=== PATIENT | male | born 1935 | race Caucasian/White ===

== ENCOUNTER 2022-08-29 13:36 | Outpatient (CLI) | payer MEDICARE, SELFPAY | END 2022-08-29 13:37 | disposition home or self-care (01) | LOC: AMB 08-30 01:43 | PROVIDERS: PCP Family Medicine; Visit Provider Family Medicine | DX: R07.89 Other chest pain (principal) | CPT/HCPCS: A0998 ==

== ENCOUNTER 2022-08-29 14:17 | Outpatient (CLI) | payer MEDICARE, SELFPAY | END 2022-08-29 14:18 | disposition home or self-care (01) | LOC: AMB 08-30 01:54 | PROVIDERS: PCP Family Medicine; Visit Provider Family Medicine | DX: R07.89 Other chest pain (principal) | CPT/HCPCS: A0425; A0427 ==

== ENCOUNTER 2022-08-29 14:37 | Emergency (ER) | payer MEDICARE, SELFPAY ==
[2022-08-29] VITALS (31 sets, daily range): BP systolic 136–192; BP diastolic 75–169; PULSE 66–96; RESP 18; TEMP 37.3; O2SAT 97–100; BMI 28.9
--- NOTE | 2022-08-29 14:52 | ED_ITS ---
HPI - Chest Pain General Time Seen by Provider: 14:52 Date Seen: 08/29/22 Chief Complaint: Chest Pain Stated Complaint: Chest Pain Time Seen by Provider: 08/29/22 14:52 Source: patient Mode of arrival: EMS Limitations: no limitations History of Present Illness HPI narrative: Patient is a very pleasant 87-year-old male with history of 2 ?many heart attacks? many years ago, who comes to the emergency room via EMS for chest pain. Patient notes that he was sitting today not particularly active when he started experiencing substernal chest pain that radiated into his shoulders and into his jaw bilaterally. He notes that this was not ?laser focus pain but rather diffuse. He states that this lasted a half an hour and he did call EMS. He declined EMS transport and they did depart. He notes that he got up to answer the door and talk to a neighbor and after this activity the chest pain return. He did call EMS once again and they brought him here to the emergency room. He is still experiencing chest discomfort that he describes as mild but it is no longer radiating into his shoulders or into his jaw. He denies shortness of breath nausea or lightheadedness. He does note that his left leg seems to be more swollen than normal. Patient recently discontinued aspirin because he is going to have a prostate biopsy in 1 week. Patient has not had a history of DVT. No recent cough cold or congestion. He denies any respiratory symptoms at this time. Denies any recent falls or trauma. Patient is retired. He lives in the [place] area. 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 Related Data Home Medications Medication Instructions Recorded Confirmed amlodipine 5 mg tablet 5 mg PO QPM 08/29/22 08/29/22 atorvastatin 80 mg tablet 80 mg PO QPM 08/29/22 08/29/22 blood sugar diagnostic (OneTouch 08/29/22 08/29/22 Verio test strips) fluocinonide 0.05 % topical 1 applic topical PRN 08/29/22 08/29/22 ointment glimepiride 2 mg tablet 2 mg PO QAM 08/29/22 08/29/22 linagliptin 5 mg tablet (Tradjenta) 5 mg PO QAM 08/29/22 08/29/22 losartan 100 mg tablet 100 mg PO DAILY 08/29/22 08/29/22 metformin 500 mg tablet,extended 500 mg PO 3XD 08/29/22 08/29/22 release 24 hr metoprolol succinate 100 mg 100 mg PO DAILY 08/29/22 08/29/22 tablet,extended release 24 hr mirabegron 25 mg tablet,extended 25 mg PO DAILY 08/29/22 08/29/22 release 24 hr (Myrbetriq) Allergies Allergy/AdvReac Type Severity Reaction Status Date / Time No Known Drug Allergies Allergy Verified 08/29/22 14:41 Review of Systems Status of ROS Reports: 10 or more systems reviewed and unremarkable except as noted in History and below Const Denies: fever, chills or fatigue Eyes Denies: change in vision or blurry vision ENMT Reports: neck pain (Resolved at this time); Denies: throat pain, throat swelling, difficulty swallowing or hoarseness Cardio Reports: chest pain and edema (Left leg); Denies: palpitations, lightheadedness or shortness of breath with exertion Resp Denies: shortness of breath GI Denies: abdominal pain, nausea, vomiting, diarrhea or difficulty swallowing Musculo Reports: neck pain (Resolved at this time) Neuro Reports: 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 EOM is full. Head is atraumatic normocephalic. Mentating and speaking normally Neck is supple with no lymphadenopathy Heart with regular rate and rhythm. 3/6 systolic murmur is noted. Lungs are clear bilaterally. Abdomen soft nontender. Lower extremity show scant peripheral edema right lower extremity which is normal for him. Left lower extremity shows 2+ edema. No calf tenderness with palpation. Moving all extremities. Const Vital Signs, click to edit/add: Vital Signs - 24 hr 08/29/22 14:41 08/29/22 14:42 08/29/22 14:43 Temperature 99.1 F Pulse Rate 95 91 Pulse Rate [Pulse Oximeter] 96 Respiratory Rate 18 Blood Pressure 181/94 H Blood Pressure [Right Upper Arm] 181/94 H Pulse Oximetry 100 100 100 Oxygen Delivery Method Room Air 08/29/22 14:44 08/29/22 15:00 08/29/22 15:02 Temperature Pulse Rate 95 90 92 Pulse Rate [Pulse Oximeter] Respiratory Rate Blood Pressure 158/96 H Blood Pressure [Right Upper Arm] Pulse Oximetry 100 100 100 Oxygen Delivery Method 08/29/22 15:30 08/29/22 16:00 08/29/22 16:03 Temperature Pulse Rate 89 86 79 Pulse Rate [Pulse Oximeter] Respiratory Rate Blood Pressure 136/91 H Blood Pressure [Right Upper Arm] Pulse Oximetry 99 99 98 Oxygen Delivery Method 08/29/22 16:30 08/29/22 16:32 08/29/22 17:00 Temperature Pulse Rate 81 77 77 Pulse Rate [Pulse Oximeter] Respiratory Rate Blood Pressure 137/104 H Blood Pressure [Right Upper Arm] Pulse Oximetry 100 100 99 Oxygen Delivery Method 08/29/22 17:02 08/29/22 17:30 08/29/22 17:31 Temperature Pulse Rate 71 72 Pulse Rate [Pulse Oximeter] Respiratory Rate Blood Pressure 139/75 155/83 H Blood Pressure [Right Upper Arm] Pulse Oximetry 97 99 Oxygen Delivery Method 08/29/22 18:03 08/29/22 18:04 08/29/22 18:30 Temperature Pulse Rate 69 69 66 Pulse Rate [Pulse Oximeter] Respiratory Rate Blood Pressure 192/90 H Blood Pressure [Right Upper Arm] Pulse Oximetry 100 99 100 Oxygen Delivery Method 08/29/22 18:32 08/29/22 18:33 Temperature Pulse Rate 70 72 Pulse Rate [Pulse Oximeter] Respiratory Rate Blood Pressure 169/90 H Blood Pressure [Right Upper Arm] Pulse Oximetry 99 98 Oxygen Delivery Method Documenting provider has reviewed patient's vital signs: yes Course Course Hospital Course: At this time in spite of reassuring EKG, patient has story that suggest angina. Initial chest pain came on at rest but returned with activity. It is now dissipating once again but still present in some substernal discomfort. Patient has no corresponding symptoms and denies shortness of breath. Will have patient on a director of cardiac rehabilitation, IV will be placed, suggest chest x-ray, CBC, comprehensive, troponin, CRP at this time. No medications at this time given dissipating symptoms. Would like to avoid aspirin if possible as I do not want to delay patient's biopsy next week. I did state that I may need to change my mind and give him aspirin and nitro if symptoms returned. Reevaluation(s) Reevaluation #1: Patient is now pain-free and has continued to be through most of the afternoon and evening. Currently awaiting ultrasound of the left lower extremity as well as repeat EKG and troponin. Given patient's symptoms I did not feel that a 90 minute rule out would be adequate. Thus we did a 4 hour rule out. Patient has had interaction with [facility] in the past. Reevaluation #2: Patient noted to have positive DVT extending above the knee. Currently waiting on radiological report. Patient noted to have a 2nd troponin which is positive 0.26. This was a point of care troponin and therefore will have a lab redraw for a troponin I. Patient denies chest pain at this time. Vital Signs Vital signs: Initial Vital Signs Respiratory Effort Normal 08/29/22 14:39 Respiratory Depth Normal 08/29/22 14:39 Respiratory Pattern Normal 08/29/22 14:39 Vital Signs Temperature 99.1 F 08/29/22 14:41 Pulse Rate 96 08/29/22 14:41 Respiratory Rate 18 08/29/22 14:41 Blood Pressure 181/94 H 08/29/22 14:41 Pulse Oximetry 100 08/29/22 14:41 Oxygen Delivery Method Room Air 08/29/22 14:41 Temperature 99.1 F 08/29/22 14:41 Pulse Rate 72 08/29/22 18:33 Respiratory Rate 18 08/29/22 14:41 Blood Pressure 169/90 H 08/29/22 18:32 Pulse Oximetry 98 08/29/22 18:33 Oxygen Delivery Method Room Air 08/29/22 14:41 MDM - Chest Pain MDM Narrative Medical decision making narrative: 1. Chest pain-still asymptomatic since approximately 1500 hours. Here in the emergency room patient noted to have an initial negative troponin but 2nd troponin 4 hours later 0.26. Certainly pain did sound anginal in nature. Patient will receive aspirin at this time. EKGs have been entirely normal and reassuring. No evidence of arrhythmia on heart monitor. Lopressor 2.5 mg IV x1. 2. DVT with PE-left lower extremity DVT noted with small PE in the right upper and lower lobes. No evidence of heart strain. I do not think PE is causing the elevation of troponin. This seems to be again more anginal rather than pleuritic in nature. Heparin 80 units per kg started followed by heparin drip. 3. Disposition-I have spoken with Dr. Cabrera, mobility manager at [facility] and they do have tele bed available. Patient will be transferred via ground ALS ambulance to [facility]. He has remained stable during this time. Medical Records Data Attestation: I reviewed the patient's medical records. Lab Data Attestation: I reviewed the patient's lab results. Labs: Lab Results 08/29/22 08/29/22 08/29/22 Range/Units 15:33 19:19 19:37 WBC 7.74 (4.50-11.00) K/uL RBC 4.79 (4.30-5.90) m/uL Hgb 14.6 (13.5-17.5) gm/dL Hct 43.7 (37.0-53.0) % MCV 91 (80-100) fL MCH 31 (26-34) pg MCHC 33 (32-36) gm/dL RDW Coeff of Susi 12.2 (11.5-15.5) % Plt Count 189 (140-440) K/uL Neut % (Auto) 74.9 H (42.0-72.0) % Lymph % (Auto) 14.2 L (20-44) % [place] % (Auto) 7.6 (0.0-11.0) % Eos % (Auto) 2.3 (0.0-7.0) % Baso % (Auto) 0.5 (0.0-3.0) % Neut # (Auto) 5.80 (1.7-7.0) K/uL Lymph # (Auto) 1.10 (0.90-2.90) K/uL [place] # (Auto) 0.60 (0.00-0.90) K/UL Eos # (Auto) 0.18 (0.00-0.50) K/uL Baso # (Auto) 0.04 (0.00-0.30) K/uL Sodium 132 L (135-149) mmol/L Potassium 3.9 (3.6-5.1) mmol/L Chloride 98 (96-114) mmol/L Carbon Dioxide 27 (20-32) mmol/L BUN 14 (7-30) mg/dL Creatinine 0.9 (0.5-1.5) mg/dL Estimated Creat Clear 61.65 Estimated GFR 83 ml/min Glucose 235 H (60-115) mg/dL Calcium 9.7 (8.4-10.6) mg/dL Total Bilirubin 0.8 (0.1-1.5) mg/dL AST 23 (12-35) U/L ALT 17 (4-50) U/L Alkaline Phosphatase 65 (40-150) U/L C-Reactive Protein < 0.5 L (0.5-1.0) mg/dL NT-Pro-B Natriuret Pep 207 pg/mL Total Protein 7.2 (6.0-8.3) g/dL Albumin 4.2 (3.3-5.0) g/dL SARS-CoV-2 (PCR) Negative SARS-CoV-2 (Negative) Influenza Type A (PCR) Negative PCR FLU A (Negative) Influenza Type B (PCR) Negative PCR FLU B (Negative) POC Troponin I 0.00 L 0.26 H (0.01-0.04) ng/ml Imaging Data Chest x-ray: Attestation: I have reviewed the pertinent imaging results. My impression: No widened mediastinum or infiltrate. Radiologist's impression: Cardiovascular and mediastinum:? Atherosclerotic drastic aorta. Normal heart size. Lungs and pleural spaces:? The lungs are clear. No pleural effusion or pneumothorax. Bones and soft tissues:? Cylindrical metallic object projecting over the left chest wall. Otherwise, unremarkable for age. IMPRESSION: No evidence of an acute pulmonary process. Cylindrical metallic object projecting over the left chest wall. Recommend clinical correlation. Venous US: Attestation: I have reviewed the pertinent imaging results. Radiologist's impression: Deep veins: Sonographic imaging demonstrates the left common femoral, and deep femoral veins to be patent. However the distal femoral, popliteal, posterior tibial and peroneal veins demonstrate filling defects compatible with thrombus. Superficial veins: Greater saphenous vein is fully compressible. No popliteal cyst. IMPRESSION: Filling defect from the left distal femoral vein extending into the popliteal vein and veins of the lower leg compatible with deep venous thrombosis. CT scan - chest: Attestation: I have reviewed the pertinent imaging results. My impression: No large PE. Radiologist's impression: Cardiovascular structures: There is a filling defect in a subsegmental pulmonary artery in the right upper lobe. Additional possible filling defect in a subsegmental pulmonary artery in the posterior medial right lower lobe. Heart size is normal. No evidence of heart strain. No sign of aneurysm or dissection in the thoracic aorta. Atherosclerotic calcifications of the aorta and coronary arteries. Mediastinum and edilson: No mass or adenopathy. Lungs: Clear. Calcified nodule in the left lower lobe. No pleural effusions. Chest wall and axilla: No mass or adenopathy. Bones: No significant findings. Upper abdomen: Unremarkable. IMPRESSION: 1. Subsegmental filling defect in the right upper lobe and possible additional subsegmental filling defect in the posterior medial right lower lobe are consistent with pulmonary emboli. No evidence of heart strain. ECG Data Attestation: I personally reviewed and interpreted this ECG as follows: Interpretation: EKG 1. By my read shows sinus rhythm with no acute ST or T-wave changes. Normal QT and AR intervals. EKG 2. By my read shows sinus rhythm with no acute ST or T-wave changes. No evidence of heart strain. Critical Care Time Critical Care Time Critical Care Time: Yes Attestation: The patient required my highest level preparedness to intervene emergently and I personally spent this critical care time directly and personally managing the patient. This critical care time included: Obtaining a history; Examining the patient; Pulse oximetry; Ordering and reviewing of studies; Arranging urgent treatment with development of a management plan; Evaluation of patients response to treatment; Frequent reassessment discussions with other providers. This critical care time was performed to assess and manage the high probability of imminent life-threatening deterioration that could result in multiorgan failure. It was exclusive of separate billable procedures and treating other patients and teaching time. Total Critical Care Time in Minutes: 45 Discharge Plan Discharge Clinical Impression: DVT (deep venous thrombosis), Elevated troponin Patient Disposition: Xfer [facility] Discharge Location: [facility] Condition: Improved Prescriptions: No Action atorvastatin 80 mg tablet 80 mg PO QPM metoprolol succinate 100 mg tablet extended release 24 hr 100 mg PO DAILY fluocinonide 0.05 % ointment 1 applic topical PRN (DME) OneTouch Verio test strips Strip MISCELLANEOUS BID amlodipine 5 mg tablet 5 mg PO QPM glimepiride 2 mg tablet 2 mg PO QAM losartan 100 mg tablet 100 mg PO DAILY metformin 500 mg tablet extended release 24 hr 500 mg PO 3XD Tradjenta 5 mg tablet 5 mg PO QAM Myrbetriq 25 mg tablet extended release 24 hr 25 mg PO DAILY Stand Alone Forms: [facility] Info Instructions
--- NOTE | 2022-08-29 15:10 | CRLHL7_ITS ---
For Patients: As a result of the Century Cures Act, medical imaging exams and procedure reports are released immediately into your electronic medical record. You may view this report before your referring provider. If you have questions, please contact your health care provider. INDICATION: Chest pain. TECHNIQUE: Chest 1 views. COMPARISON: 09/24/2015. FINDINGS: Cardiovascular and mediastinum: Atherosclerotic drastic aorta. Normal heart size. Lungs and pleural spaces: The lungs are clear. No pleural effusion or pneumothorax. Bones and soft tissues: Cylindrical metallic object projecting over the left chest wall. Otherwise, unremarkable for age. IMPRESSION: No evidence of an acute pulmonary process. Cylindrical metallic object projecting over the left chest wall. Recommend clinical correlation. Dictated by Jackson Gamble MD @ 08/29/2022 4:16:31 PM (Electronically Signed)
[2022-08-29 15:44] LABS: Basophils Absolute Auto 0.04 K/uL (0.00-0.30); Basophils Percent Auto 0.5 % (0.0-3.0); Eosinophils Absolute Auto 0.18 K/uL (0.00-0.50); Eosinophils Percent Auto 2.3 % (0.0-7.0); Hematocrit 43.7 % (37.0-53.0); Hemoglobin* 14.6 gm/dL (13.5-17.5); Immature Granulocytes Abs Auto 0.04 K/uL (0.00-0.30); Immature Granulocytes Pct Auto 0.5 %; Lymphocytes Percent Auto 14.2 % (20-44); Mean Corpuscular HGB Conc 33 gm/dL (32-36); Mean Corpuscular Hemoglobin 31 pg (26-34); Mean Corpuscular Volume 91 fL (80-100); Monocytes Percent Auto 7.6 % (0.0-11.0); Neutrophils Percent Auto 74.9 % (42.0-72.0); Platelet Count* 189 K/uL (140-440); RDW Coefficient of Variation % 12.2 % (11.5-15.5); Red Blood Count 4.79 m/uL (4.30-5.90); White Blood Count* 7.74 K/uL (4.50-11.00)
[2022-08-29 15:49] LABS: Slide Review Reflex No
[2022-08-29 15:58] LABS: Albumin* 4.2 g/dL (3.3-5.0); Chloride* 98 mmol/L (96-114); Sodium* 132 mmol/L (135-149)
[2022-08-29 15:59] LABS: Potassium* 3.9 mmol/L (3.6-5.1)
[2022-08-29 16:01] LABS: Creatinine* 0.9 mg/dL (0.5-1.5); Est. Creatinine Clearance* 61.65; Estimated Glomerular Filt Rate 83 ml/min
[2022-08-29 16:02] LABS: Alanine Aminotransferase* 17 U/L (4-50); Alkaline Phosphatase* 65 U/L (40-150); Aspartate Amino Transferase* 23 U/L (12-35); Bilirubin Total* 0.8 mg/dL (0.1-1.5); Blood Urea Nitrogen* 14 mg/dL (7-30); Calcium* 9.7 mg/dL (8.4-10.6); Carbon Dioxide* 27 mmol/L (20-32); Glucose* 235 mg/dL (60-115); Total Protein* 7.2 g/dL (6.0-8.3)
[2022-08-29 16:05] LABS: C Reactive Protein* < 0.5 mg/dL (0.5-1.0)
[2022-08-29 16:16] LABS: NT Pro B Type NatriureticPept* 207 pg/mL
--- NOTE | 2022-08-29 18:51 | CRLHL7_ITS ---
For Patients: As a result of the Century Cures Act, medical imaging exams and procedure reports are released immediately into your electronic medical record. You may view this report before your referring provider. If you have questions, please contact your health care provider. INDICATION: Leg pain and swelling. TECHNIQUE: Ultrasound venous duplex lower left extremity. Compression venous exam was performed using garner-scale, color Doppler, and spectral Doppler analysis. COMPARISON: None. FINDINGS: Deep veins: Sonographic imaging demonstrates the left common femoral, and deep femoral veins to be patent. However the distal femoral, popliteal, posterior tibial and peroneal veins demonstrate filling defects compatible with thrombus. Superficial veins: Greater saphenous vein is fully compressible. No popliteal cyst. IMPRESSION: Filling defect from the left distal femoral vein extending into the popliteal vein and veins of the lower leg compatible with deep venous thrombosis. Findings discussed with Dr. Hayde Corado at 8:50 p.m. on 08/29/2022. Dictated by Don Landaverde MD @ 08/29/2022 8:53:40 PM (Electronically Signed)
[2022-08-29 19:33] LABS: Troponin, Point-of-Care* 0.26 ng/ml (0.01-0.04)
--- NOTE | 2022-08-29 19:42 | CRLHL7_ITS ---
For Patients: As a result of the Century Cures Act, medical imaging exams and procedure reports are released immediately into your electronic medical record. You may view this report before your referring provider. If you have questions, please contact your health care provider. INDICATION: Chest pain. Positive DVT TECHNIQUE: CT chest pulmonary angiogram acquired with IV contrast. COMPARISON: None FINDINGS: Cardiovascular structures: There is a filling defect in a subsegmental pulmonary artery in the right upper lobe. Additional possible filling defect in a subsegmental pulmonary artery in the posterior medial right lower lobe. Heart size is normal. No evidence of heart strain. No sign of aneurysm or dissection in the thoracic aorta. Atherosclerotic calcifications of the aorta and coronary arteries. Mediastinum and edilson: No mass or adenopathy. Lungs: Clear. Calcified nodule in the left lower lobe. No pleural effusions. Chest wall and axilla: No mass or adenopathy. Bones: No significant findings. Upper abdomen: Unremarkable. IMPRESSION: 1. Subsegmental filling defect in the right upper lobe and possible additional subsegmental filling defect in the posterior medial right lower lobe are consistent with pulmonary emboli. No evidence of heart strain. Findings were discussed with Hayde garcia at 8:50 p.m. on 08/29/2022. Please note that all CT scans at this facility use dose modulation, iterative reconstruction, and/or weight-based dosing when appropriate to reduce radiation dose to as low as reasonably achievable. Dictated by Don Landaverde MD @ 08/29/2022 9:00:32 PM (Electronically Signed)
[2022-08-29] MEDS: HEPARIN 5,000 UNIT/0.5 ML INJ 8200 UNIT IVP (20:13)
[2022-08-29] MEDS: HEPARIN 25,000 UNIT/500 ML BAG 30 UNIT IV (20:13)
[2022-08-29 20:16] LABS: PCR FLU A Negative PCR FLU A (Negative); PCR FLU B Negative PCR FLU B (Negative)
[2022-08-29 20:18] LABS: SARS PCR* Negative SARS-CoV-2 (Negative)
[2022-08-29] MEDS: METOPROLOL TARTRATE 1 MG/ML inj 2.5 MG IVP (21:05)
[2022-08-29] MEDS: ASPIRIN 81 MG TAB.CHEW 324 MG PO (21:05)
--- NOTE | 2022-08-29 21:29 | ED.NURSE ---
Pt accepted by Dr. Cabrera at [facility] (Room H4092). Report given to HAMIDA Ayon ([phone]). Dispatch called and EMS transporting pt. [place] updated of pt's ETA.
== END 2022-08-29 21:29 | disposition short-term general hospital (02) ==
PROVIDERS: Emergency Provider Family Medicine; PCP Family Medicine
DX: I82.402 Acute embolism and thrombosis of unspecified deep veins of left lower extremity (principal)
CPT/HCPCS: 36415; 71045; 71260; 80053; 83880; 84484; 85025; 86140; 87631; 93005; 93971; 96374; 99285; 99291; A9270; J1644; Q9967

== ENCOUNTER 2022-08-29 21:05 | Outpatient (CLI) | payer MEDICARE, SELFPAY | END 2022-08-29 21:06 | disposition home or self-care (01) | PROVIDERS: PCP Family Medicine; Visit Provider Internal Medicine | DX: I26.99 Other pulmonary embolism without acute cor pulmonale (principal); I82.4Y2 Acute embolism and thrombosis of unspecified deep veins of left proximal lower extremity; R77.8 Other specified abnormalities of plasma proteins | CPT/HCPCS: A0425; A0434 ==

== ENCOUNTER 2022-11-02 05:55 | Outpatient (CLI) | payer MEDICARE, SELFPAY | END 2022-11-02 05:56 | disposition home or self-care (01) | LOC: AMB 11-07 14:54 | PROVIDERS: PCP Student in an Organized Health Care Education/Training Program; Visit Provider Family Medicine | DX: R11.0 Nausea (principal); S01.01XA Laceration without foreign body of scalp, initial encounter; W18.30XA Fall on same level, unspecified, initial encounter; Y92.002 Bathroom of unspecified non-institutional (private) residence as the place of occurrence of the external cause | CPT/HCPCS: A0425; A0427 ==

== ENCOUNTER 2023-06-19 17:28 | Outpatient (CLI) | payer MEDICARE, SELFPAY ==
--- OUTSIDE RECORDS SUMMARY | 2023-06-22 04:49 | XMS_ITS | Encounter Summary ---
Author Name Unknown Organization [facility] Address [address] [place] [address] Care Team Providers Care Personal Lines Agent Name Role Phone Red Gamboa M.D. [facility] Reason for Visit * Reason Comments Med Refill Encounter Details Date Type Department Care Team (Late st Contact Info) Description 09/10/2022 Refill Department of Family Medicine, [facility], in [place], [place] [address] [place] [address] Red Gamboa M.B.B.S., Kathy [address] [place] [address] Med Refill Social History Tobacco [...] Total Score: 0 06/24/19 19 10:47 AM COLLARETTE SEPARATOR documented as of this encounter Care Teams Personal Lines Agent Relationship Specialty Start Date End Date Red Gamboa M.B.B.S., [place]. [address] [place] [address] [place] [phone] PCP - General Family Medicine 01/13/20 documented as of this encounter
--- OUTSIDE RECORDS SUMMARY | 2023-06-22 04:49 | XMS_ITS | Encounter Summary ---
Author Name Unknown Organization [facility] Address [address] [place] [address] Care Team Providers Care Crochet Beader Name Role Phone Red Gamboa M.D. Primary Care P crystal Reason for Visit * Reason Onset Date Comments Follow-up 08/25/2022 Encounter Details Date Type Department Care Team (Late st Contact Info) Description 08/25/2022 Clinical Communication Department of Family Medicine, [facility], in [place] [address] [place] [phone] Shanique Quinteros, RJocelynN. Follow-up Social History Tobacco [...] / REASON FOR CALL Follow-up Information Discussed Demand Generation Manager called the patient to notify him that [...] Total Score: 0 06/24/19 19 10:47 AM LIGHTER CAPTAIN documented as of this encounter Care Teams Crochet Beader Relationship Specialty Start Date End Date Red Gamboa M.B.B.S., M.D. [address] [place] [phone] PCP - General Family Medicine 01/13/20 documented as of this encounter
--- OUTSIDE RECORDS SUMMARY | 2023-06-22 04:49 | XMS_ITS | Encounter Summary ---
Author Name Unknown Organization [facility] Address [address] [place] [address] Care Team Providers Care Trial Judge Name Role Phone Red Gamboa M.D. [facility] Reason for Visit * Reason Comments Med Refill Encounter Details Date Type Department Care Team (Late st Contact Info) Description 08/26/2022 Refill Department of Family Medicine, [facility], in [place], [place] [address] [place] [address] Red Gamboa M.B.B.S., Kathy [address] [place] [address] Med Refill Social History Tobacco [...] Total Score: 0 06/24/19 19 10:47 AM VICE PRESIDENT [employer]CIAL [employer] documented as of this encounter Care Teams Trial Judge Relationship Specialty Start Date End Date Red Gamboa M.B.B.S., [place]. [address] [place] [address] [place] [phone] PCP - General Family Medicine 01/13/20 documented as of this encounter
--- OUTSIDE RECORDS SUMMARY | 2023-06-22 04:49 | XMS_ITS | Encounter Summary ---
Author Name Unknown Organization [facility] Address [address] [place] [address] Care Team Providers Care Airfreight Loading Supervisor Name Role Phone Red Gamboa M.D. Primary Care P crystal Reason for Visit * Reason Comments Follow-up Review labs * Appointment Request (Routine) - Closed Specialty Diagnoses / Procedures Referred By Alva lin Referred To Contact Family Medicine Referral ID Status Reason Start Date Expiration Date Visits Re quested Visits Authorized [id number] Closed 08/14/2022 08/14/2023 1 1 Encounter Details Date Type Department Care Team (Late st Contact Info) Description 08/25/2022 3:45 PM CDT Office Visit Department of Family Medicine, [facility], in [place], [place] [address] [place] [address] Red Gamboa M.B.B.S., MLexa [address] [place] [address] Diabetes Mellitus Type 2 With [...] Red Schwartz M.D. 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 [address] [place] [phone] PCP - General Family Medicine 01/13/20 documented as of this encounter
--- OUTSIDE RECORDS SUMMARY | 2023-06-22 04:49 | XMS_ITS ---
Author Name Unknown Organization [facility] Address [address] [place] [address] Care Team Providers Care Custom Home Installer Name Role Phone Unavailable Unavailable Unavailable Surgery Details Not on file Complications Check Surgery Details section. Procedure Estimated Blood Loss Check Surgery Details section. Procedure Findings Check Surgery Details section. Procedure Specimens Taken Check Surgery Details section.
--- OUTSIDE RECORDS SUMMARY | 2023-06-22 04:49 | XMS_ITS | Encounter Summary ---
Author Name Unknown Organization [facility] Address [address] [place] [address] Care Team Providers Care Branch Service Specialist Name Role Phone Red Gamboa M.D. [facility] Reason for Visit * Reason Comments Med Refill Encounter Details Date Type Department Care Team (Late st Contact Info) Description 10/06/2022 Refill Department of Family Medicine, [facility], in [place], [place] [address] [place] [address] Red Gamboa M.B.B.S., Kathy [address] [place] [address] Med Refill Social History Tobacco [...] Total Score: 0 06/24/19 19 10:47 AM JORDAN WORKER documented as of this encounter Care Teams Branch Service Specialist Relationship Specialty Start Date End Date Red Gamboa M.B.B.S., [place]. [address] [place] [address] [place] [phone] PCP - General Family Medicine 01/13/20 documented as of this encounter
--- OUTSIDE RECORDS SUMMARY | 2023-06-22 04:49 | XMS_ITS | Encounter Summary ---
Author Name Unknown Organization [facility] Address [address] [place] [address] Care Team Providers Care Clinical Research Management Associate Name Role Phone Red Gamboa M.D. Primary Care [facility] Encounter Details Date Type Department Care Team (Latest Contact Info) Description 08/26/2022 1:13 PM CDT Hospital Encounter Department of Laboratory Medicine in [address] [phone] Red Gamboa M.B.B.S., MLexa [address] [place] [phone] Diabetes Mellitus Type 2 With Diabetic [...] EVERY MORNING. 90 tablet 3 12/02/2021 vitamins A,C,A-corb-ojsugf (for_PRESERVISION AREDS) 7,160 Units-113 mg-100 Units per [...] 4:53 PM CDT OWAT Comment:If clinically indica ahrman, contact the lab for additional testing. Creatinine [...] Red Schwartz M.D. LAB URI NE ORDERABLES [facility] [address] [place] [address], [facility] OWAT [facility] in [place] [address] [place] [address] documented in this encounter Visit Diagnoses Diagnosis Diabetes Mellitus Type 2 With Diabetic Nephropathy (HCC) documented in this encounter Additional Health Concerns Assessment Noted Time PHQ-9 Depression Total Score: 0 06/24/19 19 10:47 AM DRYWALL FOREMAN documented as of this encounter Care Teams Clinical Research Management Associate Relationship Specialty Start Date End Date Red Gamboa M.B.B.S., M.D. [address] [place] [phone] PCP - General Family Medicine 01/13/20 documented as of this encounter
--- OUTSIDE RECORDS SUMMARY | 2023-06-22 04:49 | XMS_ITS | Clinical Summary ---
Author Name Unknown Organization [facility] Address [address] [place] [address] Care Team Providers Care Security Sergeant Name Role Phone Red Gamboa M.D. Primary Care Kiran rojas Source Comments Patient records contain information from all sites at [facility]. For routine questions regarding patient records, call [phone] during business hours, M-F 8:00 AM - 5:00 PM Central Time. Record requests for emergency care only can be directed to [phone] at any time.[facility] Allergies No known active allergies Medications Medication Sig Dispensed Refills Start Date End Date Status calcium carbonate (TUMS ULTRA) 1000 mg (400 mg calcium) chewable tablet Chew 2 tablets at bedtime. 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 See document viewer. Care Teams Security Sergeant Relationship Specialty Start Date End Date Red Gamboa M.B.B.S., M.Dejuan. [address] [place] [address] [place] [phone] PCP - General Family Medicine 01/13/20
--- OUTSIDE RECORDS SUMMARY | 2023-06-22 04:49 | XMS_ITS | Encounter Summary ---
Author Name Unknown Organization [facility] Address [address] [place] [address] Care Team Providers Care Spray Gun Repairer Name Role Phone Red Gamboa M.D. [facility] Encounter Details Date Type Department Care Team (Late st Contact Info) Description 01/07/2023 Orders Only [facility] PCP [facility] Red Gamboa M.B.B.S., MLexa [address] [place] [phone] Diabetes Mellitus Type 2 With Diabetic Neuropathy [...] Total Score: 0 06/24/19 19 10:47 AM GRINDER OPERATOR EXTERNAL TOOL documented as of this encounter Care Teams Spray Gun Repairer Relationship Specialty Start Date End Date Red Gamboa M.B.B.S., M.D. [address] [place] [phone] PCP - General Family Medicine 01/13/20 documented as of this encounter
--- OUTSIDE RECORDS SUMMARY | 2023-06-22 04:49 | XMS_ITS | Encounter Summary ---
Author Name Unknown Organization [facility] Address [address] [place] [address] Care Team Providers Care Straw Hat Plunger Operator Name Role Phone Red Gamboa M.D. [facility] Encounter Details Date Type Department Care Team (Late st Contact Info) Description 08/14/2022 Clinical Communication Department of Family Medicine, [facility], in [place], [place] [address] [place] [address] Red Gamboa M.B.B.S., MLexa [address] [place] [address] Social History Tobacco Use Types [...] Said he hasn't been seen in awhile. SPORTATION ENGINEER documented in this encounter Plan of Treatment Not on file documented as of this encounter Visit Diagnoses Not on filedocumented in this encounter Additional Health Concerns Assessment Noted Time PHQ-9 Depression Total Score: 0 06/24/19 19 10:47 AM TRANSPORTATION ENGINEER documented as of this encounter Care Teams Straw Hat Plunger Operator Relationship Specialty Start Date End Date Red Gamboa M.B.B.S., M.D. [address] [place] [phone] PCP - General Family Medicine 01/13/20 documented as of this encounter
--- OUTSIDE RECORDS SUMMARY | 2023-06-22 04:49 | XMS_ITS | Encounter Summary ---
Author Name Unknown Organization [facility] Address [address] [place] [address] Care Team Providers Care Child And Family Counselor Name Role Phone Red Gamboa M.D. [facility] Reason for Referral * Outpatient (Routine) - Authorized Specialty Diagnoses / Procedures Referred By Contopal lin Referred To Contact Diagnoses Cerumen Impacted Bilateral Red Gamboa M.B.B.S., M.D. [address] [place] [phone] [facility] Referral ID Status Reason Start Date Expiration Date V isits Requested Visits Authorized [id number] Authorized 08/20/2022 08/19/2025 1 1 Reason for Visit * Reason Comments Nurse Visit Ear flush bilateral * Appointment Request (Routine) - Authorized Specialty Diagnoses / Procedures Referred By Contac t Referred To Contact Nursing Services Referral ID Status Reason Start Date Expiration Date V isits Requested Visits Authorized [id number] Authorized 08/19/2022 08/19/2023 1 Encounter Details Date Type Department Care Team (Late st Contact Info) Description 08/20/2022 3:30 PM CDT Nurse Only Department of Family Medicine, [facility], in [place], [place] [address] [place] [address] Mayra Lechuga L.P.N. [address] [place] [phone] Nurse Visit (Ear flush bilateral/) Social History [...] as of this encounter Procedure Notes * aMyra Lechuga L.P.N. - 08/20/2022 3:30 PM CDT [...] Schedule Primary Care nurse visit (clinic) - [facility] Region; Ear wash; Bilateral Outpatient Referral Routine Cerumen Impacted Bilateral Ordered: 08/20/2022 documented as of this encounter Visit Diagnoses Diagnosis Cerumen Impacted Bilateral- Primary documented in this encounter Additional Health Concerns Assessment Noted Time PHQ-9 Depression Total Score: 0 06/24/19 10:47 AM HOSPICE PATIENT CARE SECRETARY documented as of this encounter Care Teams Child And Family Counselor Relationship Specialty Start Date End Date Red Gamboa M.B.B.S., M.D. [address] [place] [address] [place] [phone] PCP - General Family Medicine 01/13/20 documented as of this encounter
--- OUTSIDE RECORDS SUMMARY | 2023-06-22 04:49 | XMS_ITS | Encounter Summary ---
Author Name Unknown Organization [facility] Address [address] [place] [address] Care Team Providers Care Teacher [employer] Name Role Phone Red Gamboa M.D. Primary Care P crystal Reason for Visit * Reason Comments Med Refill Encounter Details Date Type Department Care Team (Late st Contact Info) Description 10/27/2022 Refill Department of Family Medicine, [facility], in [place], [place] [address] [place] [address] Red Gamboa M.B.B.S., Kathy [address] [place] [address] Med Refill Social History Tobacco [...] Total Score: 0 06/24/19 19 10:47 AM FIRE MANAGEMENT OFFICER documented as of this encounter Care Teams Teacher [employer] Relationship Specialty Start Date End Date Red Gamboa M.B.B.S., M.D. [address] [place] [phone] PCP - General Family Medicine 01/13/20 documented as of this encounter
--- OUTSIDE RECORDS SUMMARY | 2023-06-22 04:49 | XMS_ITS | Clinical Summary ---
Author Name Unknown Organization [facility] Address [place], [place] [address] Care Team Providers Care Concrete Finishing Machine Operator Name Role Phone Alexandra Castelan DO Primary Care Provider [phone] Allergies No known active allergies Medications Medication [...] be used to read blood sugars per blade groover's directions. 1 Each 0 3 Active FreeStyle [...] Without CHF Atherosclerotic heart diseas e of [place] coronary artery without angina pectoris 02/07/2016 08/29/2022 [...] Encounters Date Type Department Care Team Description 06/20/2023 Nurse Triage [address] [address] Alexandra Castelan, Confusion 06/15/2023 Refill [facility] [address] [place] [address] Alexandra Castelan, DO Refill Request (Myrbetriq) 06/03/2023 Telephone [facility] [address] [place] [address] Alexandra Castelan, DO Medication Management 06/03/2023 Refill [facility] [address] [place] [address] Alexandra Castelan, DO Refill Request (Myrbetriq) 06/03/[address] [phone] Kendell Moss MD Refill Request (Eliquis) 05/05/2023 Refill [facility] [address] [place] [address] Alexandra Castelan, DO Refill Request (Metformin, Jardiance) 05/04/[address] [address] Alexandra Castelan DO Refill Request (Ketoconazole 2% Shampoo) 04/29/2023 Orders Only [facility] Scanner 1 scan: (1-Ord) INCOMING RECORDS-DIABETIC EYE, [facility], 04/29/2023 04/21/2023 Telephone [facility] [address] [place] [address] Jeannine Avilse MD Lab; Appointment 04/02/2023 3:20 PM CDT Office Visit [facility] [address] [place] [address] Alexandra Castelan DO Follow Up 04/02/2023 Travel 03/26/2023 Telephone [facility] [address] [place] [address] Jeannine Aviles MD Questions (About body scans ) 03/23/2023 11:37 AM CDT - 03/23/2023 11:59 PM CDT Hospital Encounter [facility] [address] [place] [address] Jeannine Aviles MD Elevated PSA 03/23/2023 Travel from Last 3 Months Immunizations Name Administration Dates Next Due COVID-19 Vaccine Spikevax (M oderna 50mcg/0.5mL) 12YO+ [id number] Formula PF 04/02/2023 COVID-19 vaccine (Pfizer-Bio NTech [...] Description 11/12/2023 4:20 PM CDT Orders Only [address] [phone] Lab, [facility] 11/19/2023 1:45 PM CDT Office Visit [facility] [address] [place] [address] Jeannine Aviles MD [address] [place] [address] Health Maintenance Due Date Last Done Comments [...] Additional history exists COVID-19 vaccine series Completed 10, 04/07/2022, 10/22/2021, Additional history exists Procedures Procedure Name Priority Date/Time Associated Diagnosis Comments SCAN-EYE EXAM 04/29/2023 12:00 AM CLINICAL DOCUMENTATION SPECIALIST NM BONE SCAN WHOLE BODY Routine 03/23/2023 3:50 PM CDT Elevated PSA from Last 3 Months Results * SCAN-EYE EXAM (04/29/2023 12:00 AM CLINICAL DOCUMENTATION SPECIALIST) Scanner OTHER * NM BONE SCAN WHOLE BODY (03/23/2023 3:50 PM CDT) Anatomical Region Laterality Modality SKELETON Other Impressions 03/26/2023 10:33 AM CDT No convincing scintigraphic evidence for skeletal metastatic disease. Dictated by Gonsalo Morse MD @ 03/25/2023 4:00:35 PM Signed by: Gonsalo Morse MD @03/25/2023 4:00:35 PM Narrative 03/26/2023 10:33 AM CDT For Patients: As a result of the Century Cures Act, medical imaging exams and procedure [...] The kidneys are present without obstruction. Jeannine Aviles MD [place] from Last 3 Months Advance Directives Latest [...] 11:28 PM 05/08/2015 2:10 PM Care Teams Concrete Finishing Machine Operator Relationship Specialty Start Date End Date Alexandra Castelan DO [address] [place] [address] PCP - General Family Practice 10/29/22
--- OUTSIDE RECORDS SUMMARY | 2023-06-22 04:49 | XMS_ITS | Encounter Summary ---
Author Name Unknown Organization [facility] Address [address] [place] [address] Care Team Providers Care Repertoire Manager Name Role Phone Red Gamboa M.D. Primary Care P [facility] Encounter Details Date Type Department Care Team (Late st Contact Info) Description 10/22/2022 Orders Only [facility] MNT Red Gamboa M.B.B.S., MLex[place] [address] [place] [phone] Social History Tobacco Use Types Packs/Day Years [...] Total Score: 0 06/24/19 19 10:47 AM TECHNICAL TRAINING COORDINATOR documented as of this encounter Care Teams Repertoire Manager Relationship Specialty Start Date End Date Red Gamboa M.B.B.S., M.D. [address] [place] [address] [place] [phone] PCP - General Family Medicine 01/13/20 documented as of this encounter
--- OUTSIDE RECORDS SUMMARY | 2023-06-22 04:49 | XMS_ITS | Encounter Summary ---
Author Name Unknown Organization [facility] Address [address] [place] [address] Care Team Providers Care Mold Making Plastics Sheets Supervisor Name Role Phone Red Gamboa M.D. Primary Care [facility] Encounter Details Date Type Department Care Team (Latest Contact Info) Description 08/26/2022 1:14 PM CDT - 08/26/2022 11:59 PM CDT Hospital Encounter Department of Laboratory Medicine in [place], [place] [address] [place] [address] Red Gamboa M.B.B.S., Kathy [address] [place] [address] Diabetes Mellitus Type 2 With [...] chest pain persist. 25 tablet 11 10/19/2020 [employer] Verio test strips stripsIndications:Diab etes Mellitus Type 2 With Diabetic Nephropathy (HCC) TEST TWICE DAILY 200 strip 3 02/14/2022 Tradjenta 5 mg tablet TAKE 1 TABLET (5 MG TOTAL) BY MOUTH EVERY MORNING. 90 tablet 3 12/02/2021 vitamins A,C,Y-nqai-uklwmy (for_PRESERVISION AREDS) 7,160 Units-113 mg-100 Units per [...] LAB BLO OD ADD-ON Performing Organization Address [facility] Co de Phone Number [facility] [address] [place] [address], [place] [facility] [facility] [place] [address], [place] [address] * (ABNORMAL) Hemoglobin A1c (08/26/2022 1:36 PM [...] LAB BLO OD ADD-ON Performing Organization Address [facility] Co de Phone Number [facility] [address] [place] [address], [place] [facility] [place] [address], [place] [address] documented in this encounter Visit Diagnoses Diagnosis 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 [place]. [address] [place] [phone] PCP - General Family Medicine 01/13/20 documented as of this encounter
--- OUTSIDE RECORDS SUMMARY | 2023-06-22 04:49 | XMS_ITS | Referral Summary ---
Author Name Unknown Organization [facility] Address [address] [place] [address] Care Team Providers Care Closed Circuit Screen Watcher Name Role Phone Red Gamboa M.D. Primary Care P crystal Source Comments Patient records contain information from all sites at [facility]. For routine questions regarding patient records, call [phone] during business hours, M-F 8:00 AM - 5:00 PM Central Time. Record requests for emergency care only can be directed to [phone] at any time.[facility] Encounters Date Type Department Care Team Description 04/14/2023 Orders Only [facility] PCP [facility] MNT Red Gamboa M.B.B.S., Kathy from Last 3 Months Allergies No known active allergies Medications Medication Sig Dispensed Refills Start Date End Date Status calcium carbonate (TUMS ULTRA) 1000 mg (400 mg calcium) chewable tablet Chew 2 tablets at bedtime. 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 See document viewer. Care Teams Closed Circuit Screen Watcher Relationship Specialty Start Date End Date Red Gamboa M.B.B.S., M.D. [address] [place] [phone] PCP - General Family Medicine 01/13/20
--- OUTSIDE RECORDS SUMMARY | 2023-06-22 04:49 | XMS_ITS | Encounter Summary ---
Author Name Unknown Organization [facility] Address [address] [place] [address] Care Team Providers Care Electric Installer Name Role Phone Red Gamboa M.D. Primary Care P crystal Reason for Referral * Outpatient (Routine) - Authorized Specialty Diagnoses / Procedures Referred By Alva t Referred To Contact Family Medicine Red Gamboa M.B.B.S., M.D. [address] [place] [address] [facility] Region Referral ID Status Reason Start Date Expiration Date V isits Requested Visits Authorized [id number] Authorized 04/14/2023 04/13/2026 1 1 Scheduling Instructions Medicare annual provider visit/HCC gaps Do not schedule prior to due date to ensure insurance coverage Visit: Medicare Annual Wellness Never done. EOGRAPHY DIRECTOR Encounter Details Date Type Department Care Team (Late st Contact Info) Description 04/14/2023 Orders Only [facility] PCP [facility] MNT Red Gamboa M.B.B.S., M.D. [address] [place] [address] Social History Tobacco Use Types [...] Total Score: 0 06/24/19 19 10:47 AM CHOREOGRAPHY DIRECTOR documented as of this encounter Care Teams Electric Installer Relationship Specialty Start Date End Date Red Gamboa M.B.BJocelynSJocelyn, [place]ando. [address] [place] [phone] PCP - General Family Medicine 01/13/20 documented as of this encounter
--- OUTSIDE RECORDS SUMMARY | 2023-06-22 04:50 | XMS_ITS | Encounter Summary ---
Author Name Unknown Organization [facility] Address [address] [place] [address] Care Team Providers Care Box Lining Machine Feeder Name Role Phone Red Gamboa M.D. Primary Care P [facility] Reason for Visit * Reason Comments Med Refill Encounter Details Date Type Department Care Team (Late st Contact Info) Description 08/05/2022 Refill [facility] in [place], [place] [address] [place] [address] Red Gamboa M.B.B.S., Kathy [address] [place] [address] Med Refill Social History Tobacco [...] Total Score: 0 06/24/19 19 10:47 AM MILLINERY DEPARTMENT MANAGER documented as of this encounter Care Teams Box Lining Machine Feeder Relationship Specialty Start Date End Date Red Gamboa M.B.B.S., [place]. [address] [place] [address] [place] [address] PCP - General Family Medicine 01/13/20 documented as of this encounter
--- OUTSIDE RECORDS SUMMARY | 2023-06-22 04:50 | XMS_ITS | Clinical Summary ---
Author Name Unknown Organization [facility] Address [address] [address] Phone Care Team Providers Care Knocker Out Name Role Phone Unavailable Primary Care Provider [...]
== END 2023-06-19 17:29 | disposition home or self-care (01) ==
LOC: AMB 06-22 04:46
PROVIDERS: PCP Student in an Organized Health Care Education/Training Program; Visit Provider Family Medicine
DX: R41.82 Altered mental status, unspecified (principal)
CPT/HCPCS: A0425; A0427

== ENCOUNTER 2023-06-19 18:04 | Emergency (ER) | payer MEDICARE, SELFPAY ==
--- NOTE | 2023-06-19 18:09 | ED_ITS ---
HPI - General Adult General Time Seen by Provider: 18:09 Date Seen: 06/19/23 Chief complaint: Unspecified Complaint, Adult Stated complaint: Confusion Time Seen by Provider: 06/19/23 18:08 Source: patient, EMS, RN notes reviewed and old records reviewed Mode of arrival: EMS Limitations: no limitations History of Present Illness HPI narrative: 87-year-old male with history of hypertension, diabetes who presents today with confusion. Apparently he accidentally called a neighbor tonight and per their report sound little confused. EMS was called. Patient has no complaints at this time. Patient reports he has felt off all day, generally weak. He denies headache, chest pain, breathing difficulty, nausea, vomiting, diarrhea, dysuria, fever, chills. Denies falls or head injury. Related Data Home Medications Medication Instructions Recorded Confirmed amlodipine 5 mg tablet 5 mg PO QPM 08/29/22 08/29/22 atorvastatin 80 mg tablet 80 mg PO QPM 08/29/22 08/29/22 blood sugar diagnostic (OneTouch 08/29/22 08/29/22 Verio test strips) fluocinonide 0.05 % topical 1 applic topical PRN 08/29/22 08/29/22 ointment glimepiride 2 mg tablet 2 mg PO QAM 08/29/22 08/29/22 linagliptin 5 mg tablet (Tradjenta) 5 mg PO QAM 08/29/22 08/29/22 losartan 100 mg tablet 100 mg PO DAILY 08/29/22 08/29/22 metformin 500 mg tablet,extended 500 mg PO 3XD 08/29/22 08/29/22 release 24 hr metoprolol succinate 100 mg 100 mg PO DAILY 08/29/22 08/29/22 tablet,extended release 24 hr mirabegron 25 mg tablet,extended 25 mg PO DAILY 08/29/22 08/29/22 release 24 hr (Myrbetriq) Previous Rx's Medication Instructions Recorded meclizine 25 mg tablet 25 mg PO TID #15 tabs 11/02/22 ondansetron HCl 4 mg tablet 4 mg PO Q4H PRN nausea and 11/02/22 vomiting #12 tabs Allergies Allergy/AdvReac Type Severity Reaction Status Date / Time No Known Drug Allergies Allergy Verified 08/29/22 14:41 PFSH PFSH Social History Smoking Status: Never smoker Do you use any of these nicotine containing products: None Second hand tobacco smoke exposure: No How often do you have a drink containing alcohol: never How often do you have six or more drinks on one occasion: Never AUDIT-C Alcohol total score: 0 Non-prescribed substance use: denies use service: No Exam Narrative: Exam Narrative: General: Well-developed and well-nourished, no acute distress Head: Atraumatic and normocephalic Eyes: Pupils are equal reactive, extraocular motions intact, conjunctiva clear ENT: External nose and ears are normal, posterior pharynx without erythema or exudate Neck: No midline cervical tenderness, full spontaneous range of motion the neck, trachea midline, no adenopathy Heart: Regular rate and rhythm , 3 of 6 systolic murmur Lungs: Clear to auscultation bilaterally without wheezes or crackles Abdomen: Soft, nontender, nondistended with active bowel sounds Musculoskeletal: No tenderness, deformity, or edema Neurologic: Awake, alert, and oriented x3, no gross focal neurologic deficits, cranial nerves intact as tested Psych: Mood and affect are appropriate Skin: No rashes Const: Vital Signs, click to edit/add: Vital Signs - 24 hr 06/19/23 18:11 Temperature 97.8 F Pulse Rate [Pulse Oximeter] 62 Respiratory Rate 18 Blood Pressure [Le ft Upper Arm] 154/87 H Pulse Oximetry 100 Oxygen Delivery Me thod Room Air Course Course ED Course: Patient seen examined, prior records are reviewed. Patient presents today with generalized weakness all day today although says he is feeling better night. Also says he has ?confused? which he describes as occasional word-finding problems although he has this intermittently. On exam here, speech is fluent, n o focal neurologic deficits. Heart regular with a slight murmur which patient says is chronic, lungs are clear, abdomen nontender. No focal neurologic deficits in patient ambulated to the bathroom with his walker without difficulty. Labs and urinalysis are ordered, anticipate discharge. Reevaluation(s) Time of Reevaluation #1: 19:44 Reevaluation #1: Labs ordered and independently interpreted by me with reassuring CBC, urinalysis with 2+ glucose but no evidence for infection, troponin negative, EKG reassuring. Basic panel reassuring. Patient able to ambulate the department thought difficulty, seems to be back to his baseline mentation and stable for discharge. Vital Signs Vital signs: Initial Vital Signs Temperature 97.8 F 06/19/23 18:11 Temperature Source Temporal Artery Scan 06/19/23 18:11 Pulse Rate 62 06/19/23 18:11 Respiratory Rate 18 06/19/23 18:11 Blood Pressure 154/87 H 06/19/23 18:11 Blood Pressure Mean 109 H 06/19/23 18:11 Pulse Oximetry 100 06/19/23 18:11 Oxygen Delivery Method Room Air 06/19/23 18:11 Vital Signs Temperature 97.8 F 06/19/23 18:11 Pulse Rate 62 06/19/23 18:11 Respiratory Rate 18 06/19/23 18:11 Blood Pressure 154/87 H 06/19/23 18:11 Pulse Oximetry 100 06/19/23 18:11 Oxygen Delivery Method Room Air 06/19/23 18:11 Temperature 97.8 F 06/19/23 18:11 Pulse Rate 62 06/19/23 18:11 Respiratory Rate 18 06/19/23 18:11 Blood Pressure 154/87 H 06/19/23 18:11 Pulse Oximetry 100 06/19/23 18:11 Oxygen Delivery Method Room Air 06/19/23 18:11 Medications Administered Medications: Discontinued Medications Generic Name Dose Route Start Last Admin Trade Name Freq PRN Reason Stop Dose Admin Sodium Chloride 500 mls @ 500 mls/hr 06/19/23 18:31 06/19/23 20:02 0.9 % Sodium Chloride 500 Ml IV 06/19/23 19:30 Infused .Q1H ONE Infusion Medical Decision Making Lab Data Labs: Lab Results 06/19/23 06/19/23 Range/Units 18:15 18:45 WBC 7.11 (4.50-11.00) K/uL RBC 4.70 (4.30-5.90) m/uL Hgb 14.5 (13.5-17.5) gm/dL Hct 43.4 (37.0-53.0) % MCV 92 (80-100) fL MCH 31 (26-34) pg MCHC 33 (32-36) gm/dL RDW Coeff of Susi 12.4 (11.5-15.5) % Plt Count 174 (140-440) K/uL Neut % (Auto) 72.8 H (42.0-72.0) % Lymph % (Auto) 16.0 L (20-44) % [place] % (Auto) 8.3 (0.0-11.0) % Eos % (Auto) 2.0 (0.0-7.0) % Baso % (Auto) 0.6 (0.0-3.0) % Neut # (Auto) 5.20 (1.7-7.0) K/uL Lymph # (Auto) 1.10 (0.90-2.90) K/uL [place] # (Auto) 0.60 (0.00-0.90) K/UL Eos # (Auto) 0.14 (0.00-0.50) K/uL Baso # (Auto) 0.04 (0.00-0.30) K/uL Abs Immat Gran (auto) 0.02 (0.00-0.30) K/uL Imm/Tot Granulo (auto) 0.3 % Sodium 137 (135-149) mmol/L Potassium 4.4 (3.6-5.1) mmol/L Chloride 104 (96-114) mmol/L Carbon Dioxide 24 (20-32) mmol/L Anion Gap 9 (7-15) mEq/L BUN 19 (7-30) mg/dL Creatinine 0.9 (0.5-1.5) mg/dL Estimated Creat Clear 61.65 Estimated GFR 83 ml/min Glucose 247 H (60-115) mg/dL Calcium 10.0 (8.4-10.6) mg/dL Magnesium 2.0 (1.5-2.6) mg/dL Urine Color Yellow (Yellow) Urine Appearance Cloudy A (Clear) Urine pH 5.0 (5.0-8.5) Ur Specific [place] 1.020 (1.000-1.030) Urine Protein Negative (Negative) Urine Glucose (UA) 2+ A (Negative) Urine Ketones Trace A (Negative) Urine Blood Negative (Negative) Urine Nitrite Negative (Negative) Urine Bilirubin Negative (Negative) Urine Urobilinogen 0.2 (0.2-1.0) Ur Leukocyte Esterase Negative (Negative) Urine RBC 0-2 (0-2) Urine WBC 0-2 (0-5) Ur Squamous Epith Cells None (None-Few) Urine Bacteria None (None) POC Troponin I 0.02 (0.01-0.04) ng/ml ECG Data Attestation: I personally reviewed and interpreted this ECG as follows: Prior ECG tracings: not available for review Interpretation: Ordered and independently interpreted by me performed at 7:00 p.m. demonstrates sinus rhythm rate 73, no acute ST elevations or depressions, AR 180, QTC 449, no acute ischemic changes. No prior for comparison. Discharge Plan Discharge Clinical Impression: Weakness Patient Disposition: Home, Self-Care Condition: Stable Instructions: Weakness (ED) Additional Instructions: Follow-up with your primary care doctor this week Activity Level: No Restrictions Discharge Diet: Regular Prescriptions: No Action atorvastatin 80 mg tablet 80 mg PO QPM metoprolol succinate 100 mg tablet extended release 24 hr 100 mg PO DAILY fluocinonide 0.05 % ointment 1 applic topical PRN (DME) OneTouch Verio test strips Strip MISCELLANEOUS BID amlodipine 5 mg tablet 5 mg PO QPM glimepiride 2 mg tablet 2 mg PO QAM losartan 100 mg tablet 100 mg PO DAILY metformin 500 mg tablet extended release 24 hr 500 mg PO 3XD Tradjenta 5 mg tablet 5 mg PO QAM Myrbetriq 25 mg tablet extended release 24 hr 25 mg PO DAILY ondansetron HCl 4 mg tablet 4 mg PO Q4H PRN (Reason: nausea and vomiting) Qty: 12 0RF Rx Instructions: give 1st dose 30min before emetogenic chemo meclizine 25 mg tablet 25 mg PO TID Qty: 15 0RF Follow Up/Referrals: LAURITA JEAN DO [Primary Care Provider] - Stand Alone Forms: MyHealth Info Instructions
[2023-06-19 18:11] VITALS: BP 154/87; PULSE 62; RESP 18; TEMP 36.6; O2SAT 100; BMI 25.7
--- NOTE | 2023-06-19 18:20 | ED.NURSE ---
Patient ambulatory upon arrival to ER, no neurological deficits noted. Ambulated to the bathroom and left urine sample after directions given. Using his cell phone without difficulty.
[2023-06-19 18:22] LABS: Appearance Urine Cloudy (Clear); Bilirubin Urine Negative (Negative); Blood Urine Negative (Negative); Color Urine Yellow (Yellow); Glucose Urine 2+ (Negative); Ketones Urine Trace (Negative); Leukocyte Esterase Urine Negative (Negative); Nitrite Urine Negative (Negative); Protein Urine Negative (Negative); Urobilinogen Urine 0.2 (0.2-1.0)
[2023-06-19 18:29] LABS: RBC Urine 0-2 (0-2); WBC Urine 0-2 (0-5)
[2023-06-19 18:58] LABS: Basophils Absolute Auto 0.04 K/uL (0.00-0.30); Basophils Percent Auto 0.6 % (0.0-3.0); Eosinophils Absolute Auto 0.14 K/uL (0.00-0.50); Hematocrit 43.4 % (37.0-53.0); Hemoglobin* 14.5 gm/dL (13.5-17.5); Immature Granulocytes Abs Auto 0.02 K/uL (0.00-0.30); Immature Granulocytes Pct Auto 0.3 %; Mean Corpuscular HGB Conc 33 gm/dL (32-36); Mean Corpuscular Hemoglobin 31 pg (26-34); Mean Corpuscular Volume 92 fL (80-100); Monocytes Percent Auto 8.3 % (0.0-11.0); Neutrophils Percent Auto 72.8 % (42.0-72.0); Platelet Count* 174 K/uL (140-440); RDW Coefficient of Variation % 12.4 % (11.5-15.5); White Blood Count* 7.11 K/uL (4.50-11.00)
[2023-06-19 19:04] LABS: Troponin, Point-of-Care* 0.02 ng/ml (0.01-0.04)
[2023-06-19] MEDS: 0.9 % SODIUM CHLORIDE 500 ML 500 ML IV (19:13)
[2023-06-19 19:17] LABS: Slide Review Reflex No
--- OUTSIDE RECORDS SUMMARY | 2023-06-19 19:18 | XMS_ITS | Clinical Summary ---
Author Name Unknown Organization [facility] Address [address] [place] [address] Care Team Providers Care Croze Machine Operator Name Role Phone Red Gamboa M.D. Primary Care Kiran rojas Source Comments Patient records contain information from all sites at [facility]. For routine questions regarding patient records, call [phone] during business hours, M-F 8:00 AM - 5:00 PM Central Time. Record requests for emergency care only can be directed to [phone] at any time.[facility] Allergies No known active allergies Medications Medication Sig Dispensed Refills Start Date End Date Status calcium carbonate (TUMS ULTRA) 1000 mg (400 mg calcium) chewable tablet Chew 2 tablets at bedtime. 0 04/08/2016 Active vitamins A,C,F-rsbq-emerwm (for_PRESERVISION AREDS) 7,160 Units-113 mg-100 Units per tablet Take 1 tablet by mouth 2 (two) times a day. 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 1 each 0 09/28/2018 Active blood glucose ctl high,nml,low solutionIndications :Diabetes Mellitus Type 2 With Diabetic Nephropathy (HCC) Glucose control solution provides an easy way to ensure accurate blood glucose testing. 1 each 0 09/28/2018 Active lancetsIndications: Diabetes Mellitus Type 2 With Diabetic Nephropathy (HCC) Test sugar 2 times a day. 200 each 3 09/28/2018 Active finasteride (PROSCAR) 5 mg tablet Take 1 tablet (5 mg total) by mouth every evening. 90 tablet 3 11/23/2019 Active nitroglycerin (NITROSTAT) 0.4 mg SL tablet 1 tablet under tongue every 5 minute up to 3 doses PRN for chest pain. Call 911 if chest pain persist. 25 tablet 11 10/19/2020 Active fluocinonide (LIDEX) 0.05 % ointment APPLY 1 APPLICATION TOPICALLY NEEDED FOR IRRITATION. 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 On hold 0 Active metFORMIN XR (GLUCOPHAGE-XR) 500 mg 24 hr tabletIndications:D iabetes Mellitus Type 2 With Diabetic Neuropathy (HCC) Take 1 tablet (500 mg total) by mouth 3 (three) times a day with meals. 270 tablet 3 11/27/2021 Active Tradjenta 5 mg tablet TAKE 1 TABLET (5 MG TOTAL) BY MOUTH EVERY MORNING. 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 90 tablet 3 04/04/2022 Active aluminum-magnesium hydroxide 200-200 mg/5 mL suspension Take 30 mL by mouth 3 (three) times a day with meals. Shake Well. 300 mL 0 05/07/2022 Active Additional Information Patient not taking.Reported on 08/25/2022 fluocinonide (LIDEX) 0.05 % external solution APPLY TOPICALLY 2 TIMES PER WEEK FOR SCALP (APPLY A THIN FILM) 180 mL 3 08/06/2022 Active levoFLOXacin (LEVAQUIN) 500 mg tablet TAKE ONE TABLET BY MOUTH THE DAY BEFORE, 1 TABLET THE DAY OF AND 1 TABLET THE DAY AFTER BIOPSY 0 08/18/2022 Active metoprolol succinate (TOPROL-XL) 100 mg 24 hr tablet TAKE ONE TABLET BY MOUTH ONCE DAILY 90 tablet 3 08/27/2022 Active atorvastatin (LIPITOR) 80 mg tablet TAKE 1 TABLET (80 MG TOTAL) BY MOUTH AT BEDTIME. 90 tablet 0 09/10/2022 Active amLODIPine (NORVASC) 5 mg tablet TAKE 1 TABLET (5 MG TOTAL) BY MOUTH EVERY EVENING. 90 tablet 3 10/07/2022 Active glimepiride (AMARYL) 2 mg tabletIndications:D iabetes Mellitus Type 2 With Diabetic Neuropathy (HCC) TAKE ONE TABLET (2MG) BY MOUTH DAILY WITH BREAKFAST 90 tablet 3 10/29/2022 Active Active Problems Patient Care Coordination No te Formatting of this note migh t be different from the original. 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 Ring, Neurology in 2006 and Neurontin 1,200 mg at bedtime was prescribed. Later switched to Nortriptyline Rx. 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 Smoking Tobacco Use Personal History 11/10/2014 Cervical Disc Disorder 02/23/2014 High Risk Medication 10/27/2013 Fatigue 10/19/2013 Stenosis Spinal 10/19/2013 Loss Hearing Sensorineural Bilateral 04/07/2013 Loss Hearing 01/05/2013 Pain Knee 01/09/2011 Obesity NOS 02/02/2010 Pain Back 10/15/2009 Benign Prostatic Hyperplasia Hypertrophy With Ob struction 10/15/2009 Elevated Prostate-Specific Antigen 10/15/2009 Dysfunction Erectile 10/15/2009 Reflux Esophageal 10/15/2009 Hyperlipidemia 10/15/2009 Hypogonadism Male 10/15/2009 Polyp Colon 10/15/2009 Overview: Tubular adenoma with moderate dysplasia. Rosacea 11/02/2007 Resolved Problems Problem Noted Date Diagnosed Date Resolved Date Anemia 01/03/2016 05/25/2017 Non-ST Elevation Myocardial Infarction 05/06/2015 05/24/2017 Cataract 02/02/2010 05/24/2017 Chronic Kidney Disease Stage 3 Glomerular Filtration Rate 30 To 59 10/15/2009 10/19/2020 Overview: Chronic kidney disease, stage III Encounters Date Type Department Care Team Description 04/14/2023 Orders Only [facility] MNT Red Gamboa M.BJocelynB.SJocelyn, M.Dejuan. from Last 3 Months Immunizations Name Administration Dates Next Due DT, Pediatric 11/19/2001 H1N1 All Forms 07/12/2009 H1N1 Inj 07/12/2009 HZV (ZOSTAVAX) 07/07/2014 HepB Adult (HEPLISAV-B) 10/22/2021 Influenza high dose QV(65 ye ars or older) (PF) 03/11/2021,03/01/2020 Influenza, Seasonal, Injectable 03/11/20 12,07/09/2009,06/28/2008,2006,06/17/2006 Influenza, Unspecified 04/08/2016,2014,07/07/2014,2013,03/11/2012,05/23/2011,04/24/2010,0 07/12/2009 PCV13 03/06/2015 PPSV23 03/17/2006 RZV (SHINGRIX) 05/10/2020,02/01/2020 SARS-COV-2 (COVID-19) - PFIZ ER (12 years or older) 04/23/2021,07/19/2020 SARS-COV-2 (COVID-19) - PFIZ ER BIVALENT TS(12 YEARS OR OLDER) 04/07/2022 SARS-COV-2 (COVID-19) - PFIZ ER TS(12 years or older) 10/22/2021 Tdap 03/11/2012 influenza high dose (65 year s or older) (PF) 04/07/2019,03/23/2018,05/25/2017,2015,03/06/2015 Family History Medical History Relation Name Comments Bleeding Disorder Father Hearing loss Father Coronary artery disease Maternal Grandfather Heart attack Maternal Grandfather Colon cancer Mother Hypertension Mother Heart attack Uncle Maternal uncle from a heart attack./Paternal uncle from a heart attack and was a smoker. Relation Name Status Comments Father Maternal Grandfather Mother Uncle Social History Tobacco Use Types Packs/Day Years Used Date Smoking Tobacco: Former Smokeless Tobacco: Never Tobacco Cessation:Counseling Given: Not Answered Alcohol Use Standard Drinks/Week Comments No 0 (1 standard drink = 0.6 oz pur e alcohol) Occasional PHQ-2 Answer Date Recorded PHQ-2 Score 0 08/02/2021 Nutrition Answer Date Recorded Nutrition: EVOO Fat Source Unknown 07/27 Nutrition: Servings of Fruits/Vegetables per Day Not on file 07/27/2020 Dental Answer Date Recorded Dental: Regular Dentist Unknown 07/27/19 21 Sex and Gender Information Value Date Recorded Sex Assigned at Not on file Gender Identity Not on file Sexual Orientation Not on file Last Filed Vital Signs Vital Sign Reading Time Taken Comments Blood Pressure 150/77 08/25/2022 3:45 PM CDT Pulse 80 08/25/2022 3:45 PM CDT Temperature 36.4 ??C (97.5 ??F) 08/25/2022 3:42 PM CD T Respiratory Rate 12 08/25/2022 3:42 PM CDT Oxygen Saturation 100% 11/18/2021 10: 21 AM CDT Inhaled Oxygen Concentration - - Weight 98.8 kg (217 lb 11.3 oz) 08/25/2022 3:42 PM CDT Height 188 cm (6' 2.02) 08/25/2022 3:42 PM CDT Body Mass Index 27.94 08/25/2022 3:42 PM CDT Plan of Treatment Health Maintenance Due Date Last Done Comments Visit: Medicare Annual Wellness 1935 Hepatitis B Vaccines (2 of 2 - CpG (Heplisav) risk 2-dose series) 11/19/2021 10/22/2021 DTaP,Tdap,and Td Vaccines (3 - Td or Tdap) 03/11/2022 03/11/2012, 11/19/2001 Diabetic Office Visit with F oot Exam 04/23/2022 04/23/2021, 04/18/2020, 12/31/2018, Additional history exists Dilated Eye Exam 05/08/2022 05/08/2021 (Per formed elsewhere), 10/25/2020 (Performed elsewhere), 11/07/2019 (Performed elsewhere), Additional history exists Hemoglobin A1C 11/26/2022 08/26/2022, 04/08, 01/22/2022, Additional history exists Depression Screening (Annual PHQ-2) 06/08/2023 Fall Risk Screen (Annual) 06/08/2023 Visit: Chronic Disease, age 18+ 08/26/2023 , 08/25/2022 Urine Albumin 08/27/2023 08/26/2022, 04/08, 07/17/2020, Additional history exists Creatinine Level (Kidney Fun ction Test) 12/20/2023 12/19/2022, 08/30/2022, 08/29/2022, Additional history exists Potassium Level 12/20/2023 12/19/2022, 08/07, 08/26/2022, Additional history exists Sodium Level 12/20/2023 12/19/2022, 08/07, 08/26/2022, Additional history exists Pneumococcal vaccine (65+ years) Completed 03/06/20 15, 03/17/2006 Colonoscopy Discontinued 09/05/2016 Colorectal Cancer Surveillance Discontinued Zoster Vaccines Completed 05/10/2020, 01/07, 07/07/2014 Influenza Vaccine Completed 02/27/2023, , 03/11/2021, Additional history exists COVID-19 Vaccine Completed 04/02/2023, , 10/22/2021, Additional history exists CT Colonography Discontinued Cologuard Discontinued Medical Devices Implanted Type Area Civil Defense Director Device Identifier Shelf Expiration Date Model / Serial / Lot Cardiac Stent Cardiac Stent Heart Description:X 6 Ocular Lens Ocular Lens Bilateral : Eye Advance Directives For more information, please contact: [phone] Documents on File Type Date Recorded Patient Skin Care Therapist Expl anation Advance Directives 01/14/2013 12:00 AM [employer] document. See document viewer. Care Teams Croze Machine Operator Relationship Specialty Start Date End Date Red Gamboa M.B.B.S., M.Dejuan. [address] [place] [address] CAIN Briceno [phone] PCP - General Family Medicine 01/13/20
--- OUTSIDE RECORDS SUMMARY | 2023-06-19 19:19 | XMS_ITS | Encounter Summary ---
Author Name Unknown Organization [facility] Address [address] [place] [address] Care Team Providers Care Ediscovery Project Manager Name Role Phone Red Gamboa M.D. Primary Care P crystal Reason for Visit * Reason Comments Med Refill Encounter Details Date Type Department Care Team (Late st Contact Info) Description 10/27/2022 Refill Department of Family Medicine, [facility], in [place], [place] [address] [place] [address] Red Gamboa M.B.B.S., Kathy [address] [place] [address] Med Refill Social History Tobacco Use Types Packs/Day Years Used Date Smoking Tobacco: Former Smokeless Tobacco: Never Alcohol Use Standard Drinks/Week Comments No 0 [...] on file Sexual Orientation Not on file documented as of this encounter Plan of Treatment Not on file documented as of this encounter Visit Diagnoses Diagnosis Diabetes Mellitus Type 2 With Diabetic Neuropathy (HCC) documented in this encounter Additional Health Concerns Assessment Noted Time PHQ-9 Depression Total Score: 0 06/24/19 19 10:47 AM SPECIAL SYSTEMS TECHNICIAN documented as of this encounter Care Teams Ediscovery Project Manager Relationship Specialty Start Date End Date Red Gamboa M.B.B.S., M.D. [address] [place] [phone] PCP - General Family Medicine 01/13/20 documented as of this encounter
--- OUTSIDE RECORDS SUMMARY | 2023-06-19 19:19 | XMS_ITS | Encounter Summary ---
Author Name Unknown Organization [facility] Address [address] [place] [address] Care Team Providers Care Chief Inspector Name Role Phone Red Gamboa M.D. Primary Care P [facility] Reason for Visit * Reason Comments Med Refill Encounter Details Date Type Department Care Team (Late st Contact Info) Description 08/05/2022 Refill Department of Family Medicine, [facility], in [place], [place] [address] [place] [address] Red Gamboa M.B.B.S., Kathy [address] [place] [address] Med Refill Social History Tobacco [...] documented as of this encounter Visit Diagnoses Not on filedocumented in this encounter Additional Health Concerns Assessment Noted Time PHQ-9 Depression Total Score: 0 06/24/19 19 10:47 AM FISHER documented as of this encounter Care Teams Chief Inspector Relationship Specialty Start Date End Date Red Gamboa M.B.B.S., [employer]. [address] [place] [address] [place] [phone] PCP - General Family Medicine 01/13/20 documented as of this encounter
--- OUTSIDE RECORDS SUMMARY | 2023-06-19 19:19 | XMS_ITS | Encounter Summary ---
Author Name Unknown Organization [facility] Address [address] [place] [address] Care Team Providers Care Operating Engineer Apprentice Name Role Phone Red Gamboa M.D. Primary Care P crystal Reason for Referral * Outpatient (Routine) - Authorized Specialty Diagnoses / Procedures Referred By Alva t Referred To Contact Family Medicine Red Gamboa M.B.B.S., M.D. [address] [place] [address] [facility] Referral ID Status Reason Start Date Expiration Date V isits Requested Visits Authorized [id number] Authorized 04/14/2023 04/13/2026 1 1 Scheduling Instructions Medicare annual provider visit/HCC gaps Do not schedule prior to due date to ensure insurance coverage Visit: Medicare Annual Wellness Never done. IFF'S SERGEANT Encounter Details Date Type Department Care Team (Late st Contact Info) Description 04/14/2023 Orders Only [facility] PCP [facility] MNT Red Gamboa M.B.B.S., M.D. 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 [address] [place] [phone] PCP - General Family Medicine 01/13/20 documented as of this encounter
--- OUTSIDE RECORDS SUMMARY | 2023-06-19 19:19 | XMS_ITS ---
Author Name Unknown Organization [facility] Address [address] [place] [address] Care Team Providers Care Privacy Attorney Name Role Phone Unavailable Unavailable Unavailable Surgery Details Not on file Complications Check Surgery Details section. Procedure Estimated Blood Loss Check Surgery Details section. Procedure Findings Check Surgery Details section. Procedure Specimens Taken Check Surgery Details section.
--- OUTSIDE RECORDS SUMMARY | 2023-06-19 19:19 | XMS_ITS | Encounter Summary ---
Author Name Unknown Organization [facility] Address [address] [place] [address] Care Team Providers Care Tin Assorter Name Role Phone Red Gamboa M.D. 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 Shake Well. 300 mL 0 05/07/2022 aspirin 81 mg chewable tablet Chew 81 mg daily. On hold 0 blood glucose ctl high,nml,low solutionIndications:Di abetes Mellitus Type 2 With Diabetic Nephropathy (HCC) Glucose control solution provides an easy way to ensure accurate blood glucose testing. 1 each 0 09/28/2018 blood-glucose meter miscIndications:Diabet es Mellitus Type 2 With Diabetic Nephropathy (HCC) Test as directed for diabetes control. 1 each 0 09/28/2018 blood-glucose meter,continuous miscIndications:Diabet es Mellitus Type 2 With Diabetic Nephropathy (HCC) Use to monitor blood glucose 1 each 0 10/22/2021 blood-glucose sensor deviceIndications:Diab etes Mellitus Type 2 With Diabetic Nephropathy (HCC) Change sensor every 10 days 9 each 3 10/22/2021 blood-glucose transmitter deviceIndications:Diab etes Mellitus Type 2 With Diabetic Nephropathy (HCC) Change transmitter every 3 months. 1 each 4 10/22/2021 calcium carbonate (TUMS ULTRA) 1000 mg (400 mg calcium) chewable tablet Chew 2 tablets at bedtime. 0 04/08/2016 finasteride (PROSCAR) 5 mg tablet Take 1 tablet (5 mg total) by mouth every evening. 90 tablet 3 11/23/2019 fluocinonide (LIDEX) 0.05 % external solution APPLY TOPICALLY 2 TIMES PER WEEK FOR SCALP (APPLY A THIN FILM) 180 mL 3 08/06/2022 fluocinonide (LIDEX) 0.05 % ointment APPLY 1 APPLICATION TOPICALLY NEEDED FOR IRRITATION. 30 g 3 06/06/2021 lancetsIndications:Luanne betes Mellitus Type 2 With Diabetic Nephropathy (HCC) Test sugar 2 times a day. 200 each 3 09/28/2018 levoFLOXacin (LEVAQUIN) 500 mg tablet TAKE ONE TABLET BY MOUTH THE DAY BEFORE, 1 TABLET THE DAY OF AND 1 TABLET THE DAY AFTER BIOPSY 0 08/18/2022 losartan (COZAAR) 100 mg tabletIndications:Hype rtensive Heart And Chronic Kidney Disease Without Heart Failure And With Stage 2 (Mild) Chronic Kidney Disease TAKE 1 TABLET (100MG TOTAL) BY MOUTH DAILY 90 tablet 3 09/13/2021 metFORMIN XR (GLUCOPHAGE-XR) 500 mg 24 hr tabletIndications:Diab etes Mellitus Type 2 With Diabetic Neuropathy (HCC) Take 1 tablet (500 mg total) by mouth 3 (three) times a day with meals. 270 tablet 3 11/27/2021 metoprolol succinate (TOPROL-XL) 100 mg 24 hr tablet TAKE ONE TABLET BY MOUTH ONCE DAILY 90 tablet 3 08/27/2022 Myrbetriq 25 mg 24 hr tabletIndications:Urin kandy Urge Incontinence TAKE 1 TABLET (25 MG) BY MOUTH DAILY. 90 tablet 3 04/04/2022 nitroglycerin (NITROSTAT) 0.4 mg SL tablet 1 tablet under tongue every 5 minute up to 3 doses PRN for chest pain. Call 911 if chest pain persist. 25 tablet 11 10/19/2020 [employer] Verio test strips stripsIndications:Diab etes Mellitus Type 2 With Diabetic Nephropathy (HCC) TEST TWICE DAILY 200 strip 3 02/14/2022 Tradjenta 5 mg tablet TAKE 1 TABLET (5 MG TOTAL) BY MOUTH EVERY MORNING. 90 tablet 3 12/02/2021 vitamins A,C,L-abxd-hoxjhl (for_PRESERVISION AREDS) 7,160 Units-113 mg-100 Units per tablet Take 1 tablet by mouth 2 (two) times a day. 0 amLODIPine (NORVASC) 5 mg tablet TAKE 1 TABLET (5 MG TOTAL) BY MOUTH EVERY EVENING. 90 tablet 3 09/13/2021 10/07/2022 atorvastatin (LIPITOR) 80 mg tablet Take 1 tablet (80 mg total) by mouth at bedtime. 90 tablet 3 03/26/2021 09/10/2022 glimepiride (AMARYL) 2 mg tabletIndications:Diab etes Mellitus Type 2 With Diabetic Neuropathy (HCC) Take 1 tablet (2 mg total) by mouth daily with breakfast. 90 tablet 3 08/02/2021 10/28/2022 metoprolol succinate (TOPROL-XL) 100 mg 24 hr tablet TAKE ONE TABLET BY MOUTH ONCE DAILY 90 tablet 3 04/10/2021 08/27/2022 documented as of this encounter Miscellaneous Notes * Result Encounter Note - Red Gamboa M.B.B.S., M.D. - 08/27/2022 12:30 PM CDT Patient's A1c is trending up. He should follow-up in October for repeat A1c. In the meantime, he shouldkeep to a diabetic diet and take his medications consistently. Kidney function remains excellent with no evidence of injury. 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 documented in this encounter Results * (ABNORMAL) Basic Metabolic Panel (08/26/2022 1:36 PM CDT) Potassium, P 4.7 3.6 - 5.2 mmol/L 08/26/2022 4:01 PM CDT OWAT Sodium, P 137 135 - 145 mmol/L 08/26/2022 4:01 PM CDT OWAT Chloride, P 98 98 - 107 mmol/L 08/26/2022 4:01 PM CDT OWAT Bicarbonate, P 29 22 - 29 mmol/L 08/26/2022 4:01 PM CDT OWAT Anion Gap, P 10 7 - 15 08/26/2022 4:01 PM CDT OWAT BUN (Blood Urea Nitrogen), P 10 8 - 24 mg/dL 08/26/2022 4:01 PM CDT OWAT Creatinine 0.91 0.74 - 1.35 mg/dL 08/26/2022 4:01 PM CDT OWAT Estimated GFR (eGFR) 82 >=60 mL/min/BSA 08/26/2022 4:01 PM CDT OWAT Comment: Estimated GFR calculated using the 2020 CKD_EPI creatinine equation. Calcium, Total, P 9.5 8.8 - 10.2 mg/dL 08/26/2022 4:01 PM CDT OWAT Glucose, P 217(H) 70 - 140 mg/dL 08/26/2022 4:01 PM CDT OWAT Blood (Blood, Venous) 08/26/2022 1:36 PM CDT 08/26/2022 3:32 PM CDT Red Schwartz M.D. LAB BLO OD ADD-ON Performing Organization Address [facility] Co de Phone Number [facility] [address] [place] [address], [place] OWAT [employer] [facility] [place] [address], [place] [address] * (ABNORMAL) Hemoglobin A1c (08/26/2022 1:36 PM CDT) Hemoglobin A1c, B 8.6(H) 4.2 - 5.6 % 08/26/2022 3:56 PM CDT OWAT Comment: Hemoglobin A1c values greater than or equal to 6.5 percent are diagnostic for diabetes mellitus. ??Diagnosis should be confirmed by repeat testing. ??In diabetic patients, HbA1c goals should be discussed with healthcare provider. Blood (Blood, Venous) 08/26/2022 1:36 PM CDT 08/26/2022 3:31 PM CDT Red Schwartz M.D. 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 [place]. [address] [place] [phone] PCP - General Family Medicine 01/13/20 documented as of this encounter
--- OUTSIDE RECORDS SUMMARY | 2023-06-19 19:19 | XMS_ITS | Clinical Summary ---
Author Name Unknown Organization [facility] Address [place], [place] [address] Care Team Providers Care Sheather Name Role Phone Alexandra Castelan DO Primary Care Provider [phone] Allergies No known active allergies Medications Medication Sig Dispensed Refills Start Date End Date Status fluocinonide 0.05% topical (LIDEX) 0.05 % cream Apply topically to affected area(s) 2 times daily. 0 Active metoprolol succinate (TOPROL XL) 100 mg Sustained-Release tablet Take 100 mg by mouth once daily. 0 Active calcium carbonate (TUMS) 200 mg calcium (500 mg) chewable tablet Take 500-1,000 mg by mouth every 3 hours if needed for Heartburn or GI Upset. 0 Active nitroglycerin (NITROSTAT) 0.4 mg sublingual tabletIndications :NSTEMI (non-ST elevated myocardial infarction) (HC) Place 1 tablet under the tongue every 5 minutes if needed for Chest Pain (first choice for chest pain). 1 Bottle 0 5 Active blood sugar diagnostic (OneTouch Verio test strips) strip 2 times daily. 0 1 Active polyethylene glycol (MIRALAX; GLYCOLAX) 17 g powder for solution Mix 17 g in liquid then take by mouth once daily if needed. 0 Active FreeStyle Emma 14 Day ReaderIndications :Diabetic nephropathy associated with type 2 diabetes mellitus (HC) To be used to read blood sugars per websphere process server developer's directions. 1 Each 0 3 Active FreeStyle Emma 14 Day SensorIndications :Diabetic nephropathy associated with type 2 diabetes mellitus (HC) Change sensor every 14 days 6 Each 3 3 Active tamsulosin (FLOMAX) 0.4 mg capsuleIndication s:Benign prostatic hyperplasia with weak urinary stream Take 1 Capsule (0.4 mg) by mouth once daily after a meal. 90 Capsule 3 3 Active psyllium powdIndications:C hronic constipation Mix 1 tsp in liquid then take by mouth once daily if needed for Constipation. 283 g 11 3 Active linaGLIPtin (Tradjenta) 5 mg tabIndications:Ty pe 2 diabetes mellitus with other specified complication, without long-term current use of insulin (HC) TAKE 1 TABLET (5 MG) BY MOUTH EVERY MORNING. 360 Tablet 0 3 12/24/19 24 Active atorvastatin (LIPITOR) 80 mg tabletIndications :Diabetic nephropathy associated with type 2 diabetes mellitus (HC) Take 0.5 Tablets (40 mg) by mouth at bedtime. 90 Tablet 0 3 Active losartan (COZAAR) 100 mg tabletIndications :HTN (hypertension) TAKE 1 TABLET (100MG TOTAL) BY MOUTH DAILY 90 Tablet 2 3 Active metFORMIN (GLUCOPHAGE XR) 500 mg Extended-Release tabletIndications :Type 2 diabetes mellitus with diabetic polyneuropathy, without long-term current use of insulin (HC) TAKE ONE TABLET BY MOUTH THREE TIMES DAILY WITH MEALS 270 Tablet 0 3 Active empagliflozin (Jardiance) 10 mg tabletIndications :Type 2 diabetes mellitus with diabetic polyneuropathy, without long-term current use of insulin (HC),Diabetic nephropathy associated with type 2 diabetes mellitus (HC) TAKE ONE TABLET (10MG) BY MOUTH ONCE DAILY 90 Tablet 0 3 Active Eliquis 5 mg tabletIndications :History of pulmonary embolus (PE) TAKE 1 TABLET (5 MG) BY MOUTH TWO TIMES DAILY. 60 Tablet 2 3 Active Myrbetriq 25 mg tabletIndications :Mixed stress and urge urinary incontinence TAKE 2 TABLETS (50 MG) BY MOUTH ONCE DAILY. 60 Tablet 2 3 Active ketoconazole 2% shampoo (NIZORAL) 2 % shampooIndication s:Seborrheic dermatitis Shampoo the hair thoroughly each day for 3 days. 120 mL 3 3 Active apixaban (ELIQUIS) 5 mg tabletIndications :History of pulmonary embolus (PE) Take 1 Tablet (5 mg) by mouth two times daily. 60 Tablet 6 3 06/04/20 23 Discontinued mirabegron EXTENDED-release (Myrbetriq) 25 mg tabletIndications :Mixed stress and urge urinary incontinence Take 2 Tablets (50 mg) by mouth once daily. 60 Tablet 0 3 06/05/20 23 Discontinued ketoconazole 2% shampoo (NIZORAL) 2 % shampooIndication s:Seborrheic dermatitis SHAMPOO THE HAIR THOROUGHLY EACH DAY FOR 3 DAYS. 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 05/25/2017 09/18/2022 Presence of coronary angioplasty implant and gra ft 05/25/2017 09/18/2022 Retinal disorder 05/25/2017 09/18/2022 Overview: Left eye Hypertensive heart and chronic kidney disease st age 3 10/16/2016 08/29/2022 Overview: Hypertension (HTN) And CKD Stage 1-4 & Heart Dis Without CHF 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 02/07/2016 08/29/2022 Overview: CAD Post Myocardial Infarction Diabetic nephropathy associa harman with type 2 diabetes mellitus 08/30/2015 09/18/2022 Overview: DM2 Nephropathy Vocal cord bowing 08/30/2015 09/18/2022 GERD (gastroesophageal reflux disease) 6 HTN (hypertension) 05/06/2015 Hyperlipidemia 05/06/2015 NSTEMI (non-ST elevated myocardial infarction) 1 07/06/2014 BPH (benign prostatic hyperplasia) 05/06/2015 Peripheral neuropathy 05/06/2015 Rosacea 05/06/2015 Personal history of tobacco use, presenting hazards to health 11/10/2014 09/18/2022 Cervical disc disorder 02/23/2014 3 Spinal stenosis 10/19/2013 09/18/2022 Sensorineural hearing loss, bilateral 08/04/2013 Polyp of colon 10/15/2009 09/18/2022 Overview: Tubular adenoma with moderate dysplasia. 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) Encounters Date Type Department Care Team Description 06/15/2023 Refill [facility] [address] [place] [address] Alexandra Castelan, DO Refill Request (Myrbetriq) 06/03/2023 Telephone [facility] [address] [place] [address] Alexandra Castelan, Medication Management 06/03/2023 Refill [facility] [address] [place] [address] Alexandra Castelan, DO Refill Request (Myrbetriq) 06/03/[address] [phone] Kendell Moss MD Refill Request (Eliquis) 05/05/2023 Refill [facility] [address] [place] [address] Alexandra Castelan, Refill Request (Metformin, Jardiance) 05/04/2023 Refill [facility] [address] [place] [address] Alexandra Castelan, Refill Request (Ketoconazole 2% Shampoo) 04/29/2023 Orders Only [facility] Scanner 1 scan: (1-Ord) INCOMING RECORDS-DIABETIC EYE, [facility], 04/29/2023 04/21/[address] [facility] [address] [place] [address] Jeannine Aviles MD Lab; Appointment 04/02/2023 3:20 PM CDT Office Visit [facility] [address] [place] [address] Alexandra Castelan, Follow Up 04/02/2023 Travel 03/26/[address] [facility] [address] [place] [address] Jeannine Aviles MD Questions (About body scans ) 03/23/2023 11:37 AM CDT - 03/23/2023 11:59 PM CDT Hospital Encounter [facility] [address] [place] [address] Jeannine Aviles MD Elevated PSA 03/23/2023 Travel from Last 3 Months Immunizations Name Administration Dates Next Due COVID-19 Vaccine Spikevax (M oderna 50mcg/0.5mL) 12YO+ [id number] Formula PF 04/02/2023 COVID-19 vaccine (Pfizer-Bio NTech 30mcg/0.3mL) 12YO+ RYAN-SUCROSE PF, MDV 10/22/2021 COVID-19 vaccine (Pfizer-Bio NTech 30mcg/0.3mL) PF, MDV 04/23/2021,08/09/2020,07/19/2020 DT (Age < 7 years) 11/19/2001 Hep B (Hepatitis B (Adult) Recombinant Adjuvanted) 10/22/2021 Influenza A (H1N1), Inactiva harman (Age >=3 Years) 07/12/2009 Influenza Virus, Unspecified 04/08/2016, 03/06/2015,07/07/2014,2013,03/11/2012,05/23/2011,04/24/2010,0 07/12/2009 Influenza, High-dose Inactivated 019,03/23/2018,05/25/2017,2015,03/06/2015 Influenza, High-dose Quadriv alent Inactivated 04/03/2022,03/11/2021,03/01/2020 Influenza, IIV3 (Age >=3 years) 03/11/20 12,07/09/2009,06/28/2008,2006,06/17/2006 Influenza, Inactivated AIIV4 (Age 65+ Years) Preserv Free 02/27/2023 Pneumococcal Poly,23-Valent (Pneumovax) 03/17/2006 Pneumococcal conj 13-Valent (Prevnar 13) 03/06/2015 Tdap 03/11/2012 Zoster (Shingrix-RZV, recombinant) 05/10/2020, Zoster (Zostavax-ZVL, live) 07/07/2014 Family History Medical History Relation Name Comments Other Father age 94 Cancer-colon Mother Relation Name Status Comments Father Mother Social History Tobacco Use Types Packs/Day Years Used Date Smoking Tobacco: Former Cigarettes 56 1 969 - 1960 Smokeless Tobacco: Never Tobacco Cessation:Counseling Given: Yes Comments:Quit in 1968 Alcohol Use Standard Drinks/Week Comments Yes 0 (1 standard drink = 0.6 oz pure alcohol) small glass of scotch three times a week PHQ-2 Answer Date Recorded PHQ-2 TOTAL SCORE 2 09/18/2022 Social Connections Answer Date Recorded Frequency of Communication with Friends and Fami ly 0 09/04/2022 Financial Resource Strain Answer Date R ecorded Difficulty of Paying Living Expenses 3 09/04/2022 Difficulty of Paying Living Expenses Not on file 09/04/2022 Food Insecurity Answer Date Recorded Worried About Running Out of Food in the Last Ye ar 1 09/04/2022 Transportation Needs Answer Date Record ed Lack of Transportation (Medical) 1 09/04/2022 Housing Stability Answer Date Recorded Unable to Pay for Housing in the Last Year 1 09/04/2022 Sex and Gender Information Value Date Recorded Sex Assigned at Not on file Gender Identity Not on file Sexual Orientation Not on file Obstetrics History Last Filed Vital Signs Vital Sign Reading Time Taken Comments Blood Pressure 133/77 04/02/2023 3:05 PM CDT Pulse 64 04/02/2023 3:05 PM CDT Temperature 36.3 ??C (97.3 ??F) 09/01/2022 8:00 AM CD T Respiratory Rate 16 10/30/2022 10:06 AM CDT Oxygen Saturation 100% 04/02/2023 3:05 PM CDT Inhaled Oxygen Concentration - - Weight 99.8 kg (220 lb) 04/02/2023 3:05 PM CDT Height 188 cm (6' 2) 12/26/2022 1:53 PM CDT Body Mass Index 28.25 12/26/2022 1:53 PM CDT Plan of Treatment Upcoming Encounters Date Type Department Care Team (Late st Contact Info) Description 11/12/2023 4:20 PM CDT Orders Only [address] [phone] Lab, [facility] 11/19/2023 1:45 PM CDT Office Visit [facility] [address] [place] [address] Jeannine Aviles MD [address] [place], [place] [id number] Health Maintenance Due Date Last Done Comments Tetanus booster 03/11/2022 03/11/2012 Medicare Wellness for age 65+ 09/18/2023 09/18/2022 Depression screening for age 12+ 09/19/2023 09/19/19, 08/21/2015 BMI (ht and wt on same day) for age 18+ 12/27/2023 12/26/2022, 09/18/2022, 09/04/2022, Additional history exists Tdap Completed 03/11/2012 Pneumococcal series for age 65+ Completed 5, 03/17/2006 Zoster (shingles) series for age 50+ Completed 05/10/2020, 02/02/2020, 07/07/2014 Influenza for age 65+ Completed 02/27/2023 , 04/03/2022, 03/11/2021, Additional history exists COVID-19 vaccine series Completed 04/02/20 23, 04/07/2022, 10/22/2021, Additional history exists Procedures Procedure Name Priority Date/Time Associated Diagnosis Comments SCAN-EYE EXAM 04/29/2023 12:00 AM UNDERWRITER NM BONE SCAN WHOLE BODY Routine 03/23/2023 3:50 PM CDT Elevated PSA from Last 3 Months Results * SCAN-EYE EXAM (04/29/2023 12:00 AM UNDERWRITER) Scanner OTHER * NM BONE SCAN WHOLE BODY (03/23/2023 3:50 PM CDT) Anatomical Region Laterality Modality SKELETON Other Impressions 03/26/2023 10:33 AM CDT No convincing scintigraphic evidence for skeletal metastatic disease. Dictated by Gonsalo Morse MD @ 03/25/2023 4:00:35 PM Signed by: Gonsalo Morse MD @03/25/2023 4:00:35 PM Narrative 03/26/2023 10:33 AM CDT For Patients: As a result of the Cures Act, medical imaging exams and procedure reports are released immediately into your electronic medical record. ??You may view this report before your referring provider. ?? If you have questions, please contact your health care provider. INDICATION: Possible prostate cancer. Elevated PSA. TECHNIQUE: 26.5 mCi Tc-99m labeled MDP administered. Delayed whole body images obtained with the patient at rest. FINDINGS: There is good uptake of activity by the skeleton. There is no convincing scintigraphic evidence for skeletal metastatic disease. There is degenerative-type activity within the sternoclavicular joints, lumbar spine, hips, small joints of the hands, with minor degenerative-type uptake in the knees. Focal uptake within two contiguous anterior lateral left-sided lower ribs likely the 8th or 9th ribs is very likely posttraumatic in nature. (Please see abdominal pelvic CT February 24, 2023 which demonstrates fracture deformities of 2 lower left lateral ribs). Uptake in the right maxilla may be related to dental work or dental disease. The kidneys are present without obstruction. Jeannine BOYER from Last 3 Months Advance Directives Latest Code Status on File Code Status Date Activated Date Inactivated Comments Full Code 08/29/2022 11:09 PM 09/01/2022 3:44 PM Disc ussed with patient 08/29/2022 Question Answer Comments Code Status Discussion: Reviewed Preferences Code Status History Code Status Date Activated Date Inactivated Comments Full Code 09/05/2016 7:23 AM 09/05/2016 1:23 PM Full Code 07/30/2015 9:21 AM 07/31/2015 2:35 PM Full Code 07/30/2015 1:34 AM 07/30/2015 9:21 AM Question Answer Comments Code Status Discussion: Discussed Full Code 05/06/2015 11:28 PM 05/08/2015 2:10 PM Care Teams Sheather Relationship Specialty Start Date End Date [place] [address] PCP - General Family Practice 10/29/22
--- OUTSIDE RECORDS SUMMARY | 2023-06-19 19:19 | XMS_ITS | Encounter Summary ---
Author Name Unknown Organization [facility] Address [address] [place] [address] Care Team Providers Care Customer Support Engineer Name Role Phone Red Gamboa M.D. Primary Care P crystal Reason for Visit * Reason Onset Date Comments Follow-up 08/25/2022 Encounter Details Date Type Department Care Team (Late st Contact Info) Description 08/25/2022 Clinical Communication Department of Family Medicine, [facility], in [place] [address] [place] [phone] Shanique Quinteros, RJocelynN. Follow-up Social History Tobacco Use Types Packs/Day Years [...] on file documented as of this encounter Miscellaneous Notes * Telephone Encounter - Shanique Quinteros RDiana. - 08/25/2022 4:43 PM CDT SUBJECTIVE CHIEF COMPLAINT / REASON FOR CALL Follow-up Information Discussed Hotel Housekeeper called the patient to notify him that Dr. Gamboa placed orders for labs to be completed atthe patients earliest convenience. Patient was upset that these labs were not ordered while in his appointment, but is willing to schedule the labs now. Patient was transferred to scheduling. PLAN Disposition/Recommendation: patient transferred to the appointment desk Information/Education: patient/caller able to teach back Caller agreeable to plan of care: yes The following references were used: nursing clinical judgement and provider Dr. Gamboa documented in this encounter Plan of Treatment Not on file documented as of this encounter Visit Diagnoses Not on filedocumented in this encounter Additional Health Concerns Assessment Noted Time PHQ-9 Depression Total Score: 0 06/24/19 19 10:47 AM ENGINEERING DIRECTOR documented as of this encounter Care Teams Customer Support Engineer Relationship Specialty Start Date End Date Red Gamboa M.B.B.S., M.D. [address] [place] [phone] PCP - General Family Medicine 01/13/20 documented as of this encounter
--- OUTSIDE RECORDS SUMMARY | 2023-06-19 19:19 | XMS_ITS | Encounter Summary ---
Author Name Unknown Organization [facility] Address [address] [place] [address] Care Team Providers Care Patient Access Associate Name Role Phone Red Gamboa M.D. Primary Care [facility] Encounter Details Date Type Department Care Team (Late st Contact Info) Description 01/07/2023 Orders Only [facility] MNT Red Gamboa M.B.B.S., MLexa [address] [place] [phone] Diabetes Mellitus Type 2 With Diabetic Neuropathy (HCC) Social History Tobacco Use Types Packs/Day Years [...] of this encounter Plan of Treatment Scheduled Orders Name Type Priority Associated Diagnoses Orde r Schedule Hemoglobin A1c Lab Routine Diabetes Mellitus Type 2 With Diabetic Neuropathy (HCC) Expected: 01/21/2023, Expires: 07/06/2023 documented as of this encounter Visit Diagnoses Diagnosis Diabetes Mellitus Type 2 With Diabetic Neuropathy (HCC) documented in this encounter Additional Health Concerns Assessment Noted Time PHQ-9 Depression Total Score: 0 06/24/19 19 10:47 AM ROTARY SHEAR CUTTER documented as of this encounter Care Teams Patient Access Associate Relationship Specialty Start Date End Date Red Gamboa M.B.B.S., M.D. [address] [place] [phone] PCP - General Family Medicine 01/13/20 documented as of this encounter
--- OUTSIDE RECORDS SUMMARY | 2023-06-19 19:19 | XMS_ITS | Referral Summary ---
Author Name Unknown Organization [facility] Address [address] [place] [address] Care Team Providers Care Cream Buyer Name Role Phone Red Gamboa M.D. Primary Care P crystal Source Comments Patient records contain information from all sites at [facility]. For routine questions regarding patient records, call [phone] during business hours, M-F 8:00 AM - 5:00 PM Central Time. Record requests for emergency care only can be directed to [phone] at any time.[facility] Encounters Date Type Department Care Team Description 04/14/2023 Orders Only [facility] MNT Red Gamboa M.B.B.S., Kathy from Last 3 Months Allergies No known active allergies Medications Medication Sig Dispensed Refills Start Date End Date Status calcium carbonate (TUMS ULTRA) 1000 mg (400 mg calcium) chewable tablet Chew 2 tablets at bedtime. 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) [...] Hiatal 04/08/2016 Atherosclerotic Heart Diseas e Of [place] Coronary Artery Without Angina Pectoris 02/07/2016 Overview: [...] 10/19/2020 Overview: Chronic kidney disease, stage III Immunizations Name Administration Dates Next Due DT, [...] (65 year s or older) (PF) 04/07/2019,03/23/2018,05/25/2017,2015,03/06/2015 Social History Tobacco Use Types Packs/Day Years [...] 08/25/2022 3:42 PM CDT Plan of Treatment Not on file Medical Devices Implanted Type Area Angle Shear Set Up Operator Device Identifier Shelf Expiration Date Model / Serial / Lot Cardiac Stent Cardiac Stent Heart Description:X 6 Ocular Lens Ocular Lens Bilateral : Eye Advance Directives For more information, please contact: [phone] Documents on File Type Date Recorded Patient Public Address System Operator Expl anation Advance Directives 01/14/2013 12:00 AM [employer] document. See document viewer. Care Teams Cream Buyer Relationship Specialty Start Date End Date Red Gamboa M.B.B.S., M.D. [address] [place] [phone] PCP - General Family Medicine 01/13/20
--- OUTSIDE RECORDS SUMMARY | 2023-06-19 19:19 | XMS_ITS | Encounter Summary ---
Author Name Unknown Organization [facility] Address [address] [place] [address] Care Team Providers Care Charter Bus Driver Name Role Phone Red Gamboa M.D. Primary Care P [facility] Encounter Details Date Type Department Care Team (Late st Contact Info) Description 10/22/2022 Orders Only [facility] MNT Red Gamboa M.B.B.S., MLexa [address] [place] [phone] Social History Tobacco Use Types Packs/Day Years [...] Total Score: 0 06/24/19 19 10:47 AM HUMAN RESOURCES FILE CLERK documented as of this encounter Care Teams Charter Bus Driver Relationship Specialty Start Date End Date Red Gamboa M.B.B.S., M.D. [address] [place] [address] [place] [phone] PCP - General Family Medicine 01/13/20 documented as of this encounter
--- OUTSIDE RECORDS SUMMARY | 2023-06-19 19:19 | XMS_ITS | Encounter Summary ---
Author Name Unknown Organization [facility] Address [address] [place] [address] Care Team Providers Care Switch Crew Supervisor Name Role Phone Red Gamboa M.D. Primary Care [facility] Encounter Details Date Type Department Care Team (Latest Contact Info) Description 08/26/2022 1:13 PM CDT Hospital Encounter Department of Laboratory Medicine in [address] [phone] Red Gamboa M.B.B.S., MLexa [address] [place] [phone] Diabetes Mellitus Type 2 With Diabetic Nephropathy (HCC) Discharge Disposition: Home or Self Care Social [...] 3 08/27/2022 Myrbetriq 25 mg 24 hr tabletIndications:Tacho carrasquilloy Urge Incontinence TAKE 1 TABLET (25 MG) BY MOUTH DAILY. 90 tablet 3 04/04/2022 nitroglycerin (NITROSTAT) 0.4 mg SL tablet 1 tablet under tongue every 5 minute up to 3 doses PRN for chest pain. Call 911 if chest pain persist. 25 tablet 11 10/19/2020 OneTouch Verio test strips stripsIndications:Diab etes Mellitus Type 2 With Diabetic Nephropathy (HCC) TEST TWICE DAILY 200 strip 3 02/14/2022 Tradjenta 5 mg tablet TAKE 1 TABLET (5 MG TOTAL) BY MOUTH EVERY MORNING. 90 tablet 3 12/02/2021 vitamins A,C,L-frpq-sqrjdq (for_PRESERVISION AREDS) 7,160 Units-113 mg-100 Units per [...] 04/10/2021 08/27/2022 documented as of this encounter Plan of Treatment Not on file documented as of this encounter Procedures Procedure Name Priority Date/Time Associated Diagnosis Comments ALBUMIN, RANDOM, U Routine 08/26/2022 1: 33 PM CDT Diabetes Mellitus Type 2 With Diabetic Nephropathy (HCC) documented in this encounter Results * Albumin, Random, Urine (08/26/2022 1:33 PM CDT) Microalbumin <12.0 mg/L 08/26/2022 4:53 PM CDT OWAT Comment:If clinically indica harman, contact the lab for additional testing. Creatinine 157 mg/dL 08/26/2022 4:53 PM CDT OWAT Albumin/Creatinine Ratio <8 <17 mg/g 08/26/2022 4:53 PM CDT OWAT Comment: This ratio may not correspond with the reference range because one or both of the values used to calculate the ratio was above or below the quantification limits. Urine (Urine, Midstream) 08/26/2022 1:33 PM CDT 08/26/2022 3:31 PM CDT Red Schwartz M.D. LAB URI NE ORDERABLES [facility] [address] [place] [address], [facility] OWAT [facility] in [place] [address] [place] [address] documented in this encounter Visit Diagnoses Diagnosis Diabetes Mellitus Type 2 With Diabetic Nephropathy (HCC) documented in this encounter Additional Health Concerns Assessment Noted Time PHQ-9 Depression Total Score: 0 06/24/19 19 10:47 AM OWNER ORAL SURGEON documented as of this encounter Care Teams Switch Crew Supervisor Relationship Specialty Start Date End Date Red Gamboa M.B.B.S., M.D. [address] [place] [phone] PCP - General Family Medicine 01/13/20 documented as of this encounter
--- OUTSIDE RECORDS SUMMARY | 2023-06-19 19:19 | XMS_ITS | Encounter Summary ---
Author Name Unknown Organization [facility] Address [address] [place] [address] Care Team Providers Care Medication Administration Professional Name Role Phone Red Gamboa M.D. [facility] Reason for Referral * Outpatient (Routine) - Authorized Specialty Diagnoses / Procedures Referred By Contopal lin Referred To Contact Diagnoses Cerumen Impacted Bilateral Red Gamboa M.B.B.S., M.D. [address] [place] [phone] [facility] Referral ID Status Reason Start Date Expiration Date V isits Requested Visits Authorized [id number] Authorized 08/20/2022 08/19/2025 1 1 Reason for Visit * Reason Comments Nurse Visit Ear flush bilateral * Appointment Request (Routine) - Authorized Specialty Diagnoses / Procedures Referred By Contac t Referred To Contact Nursing Services Referral ID Status Reason Start Date Expiration Date V isits Requested Visits Authorized [id number] Authorized 08/19/2022 08/19/2023 1 Encounter Details Date Type Department Care Team (Late st Contact Info) Description 08/20/2022 3:30 PM CDT Nurse Only Department of Family Medicine, [facility], in [place], [place] [address] [place] [phone] Mayra Lechuga L.P.N. [address] [place] [phone] Nurse Visit (Ear flush bilateral/) Social History Tobacco Use Types Packs/Day Years [...] on file documented as of this encounter Procedure Notes * Mayra Lechuga L.P.N. - 08/20/2022 3:30 PM CDT Martin is seen by Madeline who ordered lavage of both ears due to impacted cerumen bilateral. Verified there are no PE (pressure equalization) tubes in place. The procedure was explained to the patientand verbal consent obtained. Irrigation was performed using Rhino Ear Wash System and 500 cc warm tap water. Irrigant returned yellow with moderate amount of soft cerumen. The procedure was toleratedwell, without complication. Instructed not to place cotton tip swabs or other foreign objects in ears and to call the office if there is pressure, discomfort, irritability, and/or decreased hearing. Understanding verbalized. Provider notified of completion. documented in this encounter Plan of Treatment Scheduled Referrals Name Type Priority Associated Diagnoses Orde r Schedule Primary Care nurse visit (clinic) - [facility] Region; Ear wash; Bilateral Outpatient Referral Routine Cerumen Impacted Bilateral Ordered: 08/20/2022 documented as of this encounter Visit Diagnoses Diagnosis Cerumen Impacted Bilateral- Primary documented in this encounter Additional Health Concerns Assessment Noted Time PHQ-9 Depression Total Score: 0 06/24/19 10:47 AM CHIP MACHINE OPERATOR documented as of this encounter Care Teams Medication Administration Professional Relationship Specialty Start Date End Date Red Gamboa M.B.B.S., M.D. [address] [place] [address] RuskCAIN navarro [phone] PCP - General Family Medicine 01/13/20 documented as of this encounter
--- OUTSIDE RECORDS SUMMARY | 2023-06-19 19:19 | XMS_ITS | Encounter Summary ---
Author Name Unknown Organization [facility] Address [address] [place] [address] Care Team Providers Care Academic Affairs Manager Name Role Phone Red Gamboa M.D. [facility] Reason for Visit * Reason Comments Med Refill Encounter Details Date Type Department Care Team (Late st Contact Info) Description 08/26/2022 Refill Department of Family Medicine, [facility], in [place], [place] [address] [place] [phone] Red Gamboa M.B.B.S., Kathy [address] [place] [phone] Med Refill Social History Tobacco [...] Total Score: 0 06/24/19 19 10:47 AM PROFESSOR OF THEATER documented as of this encounter Care Teams Academic Affairs Manager Relationship Specialty Start Date End Date Red Gamboa M.B.B.S., [facility]. [address] [place] [address] [place] [phone] PCP - General Family Medicine 01/13/20 documented as of this encounter
--- OUTSIDE RECORDS SUMMARY | 2023-06-19 19:19 | XMS_ITS | Encounter Summary ---
Author Name Unknown Organization [facility] Address [address] [place] [address] Care Team Providers Care Laborer Name Role Phone Red Gamboa M.D. [facility] Reason for Visit * Reason Comments Med Refill Encounter Details Date Type Department Care Team (Late st Contact Info) Description 09/10/2022 Refill Department of Family Medicine, [facility], in [place], [place] [address] [place] [phone] Red Gamboa M.B.B.S., Kathy [address] [place] [phone] Med Refill Social History Tobacco [...] Total Score: 0 06/24/19 19 10:47 AM USER EXPERIENCE DESIGNER documented as of this encounter Care Teams Laborer Relationship Specialty Start Date End Date Red Gamboa M.B.B.S., [facility]. [address] [place] [address] [place] [phone] PCP - General Family Medicine 01/13/20 documented as of this encounter
--- OUTSIDE RECORDS SUMMARY | 2023-06-19 19:19 | XMS_ITS | Encounter Summary ---
Author Name Unknown Organization [facility] Address [address] [place] [address] Care Team Providers Care Handle Machine Operator Name Role Phone Red Gamboa M.D. [facility] Reason for Visit * Reason Comments Med Refill Encounter Details Date Type Department Care Team (Late st Contact Info) Description 10/06/2022 Refill Department of Family Medicine, [facility], in [place], [place] [address] [place] [phone] Red Gamboa M.B.B.S., Kathy [address] [place] [phone] Med Refill Social History Tobacco [...] Total Score: 0 06/24/19 19 10:47 AM FINANCIAL CONTROLLER documented as of this encounter Care Teams Handle Machine Operator Relationship Specialty Start Date End Date Red Gamboa M.B.B.S., [facility]. [address] [place] [address] [place] [phone] PCP - General Family Medicine 01/13/20 documented as of this encounter
--- OUTSIDE RECORDS SUMMARY | 2023-06-19 19:19 | XMS_ITS | Encounter Summary ---
Author Name Unknown Organization [facility] Address [address] [place] [address] Care Team Providers Care Prestressed Concrete Laborer Name Role Phone Red Gamboa M.D. [facility] Encounter Details Date Type Department Care Team (Late st Contact Info) Description 08/14/2022 Clinical Communication Department of Family Medicine, [facility] [place] [facility], in [place], [place] [address] [place] [phone] Red Gamboa M.B.B.S., MLeax [address] [place] [phone] Social History Tobacco Use Types [...] encounter Miscellaneous Notes * Telephone Encounter - Charleen Dawkins - 08/19/2022 3:37 PM CDT SUBJECTIVE CHIEF COMPLAINT / REASON FOR CALL No chief complaint on file. Information Discussed Called and informed patient of recommendations per Dr. Cooper M.D. Patient is really wanting labs done prior to his visit but does understand that he will need to wait until after his visit with the provider. PLAN Disposition/Recommendation: self-care . appropriate at this time, patient encouraged to call back with questions Information/Education: patient/caller able to teach back Caller agreeable to plan of care: yes The following references were used: provider Dr. Cooper M.D. * Telephone Encounter - Red Gamboa M.B.B.S., M.D. - 08/19/2022 12:16 PM CDT I will not be ordering labs. If he feels uncomfortable, he should go to the ER. There are standardsfor ordering labs and he needs to respect that. We have talked about this several times. * Telephone Encounter - Champ Palma V., C.M.AJocelyn - 08/19/2022 12:01 PM CDT SUBJECTIVE CHIEF COMPLAINT / REASON FOR CALL No chief complaint on file. Information Discussed Patient notified but really wants to have the labs done prior due to history of high psa and generally not feeling well at this time. Stating that he occasionally worries he may not make it through the night. Insists on having labs done prior to appointment to avoid any possible loss of time. PLAN Disposition/Recommendation: notified provider and awaiting recommendations Information/Education: patient/caller able to teach back Caller agreeable to plan of care: yes The following references were used: none * Telephone Encounter - Red Gamboa M.B.B.S., M.D. - 08/19/2022 11:46 AM CDT We will order labs as needed after his visit. * Telephone Encounter - Cortney Gaines - 08/14/2022 10:09 AM CST Patient made an appointment to see Dr. Gamboa on 08/25/2022. He's wondering if he can get labs ordered prior to appointment. Said he hasn't been seen in awhile. WRITER REPAIRER documented in this encounter Plan of Treatment Not on file documented as of this encounter Visit Diagnoses Not on filedocumented in this encounter Additional Health Concerns Assessment Noted Time PHQ-9 Depression Total Score: 0 06/24/19 19 10:47 AM TYPEWRITER REPAIRER documented as of this encounter Care Teams Prestressed Concrete Laborer Relationship Specialty Start Date End Date Red Gamboa M.B.B.S., M.D. [address] [place] [phone] PCP - General Family Medicine 01/13/20 documented as of this encounter
--- OUTSIDE RECORDS SUMMARY | 2023-06-19 19:19 | XMS_ITS | Encounter Summary ---
Author Name Unknown Organization [facility] Address [address] [place] [address] Care Team Providers Care Conditioning Coach Name Role Phone Red Gamboa M.D. Primary Care P crystal Reason for Visit * Reason Comments Follow-up Review labs * Appointment Request (Routine) - Closed Specialty Diagnoses / Procedures Referred By Alva lin Referred To Contact Family Medicine Referral ID Status Reason Start Date Expiration Date Visits Re quested Visits Authorized [id number] Closed 08/14/2022 08/14/2023 1 1 Encounter Details Date Type Department Care Team (Late st Contact Info) Description 08/25/2022 3:45 PM CDT Office Visit Department of Family Medicine, [facility], in [place], [place] [address] [place] [address] Red Gamboa M.B.B.S., MLexa [address] [place] [address] Diabetes Mellitus Type 2 With Diabetic Neuropathy (HCC) (Primary Dx); 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; Elevated Prostate-Specific Antigen; History Of Falling Social History Tobacco Use Types Packs/Day Years [...] on file documented as of this encounter Last Filed Vital Signs Vital Sign Reading Time Taken Comments Blood Pressure 150/77 08/25/2022 3:45 PM CDT Pulse 80 08/25/2022 3:45 PM CDT Temperature 36.4 ??C (97.5 ??F) 08/25/2022 3:42 PM CD T Respiratory Rate 12 08/25/2022 3:42 PM CDT Oxygen Saturation - - Inhaled Oxygen Concentration - - Weight 98.8 kg (217 lb 11.3 oz) 08/25/2022 3:42 PM CDT Height 188 cm (6' 2.02) 08/25/2022 3:42 PM CDT Body Mass Index 27.94 08/25/2022 3:42 PM CDT documented in this encounter Progress Notes * Red Gamboa M.B.B.S., M.D. - 08/25/2022 3:45 PM CDT SUBJECTIVE CHIEF COMPLAINT / REASON FOR VISIT Martin Angelo is a 87 y.o. male who presents for evaluation of Follow-up (Review labs/). HISTORY OF PRESENT ILLNESS Martin Angelo is an 87-year-old male with a history of type 2 diabetes on metformin and glimepiride. Patient also has a history of hypertension and is on losartan, amlodipine and metoprolol. Patient is also on finasteride for BPH with elevated PSA. He is scheduled for a prostate biopsy at the end of this month. Was started on Myrbetriq for urinary incontinence. He reports nocturia of 2-3 times a night which interferes with sleep. Patient is frustrated today because labs have not been ordered for him. His A1c in April was 7.2and an A1c has been scheduled in July which he is yet to do. He also had kidney function checked in April and it was within normal limits. He insists he can not trust me to tell him his kidneys are fine unless he gets labs done today. Please note that patient reports losing his and daughter to separate accidents last year. He has been unable to get his prostate biopsy scheduled due to these life changing events. The following portions of the patient's history were reviewed and updated as appropriate: allergies, current medications, family history, medical history, social history, surgical history, and problem list. REVIEW OF SYSTEMS Pertinent items are noted in HPI. OBJECTIVE BP 150/77 (BP Location: Left arm, Patient Position: Sitting, Cuff Size: Regular) Pulse 80 Temp 36.4 ??C (Temporal) Resp 12 Ht 188 cm Wt 98.8 kg BMI 27.94 kg/m?? PHYSICAL EXAM General Appearance: alert, no distress, cooperative. Skin: skin color, texture, turgor normal, no suspicious rashes or lesions. Head: normocephalic, no masses, lesions, tenderness or abnormalities. Eyes: Anicteric sclera. Pupils are equally round and reactive to light. Extraocular movements are intact. Musculoskeletal: Range of motion normal in hips, knees, shoulders, and spine. 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 The conversation today was difficult as patient was significantly frustrated and visibly shaking with anger. He demanded I order labs for him immediately. We have talked several times about recommendations for labs. He is yet to do A1c which is necessaryto monitor his diabetic management. I have tried to satisfy his desire to check his kidney function regularly. Patient does not seem to be interested in a conversation with me. I am concerned about worsening depression due to the significant and tragic issues he has experienced recently. As I tried to explain my assessment of his kidney function and my thoughts on an appropriate management plan, patient elected to end the visit early. I will go ahead and order a BNP to build some trust with this patient. I will also call and ask himto get an A1c done. I was able to recommend seeing his urologist before he left the exam room. documented in this encounter Plan of Treatment Not on file documented as of this encounter Results * (ABNORMAL) Basic Metabolic [...] Red Schwartz M.D. 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 [address] [place] [phone] PCP - General Family Medicine 01/13/20 documented as of this encounter
--- OUTSIDE RECORDS SUMMARY | 2023-06-19 19:20 | XMS_ITS | Clinical Summary ---
Author Name Unknown Organization [facility] Address [address] [address] Phone Care Team Providers Care Dry End Tester Name Role Phone Unavailable Primary Care Provider Unavailabl e Allergies No known active allergies Medications Medication Sig Dispensed Refills Start Date End Date Status clopidogrel (PLAVIX) 75 MG tablet Take 75 mg by mouth one time a day. 0 Active amLODIPine (NORVASC) 5 MG tablet Take 5 mg by mouth one time a day. 0 Active aspirin 81 MG tablet Take 81 mg by mouth one time a day. 0 Active atorvaSTATin (LIPITOR) 80 MG tablet Take 80 mg by mouth one time a day. 0 Active calcium carbonate (TUMS) 500 MG chewable tablet Chew and swallow 1,000 mg one time a day. Chew thoroughly. 0 Active finasteride (PROSCAR) 5 MG tablet Take 5 mg by mouth one time a day. Do not crush. 0 Active glimepiride (AMARYL) 4 MG tablet Take 4 mg by mouth every morning with breakfast. 0 Active linagliptin (TRADJENTA) 5 MG Tablet tablet Take 5 mg by mouth one time a day. 0 Active losartan (COZAAR) 100 MG tablet Take 100 mg by mouth one time a day. 0 Active metFORMIN (GLUCOPHAGE) 500 MG tablet Take 1,500 mg by mouth two times a day with meals. Take with food. 0 Active metoprolol succinate (TOPROL XL) 100 MG 24 hour extended-release tablet Take 100 mg by mouth one time a day. Do not crush or chew. 0 Active Calcium Polycarbophil (FIBER-CAPS OR) Take by mouth. 0 Activ e FIBER COMPLETE Tablet Take 2 Tabs by mouth one time a day. 0 Active nitroglycerin (NITROSTAT) 0.[address] 0.4 mg under the tongue every five minutes as needed for Chest pain. Do not crush; maximum of 3 doses in 15 minutes. 0 Active nortriptyline (PAMELOR) 10 MG capsule Take 10 mg by mouth every evening. 0 Active Social History Tobacco Use Types Packs/Day Years Used Date Smoking Tobacco: Never Assessed Sex and Gender Information Value Date Recorded Sex Assigned at Not on file Gender Identity Not on file Sexual Orientation Not on file Last Filed Vital Signs Vital Sign Reading Time Taken Comments Blood Pressure 118/76 01/16/2017 10:09 PM CDT Pulse 84 01/16/2017 10:09 PM CDT Temperature 36.4 ??C (97.5 ??F) 01/16/2017 10:09 PM C DT Respiratory Rate 18 01/16/2017 10:09 PM CDT Oxygen Saturation 100% 01/16/2017 10:09 PM CDT Inhaled Oxygen Concentration - - Weight 108.9 kg (240 lb) 01/16/2017 10:09 PM CDT Height 190.5 cm (6' 3) 01/16/2017 10:09 PM CDT Body Mass Index 30 01/16/2017 10:09 PM CDT Plan of Treatment Not on file
[2023-06-19 19:45] LABS: Chloride* 104 mmol/L (96-114); Potassium* 4.4 mmol/L (3.6-5.1); Sodium* 137 mmol/L (135-149)
[2023-06-19 19:48] LABS: Anion Gap 9 mEq/L (7-15); Blood Urea Nitrogen* 19 mg/dL (7-30); Carbon Dioxide* 24 mmol/L (20-32); Creatinine* 0.9 mg/dL (0.5-1.5); Est. Creatinine Clearance* 61.65; Estimated Glomerular Filt Rate 83 ml/min
[2023-06-19 19:49] LABS: Glucose* 247 mg/dL (60-115)
== END 2023-06-19 20:19 | disposition home or self-care (01) ==
PROVIDERS: Emergency Provider Family Medicine; PCP Student in an Organized Health Care Education/Training Program
DX: R53.1 Weakness (principal)
CPT/HCPCS: 36415; 80048; 81001; 83735; 84484; 85025; 93005; 96360; 99284; J7030

== ENCOUNTER 2023-06-20 16:02 | Outpatient (CLI) | payer MEDICARE, SELFPAY ==
--- OUTSIDE RECORDS SUMMARY | 2023-06-24 09:43 | XMS_ITS | Encounter Summary ---
Author Name Unknown Organization [facility] Address [address] [place] [address] Care Team Providers Care Cloth Washer Operator Name Role Phone Red Gamboa M.D. Primary Care P crystal Reason for Referral * Outpatient (Routine) - Authorized Specialty Diagnoses / Procedures Referred By Alva t Referred To Contact Family Medicine Red Gamboa M.B.B.S., M.D. [address] [place] [address] [facility] Region Referral ID Status Reason Start Date Expiration Date V isits Requested Visits Authorized [id number] Authorized 04/14/2023 04/13/2026 1 1 Scheduling Instructions Medicare annual provider visit/HCC gaps Do not schedule prior to due date to ensure insurance coverage Visit: Medicare Annual Wellness Never done. O FINISH PHOTOGRAPHER Encounter Details Date Type Department Care Team (Late st Contact Info) Description 04/14/2023 Orders Only [facility] PCP [facility] MNT Red Gamboa M.B.B.S., M.D. [address] [place] [address] Social History Tobacco Use Types [...] Total Score: 0 06/24/19 19 10:47 AM PHOTO FINISH PHOTOGRAPHER documented as of this encounter Care Teams Cloth Washer Operator Relationship Specialty Start Date End Date Red Gamboa M.B.BJocelynSJocelyn, [place]ando. [address] [place] [phone] PCP - General Family Medicine 01/13/20 documented as of this encounter
--- OUTSIDE RECORDS SUMMARY | 2023-06-24 09:43 | XMS_ITS | Encounter Summary ---
Author Name Unknown Organization [facility] Address [address] [place] [address] Care Team Providers Care Food Service Associate Name Role Phone Red Gamboa M.D. Primary Care [facility] Reason for Visit * Reason Comments Med Refill Encounter Details Date Type Department Care Team (Late st Contact Info) Description 09/10/2022 Refill Department of Family Medicine, [facility], in [place], [place] [address] [place] [address] Red Gamboa M.B.B.S., Kathy [address] [place] [address] Med Refill Social History Tobacco [...] Total Score: 0 06/24/19 19 10:47 AM ECOSYSTEM ECOLOGY PROFESSOR documented as of this encounter Care Teams Food Service Associate Relationship Specialty Start Date End Date Red Gamboa M.B.B.S., [place]. [address] [place] [address] [place] [address] PCP - General Family Medicine 01/13/20 documented as of this encounter
--- OUTSIDE RECORDS SUMMARY | 2023-06-24 09:43 | XMS_ITS | Clinical Summary ---
Author Name Unknown Organization [facility] Address [address] [place] [address] Care Team Providers Care Dump Grader Name Role Phone Red Gamboa M.D. Primary Care Kiran rojas Source Comments Patient records contain information from all sites at [facility]. For routine questions regarding patient records, call [phone] during business hours, M-F 8:00 AM - 5:00 PM Central Time. Record requests for emergency care only can be directed to [phone] at any time.[facility] Allergies No known active allergies Medications Medication Sig Dispensed Refills Start Date End Date Status calcium carbonate (TUMS ULTRA) 1000 mg (400 mg calcium) chewable tablet Chew 2 tablets at bedtime. 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 See document viewer. Care Teams Dump Grader Relationship Specialty Start Date End Date Red Gamboa M.B.B.S., M.Dejuan. [address] [place] [address] [place] [phone] PCP - General Family Medicine 01/13/20
--- OUTSIDE RECORDS SUMMARY | 2023-06-24 09:43 | XMS_ITS | Referral Summary ---
Author Name Unknown Organization [facility] Address [address] [place] [address] Care Team Providers Care Excellence Coach Name Role Phone Red Gamboa M.D. Primary Care P crystal Source Comments Patient records contain information from all sites at [facility]. For routine questions regarding patient records, call [phone] during business hours, M-F 8:00 AM - 5:00 PM Central Time. Record requests for emergency care only can be directed to [phone] at any time.[facility] Encounters Date Type Department Care Team Description 04/14/2023 Orders Only [facility] PCP [facility] MNT Red Gamboa M.B.B.S., Kathy from Last 3 Months Allergies No known active allergies Medications Medication Sig Dispensed Refills Start Date End Date Status calcium carbonate (TUMS ULTRA) 1000 mg (400 mg calcium) chewable tablet Chew 2 tablets at bedtime. 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 See document viewer. Care Teams Excellence Coach Relationship Specialty Start Date End Date Red Gamboa M.B.B.S., M.D. [address] [place] [phone] PCP - General Family Medicine 01/13/20
--- OUTSIDE RECORDS SUMMARY | 2023-06-24 09:43 | XMS_ITS | Encounter Summary ---
Author Name Unknown Organization [facility] Address [address] [place] [address] Care Team Providers Care Office Systems Technology Instructor Name Role Phone Red Gamboa M.D. Primary Care P crystal Reason for Visit * Reason Comments Med Refill Encounter Details Date Type Department Care Team (Late st Contact Info) Description 10/27/2022 Refill Department of Family Medicine, [facility], in [place], [place] [address] [place] [address] Red Gamboa M.B.B.S., Kathy [address] [place] [address] Med Refill Social History Tobacco [...] Total Score: 0 06/24/19 19 10:47 AM APPLICATION SOFTWARE DEVELOPER documented as of this encounter Care Teams Office Systems Technology Instructor Relationship Specialty Start Date End Date Red Gamboa M.B.B.S., M.D. [address] [place] [phone] PCP - General Family Medicine 01/13/20 documented as of this encounter
--- OUTSIDE RECORDS SUMMARY | 2023-06-24 09:43 | XMS_ITS | Encounter Summary ---
Author Name Unknown Organization [facility] Address [address] [place] [address] Care Team Providers Care Manager Cardiac Cath Name Role Phone Red Gamboa M.D. [facility] Care [facility] Encounter Details Date Type Department Care Team (Late st Contact Info) Description 01/07/2023 Orders Only [facility] PCP [facility] MNT Red Gamboa M.B.B.S., MLexa [address] [place] [phone] Diabetes Mellitus Type 2 With Diabetic Neuropathy [...] Total Score: 0 06/24/19 19 10:47 AM AUTO INSPECTOR documented as of this encounter Care Teams Manager Cardiac Cath Relationship Specialty Start Date End Date Red Gamboa M.B.B.S., M.D. [address] [place] [phone] PCP - General Family Medicine 01/13/20 documented as of this encounter
--- OUTSIDE RECORDS SUMMARY | 2023-06-24 09:43 | XMS_ITS | Encounter Summary ---
Author Name Unknown Organization [facility] Address [address] [place] [address] Care Team Providers Care Pop Singer Name Role Phone Red Gamboa M.D. Primary Care P [facility] Encounter Details Date Type Department Care Team (Late st Contact Info) Description 10/22/2022 Orders Only [facility] PCP [facility] MNT Red Gamboa M.B.B.S., MLexa [address] [place] [phone] Social History Tobacco Use Types Packs/Day Years [...] Total Score: 0 06/24/19 19 10:47 AM AIRCRAFT MAINTENANCE DIRECTOR documented as of this encounter Care Teams Pop Singer Relationship Specialty Start Date End Date Red Gamboa M.B.B.S., M.D. [address] [place] [address] [place] [phone] PCP - General Family Medicine 01/13/20 documented as of this encounter
--- OUTSIDE RECORDS SUMMARY | 2023-06-24 09:43 | XMS_ITS ---
Author Name Unknown Organization [facility] Address [address] [place] [address] Care Team Providers Care Flower Cheniller Name Role Phone Unavailable Unavailable Unavailable Surgery Details Not on file Complications Check Surgery Details section. Procedure Estimated Blood Loss Check Surgery Details section. Procedure Findings Check Surgery Details section. Procedure Specimens Taken Check Surgery Details section.
--- OUTSIDE RECORDS SUMMARY | 2023-06-24 09:43 | XMS_ITS | Encounter Summary ---
Author Name Unknown Organization [facility] Address [address] [place] [address] Care Team Providers Care Auto Refinisher Name Role Phone Red Gamboa M.D. [facility] Reason for Visit * Reason Comments Med Refill Encounter Details Date Type Department Care Team (Late st Contact Info) Description 08/26/2022 Refill Department of Family Medicine, [facility], in [place], [place] [address] [place] [address] Red Gamboa M.B.B.S., Kathy [address] [place] [phone] Med Refill Social History Tobacco [...] Total Score: 0 06/24/19 19 10:47 AM MANAGER MAC documented as of this encounter Care Teams Auto Refinisher Relationship Specialty Start Date End Date Red Gamboa M.B.B.S., [place]. [address] [place] [address] [place] [phone] PCP - General Family Medicine 01/13/20 documented as of this encounter
--- OUTSIDE RECORDS SUMMARY | 2023-06-24 09:43 | XMS_ITS | Encounter Summary ---
Author Name Unknown Organization [facility] Address [address] [place] [address] Care Team Providers Care Green Marketing Analyst Name Role Phone Red Gamboa M.D. Primary Care [facility] Encounter Details Date Type Department Care Team (Latest Contact Info) Description 08/26/2022 1:14 PM CDT - 08/26/2022 11:59 PM CDT Hospital Encounter Department of Laboratory Medicine in [place], [place] [address] [place] [address] Red Gamboa M.B.B.S., Kathy [address] [place] [address] Diabetes Mellitus Type 2 With [...] chest pain persist. 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 90 tablet 3 12/02/2021 vitamins A,C,U-epfj-myfbga (for_PRESERVISION AREDS) 7,160 Units-113 mg-100 Units per [...] LAB BLO OD ADD-ON Performing Organization Address [facility] Co de Phone Number [facility] [address] [place] [address], [place] [facility] [place] [address], [place] [address] * (ABNORMAL) Hemoglobin A1c (08/26/2022 1:36 PM [...] LAB BLO OD ADD-ON Performing Organization Address [facility] Co de Phone Number [facility] [address] [place] [address], [place] [facility] [facility] [place] [address], [place] [address] documented in this encounter Visit Diagnoses Diagnosis 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 [place]. [address] [place] [phone] PCP - General Family Medicine 01/13/20 documented as of this encounter
--- OUTSIDE RECORDS SUMMARY | 2023-06-24 09:43 | XMS_ITS | Encounter Summary ---
Author Name Unknown Organization [facility] Address [address] [place] [address] Care Team Providers Care Retail Equipment Associate Name Role Phone Red Gamboa M.D. [facility] Reason for Visit * Reason Comments Med Refill Encounter Details Date Type Department Care Team (Late st Contact Info) Description 10/06/2022 Refill Department of Family Medicine, [facility], in [place], [place] [address] [place] [address] Red Gamboa M.B.B.S., Kathy [address] [place] [address] Med Refill Social History Tobacco [...] Total Score: 0 06/24/19 19 10:47 AM JEWELRY COATER documented as of this encounter Care Teams Retail Equipment Associate Relationship Specialty Start Date End Date Red Gamboa M.B.B.S., [place]. [address] [place] [address] [place] [phone] PCP - General Family Medicine 01/13/20 documented as of this encounter
--- OUTSIDE RECORDS SUMMARY | 2023-06-24 09:44 | XMS_ITS | Encounter Summary ---
Author Name Unknown Organization [facility] Address [address] [place] [address] Care Team Providers Care Web Analytics Developer Name Role Phone Red Gamboa M.D. Primary Care P crystal Reason for Visit * Reason Onset Date Comments Follow-up 08/25/2022 Encounter Details Date Type Department Care Team (Late st Contact Info) Description 08/25/2022 Clinical Communication Department of Family Medicine, [facility], in [place] [address] [place] [phone] Shanique Quinteros, RJocelynN. Follow-up Social History Tobacco [...] / REASON FOR CALL Follow-up Information Discussed Formulation Chemist called the patient to notify him that [...] Total Score: 0 06/24/19 19 10:47 AM PLODDING MACHINE OPERATOR documented as of this encounter Care Teams Web Analytics Developer Relationship Specialty Start Date End Date Red Gamboa M.B.B.S., M.D. [address] [place] [phone] PCP - General Family Medicine 01/13/20 documented as of this encounter
--- OUTSIDE RECORDS SUMMARY | 2023-06-24 09:44 | XMS_ITS | Encounter Summary ---
Author Name Unknown Organization [facility] Address [address] [place] [address] Care Team Providers Care Flea Market Seller Name Role Phone Red Gamboa M.D. Primary Care [facility] Encounter Details Date Type Department Care Team (Late st Contact Info) Description 08/14/2022 Clinical Communication Department of Family Medicine, [facility], in [place], [place] [address] [place] [address] Red Gamboa M.B.B.S., MLexa [address] [place] [address] Social History Tobacco Use Types [...] Said he hasn't been seen in awhile. A INSTRUCTOR documented in this encounter Plan of Treatment Not on file documented as of this encounter Visit Diagnoses Not on filedocumented in this encounter Additional Health Concerns Assessment Noted Time PHQ-9 Depression Total Score: 0 06/24/19 19 10:47 AM SCUBA INSTRUCTOR documented as of this encounter Care Teams Flea Market Seller Relationship Specialty Start Date End Date Red Gamboa M.B.B.S., M.D. [address] [place] [phone] PCP - General Family Medicine 01/13/20 documented as of this encounter
--- OUTSIDE RECORDS SUMMARY | 2023-06-24 09:44 | XMS_ITS | Clinical Summary ---
Author Name Unknown Organization [facility] Address [place], [place] [address] Care Team Providers Care Candy Bar Attendant Name Role Phone Alexandra Castelan DO Primary Care Provider [phone] Allergies No known active allergies Medications Medication [...] be used to read blood sugars per survey questionnaire designer's directions. 1 Each 0 3 Active FreeStyle [...] Without CHF Atherosclerotic heart diseas e of [place] coronary artery without angina pectoris 02/07/2016 08/29/2022 [...] Department Care Team Description 06/20/2023 Nurse Triage [address] [address] Alexandra Castelan, Confusion 06/15/2023 Refill [facility] [address] [place] [address] Alexandra Castelan, DO Refill Request (Myrbetriq) 06/03/2023 Telephone [facility] [address] [place] [address] Alexandra Castelan, DO Medication Management 06/03/2023 Refill [facility] [address] [place] [address] Alexandra Castelan, DO Refill Request (Myrbetriq) 06/03/[address] [phone] Kendell Moss MD Refill Request (Eliquis) 05/05/2023 Refill [facility] [address] [place] [address] Alexandra Castelan, DO Refill Request (Metformin, Jardiance) 05/04/[address] [address] Alexandra Castelan DO Refill Request (Ketoconazole 2% Shampoo) 04/29/2023 Orders Only [facility] Scanner 1 scan: (1-Ord) INCOMING RECORDS-DIABETIC EYE, [facility], 04/29/2023 04/21/2023 Telephone [facility] [address] [place] [phone] Jeannine Aviles MD Lab; Appointment 04/02/2023 3:20 PM CDT Office Visit [facility] [address] [place] [address] Alexandra Castelan DO Follow Up 04/02/2023 Travel 03/26/2023 Telephone [facility] [address] [place] [address] Jeannine Aviles MD Questions (About body scans ) from Last 3 Months Immunizations Name Administration Dates Next Due COVID-19 Vaccine Spikevax (M oderna 50mcg/0.5mL) 12YO+ [id number] Formula PF 04/02/2023 COVID-19 vaccine (Pfizer-Bio NTech [...] Care Team (Late st Contact Info) Description 06/25/2023 11:25 AM MULTIPLE DRUM SANDER Office Visit [facility] [address] [place] [address] Alexandra Castelan DO [address] [place] [address] 11/12/2023 4:20 PM CDT Orders Only [facility] [address] [place] [address] [facility] 11/19/2023 1:45 PM CDT Office Visit [facility] [address] [place] [address] Jeannine Aviles MD [address] [place] [address] Health Maintenance Due Date Last Done Comments Tetanus booster 03/11/2022 03/11/2012 Medicare Wellness for age 65+ 09/18/2023 09/18/2022 Depression screening for age 12+ 09/19/2023 09/19/19 23, 08/21/2015 BMI (ht and wt on same day) for age 18+ 12/27/2023 12/26/2022, 09/18/2022, 09/04/2022, Additional history exists Tdap Completed 03/11/2012 Pneumococcal series for age 65+ Completed 5, 03/17/2006 Zoster (shingles) series for age 50+ Completed 05/10/2020, 02/02/2020, 07/07/2014 Influenza for age 65+ Completed 02/27/2023 , 04/03/2022, 03/11/2021, Additional history exists COVID-19 vaccine series Completed 04/02/20, 04/07/2022, 10/22/2021, Additional history exists Procedures Procedure Name Priority Date/Time Associated Diagnosis Comments SCAN-EYE EXAM 04/29/2023 12:00 AM MULTIPLE DRUM SANDER from Last 3 Months Results * SCAN-EYE EXAM (04/29/2023 12:00 AM MULTIPLE DRUM SANDER) Scanner OTHER from Last 3 Months Advance Directives Latest [...] 11:28 PM 05/08/2015 2:10 PM Care Teams Candy Bar Attendant Relationship Specialty Start Date End Date [place] [address] [address] PCP - General Family Practice 10/29/22
--- OUTSIDE RECORDS SUMMARY | 2023-06-24 09:44 | XMS_ITS | Encounter Summary ---
Author Name Unknown Organization [facility] Address [address] [place] [address] Care Team Providers Care Quarter Backer Name Role Phone Red Gamboa M.D. [facility] Reason for Visit * Reason Comments Med Refill Encounter Details Date Type Department Care Team (Late st Contact Info) Description 08/05/2022 Refill Department of Family Medicine, [facility], in [place], [place] [address] [place] [address] Red Gamboa M.B.B.S., Kathy [address] [place] [address] Med Refill Social History Tobacco [...] Total Score: 0 06/24/19 19 10:47 AM EQUITY STRUCTURER documented as of this encounter Care Teams Quarter Backer Relationship Specialty Start Date End Date Red Gamboa M.B.B.S., [place]. [address] [place] [address] [place] [address] PCP - General Family Medicine 01/13/20 documented as of this encounter
--- OUTSIDE RECORDS SUMMARY | 2023-06-24 09:44 | XMS_ITS | Clinical Summary ---
Author Name Unknown Organization [facility] Address [address] [address] Phone Care Team Providers Care Finance Teacher Name Role Phone Unavailable Primary Care Provider [...]
--- OUTSIDE RECORDS SUMMARY | 2023-06-24 09:44 | XMS_ITS | Encounter Summary ---
Author Name Unknown Organization [facility] Address [address] [place] [address] Care Team Providers Care Digital Marketing Project Manager Name Role Phone Red Gamboa M.D. [facility] Reason for Referral * Outpatient (Routine) - Authorized Specialty Diagnoses / Procedures Referred By Contopal lin Referred To Contact Diagnoses Cerumen Impacted Bilateral Red Gamboa M.B.B.S., M.D. [address] [place] [address] [facility] Referral ID Status Reason Start Date Expiration Date V isits Requested Visits Authorized [id number] Authorized 08/20/2022 08/19/2025 1 1 Reason for Visit * Reason Comments Nurse Visit Ear flush bilateral * Appointment Request (Routine) - Authorized Specialty Diagnoses / Procedures Referred By Contac t Referred To Contact Nursing Services Referral ID Status Reason Start Date Expiration Date V isits Requested Visits Authorized [id number] Authorized 08/19/2022 08/19/2023 1 Encounter Details Date Type Department Care Team (Late st Contact Info) Description 08/20/2022 3:30 PM CDT Nurse Only Department of Family Medicine, [facility], in [place], [place] [address] [place] [address] Mayra Lechuga L.P.N. [address] [place] [phone] Nurse Visit (Ear flush bilateral/) Social History [...] Schedule Primary Care nurse visit (clinic) - [facility] Region; Ear wash; Bilateral Outpatient Referral Routine Cerumen Impacted Bilateral Ordered: 08/20/2022 documented as of this encounter Visit Diagnoses Diagnosis Cerumen Impacted Bilateral- Primary documented in this encounter Additional Health Concerns Assessment Noted Time PHQ-9 Depression Total Score: 0 06/24/19 10:47 AM ROOF SLATER documented as of this encounter Care Teams Digital Marketing Project Manager Relationship Specialty Start Date End Date Red Gamboa M.B.B.S., M.D. [address] [place] [address] [place] [phone] PCP - General Family Medicine 01/13/20 documented as of this encounter
--- OUTSIDE RECORDS SUMMARY | 2023-06-24 09:44 | XMS_ITS | Encounter Summary ---
Author Name Unknown Organization [facility] Address [address] [place] [address] Care Team Providers Care Interior Decorator Paperhanging Name Role Phone Red Gamboa M.D. Primary Care [facility] Encounter Details Date Type Department Care Team (Latest Contact Info) Description 08/26/2022 1:13 PM CDT Hospital Encounter Department of Laboratory Medicine in [address] [phone] Red Gamboa M.B.B.S., MLexa [address] [place] [phone] Diabetes Mellitus Type 2 With Diabetic [...] EVERY MORNING. 90 tablet 3 12/02/2021 vitamins A,C,Q-gyam-muambw (for_PRESERVISION AREDS) 7,160 Units-113 mg-100 Units per [...] Red Schwartz M.D. LAB URI NE ORDERABLES [facility] [address] [place] [address], [facility] in [place] [address] [place] [address] documented in this encounter Visit Diagnoses Diagnosis Diabetes Mellitus Type 2 With Diabetic Nephropathy (HCC) documented in this encounter Additional Health Concerns Assessment Noted Time PHQ-9 Depression Total Score: 0 06/24/19 19 10:47 AM WET ROASTER documented as of this encounter Care Teams Interior Decorator Paperhanging Relationship Specialty Start Date End Date Red Gamboa M.B.B.S., M.D. [address] [place] [phone] PCP - General Family Medicine 01/13/20 documented as of this encounter
--- OUTSIDE RECORDS SUMMARY | 2023-06-24 09:44 | XMS_ITS | Encounter Summary ---
Author Name Unknown Organization [facility] Address [address] [place] [address] Care Team Providers Care Gas Appliance Installer Name Role Phone Red Gamboa M.D. Primary Care P crystal Reason for Visit * Reason Comments Follow-up Review labs * Appointment Request (Routine) - Closed Specialty Diagnoses / Procedures Referred By Alva lin Referred To Contact Family Medicine Referral ID Status Reason Start Date Expiration Date Visits Re quested Visits Authorized [id number] Closed 08/14/2022 08/14/2023 1 1 Encounter Details Date Type Department Care Team (Late st Contact Info) Description 08/25/2022 3:45 PM CDT Office Visit Department of Family Medicine, [facility], in [place], [place] [address] [place] [address] Red Gamboa M.B.B.S., MLexa [address] [place] [address] Diabetes Mellitus Type 2 With [...] Red Schwartz M.D. LAB BLO OD ADD-ON 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 [address] [place] [phone] PCP - General Family Medicine 01/13/20 documented as of this encounter
== END 2023-06-20 16:03 | disposition home or self-care (01) ==
LOC: AMB 06-24 09:36
PROVIDERS: PCP Student in an Organized Health Care Education/Training Program; Visit Provider Family Medicine
DX: R41.0 Disorientation, unspecified (principal)
CPT/HCPCS: A0998

== ENCOUNTER 2023-09-15 23:36 | Outpatient (CLI) | payer MEDICARE, SELFPAY ==
--- OUTSIDE RECORDS SUMMARY | 2023-09-25 02:13 | XMS_ITS | Clinical Summary ---
Author Name Unknown Organization [facility] Address [address] [place] [address] Care Team Providers Care Leaf Stripper Name Role Phone Red Gamboa M.D. Primary Care Kiran rojas Source Comments Patient records contain information from all sites at [facility]. For routine questions regarding patient records, call [phone] during business hours, M-F 8:00 AM - 5:00 PM Central Time. Record requests for emergency care only can be directed to [phone] at any time.[facility] Allergies No known active allergies Medications Medication Sig Dispensed Refills Start Date End Date Status calcium carbonate (TUMS ULTRA) 1000 mg (400 mg calcium) chewable tablet Chew 2 tablets at bedtime. 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 Diabetes Mellitus Type 2 With Diabetic [...] Cologuard Discontinued Medical Devices Implanted Type Area Glaze Carrier Device Identifier Shelf Expiration Date Model / Serial / Lot Cardiac Stent Cardiac Stent Heart Description:X 6 Ocular Lens Ocular Lens Bilateral : Eye Procedures Procedure Name Priority Date/Time Associated Diagnosis Comments EXTI COMPREHENSIVE METABOLIC PANEL, S/P Routine 07/13/2023 2:35 PM QUICKBOOKS BOOKKEEPER HEMOGLOBIN A1C, B Routine 08/26/2022 1:3 6 [...] Red Schwartz M.D. LAB BLO OD ADD-ON [facility] [address] [place] [address], [place] OW[place] [facility] [place] [address] [place] [address] * Albumin, Random, Urine (08/26/2022 1:33 PM [...] LAB URI NE ORDERABLES Performing Organization Address [facility] Co de Phone Number [facility] [address] [place] [address], [place] OW[place] [facility] [place] [address] [place] [address] from Last 3 Months or Most Recently Relevant to Health Maintenance Advance Directives For more information, please contact: [phone] Documents on File Type Date Recorded Patient Slip Tender Expl anation Advance Directives 01/14/2013 12:00 AM Lega cy document. See document viewer. Care Teams Leaf Stripper Relationship Specialty Start Date End Date Red Gamboa M.B.B.S., M.Dejuan. [address] [place] [address] CA[place] Briceno [phone] PCP - General Family Medicine 01/13/20
--- OUTSIDE RECORDS SUMMARY | 2023-09-25 02:13 | XMS_ITS | Clinical Summary ---
Author Name Unknown Organization [email or web address] Address [place], [place] [address] Care Team Providers Care Business Objects Consultant Name Role Phone Alexandra Castelan DO Primary Care Provider Allergies No known active allergies Medications Medication [...] Upset. Active nitroglycerin (NITROSTAT) 0.4 mg sublingual tabletIndications:N STEMI (non-ST elevated myocardial infarction) (HC) Place 1 tablet under the tongue every 5 minutes if needed for Chest Pain (first choice for chest pain). 1 Bottle 0 05/08/2015 Active polyethylene glycol (MIRALAX; GLYCOLAX) 17 g powder for solution Mix 17 g in liquid then take by mouth once daily if needed. 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 90 Capsule 3 09/18/2022 Active psyllium powdIndications:Chr onic constipation Mix 1 tsp in liquid then take by mouth once daily if needed for Constipation. 283 g 11 12/04/2022 Active linaGLIPtin (Tradjenta) 5 mg tabIndications:Type 2 diabetes mellitus with other specified complication, without long-term current use of insulin (HC) TAKE 1 TABLET (5 MG) BY MOUTH EVERY MORNING. 360 Tablet 12/29/2022 4 Active Eliquis 5 mg tabletIndications:H istory of pulmonary embolus (PE) TAKE 1 TABLET (5 MG) BY MOUTH TWO TIMES DAILY. 60 Tablet 2 06/04/2023 Active selenium sulfide 2.25 %Indications:Atopic dermatitis of scalp Apply topically to affected area(s) once daily if needed for Dry Scalp. 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 1 Each 07/13/2023 Active sertraline (ZOLOFT) 25 mg tabletIndications:D epression, recurrent (HC) Take 2 Tablets (50 mg) by mouth every morning. 90 Tablet 3 07/13/2023 Active cholecalciferol (Vitamin D-3) 2,000 unit capsuleIndications: Vitamin D deficiency Take 1 Capsule (2,000 units) by mouth once daily. 90 Capsule 3 07/14/2023 Active cyanocobalamin (Vitamin B-12) 1,000 mcg tabletIndications:B 12 deficiency Take 1 Tablet (1,000 mcg) by mouth once daily. 90 Tablet 3 07/14/2023 Active losartan (COZAAR) 50 mg tabletIndications:H TN (hypertension) Take 1 Tablet (50 mg) by mouth once daily. 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 1 Each 07/22/2023 Active blood sugar diagnostic (ReevooTouch Verio test strips) stripIndications:Ty pe 2 diabetes mellitus with other circulatory complications (HC) As directed once daily. 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 08/29/2022 [...] Encounters Date Type Department Care Team Description 09/24/2023 10:10 AM CDT Office Visit [facility] [address] [place] [address] Alexandra Castelan DO Edema (Bilateral lower leg edema / ankles RIGHT is worse - previous hx of a blood clot); Home Care (Does not want to move to an assisted living but would be interested in home health ) 09/24/2023 Travel 09/18/2023 Nurse Triage [facility] [address] [place] [address] Alexandra Castelan DO Edema (Both ankles/feet) 09/18/2023 Telephone [facility] [address] [place] [address] Alexandra Castelan DO Error-please disregard 08/24/2023 2:45 PM CDT Home Care Visit [facility] [address] [place] [phone] Itz Vizcarra, PT PT - OASIS DISCHARGE 08/24/2023 10:30 AM CDT Home Care Visit [facility] [address] [place] [address], [place] [address] Sacha Matos, RN SN - DISCIPLINE DISCHARGE 08/17/2023 2:30 PM CDT Home Care Visit [facility] [address] [place] [address], [place] [address] Itz Vizcarra, PT PT - HOME VISIT 08/17/2023 10:30 AM CDT Home Care Visit [facility] [address] [place] [phone] Sacha Matos, RN SN - HOME VISIT 08/17/[address] [address] Alexandra Castelan, Refill Request (Atorvastatin) 08/11/2023 12:00 PM AUTOMOBILE DESIGNER Home Care Visit [facility] [address] [place] [address], [place] [address] Sacha Matos, RN SN - LONG VISIT (>90 MINUTES) 08/10/2023 1:30 PM AUTOMOBILE DESIGNER Home Care Visit [facility] [address] [place] [address], [place] [address] Jessi Michael, PT PT - HOME VISIT 08/04/2023 11:30 AM AUTOMOBILE DESIGNER Home Care Visit [facility] [address] [place] [address], [place] [address] Sacha Matos, RN SN - HOME VISIT 08/03/2023 1:30 PM AUTOMOBILE DESIGNER Home Care Visit [facility] [address] [place] [address], [place] [address] Jessi Michael, PT PT - REASSESSMENT 07/29/2023 1:30 PM AUTOMOBILE DESIGNER Home Care Visit [place] [id number] [place] [address], [place] [address] Jessi Michael, PT PT - HOME VISIT 07/28/2023 11:00 AM AUTOMOBILE DESIGNER Home Care Visit [facility] [address] [facility] [place] [address] Sacha Matos, RN SN - HOME VISIT 07/27/2023 1:30 PM AUTOMOBILE DESIGNER Home Care Visit [facility] [address] [facility] [place] [address] Jessi Michael, PT PT - HOME VISIT 07/27/2023 Orders Only [facility] [address] [place] [address] Alexandra Castelan, DO <No scans attached> 07/24/2023 11:00 AM AUTOMOBILE DESIGNER Home Care Visit [facility] [address] [facility] [place] [address] Sacha Matos, RN SN - PRN HOME VISIT 07/22/2023 3:30 PM AUTOMOBILE DESIGNER Home Care Visit [facility] [address] [facility] [place] [address] Jessi Michael, PT PT - HOME VISIT 07/22/2023 10:00 AM AUTOMOBILE DESIGNER Home Care Visit [facility] [address] [place] [address] Sacha Matos, RN SN - HOME VISIT 07/22/2023 Telephone [facility] [address] [place] [address] Alexandra Castelan, Refill Request (Test Strips) 07/20/2023 3:30 PM AUTOMOBILE DESIGNER Home Care Visit [facility] [address] [place] [address] Jessi Michael, PT PT - HOME VISIT 07/20/2023 Telephone [facility] [address] [place] [address] Alexandra Castelan, DO Medication Management 07/20/2023 Telephone [facility] [address] [facility] [place] [address] Tasha Stevens, rotary saw operator (Need ongoing orders for SN ) 07/20/2023 Orders Only [facility] [address] [place] [address] Alexandra Castelan DO <No scans attached> 07/17/2023 3:30 PM AUTOMOBILE DESIGNER Home Care Visit [facility] [address] [place] [address] Kristin Manriquez LISW [employer] FIRE PREVENTION SPECIALIST - INITIAL ASSESSMENT 07/17/2023 12:00 PM AUTOMOBILE DESIGNER Home Care Visit [facility] [address] [place] [address] Tasha Stevens, RN SN - INITIAL ASSESSMENT 07/16/2023 Home Care Visit [facility] [address] [place] [address] Kellie Jung, PT CARE COORDINATION 07/16/2023 Telephone [facility] [address] [place] [address] Alexandra Castelan, Medication Management (Losartan ) 07/16/2023 Orders Only [facility] [address] [place] [address] Alexandra Castelan, <No scans attached> 07/15/2023 12:30 PM AUTOMOBILE DESIGNER Home Care Visit [facility] [address] [place] [phone] Kellie Jung, PT PT - OASIS START OF CARE 07/15/2023 Telephone [facility] [address] [place] [address] Kellie Jung, PT Home Care (Home Care Orders) 07/15/2023 Plan of Care Documentation [facility] [address] [place] [phone] 07/15/2023 Patient Outreach [facility] [address] [place] [address] Abiola Reid RN Primary RN Care Management 07/13/2023 3:00 PM AUTOMOBILE DESIGNER Office Visit [facility] [address] [place] [address] Aleida Pruett MD Consult (Left inguinal hernia) 07/13/2023 2:05 PM AUTOMOBILE DESIGNER Office Visit [facility] [address] [place] [address] Alexandra Castelan DO Follow Up (Not feeling like myself - feels weak and fatigued - very sleepy / sleeping a lot ) 07/13/2023 Travel 07/02/2023 Home Care Visit [facility] [address] [place] [phone] Tasha Stevens RN NOT TAKEN UNDER HOME CARE 06/26/2023 Nurse Triage [facility] [address] [place] [address] Alexandra Castelan DO Weak 06/26/2023 Telephone [facility] [address] [place] [address] Alexandra Castelan, Results from Last 3 Months Immunizations Name Administration Dates Next Due COVID-19 Vaccine Spikevax (M oderna 50mcg/0.5mL) 12YO+ [id number] Formula PF 04/02/2023 COVID-19 vaccine (UBEnX.com-Bio NTech 30mcg/0.3mL) 12YO+ RYAN-SUCROSE PF, MDV 10/22/2021 COVID-19 vaccine (UB[employer]com-Bio NTech 30mcg/0.3mL) PF, MDV 04/23/2021,08/09/2020,07/19/2020 DT (Age < 7 years) 11/19/2001 Hep B (Hepatitis B (Adult) Recombinant Adjuvanted) 10/22/2021 Influenza A (H1N1), Inactiva harman (Age >=3 Years) 07/12/2009 Influenza Virus, Unspecified 04/08/2016, 03/06/2015,07/07/2014,2013,03/11/2012,05/23/2011,04/24/2010,0 07/12/2009 Influenza, High-dose Inactivated 10/31/2 019,03/23/2018,05/25/2017,2015,03/06/2015 Influenza, High-dose Quadriv alent Inactivated 04/03/2022,03/11/2021,03/01/2020 [...] Communication with Friends and Fami ly 0 09/24/2023 Financial Resource Strain Answer Date R ecorded Difficulty of Paying Living Expenses 3 09/24/2023 Difficulty of Paying Living Expenses Not on file 09/24/2023 Food Insecurity Answer Date Recorded Worried About Running Out of Food in the Last Ye ar 1 09/24/2023 Transportation Needs Answer Date Record ed Lack of Transportation (Medical) 1 09/24/2023 Housing Stability Answer Date Recorded Unable to Pay for Housing in the Last Year 1 09/24/2023 Sex and Gender Information Value Date Recorded Sex Assigned at Not on file Gender Identity Not on file Sexual Orientation Not on file Obstetrics History Last Filed Vital Signs Vital Sign Reading Time Taken Comments Blood Pressure 114/71 09/24/2023 10:04 AM CDT Pulse 70 09/24/2023 10:04 AM CDT Temperature 36.4 ??C (97.6 ??F) 08/24/2023 2:59 PM CD T Respiratory Rate 16 08/24/2023 2:59 PM CDT Oxygen Saturation 96% 09/24/2023 10:04 AM CDT Inhaled Oxygen Concentration - - Weight 88.9 kg (196 lb) 09/24/2023 10:04 AM CDT Height 188 cm (6' 2) 07/17/2023 1:14 PM AUTOMOBILE DESIGNER Body Mass Index 25.16 07/17/2023 1:14 PM AUTOMOBILE DESIGNER Plan of Treatment Upcoming Encounters Date Type Department Care Team (Late st Contact Info) Description 11/12/2023 3:45 PM CDT Orders Only [facility] [address] [place] [address] Lab, [place] 11/19/2023 1:45 PM CDT Office Visit [facility] [address] [place] [address] Jeannine Aviles MD [address] [place] [address] Health Maintenance Due Date Last Done Comments Tetanus booster 03/11/2022 03/11/2012 Depression screening for age 12+ 09/19/2023 09/19/19, 08/21/2015 Medicare Wellness for age 65+ 09/19/2023 [...] Procedure Name Priority Date/Time Associated Diagnosis Comments BASIC METABOLIC PANEL Routine 09/24/2023 11:15 AM CDT Type 2 diabetes mellitus with other circulatory complications (HC) HEMOGLOBIN A1C Routine 09/24/2023 11:15 AM CDT Type 2 diabetes mellitus with other circulatory complications (HC) URINALYSIS MICROSCOPIC Routine 07/13/2023 2:39 PM AUTOMOBILE DESIGNER Confusion UA W/ SEDIMENT EXAM REFLEXED PER CRITERIA Routine 07/13/2023 2:39 PM AUTOMOBILE DESIGNER Confusion CBC WITH AUTO DIFFERENTIAL Routine 07/13/2023 2:35 PM AUTOMOBILE DESIGNER Fatigue, unspecified type VITAMIN D 25 (DEFICIENCY) Routine 07/13/2023 2:35 PM AUTOMOBILE DESIGNER Fatigue, unspecified type Unspecified severe protein-calorie malnutrition (HC) TSH WITH REFLEX Routine 07/13/2023 2:35 PM AUTOMOBILE DESIGNER Fatigue, unspecified type COMP METABOLIC PANEL Routine 07/13/2023 2:35 PM AUTOMOBILE DESIGNER Fatigue, unspecified type VITAMIN B12 Routine 07/13/2023 2:35 PM AUTOMOBILE DESIGNER Fatigue, unspecified type CBC WITH AUTO DIFFERENTIAL Routine 07/13/2023 2:35 PM AUTOMOBILE DESIGNER Fatigue, unspecified type from Last 3 Months Results * (ABNORMAL) HEMOGLOBIN A1C MONITORING (POCT) (09/24/2023 11:15 AM CDT) [facility] HEMOGLOBIN A1C MONITORING (POCT) 8.5(H) <=6.4 % 09/24/2023 11:26 AM CDT [facility] Blood BLOOD SPECIMEN / Unknown Venipuncture / Unknown 09/24/2023 11:15 AM CDT 09/24/2023 11:16 AM CDT Narrative [facility] - 09/24/2023 11:26 AM CDT ? (<=6.9%) ? Indicates good control ? [...] [facility] [address] [place] [address], * (ABNORMAL) BASIC METABOLIC PANEL (09/24/2023 11:15 AM CDT) SODIUM 139 136 - 145 mmol/L 09/24/2023 9:27 PM CDT [facility] POTASSIUM 4.6 3.5 - 5.1 mmol/L 09/24/2023 9:27 PM CDT [facility] CHLORIDE 100 98 - 107 mmol/L 09/24/2023 9:27 PM T [facility] CO2,TOTAL 30(H) 22 - 29 mmol/L 09/24/2023 9:27 PM T [facility] ANION GAP 9 5 - 18 09/24/2023 9:27 PM T [facility] GLUCOSE 222(H) 70 - 99 mg/dL 09/24/2023 9:27 PM T [facility] CALCIUM 9.9 8.8 - 10.2 mg/dL 09/24/2023 9:27 PM T [facility] BUN 16 8 - 23 mg/dL 09/24/2023 9:27 PM CDT [facility] CREATININE 1.09 0.70 - 1.20 mg/dL 09/24/2023 9:27 PM T [facility] BUN/CREAT RATIO 15 10 - 20 9:27 PM CDT [facility] eGFR 66(L) >90 mL/min/1.7 3m2 09/24/2023 9:27 PM CDT [facility] Comment:As of 2021, eG FR is calculated by the CKD-EPI creatinine equation without race adjustment. ??eGFR can be influenced by muscle mass, exercise, and diet. ??The reported eGFR is an estimation only and is only applicable if the renal function is stable. Blood BLOOD SPECIMEN / Unknown Venipuncture / Unknown 09/24/2023 11:15 AM CDT 09/24/2023 11:16 AM CDT Alexandra Castelan DO [facility] [address] [place] [address], [place] * URINALYSIS MICROSCOPIC (07/13/2023 2:39 PM AUTOMOBILE DESIGNER) RBC 0-2 0-2, None Seen /HPF 07/13/2023 3:03 PM AUTOMOBILE DESIGNER [facility] WBC 0-2 0-2, 3-5, None Seen /HPF 07/13/2023 3:03 PM AUTOMOBILE DESIGNER [facility] BACTERIA Rare None Seen, Rare, Few Bacteria/H PF 07/13/2023 3:03 PM AUTOMOBILE DESIGNER [facility] EPITHELIAL CELLS Few None Seen, Few Epi/HPF 07/13/2023 3:03 PM AUTOMOBILE DESIGNER [facility] Urine URINE SPECIMEN / Unknown Non-Blood / Unknown 07/13/2023 2:39 PM AUTOMOBILE DESIGNER 07/13/2023 2:39 PM AUTOMOBILE DESIGNER Alexandra Castelan DO URINE [facility] [address] [place] [address], [place] [phone] * (ABNORMAL) UA W/ SEDIMENT EXAM REFLEXED PER CRITERIA (07/13/2023 2:39 PM AUTOMOBILE DESIGNER) COLOR Yellow Yellow Color 07/13/2023 3:00 PM AUTOMOBILE DESIGNER [facility] CLARITY Clear Clear Clarity 07/13/2023 3:00 PM [facility] SPECIFIC GRAVITY,URINE 1.020 1.010, 1.015, 1.020, 1.025 07/13/2023 3:00 PM [facility] PH,URINE 5.0(A) 6.0, 7.0, 8.0, 5.5, 6.5, 7.5, 8.5 07/13/2023 3:00 PM AUTOMOBILE DESIGNER [facility] UROBILINOGEN, QUALITATIVE Normal Normal EU/dl 07/13/2023 3:00 PM [facility] PROTEIN, URINE Negative Negative mg/dL 07/13/2023 3:00 PM [facility] GLUCOSE, URINE >=1000(A) Negative mg/dL 07/13/2023 3:00 PM [facility] KETONES,URINE Negative Negative mg/dL 07/13/2023 3:00 PM [facility] BILIRUBIN,URI NE Negative Negative 07/13/2023 3:00 PM [facility] OCCULT BLOOD,URINE Trace(A) Negative 07/13/2023 3:00 PM [facility] NITRITE Negative Negative 07/13/2023 3:00 PM [facility] LEUKOCYTE ESTERASE Negative Negative 07/13/2023 3:00 PM [facility] Urine URINE SPECIMEN / Unknown Non-Blood / Unknown 07/13/2023 2:39 PM AUTOMOBILE DESIGNER 07/13/2023 2:39 PM [facility] Alexandra Castelan DO URINE [facility] [address] [place] [address], * CBC WITH AUTO DIFFERENTIAL (07/13/2023 2:35 PM AUTOMOBILE DESIGNER) WHITE BLOOD COUNT 7.8 4.5 - 11.0 thou/cu mm 07/13/2023 2:46 PM [facility] RED BLOOD COUNT 4.48 4.30 - 5.90 mil/cu mm 07/13/2023 2:46 PM [facility] HEMOGLOBIN 14.0 13.5 - 17.5 g/dL 07/13/2023 2:46 PM [facility] HEMATOCRIT 42.0 37.0 - 53.0 % 07/13/2023 2:46 PM [facility] MCV 94 80 - 100 fL 07/13/2023 2:46 PM [facility] MCH 31.3 26.0 - 34.0 pg 07/13/2023 2:46 PM [facility] MCHC 33.3 32.0 - 36.0 g/dL 07/13/2023 2:46 PM [facility] RDW 13.3 11.5 - 15.5 % 07/13/2023 2:46 PM [facility] PLATELET COUNT 156 140 - 440 thou/cu mm 07/13/2023 2:46 PM [facility] MPV 9.6 6.5 - 11.0 fL 07/13/2023 2:46 PM [facility] % NEUT 66.3 % 07/13/2023 2:46 PM [facility] % LYMPH 21.3 % 07/13/2023 2:46 PM [facility] % MONO 7.1 % 07/13/2023 2:46 PM [facility] % EOS 4.8 % 07/13/2023 2:46 PM [facility] % BASO 0.5 % 07/13/2023 2:46 PM [facility] ABSOLUTE NEUTROPHILS 5.2 1.7 - 7.0 thou/cu mm 07/13/2023 2:46 PM [facility] ABSOLUTE LYMPHOCYTES 1.7 0.9 - 2.9 thou/cu mm 07/13/2023 2:46 PM [facility] ABSOLUTE MONOCYTES 0.6 <0.9 thou/cu mm 07/13/2023 2:46 PM [facility] ABSOLUTE EOSINOPHILS 0.4 <0.5 thou/cu mm 07/13/2023 2:46 PM AUTOMOBILE DESIGNER [facility] ABSOLUTE BASOPHILS 0.0 <0.3 thou/cu mm 07/13/2023 2:46 PM AUTOMOBILE DESIGNER [facility] Blood BLOOD SPECIMEN / Unknown Venipuncture / Unknown 07/13/2023 2:35 PM AUTOMOBILE DESIGNER 07/13/2023 2:35 PM AUTOMOBILE DESIGNER Alexandra Castelan DO HEMATOLOGY [facility] [address] [place] [address], * TSH WITH REFLEX (07/13/2023 2:35 PM AUTOMOBILE DESIGNER) TSH 1.69 0.27 - 4.20 uIU/mL 07/14/2023 12:32 AM AUTOMOBILE DESIGNER [facility] Blood BLOOD SPECIMEN / Unknown Venipuncture / Unknown 07/13/2023 2:35 PM AUTOMOBILE DESIGNER 07/13/2023 2:35 PM AUTOMOBILE DESIGNER Narrative [facility] - 07/14/2023 12:32 AM AUTOMOBILE DESIGNER In Adults, TSH values between 5.00 and 10.00 uIU/ml do not necessarily indicate the presence of Hypothyroidism. Correlation with clinical findings such as presence of goiter and/or Thyroperoxidase (TPO) Antibody may be helpful. For more information please refer to JUSTINA 2004; 291: 228-238. Alexandra Castelan DO CHEMISTRY Performing Organization Address City/[facility]/ZIP Co de Phone Number [facility] [address] [place] [id number], * (ABNORMAL) VITAMIN D 25 (DEFICIENCY) (07/13/2023 2:35 PM AUTOMOBILE DESIGNER) VITAMIN D TOTAL 17.0(L) 20.0 - 80.0 ng/mL 07/14/2023 1:04 AM AUTOMOBILE DESIGNER [facility] Blood BLOOD SPECIMEN / Unknown Venipuncture / Unknown 07/13/2023 2:35 PM AUTOMOBILE DESIGNER 07/13/2023 2:35 PM AUTOMOBILE DESIGNER Narrative [facility] - 07/14/2023 1:04 AM AUTOMOBILE DESIGNER ? Vitamin D Status Deficiency: ? <20 ng/mL Insufficiency: ?20-29 ng/mL Sufficiency: ?30-80 ng/mL Possible Toxicity: ??>80 ng/mL Based on [place] of [employer] recommendations Biotin supplements may cause clinically significant interference for this test assay. ??If interference is suspected, it is strongly recommended that biotin is discontinued for at least one week prior to retesting. Alexandra Castelan DO SEND OUTS Performing Organization Address [facility] Co de Phone Number [facility] [address] [place] [address], * VITAMIN B12 (07/13/2023 2:35 PM AUTOMOBILE DESIGNER) VITAMIN B12 261 232 - 1,245 pg/mL 07/14/2023 1:04 AM AUTOMOBILE DESIGNER [facility] Blood BLOOD SPECIMEN / Unknown Venipuncture / Unknown 07/13/2023 2:35 PM AUTOMOBILE DESIGNER 07/13/2023 2:35 PM AUTOMOBILE DESIGNER Narrative [facility] - 07/14/2023 1:04 AM AUTOMOBILE DESIGNER Biotin supplements may cause clinically significant interference for this test assay. ??If interference is suspected, it is strongly recommended that biotin is discontinued for at least one week prior to retesting. Alexandra Castelan DO CHEMISTRY Performing Organization Address [facility] de Phone Number [facility] [address] [place] [address], * (ABNORMAL) COMP METABOLIC PANEL (07/13/2023 2:35 PM AUTOMOBILE DESIGNER) SODIUM 139 136 - 145 mmol/L 07/13/2023 11:42 PM [facility] POTASSIUM 5.2(H) 3.5 - 5.1 mmol/L 07/13/2023 11:42 PM AUTOMOBILE DESIGNER [facility] CHLORIDE 104 98 - 107 mmol/L 07/13/2023 11:42 PM [facility] CO2,TOTAL 27 22 - 29 mmol/L 07/13/2023 11:42 PM [facility] ANION GAP 8 5 - 18 07/13/2023 11:42 PM [facility] GLUCOSE 177(H) 70 - 99 mg/dL 07/13/2023 11:42 PM [facility] CALCIUM 9.8 8.8 - 10.2 mg/dL 07/13/2023 11:42 PM [facility] BUN 15 8 - 23 mg/dL 07/13/2023 11:42 PM [facility] CREATININE 1.21(H) 0.70 - 1.20 mg/dL 07/13/2023 11:42 PM [facility] BUN/CREAT RATIO 12 10 - 20 11:42 PM [facility] eGFR 58(L) >90 mL/min/1.7 3m2 07/13/2023 11:42 PM [facility] Comment:As of 2021, eG FR is calculated by the CKD-EPI creatinine equation without race adjustment. ??eGFR can be influenced by muscle mass, exercise, and diet. ??The reported eGFR is an estimation only and is only applicable if the renal function is stable. ALBUMIN 4.1 4.0 - 4.9 g/dL 07/13/2023 11:42 PM [facility] PROTEIN,TOTAL 6.0 6.0 - 8.0 g/dL 07/13/2023 11:42 PM [facility] BILIRUBIN,TOTAL 0.5 0.0 - 1.2 mg/dL 07/13/2023 11:42 PM [facility] ALK PHOSPHATASE 54 40 - 129 IU/L 07/13/2023 11:42 PM [facility] ALT (SGPT) 12 10 - 50 IU/L 07/13/2023 11:42 PM [facility] AST (SGOT) 17 10 - 50 IU/L 07/13/2023 11:42 PM AUTOMOBILE DESIGNER [facility] Blood BLOOD SPECIMEN / Unknown Venipuncture / Unknown 07/13/2023 2:35 PM AUTOMOBILE DESIGNER 07/13/2023 2:35 PM AUTOMOBILE DESIGNER Alexandra Castelan DO CHEMISTRY [facility] [address] [place] [address], from Last 3 Months Advance Directives * [...] 11:28 PM 05/08/2015 2:10 PM Care Teams Business Objects Consultant Relationship Specialty Start Date End Date Alexandra Castelan DO [address] [place] [address] PCP - General Family Practice 10/29/22
--- OUTSIDE RECORDS SUMMARY | 2023-09-25 02:13 | XMS_ITS | Referral Summary ---
Author Name Unknown Organization [facility] Address [address] [place] [address] Care Team Providers Care Chemical Treatment Operator Name Role Phone Red Gamboa M.D. Primary Care P crystal Source Comments Patient records contain information from all sites at [facility]. For routine questions regarding patient records, call [phone] during business hours, M-F 8:00 AM - 5:00 PM Central Time. Record requests for emergency care only can be directed to [phone] at any time.[facility] Encounters Date Type Department Care Team Description 07/14/2023 Orders Only [facility] PCP [facility] MNT Red Gamboa M.B.B.S., M.D. Diabetes Mellitus Type 2 With Diabetic Neuropathy (HCC) from Last 3 Months Allergies No known active allergies Medications Medication Sig Dispensed Refills Start Date End Date Status calcium carbonate (TUMS ULTRA) 1000 mg (400 mg calcium) chewable tablet Chew 2 tablets at bedtime. 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 LAB BLO OD ADD-ON [facility] [address] [place] [address], [place] OWAT [facility] [address] [place] [address] * Albumin, Random, Urine (08/26/2022 1:33 PM [...] Red Schwartz M.D. LAB URI NE ORDERABLES [facility] [address] [place] [address], [place] OWAT [facility] [address] [place] [address] from Last 3 Months or Most Recently Relevant to Health Maintenance Advance Directives For more information, please contact: [phone] Documents on File Type Date Recorded Patient Photographic Platemaker Expl anation Advance Directives 01/14/2013 12:00 AM Jameela caitlin document. See document viewer. Care Teams Chemical Treatment Operator Relationship Specialty Start Date End Date Red Gamboa M.B.B.S., M.D. [address] [place] [phone] PCP - General Family Medicine 01/13/20
--- OUTSIDE RECORDS SUMMARY | 2023-09-25 02:14 | XMS_ITS | Encounter Summary ---
Author Name Unknown Organization [facility] Address [address] [place] [address] Care Team Providers Care Ocean Fishing Guide Name Role Phone Red Gamboa M.D. Primary Care P crystal Reason for Referral * Outpatient (Routine) - Authorized Specialty Diagnoses / Procedures Referred By Alva t Referred To Contact Red Gamboa M.B.B.S., M.D. [address] [place] [address] [facility] Region Referral ID Status Reason Start Date Expiration Date V isits Requested Visits Authorized [id number] Authorized 07/14/2023 01/12/2025 1 1 Scheduling Instructions Nurse AWV Do not schedule prior to due date to ensure insurance coverage Visit: Medicare Annual Wellness Never done. GER EMBALMER FUNERAL DIRECTOR Encounter Details Date Type Department Care Team (Late st Contact Info) Description 07/14/2023 Orders Only [facility] PCP [facility] MNT Red Gamboa M.B.B.S., M.D. [address] [place] [phone] Diabetes Mellitus Type 2 With [...] Schedule Primary Care nurse visit (clinic) - [facility]; Medicare Annual Wellness Outpatient Referral Routine Expected: 08/11/2023, Expires: 01/10/2024 documented as of this encounter Visit Diagnoses Diagnosis Diabetes Mellitus Type 2 With Diabetic Neuropathy (HCC) documented in this encounter Additional Health Concerns Assessment Noted Time PHQ-9 Depression Total Score: 0 06/24/19 19 10:47 AM MANAGER EMBALMER FUNERAL DIRECTOR documented as of this encounter Care Teams Ocean Fishing Guide Relationship Specialty Start Date End Date Red Gamboa M.B.B.S., MNando. [address] [place] [phone] PCP - General Family Medicine 01/13/20 documented as of this encounter
--- OUTSIDE RECORDS SUMMARY | 2023-09-25 02:14 | XMS_ITS | Clinical Summary ---
Author Name Unknown Organization [employer] [email or web address] [facility] Address [address] [address] Phone Care Team Providers Care Trip Rider Name Role Phone Unavailable Primary Care Provider [...]
--- OUTSIDE RECORDS SUMMARY | 2023-09-25 02:14 | XMS_ITS ---
Author Name Unknown Organization [facility] Address [address] [place] [address] Care Team Providers Care Field Associate Name Role Phone Unavailable Unavailable Unavailable Surgery Details Not on file Complications Check Surgery Details section. Procedure Estimated Blood Loss Check Surgery Details section. Procedure Findings Check Surgery Details section. Procedure Specimens Taken Check Surgery Details section.
== END 2023-09-15 23:37 | disposition home or self-care (01) ==
LOC: AMB 09-25 02:12
PROVIDERS: PCP Student in an Organized Health Care Education/Training Program; Visit Provider Family Medicine
DX: R41.82 Altered mental status, unspecified (principal)
CPT/HCPCS: A0998

== ENCOUNTER 2023-09-17 23:36 | Outpatient (CLI) | payer MEDICARE, SELFPAY ==
--- OUTSIDE RECORDS SUMMARY | 2023-09-21 15:23 | XMS_ITS | Referral Summary ---
Author Name Unknown Organization [facility] Address [address] [place] [address] Care Team Providers Care Room Service Food Server Name Role Phone Red Gamboa M.D. Primary Care P crystal Source Comments Patient records contain information from all sites at [facility]. For routine questions regarding patient records, call [phone] during business hours, M-F 8:00 AM - 5:00 PM Central Time. Record requests for emergency care only can be directed to [phone] at any time.[facility] Encounters Date Type Department Care Team Description 07/14/2023 Orders Only [facility] PCP [facility] Red Gamboa M.B.B.S., M.D. Diabetes Mellitus Type 2 With Diabetic Neuropathy (HCC) from Last 3 Months Allergies No known active allergies Medications Medication Sig Dispensed Refills Start Date End Date Status calcium carbonate (TUMS ULTRA) 1000 mg (400 mg calcium) chewable tablet Chew 2 tablets at bedtime. 04/08/2016 Active vitamins A,C,V-oysi-tdjaaf (for_PRESERVISION AREDS) 7,160 Units-113 mg-100 Units per tablet Take 1 tablet by mouth 2 (two) times a day. 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 1 each 09/28/2018 Active blood glucose ctl high,nml,low solutionIndications :Diabetes Mellitus Type 2 With Diabetic Nephropathy (HCC) Glucose control solution provides an easy way to ensure accurate blood glucose testing. 1 each 09/28/2018 Active lancetsIndications: Diabetes Mellitus Type 2 [...] Use to monitor blood glucose 1 each 10/22/2021 Active aspirin 81 mg chewable tablet Chew 81 mg daily. On hold Active metFORMIN XR (GLUCOPHAGE-XR) 500 mg 24 [...] day with meals. Shake Well. 300 mL 05/07/2022 Active Additional Information Patient not taking.Reported on 08/25/2022 fluocinonide (LIDEX) 0.05 % external solution APPLY TOPICALLY 2 TIMES PER WEEK FOR SCALP (APPLY A THIN FILM) 180 mL 3 08/06/2022 Active levoFLOXacin (LEVAQUIN) 500 mg tablet TAKE ONE TABLET BY MOUTH THE DAY BEFORE, 1 TABLET THE DAY OF AND 1 TABLET THE DAY AFTER BIOPSY 08/18/2022 Active metoprolol succinate (TOPROL-XL) 100 mg 24 hr tablet TAKE ONE TABLET BY MOUTH ONCE DAILY 90 tablet 3 08/27/2022 Active atorvastatin (LIPITOR) 80 mg tablet TAKE 1 TABLET (80 MG TOTAL) BY MOUTH AT BEDTIME. 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 Overview: [...] 12,07/09/2009,06/28/2008,2006,06/17/2006 Influenza, Unspecified 04/08/2016,2014,07/07/2014,2013,03/11/2012,05/23/2011,04/24/2010,0 07/12/2009 PCV13 03/06/2015 PPSV23(Discontinued) 03/17/2006 RZV (SHINGRIX) 05/10/2020,02/01/2020 SARS-COV-2 (COVID-19) - PFIZ ER (Discontinued)(12 years or older) 04/23/2021,07/19/2020 SARS-COV-2 (COVID-19) - PFIZ ER BIVALENT TS(Discontinued)(12 YEARS OR OLDER) 04/07/2022 SARS-COV-2 (COVID-19) - PFIZ ER TS(Discontinued)(12 years or older) 10/22/2021 Tdap 03/11/2012 influenza [...] on file Medical Devices Implanted Type Area Powertrain Engineer Device Identifier Shelf Expiration Date Model / Serial / Lot Cardiac Stent Cardiac Stent Heart Description:X 6 Ocular Lens Ocular Lens Bilateral : Eye Procedures Procedure Name Priority Date/Time Associated Diagnosis Comments EXTI COMPREHENSIVE METABOLIC PANEL, S/P Routine 07/13/2023 2:35 PM STAFF RESEARCH ASSOCIATE HEMOGLOBIN A1C, B Routine 08/26/2022 1:3 6 PM CDT Diabetes Mellitus Type 2 With Diabetic Nephropathy (HCC) ALBUMIN, RANDOM, U Routine 08/26/2022 1: 33 PM CDT Diabetes Mellitus Type 2 With Diabetic Nephropathy (HCC) from Last 3 Months or Most Recently Relevant to Health Maintenance Results * (ABNORMAL) Hemoglobin A1c (08/26/2022 1:36 PM [...] Red Schwartz M.D. LAB BLO OD ADD-ON [facility] [address] [place] [address], [place] [facility] [facility] in [place] [address] [place] [address] * Albumin, Random, Urine (08/26/2022 1:33 PM [...] Red Schwartz M.D. LAB URI NE ORDERABLES [facility] [address] [place] [address], [facility] in [place] [address] [place] [address] from Last 3 Months or Most Recently Relevant to Health Maintenance Advance Directives For more information, please contact: [phone] Documents on File Type Date Recorded Patient Supervisor Sewing Room Expl anation Advance Directives 01/14/2013 12:00 AM Jameela caitlin document. See document viewer. Care Teams Room Service Food Server Relationship Specialty Start Date End Date Red Gamboa M.B.B.S., M.D. [address] [place] [phone] PCP - General Family Medicine 01/13/20
--- OUTSIDE RECORDS SUMMARY | 2023-09-21 15:23 | XMS_ITS | Clinical Summary ---
Author Name Unknown Organization [facility] Address [place], [place] [address] Care Team Providers Care Drag Sawyer Name Role Phone Alexandra Castelan DO Primary Care Provider [phone] Allergies No known active allergies Medications Medication Sig Dispensed Refills Start Date End Date Status fluocinonide 0.05% topical (LIDEX) 0.05 % cream Apply topically to affected area(s) 2 times daily. Active metoprolol succinate (TOPROL XL) 100 mg Sustained-Release tablet Take 100 mg by mouth once daily. Active calcium carbonate (TUMS) 200 mg calcium (500 mg) chewable tablet Take 500-1,000 mg by mouth every 3 hours if needed for Heartburn or GI Upset. Active nitroglycerin (NITROSTAT) 0.4 mg sublingual tabletIndications:NS JANNY (non-ST elevated myocardial infarction) (HC) Place 1 tablet under the tongue every 5 minutes if needed for Chest Pain (first choice for chest pain). 1 Bottle 0 05/08/2015 Active polyethylene glycol (MIRALAX; GLYCOLAX) 17 g powder for solution Mix 17 g in liquid then take by mouth once daily if needed. 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 90 Capsule 3 09/18/2022 Active psyllium powdIndications:Drafter Geophysical mathew constipation Mix 1 tsp in liquid then take by mouth once daily if needed for Constipation. 283 g 11 12/04/2022 Active linaGLIPtin (Tradjenta) 5 mg tabIndications:Type 2 diabetes mellitus with other specified complication, without long-term current use of insulin (HC) TAKE 1 TABLET (5 MG) BY MOUTH EVERY MORNING. 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 60 Tablet 2 06/04/2023 Active selenium sulfide 2.25 %Indications:Atopic dermatitis of scalp Apply topically to affected area(s) once daily if needed for Dry Scalp. 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 1 Each 07/13/2023 Active sertraline (ZOLOFT) 25 mg tabletIndications:De pression, recurrent (HC) Take 2 Tablets (50 mg) by mouth every morning. 90 Tablet 3 07/13/2023 Active cholecalciferol (Vitamin D-3) 2,000 unit capsuleIndications:V itamin D deficiency Take 1 Capsule (2,000 units) by mouth once daily. 90 Capsule 3 07/14/2023 Active cyanocobalamin (Vitamin B-12) 1,000 mcg tabletIndications:B1 2 deficiency Take 1 Tablet (1,000 mcg) by mouth once daily. 90 Tablet 3 07/14/2023 Active losartan (COZAAR) 50 mg tabletIndications:HT N (hypertension) Take 1 Tablet (50 mg) by mouth once daily. 90 Tablet 3 07/21/2023 Active blood-glucose meterIndications:Typ e 2 diabetes mellitus with other circulatory complications (HC) Dispense meter covered by pts insurance. 1 Each 07/22/2023 Active blood sugar diagnostic (OneTouch Verio test strips) stripIndications:Typ e 2 diabetes mellitus with other circulatory complications (HC) As directed once daily. 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 90 Tablet 08/17/2023 Active Active Problems Problem Noted Date Diagnosed Date Depression, recurrent 12/04/2022 Elevated PSA 08/29/2022 Acute deep vein thrombosis (DVT) of femoral vein 08/29/2022 Throat clearing 04/07/2019 09/18/2022 History of [...] Without CHF Atherosclerotic heart diseas e of [place] coronary artery without angina pectoris 02/07/2016 08/29/2022 [...] health 11/10/2014 09/18/2022 Cervical disc disorder 02/23/2014 Spinal stenosis 10/19/2013 09/18/2022 Sensorineural hearing loss, bilateral 08/04/2013 Polyp of colon 10/15/2009 09/18/2022 Overview: Tubular adenoma with moderate dysplasia. 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) Resolved Problems Problem Noted Date Diagnosed Date Resolved Date Pulmonary emboli 08/29/2022 06/25/2023 Encounters Date Type Department Care Team Description 09/18/2023 Nurse Triage [facility] [address] [place] [address] Alexandra Castelan DO Edema (Both ankles/feet) 09/18/2023 Telephone [facility] [address] [place] [address] Alexandra Castelan DO Error-please disregard 08/24/2023 2:45 PM CDT Home Care Visit [address] [phone] Itz Vizcarra, PT PT - OASIS DISCHARGE 08/24/2023 10:30 AM CDT Home Care Visit [address] [phone] Sacha Matos, RN SN - DISCIPLINE DISCHARGE 08/17/2023 2:30 PM CDT Home Care Visit [address] [phone] Itz Vizcarra, PT PT - HOME VISIT 08/17/2023 10:30 AM CDT Home Care Visit [address] [phone] Sacha Matos, RN SN - HOME VISIT 08/17/2023 Refill [facility] [address] [facility] [place] [address] Alexandra Castelan DO Refill Request (Atorvastatin) 08/11/2023 12:00 PM COMMUNICATIONS SENIOR ASSOCIATE Home Care Visit [facility] [address] [place] [address], [place] [address] Sacha Matos, RN SN - LONG VISIT (>90 MINUTES) 08/10/2023 1:30 PM COMMUNICATIONS SENIOR ASSOCIATE Home Care Visit [place] [id number] [place] [address], [place] [address] Jessi Michael, PT PT - HOME VISIT 08/04/2023 11:30 AM COMMUNICATIONS SENIOR ASSOCIATE Home Care Visit [address] [place] [address] Sacha Matos, RN SN - HOME VISIT 08/03/2023 1:30 PM COMMUNICATIONS SENIOR ASSOCIATE Home Care Visit [place] [id number] [place] [address], [place] [address] Jessi Michael, PT PT - REASSESSMENT 07/29/2023 1:30 PM COMMUNICATIONS SENIOR ASSOCIATE Home Care Visit [place] [id number] [place] [address], [place] [address] Jessi Michael, PT PT - HOME VISIT 07/28/2023 11:00 AM COMMUNICATIONS SENIOR ASSOCIATE Home Care Visit [place] [id number] [place] [address], [place] [address] Sacha Matos, RN SN - HOME VISIT 07/27/2023 1:30 PM COMMUNICATIONS SENIOR ASSOCIATE Home Care Visit [place] [id number] [place] [address], [place] [address] Jessi Michael, PT PT - HOME VISIT 07/27/2023 Orders Only [facility] [address] [facility] [address] Alexandra Castelan, <No scans attached> 07/24/2023 11:00 AM COMMUNICATIONS SENIOR ASSOCIATE Home Care Visit [address] [place] [address] Sacha Matos, RN SN - PRN HOME VISIT 07/22/2023 3:30 PM COMMUNICATIONS SENIOR ASSOCIATE Home Care Visit [facility] [address] [place] [address] Jessi Michael, PT PT - HOME VISIT 07/22/2023 10:00 AM COMMUNICATIONS SENIOR ASSOCIATE Home Care Visit [facility] [address] [place] [address] Sacha Matos, RN SN - HOME VISIT 07/22/2023 Telephone [facility] [address] [place] [address] Alexandra Castelan, Refill Request (Test Strips) 07/20/2023 3:30 PM COMMUNICATIONS SENIOR ASSOCIATE Home Care Visit [facility] [address] [place] [address] Jessi Michael, PT PT - HOME VISIT 07/20/2023 Telephone [facility] [address] [place] [address] Alexandra Castelan DO Medication Management 07/20/2023 Telephone [facility] [address], [place] [address] Tasha Stevens, product safety coordinator (Need ongoing orders for SN ) 07/20/2023 Orders Only [facility] [address] [place] [address] Alexandra Castelan, DO <No scans attached> 07/17/2023 3:30 PM COMMUNICATIONS SENIOR ASSOCIATE Home Care Visit [facility] [address] [place] [address] Kristin Manriquez LISW IN HOUSE CRA - INITIAL ASSESSMENT 07/17/2023 12:00 PM COMMUNICATIONS SENIOR ASSOCIATE Home Care Visit [facility] [address] [place] [address] Tasha Stevens, RN SN - INITIAL ASSESSMENT 07/16/2023 Home Care Visit [facility] [address] [place] [address] Kellie Jung, PT CARE COORDINATION 07/16/2023 Telephone [facility] [address] [place] [address] Alexandra Castelan, Medication Management (Losartan ) 07/16/2023 Orders Only [facility] [address] [place] [address] Alexandra Castelan DO <No scans attached> 07/15/2023 12:30 PM COMMUNICATIONS SENIOR ASSOCIATE Home Care Visit [facility] [address] [place] [address] Kellie Jung, PT PT - OASIS START OF CARE 07/15/2023 Telephone [facility] [address] [place] [address] Kellie Jung, PT Home Care (Home Care Orders) 07/15/2023 Plan of Care Documentation [facility] [address] [place] [address] 07/15/2023 Patient Outreach [facility] [address] [place] [address] Abiola Reid RN Primary RN Care Management 07/13/2023 3:00 PM COMMUNICATIONS SENIOR ASSOCIATE Office Visit [facility] [address] [place] [address] Aleida Pruett MD Consult (Left inguinal hernia) 07/13/2023 2:05 PM COMMUNICATIONS SENIOR ASSOCIATE Office Visit [facility] [address] [place] [address] Alexandra Castelan DO Follow Up (Not feeling like myself - feels weak and fatigued - very sleepy / sleeping a lot ) 07/13/2023 Travel 07/02/2023 Home Care Visit [facility] [address] [place] [address] Tasha Stevens, RN NOT TAKEN UNDER HOME CARE 06/26/2023 Nurse Triage [facility] [address] [facility] [place] [address] Alexandra Castelan DO Weak 06/26/2023 Telephone [facility] [address] [facility] [place] [address] Alexandra Castelan DO Results 06/25/2023 12:45 PM COMMUNICATIONS SENIOR ASSOCIATE Ancillary Procedure [facility] [address] [place] [address] 06/25/2023 11:25 AM COMMUNICATIONS SENIOR ASSOCIATE Office Visit [facility] [address] [place] [address] Alexandra Castelan DO Prostate Problem; Fatigue; ER Follow up 06/25/2023 Telephone [facility] [facility] [place] [address] Alexandra Castelan DO Referral (HOME CARE - RECEIVED TODAY) 06/25/2023 Telephone [facility] [address] [facility] [place] [address] Alexandra Castelan DO Medication Management (selenium sulfide 2.25 %) 06/25/2023 Travel from Last 3 Months Immunizations Name Administration Dates Next Due COVID-19 Vaccine Spikevax (M oderna 50mcg/0.5mL) 12YO+ 8912-4177 Formula PF 04/02/2023 COVID-19 vaccine (Markafoni-Bio NTech 30mcg/0.3mL) 12YO+ RYAN-SUCROSE PF, MDV 10/22/2021 [...] Years Used Date Smoking Tobacco: Former Cigarettes 1 969 - 1960 Smokeless Tobacco: Never Tobacco Cessation:Counseling Given: Yes Comments:Quit in 1968 Alcohol Use Standard Drinks/Week Comments Yes 0 (1 standard drink = 0.6 oz pure alcohol) small glass of scotch three times a week PHQ-2 Answer Date Recorded PHQ-2 TOTAL SCORE 2 09/18/2022 Social Connections Answer Date Recorded Frequency of Communication with Friends and Fami ly Not on file 09/07/2023 Financial Resource Strain Answer Date R ecorded [...] Sign Reading Time Taken Comments Blood Pressure 122/64 08/24/2023 2:59 PM CDT Pulse 70 08/24/2023 2:59 PM CDT Temperature 36.4 ??C (97.6 ??F) 08/24/2023 2:59 PM CD T Respiratory Rate 16 08/24/2023 2:59 PM CDT Oxygen Saturation 97% 08/24/2023 2:59 PM CDT Inhaled Oxygen Concentration - - Weight 88.9 kg (196 lb) 07/13/2023 2:53 PM COMMUNICATIONS SENIOR ASSOCIATE Height 188 cm (6' 2) 07/17/2023 1:14 PM COMMUNICATIONS SENIOR ASSOCIATE Body Mass Index 25.16 12/26/2022 1:53 PM CDT Plan of Treatment Upcoming Encounters Date Type Department Care Team (Late st Contact Info) Description 09/24/2023 10:35 AM CDT Office Visit [facility] [address] [place] [address] Alexandra Castelan DO [address] [place] [address] 11/12/2023 3:45 PM CDT Orders Only [facility] [address] [place] [address] [place], [place] 11/19/2023 1:45 PM CDT Office Visit [address] [phone] Jeannine Aviles MD [address] [place] [address] Health Maintenance Due Date Last Done Comments Tetanus booster 03/11/2022 03/11/2012 Depression screening for age 12+ 09/19/2023 09/19/19 23, 08/21/2015 Medicare Wellness for age 65+ 09/19/2023 09/18/2022 BMI (ht and wt on same day) for age 18+ 12/27/2023 12/26/2022, 09/18/2022, 09/04/2022, Additional history exists Influenza for age 65+ 02/07/2024 02/27/2023 , 04/03/2022, 03/11/2021, Additional history exists Tdap Completed 03/11/2012 Pneumococcal series for age 65+ Completed 5, 03/17/2006 Zoster (shingles) series for age 50+ Completed 05/10/2020, 02/02/2020, 07/07/2014 COVID-19 vaccine series Completed 04/02/20 23, 04/07/2022, 10/22/2021, Additional history exists Procedures Procedure Name Priority Date/Time Associated Diagnosis Comments URINALYSIS MICROSCOPIC Routine 07/13/2023 2:39 PM COMMUNICATIONS SENIOR ASSOCIATE Confusion UA W/ SEDIMENT EXAM REFLEXED PER CRITERIA Routine 07/13/2023 2:39 PM COMMUNICATIONS SENIOR ASSOCIATE Confusion CBC WITH AUTO DIFFERENTIAL Routine 07/13/2023 2:35 PM COMMUNICATIONS SENIOR ASSOCIATE Fatigue, unspecified type VITAMIN D 25 (DEFICIENCY) Routine 07/13/2023 2:35 PM COMMUNICATIONS SENIOR ASSOCIATE Fatigue, unspecified type Unspecified severe protein-calorie malnutrition (HC) TSH WITH REFLEX Routine 07/13/2023 2:35 PM COMMUNICATIONS SENIOR ASSOCIATE Fatigue, unspecified type COMP METABOLIC PANEL Routine 07/13/2023 2:35 PM COMMUNICATIONS SENIOR ASSOCIATE Fatigue, unspecified type VITAMIN B12 Routine 07/13/2023 2:35 PM COMMUNICATIONS SENIOR ASSOCIATE Fatigue, unspecified type CBC WITH AUTO DIFFERENTIAL Routine 07/13/2023 2:35 PM COMMUNICATIONS SENIOR ASSOCIATE Fatigue, unspecified type XR HIP 1 VIEW W PELVIS LEFT Routine 06/25/2023 1:18 PM COMMUNICATIONS SENIOR ASSOCIATE Hip pain, left HEMOGLOBIN A1C Routine 06/25/2023 12:46 PM COMMUNICATIONS SENIOR ASSOCIATE Diabetic nephropathy associated with type 2 diabetes mellitus (HC) from Last 3 Months Results * URINALYSIS MICROSCOPIC (07/13/2023 2:39 PM COMMUNICATIONS SENIOR ASSOCIATE) RBC 0-2 0-2, None Seen /HPF 07/13/2023 3:03 PM COMMUNICATIONS SENIOR ASSOCIATE [facility] WBC 0-2 0-2, 3-5, None Seen /HPF 07/13/2023 3:03 PM COMMUNICATIONS SENIOR ASSOCIATE [facility] BACTERIA Rare None Seen, Rare, Few Bacteria/H PF 07/13/2023 3:03 PM COMMUNICATIONS SENIOR ASSOCIATE [facility] EPITHELIAL CELLS Few None Seen, Few Epi/HPF 07/13/2023 3:03 PM COMMUNICATIONS SENIOR ASSOCIATE [facility] Urine URINE SPECIMEN / Unknown Non-Blood / Unknown 07/13/2023 2:39 PM COMMUNICATIONS SENIOR ASSOCIATE 07/13/2023 2:39 PM COMMUNICATIONS SENIOR ASSOCIATE Alexandra Castelan DO URINE [facility] [address] [place] [address], * (ABNORMAL) UA W/ SEDIMENT EXAM REFLEXED PER CRITERIA (07/13/2023 2:39 PM COMMUNICATIONS SENIOR ASSOCIATE) COLOR Yellow Yellow Color 07/13/2023 3:[address] [facility] CLARITY Clear Clear Clarity 07/13/2023 3:[address] [facility] SPECIFIC GRAVITY,URINE 1.020 1.010, 1.015, 1.020, 1.025 07/13/2023 3:[address] [facility] PH,URINE 5.0(A) 6.0, 7.0, 8.0, 5.5, 6.5, 7.5, 8.5 07/13/2023 3:[address] [facility] UROBILINOGEN, QUALITATIVE Normal Normal EU/dl 07/13/2023 3:[address] [facility] PROTEIN, URINE Negative Negative mg/dL 07/13/2023 3:[address] [facility] GLUCOSE, URINE >=1000(A) Negative mg/dL 07/13/2023 3:[address] [facility] KETONES,URINE Negative Negative mg/dL 07/13/2023 3:[address] [facility] BILIRUBIN,URI NE Negative Negative 07/13/2023 3:[address] [facility] OCCULT BLOOD,URINE Trace(A) Negative 07/13/2023 3:00 PM COMMUNICATIONS SENIOR ASSOCIATE [facility] NITRITE Negative Negative 07/13/2023 3:00 PM COMMUNICATIONS SENIOR ASSOCIATE [facility] LEUKOCYTE ESTERASE Negative Negative 07/13/2023 3:00 PM COMMUNICATIONS SENIOR ASSOCIATE [facility] Urine URINE SPECIMEN / Unknown Non-Blood / Unknown 07/13/2023 2:39 PM COMMUNICATIONS SENIOR ASSOCIATE 07/13/2023 2:39 PM COMMUNICATIONS SENIOR ASSOCIATE Alexandra Castelan DO URINE [facility] [address] [place] [address], [place] [phone] * CBC WITH AUTO DIFFERENTIAL (07/13/2023 2:35 PM COMMUNICATIONS SENIOR ASSOCIATE) WHITE BLOOD COUNT 7.8 4.5 - 11.0 thou/cu mm 07/13/2023 2:46 PM COMMUNICATIONS SENIOR ASSOCIATE [facility] RED BLOOD COUNT 4.48 4.30 - 5.90 mil/cu mm 07/13/2023 2:46 PM COMMUNICATIONS SENIOR ASSOCIATE [facility] HEMOGLOBIN 14.0 13.5 - 17.5 g/dL 07/13/2023 2:46 PM COMMUNICATIONS SENIOR ASSOCIATE [facility] HEMATOCRIT 42.0 37.0 - 53.0 % 07/13/2023 2:[address] [facility] MCV 94 80 - 100 fL 07/13/2023 2:[address] [facility] MCH 31.3 26.0 - 34.0 pg 07/13/2023 2:46 PM COMMUNICATIONS SENIOR ASSOCIATE [facility] MCHC 33.3 32.0 - 36.0 g/dL 07/13/2023 2:46 PM COMMUNICATIONS SENIOR ASSOCIATE [facility] RDW 13.3 11.5 - 15.5 % 07/13/2023 2:[address] [facility] PLATELET COUNT 156 140 - 440 thou/cu mm 07/13/2023 2:46 PM COMMUNICATIONS SENIOR ASSOCIATE [facility] MPV 9.6 6.5 - 11.0 fL 07/13/2023 2:46 PM COMMUNICATIONS SENIOR ASSOCIATE [facility] % NEUT 66.3 % 07/13/2023 2:46 PM COMMUNICATIONS SENIOR ASSOCIATE [facility] % LYMPH 21.3 % 07/13/2023 2:46 PM COMMUNICATIONS SENIOR ASSOCIATE [facility] % MONO 7.1 % 07/13/2023 2:46 PM COMMUNICATIONS SENIOR ASSOCIATE [facility] % EOS 4.8 % 07/13/2023 2:46 PM COMMUNICATIONS SENIOR ASSOCIATE [facility] % BASO 0.5 % 07/13/2023 2:46 PM COMMUNICATIONS SENIOR ASSOCIATE [facility] ABSOLUTE NEUTROPHILS 5.2 1.7 - 7.0 thou/cu mm 07/13/2023 2:46 PM COMMUNICATIONS SENIOR ASSOCIATE [facility] ABSOLUTE LYMPHOCYTES 1.7 0.9 - 2.9 thou/cu mm 07/13/2023 2:46 PM COMMUNICATIONS SENIOR ASSOCIATE [facility] ABSOLUTE MONOCYTES 0.6 <0.9 thou/cu mm 07/13/2023 2:46 PM COMMUNICATIONS SENIOR ASSOCIATE [facility] ABSOLUTE EOSINOPHILS 0.4 <0.5 thou/cu mm 07/13/2023 2:46 PM COMMUNICATIONS SENIOR ASSOCIATE [facility] ABSOLUTE BASOPHILS 0.0 <0.3 thou/cu mm 07/13/2023 2:46 PM COMMUNICATIONS SENIOR ASSOCIATE [facility] Blood BLOOD SPECIMEN / Unknown Venipuncture / Unknown 07/13/2023 2:35 PM COMMUNICATIONS SENIOR ASSOCIATE 07/13/2023 2:35 PM COMMUNICATIONS SENIOR ASSOCIATE Alexandra Castelan DO HEMATOLOGY Performing Organization Address [facility]/State/ZIP Co de Phone Number [facility] [address] [place] [address], * TSH WITH REFLEX (07/13/2023 2:35 PM COMMUNICATIONS SENIOR ASSOCIATE) TSH 1.69 0.27 - 4.20 uIU/mL 07/14/2023 12:32 AM COMMUNICATIONS SENIOR ASSOCIATE [facility] Blood BLOOD SPECIMEN / Unknown Venipuncture / Unknown 07/13/2023 2:35 PM COMMUNICATIONS SENIOR ASSOCIATE 07/13/2023 2:35 PM COMMUNICATIONS SENIOR ASSOCIATE Narrative [facility] - 07/14/2023 12:32 AM COMMUNICATIONS SENIOR ASSOCIATE In Adults, TSH values between 5.00 and 10.00 uIU/ml do not necessarily indicate the presence of Hypothyroidism. Correlation with clinical findings such as presence of goiter and/or Thyroperoxidase (TPO) Antibody may be helpful. For more information please refer to JUSTINA 2004; 291: 228-238. Alexandra Castelan DO CHEMISTRY Performing Organization Address [facility] Co de Phone Number [facility] [address] [place] [id number], * (ABNORMAL) VITAMIN D 25 (DEFICIENCY) (07/13/2023 2:35 PM COMMUNICATIONS SENIOR ASSOCIATE) VITAMIN D TOTAL 17.0(L) 20.0 - 80.0 ng/mL 07/14/2023 1:04 AM COMMUNICATIONS SENIOR ASSOCIATE [facility] Blood BLOOD SPECIMEN / Unknown Venipuncture / Unknown 07/13/2023 2:35 PM COMMUNICATIONS SENIOR ASSOCIATE 07/13/2023 2:35 PM COMMUNICATIONS SENIOR ASSOCIATE Narrative [facility] - 07/14/2023 1:04 AM COMMUNICATIONS SENIOR ASSOCIATE ? Vitamin D Status Deficiency: ? <20 ng/mL Insufficiency: ?20-29 ng/mL Sufficiency: ?30-80 ng/mL Possible Toxicity: ??>80 ng/mL Based on [employer] Medicine recommendations Biotin supplements may cause clinically significant interference for this test assay. ??If interference is suspected, it is strongly recommended that biotin is discontinued for at least one week prior to retesting. Alexandra Castelan DO SEND OUTS Performing Organization Address [facility] Co de Phone Number [facility] [address] [place] [id number], [place] * VITAMIN B12 (07/13/2023 2:35 PM COMMUNICATIONS SENIOR ASSOCIATE) VITAMIN B12 261 232 - 1,245 pg/mL 07/14/2023 1:04 AM COMMUNICATIONS SENIOR ASSOCIATE [facility] Blood BLOOD SPECIMEN / Unknown Venipuncture / Unknown 07/13/2023 2:35 PM COMMUNICATIONS SENIOR ASSOCIATE 07/13/2023 2:35 PM COMMUNICATIONS SENIOR ASSOCIATE Narrative [facility] - 07/14/2023 1:04 AM COMMUNICATIONS SENIOR ASSOCIATE Biotin supplements may cause clinically significant interference for this test assay. ??If interference is suspected, it is strongly recommended that biotin is discontinued for at least one week prior to retesting. Barbcasandra Garyvinnie CHEMISTRY [facility] [address] [place] [address], [place] * (ABNORMAL) COMP METABOLIC PANEL (07/13/2023 2:35 PM COMMUNICATIONS SENIOR ASSOCIATE) SODIUM 139 136 - 145 mmol/L 07/13/2023 11:42 PM [facility] POTASSIUM 5.2(H) 3.5 - 5.1 mmol/L 07/13/2023 11:42 PM [facility] CHLORIDE 104 98 - 107 mmol/L 07/13/2023 11:42 PM [facility] CO2,TOTAL 27 22 - 29 mmol/L 07/13/2023 11:42 PM [facility] ANION GAP 8 5 - 18 07/13/2023 11:42 PM [facility] GLUCOSE 177(H) 70 - 99 mg/dL 07/13/2023 11:42 PM [facility] CALCIUM 9.8 8.8 - 10.2 mg/dL 07/13/2023 11:42 PM [facility] BUN 15 8 - 23 mg/dL 07/13/2023 11:42 PM [facility] CREATININE 1.21(H) 0.70 - 1.20 mg/dL 07/13/2023 11:42 PM [facility] BUN/CREAT RATIO 12 10 - 20 11:42 PM [facility] eGFR 58(L) >90 mL/min/1.7 3m2 07/13/2023 11:42 PM [facility] Comment:As of 2021, eG FR is calculated by the CKD-EPI creatinine equation without race adjustment. ??eGFR can be influenced by muscle mass, exercise, and diet. ??The reported eGFR is an estimation only and is only applicable if the renal function is stable. ALBUMIN 4.1 4.0 - 4.9 g/dL 07/13/2023 11:42 PM COMMUNICATIONS SENIOR ASSOCIATE [facility] PROTEIN,TOTAL 6.0 6.0 - 8.0 g/dL 07/13/2023 11:42 PM COMMUNICATIONS SENIOR ASSOCIATE [facility] BILIRUBIN,TOTAL 0.5 0.0 - 1.2 mg/dL 07/13/2023 11:42 PM COMMUNICATIONS SENIOR ASSOCIATE [facility] ALK PHOSPHATASE 54 40 - 129 IU/L 07/13/2023 11:42 PM COMMUNICATIONS SENIOR ASSOCIATE [facility] ALT (SGPT) 12 10 - 50 IU/L 07/13/2023 11:42 PM COMMUNICATIONS SENIOR ASSOCIATE [facility] AST (SGOT) 17 10 - 50 IU/L 07/13/2023 11:42 PM COMMUNICATIONS SENIOR ASSOCIATE [facility] Blood BLOOD SPECIMEN / Unknown Venipuncture / Unknown 07/13/2023 2:35 PM COMMUNICATIONS SENIOR ASSOCIATE 07/13/2023 2:35 PM COMMUNICATIONS SENIOR ASSOCIATE Alexandra Castelan DO [facility] [address] [place] [address], [place] * XR HIP 1 VIEW W PELVIS LEFT (06/25/2023 1:18 PM COMMUNICATIONS SENIOR ASSOCIATE) Anatomical Region Laterality Modality HIPS, HIPL, Pelvis Computed Radi ography 06/25/2023 1:28 PM COMMUNICATIONS SENIOR ASSOCIATE Narrative 06/25/2023 1:28 PM COMMUNICATIONS SENIOR ASSOCIATE For Patients: ??As a result of the 21st Century Cures Act, medical imaging exams and procedure reports are released immediately into your electronic medical record. ??You may view this report before your referring provider. ??If you have questions, please contact your health care provider. Indication: Hip pain, prostate cancer Technique: Pelvis and left hip 3 views Comparison: Bone scan 03/23/2023 Findings: Dense vascular calcifications. Multiple pelvic phleboliths. No fracture. Degenerative joint disease. No suspicious lesion. Impression: Degenerative changes. No fracture. No blastic lesion. Dictated by Itz Sánchez MD @ Jun 25 2023 ??1:28PM (Electronically Signed) ?? Procedure Note Itz Sánchez MD - 06/25/2023 For Patients: As a result of the Cures Act, medical imagingexams and procedure reports are released immediately into your electronicmedical record. You may view this report before your referring provider.If you have questions, please contact your health care provider. Indication: Hip pain, prostate cancer Technique: Pelvis and left hip 3 views Comparison: Bone scan 03/23/2023 Findings: Dense vascular calcifications. Multiple pelvic phleboliths. No fracture.Degenerative joint disease. No suspicious lesion. Impression: Degenerative changes. No fracture. No blastic lesion. Dictated by Itz Sánchez MD @ Jun 25 2023 1:28PM (Electronically Signed) Barbi Flip DO GENERAL IMAGING * (ABNORMAL) HEMOGLOBIN A1C MONITORING (POCT) (06/25/2023 12:46 PM COMMUNICATIONS SENIOR ASSOCIATE) HEMOGLOBIN A1C MONITORING (POCT) 7.8(H) <=6.4 % 06/25/2023 12:56 PM COMMUNICATIONS SENIOR ASSOCIATE [facility] Blood BLOOD SPECIMEN / Unknown Venipuncture / Unknown 06/25/2023 12:46 PM COMMUNICATIONS SENIOR ASSOCIATE 06/25/2023 12:46 PM COMMUNICATIONS SENIOR ASSOCIATE Narrative [facility] - 06/25/2023 12:56 PM COMMUNICATIONS SENIOR ASSOCIATE ? (<=6.9%) ? Indicates good control ? (7.0% to 7.9%) ? Indicates fair control ? (>=8.0%) ? Indicates poor control ?? NOTE: ??These thresholds are guidelines and ?individual targets may vary. Falsely low levels may be seen with: Recent Transfusion, Recent Significant Blood Loss, Hemolytic Diseases, or Falsely elevated levels may be seen with: Untreated Anemias, Splenectomy ? Alexandra Castelan DO CHEMISTRY [facility] [address] [place] [place] [address], [place] [phone] from Last 3 Months Advance Directives * Full Code (Latest Code Status on File) Date Activated Date Inactivated Comments 08/29/2022 11:09 PM 09/01/2022 3:44 PM Discussed w ith patient 08/29/2022 Question Answer Comments Code Status Discussion: Reviewed Preferences * Full Code Date Activated Date Inactivated Comments 09/05/2016 7:23 AM 09/05/2016 1:23 PM * Full Code Date Activated Date Inactivated Comments 07/30/2015 9:21 AM 07/31/2015 2:35 PM * Full Code Date Activated Date Inactivated Comments 07/30/2015 1:34 AM 07/30/2015 9:21 AM Question Answer Comments Code Status Discussion: Discussed * Full Code Date Activated Date Inactivated Comments 05/06/2015 11:28 PM 05/08/2015 2:10 PM Care Teams Drag Sawyer Relationship Specialty Start Date End Date Alexandra Castelan DO [address] [place] [address] PCP - General Family Practice 10/29/22
--- OUTSIDE RECORDS SUMMARY | 2023-09-21 15:23 | XMS_ITS | Encounter Summary ---
Author Name Unknown Organization [facility] Address [address] [place] [address] Care Team Providers Care Precinct Commanding Officer Name Role Phone Red Gamboa M.D. Primary Care P crystal Reason for Referral * Outpatient (Routine) - Authorized Specialty Diagnoses / Procedures Referred By Alva t Referred To Contact Red Gamboa M.B.B.S., M.D. [address] [place] [address] [facility] Referral ID Status Reason Start Date Expiration Date V isits Requested Visits Authorized [id number] Authorized 07/14/2023 01/12/2025 1 1 Scheduling Instructions Nurse AWV Do not schedule prior to due date to ensure insurance coverage Visit: Medicare Annual Wellness Never done. BLOWER Encounter Details Date Type Department Care Team (Late st Contact Info) Description 07/14/2023 Orders Only [facility] MNT Red Gamboa M.B.B.S., M.D. [address] [place] [address] Diabetes Mellitus Type 2 With [...] Type Priority Associated Diagnoses Orde r Schedule Albumin, Random, Urine Lab Routine Diabetes Mellitus Type 2 With Diabetic Neuropathy (HCC) Expected: 07/28/2023, Expires: 01/10/2024 Hemoglobin A1c Lab Routine Diabetes Mellitus Type 2 With Diabetic Neuropathy (HCC) Expected: 07/28/2023, Expires: 01/10/2024 Scheduled Referrals Name Type Priority Associated Diagnoses Orde r Schedule Primary Care nurse visit (clinic) - [facility]; Medicare Annual Wellness Outpatient Referral Routine Expected: 08/11/2023, Expires: 01/10/2024 documented as of this encounter Visit Diagnoses Diagnosis Diabetes Mellitus Type 2 With Diabetic Neuropathy (HCC) documented in this encounter Additional Health Concerns Assessment Noted Time PHQ-9 Depression Total Score: 0 06/24/19 19 10:47 AM ACID BLOWER documented as of this encounter Care Teams Precinct Commanding Officer Relationship Specialty Start Date End Date Red Gamboa M.B.B.S., MNando. [address] [place] [phone] PCP - General Family Medicine 01/13/20 documented as of this encounter
--- OUTSIDE RECORDS SUMMARY | 2023-09-21 15:23 | XMS_ITS | Clinical Summary ---
Author Name Unknown Organization [facility] Address [address] [place] [address] Care Team Providers Care Primary Care Provider Name Role Phone Red Gamboa M.D. Primary Care Kiran rojas Source Comments Patient records contain information from all sites at [facility]. For routine questions regarding patient records, call [phone] during business hours, M-F 8:00 AM - 5:00 PM Central Time. Record requests for emergency care only can be directed to [phone] at any time.[facility] Allergies No known active allergies Medications Medication Sig Dispensed Refills Start Date End Date Status calcium carbonate (TUMS ULTRA) 1000 mg (400 mg calcium) chewable tablet Chew 2 tablets at bedtime. 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 Diabetes Mellitus Type 2 With Diabetic Neuropathy (HCC) from Last 3 Months Immunizations Name Administration [...] (Performed elsewhere), Additional history exists Hemoglobin A1C 02/26/2023 08/26/2022, 04/08, 01/22/2022, Additional history exists Depression Screening (Annual PHQ-2) 06/08/2023 Fall Risk Screen (Annual) 06/08/2023 Visit: Chronic Disease, age 18+ 08/26/2023 , 08/25/2022 Urine Albumin 08/27/2023 08/26/2022, 04/08, 07/17/2020, Additional history exists Creatinine Level (Kidney Fun ction Test) 07/13/2024 07/13/2023, 02/24/2023, 12/19/2022, Additional history exists Potassium Level 07/13/2024 07/13/2023, 12/06, 08/30/2022, Additional history exists Sodium Level 07/13/2024 07/13/2023, 12/06, 08/30/2022, Additional history exists Pneumococcal vaccine (65+ years) Completed 03/06/20 15, 03/17/2006 Colonoscopy Discontinued 09/05/2016 Colorectal Cancer Surveillance Discontinued Zoster Vaccines Completed 05/10/2020, 01/07, 07/07/2014 Influenza Vaccine Completed 02/27/2023, , 03/11/2021, Additional history exists COVID-19 Vaccine Completed 04/02/2023, , 10/22/2021, Additional history exists CT Colonography Discontinued Cologuard Discontinued Medical Devices Implanted Type Area Policy Issue Clerk Device Identifier Shelf Expiration Date Model / Serial / Lot Cardiac Stent Cardiac Stent Heart Description:X 6 Ocular Lens Ocular Lens Bilateral : Eye Procedures Procedure Name Priority Date/Time Associated Diagnosis Comments EXTI COMPREHENSIVE METABOLIC PANEL, S/P Routine 07/13/2023 2:35 PM TERRITORY SUPERVISOR HEMOGLOBIN A1C, B Routine 08/26/2022 1:3 6 [...] Red Schwartz M.D. LAB BLO OD ADD-ON [facility] [address] [place] [address], [place] OW[facility] [address] [place] [address] * Albumin, Random, Urine (08/26/2022 1:33 PM [...] Red Schwartz M.D. LAB URI NE ORDERABLES Performing Organization Address [facility] Co de Phone Number [facility] [address] [place] [address], [place] [facility] [facility] [place] [address] [place] [address] from Last 3 Months or Most Recently Relevant to Health Maintenance Advance Directives For more information, please contact: [phone] Documents on File Type Date Recorded Patient Alarm Mechanism Adjuster Expl anation Advance Directives 01/14/2013 12:00 AM Lega cy document. See document viewer. Care Teams Primary Care Provider Relationship Specialty Start Date End Date Red Gamboa M.B.B.S., M.Dejuan. [address] [place] [address] CA[place] Briceno [phone] PCP - General Family Medicine 01/13/20
--- OUTSIDE RECORDS SUMMARY | 2023-09-21 15:23 | XMS_ITS | Clinical Summary ---
Author Name Unknown Organization [facility] [employer] [facility] Address [address] [address] Phone Care Team Providers Care Banking Analyst Name Role Phone Unavailable Primary Care Provider Unavailabl e Allergies No known active allergies Medications Medication Sig Dispensed Refills Start Date End Date Status clopidogrel (PLAVIX) 75 MG tablet Take 75 mg by mouth one time a day. Active amLODIPine (NORVASC) 5 MG tablet Take 5 mg by mouth one time a day. Active aspirin 81 MG tablet Take 81 mg by mouth one time a day. Active atorvaSTATin (LIPITOR) 80 MG tablet Take 80 mg by mouth one time a day. Active calcium carbonate (TUMS) 500 MG chewable tablet Chew and swallow 1,000 mg one time a day. Chew thoroughly. Active finasteride (PROSCAR) 5 MG tablet Take 5 mg by mouth one time a day. Do not crush. Active glimepiride (AMARYL) 4 MG tablet Take 4 mg by mouth every morning with breakfast. Active linagliptin (TRADJENTA) 5 MG Tablet tablet Take 5 mg by mouth one time a day. Active losartan (COZAAR) 100 MG tablet Take 100 mg by mouth one time a day. Active metFORMIN (GLUCOPHAGE) 500 MG tablet Take 1,500 mg by mouth two times a day with meals. Take with food. Active metoprolol succinate (TOPROL XL) 100 MG 24 hour extended-release tablet Take 100 mg by mouth one time a day. Do not crush or chew. Active Calcium Polycarbophil (FIBER-CAPS OR) Take by mouth. Activ e FIBER COMPLETE Tablet Take 2 Tabs by mouth one time a day. Active nitroglycerin (NITROSTAT) 0.[address] 0.4 mg under the tongue every five minutes as needed for Chest pain. Do not crush; maximum of 3 doses in 15 minutes. Active nortriptyline (PAMELOR) 10 MG capsule Take 10 mg by mouth every evening. Active Social History Tobacco Use Types Packs/Day [...]
--- OUTSIDE RECORDS SUMMARY | 2023-09-21 15:23 | XMS_ITS ---
Author Name Unknown Organization [facility] Address [address] [place] [address] Care Team Providers Care Body Shop Estimator Name Role Phone Unavailable Unavailable Unavailable Surgery Details Not on file Complications Check Surgery Details section. Procedure Estimated Blood Loss Check Surgery Details section. Procedure Findings Check Surgery Details section. Procedure Specimens Taken Check Surgery Details section.
== END 2023-09-17 23:37 | disposition home or self-care (01) ==
LOC: AMB 09-21 15:21
PROVIDERS: PCP Student in an Organized Health Care Education/Training Program; Visit Provider Family Medicine
DX: R60.9 Edema, unspecified (principal)
CPT/HCPCS: A0998

== ENCOUNTER 2023-12-21 00:39 | Outpatient (CLI) | payer MEDICARE, SELFPAY ==
--- OUTSIDE RECORDS SUMMARY | 2023-12-26 01:29 | XMS_ITS | Clinical Summary ---
Author Organization [employer] [facility] [employer] [facility] Address [place], [place] [address] Care Team Providers Care Acoustics Teacher Name Role Phone Alexandra Castelan DO Primary Care Provider Allergies Active Allergy Reactions Criticality Noted Date Comments Losartan GI Upset 11/20/2023 Medications Medication Sig Dispensed Refills Start Date End Date Status fluocinonide 0.05% topical (LIDEX) 0.05 % cream Apply topically to affected area(s) 2 times daily. Active calcium carbonate (TUMS) 200 mg calcium (500 mg) chewable tablet Take 500-1,000 mg by mouth every 3 hours if needed for Heartburn or GI Upset. Active polyethylene glycol (MIRALAX; GLYCOLAX) 17 g powder for solution Mix 17 g in liquid then take by mouth once daily if needed. 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 283 g 11 12/04/2022 Active selenium sulfide 2.25 %Indications:Atopic dermatitis of [...] be used to read blood sugars per cook room supervisor's directions. 1 Each 07/13/2023 Active blood-glucose meterIndications:Typ e 2 diabetes mellitus with other circulatory complications (HC) Dispense meter covered by pts insurance. 1 Each 07/22/2023 Active blood sugar diagnostic (OneTouch Verio test strips) stripIndications:Typ e 2 diabetes mellitus with other circulatory complications (HC) As directed once daily. 200 Each 3 07/22/2023 Active Eliquis 5 mg tabletIndications:Hi story of pulmonary embolus (PE) TAKE 1 TABLET (5 MG) BY MOUTH TWO TIMES DAILY. 60 Tablet 2 10/13/2023 Active nitroglycerin (NITROSTAT) 0.4 mg sublingual tabletIndications:NS JANNY (non-ST elevated myocardial infarction) (HC) DISSOLVE 1 TABLET UNDER TONGUE EVERY 5 MINUTES UP TO 3 DOSES NEEDED FOR CHEST PAIN. CALL 911 IF CHEST PAIN PERSISTS 25 Tablet 6 10/23/2023 Active mirtazapine (REMERON) 7.5 mg tabletIndications:In somnia, idiopathic,Depressio n, major, in remission (HC) Take 1 Tablet (7.5 mg) by mouth at bedtime. 30 Tablet 2 11/20/2023 02/18/2024 Active metFORMIN (GLUCOPHAGE XR) 500 mg Extended-Release tabletIndications:Ty pe 2 diabetes mellitus with diabetic polyneuropathy, without long-term current use of insulin (HC) Take 4 Tablets (2,000 mg) by mouth once daily with a meal. 11/20/2023 Active metoprolol succinate (Toprol XL) 100 mg Sustained-Release tabletIndications:NS JANNY (non-ST elevated myocardial infarction) (HC) Take 1 Tablet (100 mg) by mouth once daily. 90 Tablet 3 11/26/2023 Active furosemide (LASIX) 20 mg tabletIndications:Bi lateral lower extremity edema Take 1 Tablet (20 mg) by mouth once daily in the morning. 90 Tablet 3 11/26/2023 Active tamsulosin (FLOMAX) 0.4 mg capsuleIndications:B enign prostatic hyperplasia with weak urinary stream Take 1 Capsule (0.4 mg) by mouth once daily after a meal. 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 90 Tablet 3 12/25/2023 Active linaGLIPtin (Tradjenta) 5 mg tabIndications:Type 2 diabetes mellitus with other specified complication, without long-term current use of insulin (HC) TAKE 1 TABLET (5 MG) BY MOUTH EVERY MORNING. 360 Tablet 12/29/2022 12/24/2023 Active Problems Problem Noted Date Diagnosed Date [...] Without CHF Atherosclerotic heart diseas e of [place] coronary artery without angina pectoris 02/07/2016 08/29/2022 [...] Encounters Date Type Department Care Team Description 12/25/2023 2:15 PM CDT Office Visit [facility] [address] [place] [address] Emely Almanzar MD Falls (2 falls, home health asked pt be evaluated. /a few days ago, fell on elbows. no one else present. Did not hit his head. ) 12/25/2023 1:30 PM CDT Orders Only [facility] [address] [place] [address] Lab, [place] Lab 12/25/2023 Telephone [facility] [address] [place] [address] Alexandra Castelan DO Results 12/25/2023 Orders Only [facility] [address] [place] [address] Alexandra Castelan DO <No scans attached> 12/25/2023 Travel 12/24/2023 Telephone [facility] [address] [place] [address] Alexandra Castelan DO Fall (Fall on thursday) 12/23/2023 Telephone [facility] [address] [place] [address] Alexandra Castelan DO Medication Management (Fax) 12/23/2023 Refill [facility] [address] [place] [address] Alexandra Castelan DO Refill Request (Atorvastatin) 12/07/2023 Nurse Triage [facility] [address] [place] [address] Alexandra Castelan DO Medication Management (mirtazapine (REMERON) 7.5 mg tablet) 12/02/[address] [address] Alexandra Castelan DO Lab; Confusion 11/26/[address] [address] Alexandra Castelan DO Medication Management 11/25/[address] [address] Alexandra Castelan DO Refill Request (Furosemide, Tamsulosin) 11/24/[address] [address] Alexandra Castelan DO Medication Management 11/20/2023 1:15 PM CDT Office Visit [address] [address] Alexandra Castelan DO Follow Up (Does have wound on the LEFT elbow ) 11/20/[address] [address] Alexandra Castelan DO Form (Compliance and Medication Information ) 11/19/2023 1:45 PM CDT Office Visit [address] [phone] Jeannine Aviles MD Follow Up (6 month follow up ) 11/19/2023 Travel 11/13/[address] [address] Alexandra Castelan DO Results 11/12/2023 3:45 PM CDT Orders Only [facility] [address] [facility] [address] Lab, [place] [facility] 11/12/2023 Travel 11/05/2023 Refill [facility] [address] [place] [address] Alexandra Castelan, Refill Request (Furosemide) 10/22/2023 Refill [facility] [address] [place] [address] Alexandra Castelan, DO Refill Request (Nitroglycerin, Furosemide) 10/12/2023 Refill [facility] [address] [place] [address] Alexandra Castelan DO Refill Request (Eliquis) 10/06/2023 Telephone [facility] [address] [facility] [address] Alexandra Castelan DO Medication Management ( Prescription request for swelling) from Last 3 Months Immunizations Name Administration Dates Next Due COVID-19 Vaccine Spikevax (M oderna 50mcg/0.5mL) 12YO+ [id number] Formula PF 04/02/2023 COVID-19 vaccine (StyleTech-Bio NTech 30mcg/0.3mL) 12YO+ RYAN-SUCROSE PF, MDV 10/22/2021 COVID-19 vaccine (StyleTech-Bio NTech 30mcg/0.3mL) PF, MDV 04/23/2021,08/09/2020,07/19/2020 DT (Age [...] Smoking Tobacco: Former Cigarettes 1 969 - 1959 Smokeless Tobacco: Never Tobacco Cessation:Counseling Given: Yes [...] Sign Reading Time Taken Comments Blood Pressure 149/88 12/25/2023 2:56 PM CDT Pulse 103 12/25/2023 2:56 PM CDT Temperature 36.4 ??C (97.6 ??F) 08/24/2023 2:59 PM CD T Respiratory Rate 16 08/24/2023 2:59 PM CDT Oxygen Saturation 100% 12/25/2023 1:44 PM CDT Inhaled Oxygen Concentration - - Weight 86.6 kg (191 lb) 12/25/2023 1:44 PM CDT Height 188 cm (6' 2) 07/17/2023 1:14 PM FLAT CUTTER Body Mass Index 24.52 07/17/2023 1:14 PM FLAT CUTTER Plan of Treatment Health Maintenance Due Date Last Done Comments Tetanus booster 03/11/2022 03/11/2012 COVID-19 vaccine series ( season) 2023 04/02/2023, 04/07/2022, 10/22/2021, Additional history exists Depression screening for age 12+ 09/19/2023 09/19/19 [...] for age 50+ Completed 05/10/2020, 02/02/2020, 07/07/2014 Procedures Procedure Name Priority Date/Time Associated Diagnosis Comments CBC WITH AUTO DIFFERENTIAL Add On 12/25/2023 1:20 PM CDT History of falling CBC WITH AUTO DIFFERENTIAL Add On 12/25/2023 1:20 PM CDT History of falling HEMOGLOBIN A1C Routine 12/25/2023 1:20 PM CDT Type 2 diabetes mellitus with other circulatory complications (HC) BASIC METABOLIC PANEL Routine 11/12/2023 3:17 PM CDT Bilateral lower extremity edema PSA TOTAL (DIAGNOSTIC) Routine 11/12/2023 3:17 PM CDT Elevated PSA from Last 3 Months Results * CBC WITH AUTO DIFFERENTIAL (12/25/2023 1:20 PM CDT) WHITE BLOOD COUNT 8.8 4.5 - 11.0 thou/cu mm 12/25/2023 2:54 PM CDT [facility] RED BLOOD COUNT 4.79 4.30 - 5.90 mil/cu mm 12/25/2023 2:54 PM CDT [facility] HEMOGLOBIN 14.6 13.5 - 17.5 g/dL 12/25/2023 2:54 PM CDT [facility] HEMATOCRIT 44.3 37.0 - 53.0 % 12/25/2023 2:54 PM CDT [facility] MCV 93 80 - 100 fL 12/25/2023 2:54 PM CDT [facility] MCH 30.5 26.0 - 34.0 pg 12/25/2023 2:54 PM CDT [facility] MCHC 33.0 32.0 - 36.0 g/dL 12/25/2023 2:54 PM CDT [facility] RDW 13.3 11.5 - 15.5 % 12/25/2023 2:54 PM CDT [facility] PLATELET COUNT 192 140 - 440 thou/cu mm 12/25/2023 2:54 PM CDT [facility] MPV 9.8 6.5 - 11.0 fL 12/25/2023 2:54 PM CDT [facility] % NEUT 67.6 % 12/25/2023 2:54 PM CDT [facility] % LYMPH 20.4 % 12/25/2023 2:54 PM CDT [facility] % MONO 7.5 % 12/25/2023 2:54 PM CDT [facility] % EOS 4.2 % 12/25/2023 2:54 PM CDT [facility] % BASO 0.3 % 12/25/2023 2:54 PM CDT [facility] ABSOLUTE NEUTROPHILS 6.0 1.7 - 7.0 thou/cu mm 12/25/2023 2:54 PM CDT [facility] ABSOLUTE LYMPHOCYTES 1.8 0.9 - 2.9 thou/cu mm 12/25/2023 2:54 PM CDT [facility] ABSOLUTE MONOCYTES 0.7 <0.9 thou/cu mm 12/25/2023 2:54 PM CDT [facility] ABSOLUTE EOSINOPHILS 0.4 <0.5 thou/cu mm 12/25/2023 2:54 PM CDT [facility] ABSOLUTE BASOPHILS 0.0 <0.3 thou/cu mm 12/25/2023 2:54 PM CDT [facility] Blood BLOOD SPECIMEN / Unknown Venipuncture / Unknown 12/25/2023 1:20 PM CDT 12/25/2023 1:20 PM CDT Emely Almanzar MD HEMATOLOGY Performing Organization Address City/State/[facility] Co de Phone Number [facility] [address] [place] [address], * (ABNORMAL) HEMOGLOBIN A1C MONITORING (POCT) (12/25/2023 1:20 PM CDT) Pathologist [facility] HEMOGLOBIN A1C MONITORING (POCT) 9.8(H) <=6.4 % 12/25/2023 1:30 PM CDT [facility] Blood BLOOD SPECIMEN / Unknown Venipuncture / Unknown 12/25/2023 1:20 PM CDT 12/25/2023 1:20 PM CDT Narrative [facility] - 12/25/2023 1:30 PM CDT ? (<=6.9%) ? Indicates good control ? (7.0% to 7.9%) ? Indicates fair control ? (>=8.0%) ? Indicates poor control ?? NOTE: ??These thresholds are guidelines and ?individual targets may vary. Falsely low levels may be seen with: Recent Transfusion, Recent Significant Blood Loss, Hemolytic Diseases, or Falsely elevated levels may be seen with: Untreated Anemias, Splenectomy ? Alexandra Castelan DO CHEMISTRY Performing Organization Address City/[facility]/ZIP Co de Phone Number [facility] [address] [place] [address], [place] [phone] * (ABNORMAL) PSA TOTAL (DIAGNOSTIC) (11/12/2023 3:17 PM CDT) Pathologist [facility] PSA TOTAL (DIAGNOSTIC) 17.70(H) <4.00 ng/mL 11/12/2023 11:29 PM CDT [facility] Blood BLOOD SPECIMEN / Unknown Venipuncture / Unknown 11/12/2023 3:17 PM CDT 11/12/2023 3:[address] [facility] - 11/12/2023 11:29 PM CDT The test method changed on 12/02/2022. If this test has been used for serial monitoring, rebaselining is recommended. Rebaselining consists of 2 measurements, collected 3-6 weeks apart. The Nisha Elecsys total PSA assay is an electrochemiluminescence immunoassay ECLIA performed on the Nisha Neville e immunoassay analyzers. Values obtained with different assay methods may be different and cannot be used interchangeably. Jeannine Aviles MD CHEMISTRY Performing Organization Address City/[facility]/ZIP Co de Phone Number [facility] [address] [place] [address], * (ABNORMAL) BASIC METABOLIC PANEL (11/12/2023 3:17 PM CDT) Pathologist [facility] SODIUM 137 136 - 145 mmol/L 11/12/2023 11:29 PM CDT [facility] POTASSIUM 4.6 3.5 - 5.1 mmol/L 11/12/2023 11:29 PM CDT [facility] CHLORIDE 99 98 - 107 mmol/L 11/12/2023 11:29 PM CDT [facility] CO2,TOTAL 30(H) 22 - 29 mmol/L 11/12/2023 11:29 PM CDT [facility] ANION GAP 8 5 - 18 11/12/2023 11:29 PM CDT [facility] GLUCOSE 301(H) 70 - 99 mg/dL 11/12/2023 11:29 PM CDT [facility] CALCIUM 9.5 8.8 - 10.2 mg/dL 11/12/2023 11:29 PM CDT [facility] BUN 25(H) 8 - 23 mg/dL 11/12/2023 11:29 PM CDT [facility] CREATININE 1.16 0.70 - 1.20 mg/dL 11/12/2023 11:29 PM CDT [facility] BUN/CREAT RATIO 22(H) 10 - 20 11:29 PM CDT [facility] eGFR 61(L) >90 mL/min/1.7 3m2 11/12/2023 11:29 PM CDT [facility] Comment:As of 2021, eG FR is calculated by the CKD-EPI creatinine equation without race adjustment. ??eGFR can be influenced by muscle mass, exercise, and diet. ??The reported eGFR is an estimation only and is only applicable if the renal function is stable. Blood BLOOD SPECIMEN / Unknown Venipuncture / Unknown 11/12/2023 3:17 PM CDT 11/12/2023 3:20 PM CDT Alexandra Castelan DO [facility] [address] [place] [address], from Last 3 Months Advance Directives Documents on File Type Date Recorded Patient Java Web Application Developer Expl anation POLST 10/12/2023 * Full Code (Latest Code Status on [...] 11:28 PM 05/08/2015 2:10 PM Care Teams Acoustics Teacher Relationship Specialty Start Date End Date [place] [address] PCP - General Family Practice 10/29/22
--- OUTSIDE RECORDS SUMMARY | 2023-12-26 01:30 | XMS_ITS | Referral Summary ---
Author Organization [facility] Address [address] [place] [address] Care Team Providers Care Unit Manager Convenience Stores Name Role Phone None Reported, Pcp Primary Care Provider Unavail able Source Comments Patient records contain information from all sites at [facility]. For routine questions regarding patient records, call [phone] during business hours, M-F 8:00 AM - 5:00 PM Central Time. Record requests for emergency care only can be directed to [phone] at any time.[facility] Encounters Date Type Department Care Team Description 12/09/2023 Clinical Communication Department of Family Medicine, [facility], in [address] [phone] Red Gamboa M.B.B.S., Kathy Communication (PCP elsewhere) 11/25/2023 Refill Department of Family [facility], [facility], in [address] [phone] Red Gamboa M.B.B.S. MLexa Med Refill from Last 3 Months Allergies No known active allergies Medications Medication Sig Dispensed Refills Start Date End Date Status calcium carbonate (TUMS ULTRA) 1000 mg (400 mg calcium) chewable tablet Chew 2 tablets at bedtime. 04/08/2016 Active vitamins A,C,L-xfgc-syfxop (for_PRESERVISION AREDS) 7,160 Units-113 mg-100 Units per tablet Take 1 tablet by mouth 2 (two) times a day. Active blood-glucose meter miscIndications:D iabetes Mellitus Type 2 With Diabetic Nephropathy (HCC) Test as directed for diabetes control. 1 each 09/28/2018 Active blood glucose ctl high,nml,low solutionIndicatio ns:Diabetes Mellitus Type 2 With Diabetic Nephropathy (HCC) Glucose control solution provides an easy way to ensure accurate blood glucose testing. 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 1 each 4 10/22/2021 Active blood-glucose meter,continuous miscIndications:D iabetes Mellitus Type 2 With Diabetic Nephropathy (HCC) Use to monitor blood glucose 1 each 10/22/2021 Active aspirin 81 mg chewable tablet Chew 81 mg daily. On hold Active metFORMIN XR (GLUCOPHAGE-XR) 500 mg 24 hr tabletIndications :Diabetes Mellitus Type 2 With Diabetic Neuropathy (HCC) Take 1 tablet (500 mg total) by mouth 3 (three) times a day with meals. 270 tablet 3 11/27/2021 Active Tradjenta 5 mg tablet TAKE 1 TABLET (5 MG TOTAL) BY MOUTH EVERY MORNING. 90 tablet 3 12/02/2021 Active OneTouch Verio test strips stripsIndications :Diabetes Mellitus Type 2 With Diabetic Nephropathy (HCC) TEST TWICE DAILY 200 strip 3 02/14/2022 Active Myrbetriq 25 mg 24 hr tabletIndications :Urinary Urge Incontinence TAKE 1 TABLET (25 MG) BY MOUTH DAILY. 90 tablet 3 04/04/2022 Active aluminum-magnesiu m hydroxide 200-200 mg/5 mL suspension Take 30 [...] TABLET THE DAY AFTER BIOPSY 08/18/2022 Active atorvastatin (LIPITOR) 80 mg tablet TAKE 1 TABLET (80 MG TOTAL) BY MOUTH AT BEDTIME. 90 tablet 09/10/2022 Active amLODIPine (NORVASC) 5 mg tablet TAKE 1 TABLET (5 MG TOTAL) BY MOUTH EVERY EVENING. 90 tablet 3 10/07/2022 Active glimepiride (AMARYL) 2 mg tabletIndications :Diabetes Mellitus Type 2 With Diabetic Neuropathy (HCC) TAKE ONE TABLET (2MG) BY MOUTH DAILY WITH BREAKFAST 90 tablet 3 10/29/2022 Active metoprolol succinate (Toprol XL) 100 mg 24 hr tablet Take 1 tablet (100 mg total) by mouth daily. Patient needs Office Visit for further refills. 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/2016 Overview: [...] on file Medical Devices Implanted Type Area Tea Tree Farm Worker Device Identifier Shelf Expiration Date Model / Serial / Lot Cardiac Stent Cardiac Stent Heart Description:X 6 Ocular Lens Ocular Lens Bilateral : Eye Procedures Procedure Name Priority Date/Time Associated Diagnosis Comments EXTI BASIC METABOLIC PANEL, S/P Routine 11/12/2023 3:17 PM CDT HEMOGLOBIN A1C, B Routine 08/26/2022 1:3 6 [...] LAB BLO OD ADD-ON Performing Organization Address City/[facility] Co de Phone Number [facility] [address] [place] [address], [place] [facility] [place] [address] [place] [address] * Albumin, Random, Urine (08/26/2022 1:33 PM [...] LAB URI NE ORDERABLES Performing Organization Address City/[facility] Co de Phone Number [facility] [address] [place] [address], [place] [facility] [facility] [place] [address] [place] [address] from Last 3 Months or Most Recently Relevant to Health Maintenance Advance Directives For more information, please contact: [phone] Documents on File Type Date Recorded Patient Executive Sales Assistant Expl anation Advance Directives 01/14/2013 12:00 AM Dana tucker document. See document viewer. Care Teams Unit Manager Convenience Stores Relationship Specialty Start Date End Date None Reported, Pcp PCP - General Family Medicine 12/09/23
--- OUTSIDE RECORDS SUMMARY | 2023-12-26 01:30 | XMS_ITS | Encounter Summary ---
Author Organization [facility] Address [address] [place] [address] Care Team Providers Care Hygiene Coordinator Name Role Phone Red Gamboa M.D. Primary Care crystal Reason for Visit * Reason Comments Med Refill Encounter Details Date Type Department Care Team (Late st Contact Info) Description 11/25/2023 Refill Department of Family Medicine, [facility], in [place], [place] [address] [place] [phone] Red Gamboa M.B.B.S., MLexa [address] [place] [phone] Med Refill Social History Tobacco [...] Total Score: 0 06/24/19 19 10:47 AM EIGHT ARM OPERATOR documented as of this encounter Care Teams Hygiene Coordinator Relationship Specialty Start Date End Date Red Gamboa M.B.B.S., MNando. [address] [place] [address] [place] [phone] PCP - General Family Medicine 01/13/20 12/08/23 documented as of this encounter
--- OUTSIDE RECORDS SUMMARY | 2023-12-26 01:30 | XMS_ITS | Clinical Summary ---
Author Organization [facility] Address [address] [place] [address] Care Team Providers Care Retail Custodial Associate Name Role Phone None Reported, Pcp Primary Care Provider Unavail able Source Comments Patient records contain information from all sites at [facility]. For routine questions regarding patient records, call [phone] during business hours, M-F 8:00 AM - 5:00 PM Central Time. Record requests for emergency care only can be directed to [phone] at any time.[facility] Allergies No known active allergies Medications Medication Sig Dispensed Refills Start Date End Date Status calcium carbonate (TUMS ULTRA) 1000 mg (400 mg calcium) chewable tablet Chew 2 tablets at bedtime. 04/08/2016 Active vitamins A,C,L-qlks-ijbscx (for_PRESERVISION AREDS) 7,160 Units-113 mg-100 Units per [...] Hiatal 04/08/2016 Atherosclerotic Heart Diseas e Of [place] Coronary Artery Without Angina Pectoris 02/07/2016 Overview: [...] Team Description 12/09/20[address] Clinical Communication [address] of [facility], [facility], in [address] [phone] Red Gamboa M.B.B.SJocelyn, MNando. Communication (PCP elsewhere) 11/25/[address] [facility], [facility], in [address] [phone] Red Gamboa M.B.B.S., M.D. Med Refill from Last 3 Months Immunizations Name Administration [...] Date Recorded Dental: Regular Dentist Unknown 07/27/19 Sex and Gender Information Value Date Recorded [...] PHQ-2) 06/08/2023 Fall Risk Screen (Annual) 06/08/2023 COVID-19 Vaccine (7 2022-2 4 season) 2023 04/02/2023, 04/07/2022, 10/22/2021, Additional history exists Visit: Chronic Disease, age 18+ 08/26/2023 3, 08/25/2022 Urine Albumin 08/27/2023 08/26/2022, 04/08, 07/17/2020, Additional history exists Influenza Vaccine (#1) 2024 , 04/03/2022, 03/11/2021, Additional history exists Creatinine Level (Kidney Fun ction Test) 11/11/2024 11/12/2023, 09/24/2023, 07/13/2023, Additional history exists Potassium Level 11/11/2024 11/12/2023, 09/06, 07/13/2023, Additional history exists Sodium Level 11/11/2024 11/12/2023, 09/06, 07/13/2023, Additional history exists Pneumococcal vaccine (65+ years) Completed 03/06/20 15, 03/17/2006 Colonoscopy Discontinued 09/05/2016 Colorectal Cancer Surveillance Discontinued Zoster Vaccines Completed 05/10/2020, 01/07, 07/07/2014 CT Colonography Discontinued Cologuard Discontinued Medical Devices Implanted Type Area Saw Handle Assembler Device Identifier Shelf Expiration Date Model / [...] LAB BLO OD ADD-ON Performing Organization Address [facility] Co de Phone Number [facility] [address] [place] [address], [facility] [address] [place] [address] * Albumin, Random, Urine (08/26/2022 1:33 PM [...] LAB URI NE ORDERABLES Performing Organization Address [facility] Co de Phone Number [facility] [address] [place], [place] [id number], [facility] [address] [place] [address] from Last 3 Months or Most Recently Relevant to Health Maintenance Advance Directives For more information, please contact: [phone] Documents on File Type Date Recorded Patient Windows Technical Specialist Expl anation Advance Directives 01/14/2013 12:00 AM Dana tucker document. See document viewer. Care Teams Retail Custodial Associate Relationship Specialty Start Date End Date None Reported, Pcp PCP - General Family Medicine 12/09/23
--- OUTSIDE RECORDS SUMMARY | 2023-12-26 01:30 | XMS_ITS | Encounter Summary ---
Author Organization [facility] Address [address] [place] [address] Care Team Providers Care Miner Placer Name Role Phone None Reported, Pcp Primary Care Provider Unavail able Reason for Visit * Reason Onset Date Comments Communication 12/09/2023 PCP elsewhere Encounter Details Date Type Department Care Team (Latest Contact Info) Description 12/09/2023 Clinical Communication Department of Family Medicine, [facility], in [place], [place] [address] [place] [phone] Red Gamboa M.B.B.S., MLexa [address] [place] [phone] Communication (PCP elsewhere) Social History Tobacco Use Types Packs/Day Years [...] Total Score: 0 06/24/19 19 10:47 AM DOZER OPERATOR documented as of this encounter Care Teams Miner Placer Relationship Specialty Start Date End Date None Reported, Pcp PCP - General Family Medicine 12/09/23 documented as of this encounter
--- OUTSIDE RECORDS SUMMARY | 2023-12-26 01:30 | XMS_ITS | Clinical Summary ---
Author Organization [facility] Address [address] [address] Phone Care Team Providers Care Ciso Name Role Phone Unavailable Primary Care Provider [...]
--- OUTSIDE RECORDS SUMMARY | 2023-12-26 01:30 | XMS_ITS ---
Author Organization [facility] Address [address] [place] [address] Care Team Providers Care Production Team Leader Name Role Phone Unavailable Unavailable Unavailable Surgery Details Not on file Complications Check Surgery Details section. Procedure Estimated Blood Loss Check Surgery Details section. Procedure Findings Check Surgery Details section. Procedure Specimens Taken Check Surgery Details section.
--- OUTSIDE RECORDS SUMMARY | 2023-12-29 16:08 | XMS_ITS | Referral Summary ---
Author Organization [facility] Address [address] [place] [address] Care Team Providers Care Occupational Therapy Assistant Name Role Phone None Reported, Pcp Primary Care Provider Unavail able Source Comments Patient records contain information from all sites at [facility]. For routine questions regarding patient records, call [phone] during business hours, M-F 8:00 AM - 5:00 PM Central Time. Record requests for emergency care only can be directed to [phone] at any time.[facility] Encounters Date Type Department Care Team Description 12/09/2023 Clinical Communication Department of Family Medicine, [facility], in [address] [phone] Red Gamboa M.B.B.S., Kathy Communication (PCP elsewhere) 11/25/2023 Refill Department of Family [facility], [facility], in [address] [phone] Red Gamboa M.B.B.S., MLexa Med Refill from Last 3 Months Allergies No known active allergies Medications Medication Sig Dispensed Refills Start Date End Date Status calcium carbonate (TUMS ULTRA) 1000 mg (400 mg calcium) chewable tablet Chew 2 tablets at bedtime. 04/08/2016 Active vitamins A,C,R-jnfr-ajincl (for_PRESERVISION AREDS) 7,160 Units-113 mg-100 Units per [...] for further refills. 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 Ring, Neurology in 2006 and Neurontin 1,200 mg at bedtime was prescribed. Later switched to Nortriptyline Rx. 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 Rosacea 11/02/2007 Resolved Problems Problem Noted Date Diagnosed Date Resolved Date Anemia 01/03/2016 05/25/2017 Non-ST Elevation Myocardial Infarction 05/06/2015 05/24/2017 Cataract 02/02/2010 05/24/2017 Chronic Kidney Disease Stage 3 Glomerular Filtration Rate 30 To 59 10/15/2009 10/19/2020 Overview (10/28/2016): Chronic kidney disease, stage III Immunizations Name [...] on file Medical Devices Implanted Type Area Senior Litigation Paralegal Device Identifier Shelf Expiration Date Model / [...] With Stage 2 (Mild) Chronic Kidney Disease ALBUMIN, RANDOM, U Routine 08/26/2022 1: 33 [...] LAB BLO OD ADD-ON Performing Organization Address [facility] Co de Phone Number [facility] [address] [place] [address], [place] [facility] [facility] [address] [place] [address] * Albumin, Random, Urine (08/26/2022 1:33 PM [...] LAB URI NE ORDERABLES Performing Organization Address [facility] Co de Phone Number [facility] [address] [place] [address], [place] [facility] [facility] [address], [place] [address] from Last 3 Months or Most Recently Relevant to Health Maintenance Advance Directives For more information, please contact: [phone] Documents on File Type Date Recorded Patient Community Engagement Coordinator Expl anation Advance Directives 01/14/2013 12:00 AM Lega caitlin document. See document viewer. Care Teams Occupational Therapy Assistant Relationship Specialty Start Date End Date None Reported, Pcp PCP - General Family Medicine 12/09/23
--- OUTSIDE RECORDS SUMMARY | 2023-12-29 16:08 | XMS_ITS ---
Author Organization [facility] Address [address] [place] [address] Care Team Providers Care Fine Grader Name Role Phone Unavailable Unavailable Unavailable Surgery Details Not on file Complications Check Surgery Details section. Procedure Estimated Blood Loss Check Surgery Details section. Procedure Findings Check Surgery Details section. Procedure Specimens Taken Check Surgery Details section.
--- OUTSIDE RECORDS SUMMARY | 2023-12-29 16:08 | XMS_ITS | Clinical Summary ---
Author Organization [facility] Address [address] [address] Phone Care Team Providers Care Hop Farmer Name Role Phone Unavailable Primary Care Provider [...]
--- OUTSIDE RECORDS SUMMARY | 2023-12-29 16:08 | XMS_ITS | Clinical Summary ---
Author Organization [employer] Address [place], [place] [address] Care Team Providers Care Landscape Engineer Name Role Phone Alexandra Castelan DO Primary Care Provider [phone] Allergies Active Allergy Reactions Criticality Noted Date [...] days 6 Each 3 09/18/2022 Active psyllium powdIndications:Regulatory Scientist mathew constipation Mix 1 tsp in liquid [...] be used to read blood sugars per plisse machine operator helper's directions. 1 Each 07/13/2023 Active blood-glucose meterIndications:Typ [...] Without CHF Atherosclerotic heart diseas e of [place] coronary artery without angina pectoris 02/07/2016 08/29/2022 [...] Encounters Date Type Department Care Team Description 12/28/2023 Orders Only [facility] [address] [place] [address] Emely Almanzar MD 1 scan: (1-Ord) [facility]-EKG-12/25/23 12/28/2023 Telephone [facility] [address] [place] [address] Emely Almanzar MD [facility] Home Care Closing; Need to find new one 12/25/2023 2:15 PM CDT Office Visit [facility] [address] [place] [address] Emely Almanzar MD Falls (2 falls, home health asked pt be evaluated. /a few days ago, fell on elbows. no one else present. Did not hit his head. ) 12/25/2023 1:30 PM CDT Orders Only [facility] [address] [place] [address] Lab, [place] [facility] 12/25/2023 Telephone [facility] [address] [place] [address] Alexandra Castelan, DO Results 12/25/2023 Orders Only [facility] [address] [place] [address] Alexandra Castelan DO <No scans attached> 12/25/2023 Travel 12/24/[address] [address] Alexandra Castelan DO Fall (Fall on thursday) 12/23/[address] [address] Alexandra Castelan DO Medication Management (Fax) 12/23/[address] [address] Alexandra Castelan DO Refill Request (Atorvastatin) 12/07/2023 Nurse Triage [address] [address] Alexandra Castelan DO Medication Management (mirtazapine (REMERON) 7.5 mg tablet) 12/02/[address] [address] Alexandra Castelan DO Lab; Confusion 11/26/[address] [address] Alexandra Castelan DO Medication Management 11/25/[address] [address] Alexandra Castelan DO Refill Request (Furosemide, Tamsulosin) 11/24/[address] [address] Alexandra Castelan DO Medication Management 11/20/2023 1:15 PM CDT Office Visit [address] [address] Alexandra Castelan DO Follow Up (Does have wound on the LEFT elbow ) 11/20/[address] [address] Alexandra Castelan DO Form (Compliance and Medication Information ) 11/19/2023 1:45 PM CDT Office Visit [address] [address] Jeannine Aviles MD Follow Up (6 month follow up ) 11/19/2023 Travel 11/13/2023 Telephone [facility] [address] [facility] [place] [address] Alexandra Castelan DO Results 11/12/2023 3:45 PM CDT Orders Only [facility] [address] [facility] [place] [address] Lab, [place] [facility] 11/12/2023 Travel 11/05/2023 Refill [facility] [address] [place] [address] Alexandra Castelan DO Refill Request (Furosemide) 10/22/[address] [address] Alexandra Castelan DO Refill Request (Nitroglycerin, Furosemide) 10/12/[address] [address] Alexandra Castelan DO Refill Request (Eliquis) 10/06/2023 Telephone [facility] [address] [facility] [place] [address] Alexandra Castelan DO Medication Management ( Prescription request for swelling) from Last 3 Months Immunizations Name Administration Dates Next Due COVID-19 Vaccine Spikevax (M oderna 50mcg/0.5mL) 12YO+ 4025-8118 Formula PF 04/02/2023 COVID-19 vaccine (Classting-Bio NTech 30mcg/0.3mL) 12YO+ RYAN-SUCROSE PF, MDV 10/22/2021 COVID-19 vaccine (Classting-Bio NTech 30mcg/0.3mL) PF, MDV 04/23/2021,08/09/2020,07/19/2020 DT (Age [...] 188 cm (6' 2) 07/17/2023 1:14 PM HOUSE CALLS NURSE Body Mass Index 24.52 07/17/2023 1:14 PM HOUSE CALLS NURSE Plan of Treatment Health Maintenance Due Date [...] Procedure Name Priority Date/Time Associated Diagnosis Comments EKG 12 LEAD Routine 12/28/2023 12:52 PM CDT History of falling Atherosclerosis of [place] coronary artery of [place] heart without angina pectoris 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 Presence of coronary angioplasty implant and graft MO READING EKG - NO CHARGE, COMP ONLY Routine 12/28/2023 12:51 PM CDT History of falling Atherosclerosis of [place] coronary artery of [place] heart without angina pectoris 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 Presence of coronary angioplasty implant and graft CBC WITH AUTO DIFFERENTIAL Add On 12/25/2023 [...] PSA from Last 3 Months Results * EKG 12 LEAD (12/28/2023 12:52 PM CDT) Emely Almanzar MD EKG ORD * MO READING EKG - NO CHARGE, COMP ONLY (12/28/2023 12:51 PM CDT) Emely Almanzar MD PB - PROVI JOSE ANTONIO READINGS * CBC WITH AUTO DIFFERENTIAL (12/25/2023 1:20 PM CDT) Pathologist [facility] WHITE BLOOD COUNT 8.8 4.5 - 11.0 thou/cu mm 12/25/2023 2:54 PM CDT [facility] RED BLOOD COUNT 4.79 4.30 - 5.90 mil/cu mm 12/25/2023 2:54 PM CDT [facility] HEMOGLOBIN 14.6 13.5 - 17.5 g/dL 12/25/2023 2:54 PM CDT [facility] HEMATOCRIT 44.3 37.0 - 53.0 % 12/25/2023 2:54 PM CDT [facility] MCV 93 80 - 100 fL 12/25/2023 2:54 PM CDT [facility] MCH 30.5 26.0 - 34.0 pg 12/25/2023 2:54 PM CDT [facility] MCHC 33.0 32.0 - 36.0 g/dL 12/25/2023 2:54 PM CDT [facility] RDW 13.3 11.5 - 15.5 % 12/25/2023 2:54 PM CDT [facility] PLATELET COUNT 192 140 - 440 thou/cu mm 12/25/2023 2:54 PM CDT [facility] MPV 9.8 6.5 - 11.0 fL 12/25/2023 2:54 PM CDT [facility] % NEUT 67.6 % 12/25/2023 2:54 PM CDT [facility] % LYMPH 20.4 % 12/25/2023 2:54 PM CDT [facility] % MONO 7.5 % 12/25/2023 2:54 PM CDT [facility] % EOS 4.2 % 12/25/2023 2:54 PM CDT [facility] % BASO 0.3 % 12/25/2023 2:54 PM CDT [facility] ABSOLUTE NEUTROPHILS 6.0 1.7 - 7.0 thou/cu mm 12/25/2023 2:54 PM CDT [facility] ABSOLUTE LYMPHOCYTES 1.8 0.9 - 2.9 thou/cu mm 12/25/2023 2:54 PM CDT [facility] ABSOLUTE MONOCYTES 0.7 <0.9 thou/cu mm 12/25/2023 2:54 PM CDT [facility] ABSOLUTE EOSINOPHILS 0.4 <0.5 thou/cu mm 12/25/2023 2:54 PM CDT [facility] ABSOLUTE BASOPHILS 0.0 <0.3 thou/cu mm 12/25/2023 2:54 PM CDT [facility] Blood BLOOD SPECIMEN / Unknown Venipuncture / Unknown 12/25/2023 1:20 PM CDT 12/25/2023 1:20 PM CDT Emely Almanzar MD HEMATOLOGY Performing Organization Address [facility] Co de Phone Number [facility] [address] [place] [address], * (ABNORMAL) HEMOGLOBIN A1C MONITORING (POCT) (12/25/2023 1:20 PM CDT) Pathologist [facility] HEMOGLOBIN A1C MONITORING (POCT) 9.8(H) <=6.4 % 12/25/2023 1:30 PM CDT [facility] Blood BLOOD SPECIMEN / Unknown Venipuncture / Unknown 12/25/2023 1:20 PM CDT 12/25/2023 1:20 PM CDT Narrative [facility] - 12/25/2023 1:30 PM CDT ? [...] Alexandra Castelan DO CHEMISTRY Performing Organization Address [facility] Co de Phone Number [facility] [address] [place] [address], * (ABNORMAL) PSA TOTAL (DIAGNOSTIC) (11/12/2023 3:17 PM CDT) Pathologist [facility] PSA TOTAL (DIAGNOSTIC) 17.70(H) <4.00 ng/mL 11/12/2023 11:29 PM CDT [facility] Blood BLOOD SPECIMEN / Unknown Venipuncture / Unknown 11/12/2023 3:17 PM CDT 11/12/2023 3:20 PM CDT Narrative [facility] - 11/12/2023 11:29 PM CDT The [...] be used interchangeably. Jeannine Aviles MD CHEMISTRY [facility] [address] [place] [address], * (ABNORMAL) BASIC METABOLIC PANEL (11/12/2023 3:17 PM CDT) SODIUM 137 136 - 145 mmol/L 11/12/2023 11:29 PM CDT [facility] POTASSIUM 4.6 3.5 - 5.1 mmol/L 11/12/2023 11:29 PM CDT [facility] CHLORIDE 99 98 - 107 mmol/L 11/12/2023 11:29 PM CDT [facility] CO2,TOTAL 30(H) 22 - 29 mmol/L 11/12/2023 11:29 PM CDT [facility] ANION GAP 8 5 - 18 11/12/2023 11:29 PM CDT [facility] GLUCOSE 301(H) 70 - 99 mg/dL 11/12/2023 11:29 PM CDT [facility] CALCIUM 9.5 8.8 - 10.2 mg/dL 11/12/2023 11:29 PM CDT [facility] BUN 25(H) 8 - 23 mg/dL 11/12/2023 11:29 PM CDT [facility] CREATININE 1.16 0.70 - 1.20 mg/dL 11/12/2023 11:29 PM T [facility] BUN/CREAT RATIO 22(H) 10 - 20 11:29 PM CDT [facility] eGFR 61(L) >90 mL/min/1.7 3m2 11/12/2023 11:29 PM CDT [facility] Comment:As of 2021, eG [...] 3:20 PM CDT Alexandra Castelan DO CHEMISTRY [facility] [address] [place] [address], from Last 3 Months Advance Directives Documents on File Type Date Recorded Patient Director Of Payroll Karan CASAS 10/12/2023 * Full Code (Latest Code Status [...] 11:28 PM 05/08/2015 2:10 PM Care Teams Landscape Engineer Relationship Specialty Start Date End Date [place] [address] PCP - General Family Practice 10/29/22
--- OUTSIDE RECORDS SUMMARY | 2023-12-29 16:08 | XMS_ITS | Clinical Summary ---
Author Organization [facility] Address [address] [place] [address] Care Team Providers Care Pharmacy Technician Name Role Phone None Reported, Pcp Primary Care Provider Unavail able Source Comments Patient records contain information from all sites at [facility]. For routine questions regarding patient records, call [phone] during business hours, M-F 8:00 AM - 5:00 PM Central Time. Record requests for emergency care only can be directed to [phone] at any time.[facility] Allergies No known active allergies Medications Medication Sig Dispensed Refills Start Date End Date Status calcium carbonate (TUMS ULTRA) 1000 mg (400 mg calcium) chewable tablet Chew 2 tablets at bedtime. 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 Communication (PCP elsewhere) 11/25/2023 Refill Department of Family Medicine, [facility], in [place], [place] [address] [place] [address] Red Gamboa M.B.B.S., M.D. Med Refill from [...] Fall Risk Screen (Annual) 06/08/2023 COVID-19 Vaccine (2022-07 4 season) 2023 04/02/2023, 04/07/2022, 10/22/2021, Additional history exists Visit: Chronic Disease, age 18+ 08/26/2023 , [...] Cologuard Discontinued Medical Devices Implanted Type Area Food Service Utility Worker Device Identifier Shelf Expiration Date Model [...] Red Schwartz M.D. LAB BLO OD ADD-ON [facility] [address] [place] [address], [place] [facility] [place] [address], [place] [address] * Albumin, Random, Urine (08/26/2022 1:33 PM [...] PM CDT 08/26/2022 3:31 PM CDT Red I. Wariboko M.B.B.S., M.D. LAB URI NE ORDERABLES [facility] [address] [place] [address], [place] [facility] [place] [address] [place] [address] from Last 3 Months or Most Recently Relevant to Health Maintenance Advance Directives For more information, please contact: [phone] Documents on File Type Date Recorded Patient Cleaners Expl anation Advance Directives 01/14/2013 12:00 AM Dana tucker document. See document viewer. Care Teams Pharmacy Technician Relationship Specialty Start Date End Date None Reported, Pcp PCP - General Family Medicine 12/09/23
--- OUTSIDE RECORDS SUMMARY | 2023-12-29 16:08 | XMS_ITS | Encounter Summary ---
Author Organization [facility] Address [address] [place] [address] Care Team Providers Care Electrical Controls Designer Name Role Phone None Reported, Pcp Primary Care Provider Unavail able Reason for Visit * Reason Onset Date Comments Communication 12/09/2023 PCP elsewhere Encounter Details Date Type Department Care Team (Latest Contact Info) Description 12/09/2023 Clinical Communication Department of Family Medicine, [facility], in [place], [place] [address] [place] [address] Red Gamboa M.B.B.S., MLexa [address] [place] [address] Communication (PCP elsewhere) Social History [...] Total Score: 0 06/24/19 19 10:47 AM EMERGENCY COMMUNICATIONS OFFICER documented as of this encounter Care Teams Electrical Controls Designer Relationship Specialty Start Date End Date None Reported, Pcp PCP - General Family Medicine 12/09/23 documented as of this encounter
--- OUTSIDE RECORDS SUMMARY | 2023-12-29 16:08 | XMS_ITS | Encounter Summary ---
Author Organization [facility] Address [address] [place] [address] Care Team Providers Care Forensic Audit Expert Name Role Phone Red Gamboa M.D. Primary Care Kiran rojas Reason for Visit * Reason Comments Med Refill Encounter Details Date Type Department Care Team (Late st Contact Info) Description 11/25/2023 Refill Department of Family Medicine, [facility], in [place], [place] [address] [place] [address] Red Gamboa M.B.B.S., Kathy [address] [place] [address] Med Refill Social History Tobacco [...] Total Score: 0 06/24/19 19 10:47 AM JACKET PREPARER documented as of this encounter Care Teams Forensic Audit Expert Relationship Specialty Start Date End Date Red Gamboa M.B.B.S., MNando. [address] [place] [address] [place] [address] PCP - General Family Medicine 01/13/20 12/08/23 documented as of this encounter
== END 2023-12-22 00:40 | disposition home or self-care (01) ==
LOC: AMB 12-29 16:02
PROVIDERS: PCP Student in an Organized Health Care Education/Training Program; Visit Provider Family Medicine
DX: R53.1 Weakness (principal)
CPT/HCPCS: A0998

== ENCOUNTER 2024-01-06 07:21 | Outpatient (CLI) | payer MEDICARE, SELFPAY ==
--- OUTSIDE RECORDS SUMMARY | 2024-01-08 05:41 | XMS_ITS | Encounter Summary ---
Author Organization [facility] Address [address] [place] [address] Care Team Providers Care Geoscientist Name Role Phone Red Gamboa M.D. Primary Care Kiran rojas Reason for Visit * Reason Comments Med Refill Encounter Details Date Type Department Care Team (Late st Contact Info) Description 11/25/2023 Refill Department of Family Medicine, [facility], in [place], [place] [address] [place] [address] Red Gamboa M.B.B.S., Kathy [address] [place] [address] Med Refill Social History Tobacco [...] Total Score: 0 06/24/19 19 10:47 AM GEOSCIENTIST documented as of this encounter Care Teams Geoscientist Relationship Specialty Start Date End Date Red Gamboa M.B.B.S., MNando. [address] [place] [address] [place] [address] PCP - General Family Medicine 01/13/20 12/08/23 documented as of this encounter
--- OUTSIDE RECORDS SUMMARY | 2024-01-08 05:41 | XMS_ITS | Clinical Summary ---
Author Organization [facility] Address [address] [address] Phone Care Team Providers Care Geophysical Party Chief Name Role Phone Unavailable Primary Care Provider [...]
--- OUTSIDE RECORDS SUMMARY | 2024-01-08 05:41 | XMS_ITS | Clinical Summary ---
Author Organization [facility] Address [place], [place] [address] Care Team Providers Care Licensing Registration Examiner Name Role Phone Alexandra Castelan DO Primary Care Provider [phone] Allergies Active Allergy Reactions Criticality Noted Date [...] days 6 Each 3 09/18/2022 Active psyllium powdIndications:Mule Tender mathew constipation Mix 1 tsp in liquid [...] be used to read blood sugars per traffic worker's directions. 1 Each 07/13/2023 Active blood-glucose meterIndications:Typ [...] Without CHF Atherosclerotic heart diseas e of [place] coronary artery without angina pectoris 02/07/2016 08/29/2022 [...] Encounters Date Type Department Care Team Description 01/07/2024 5:00 PM CDT Ancillary Procedure [facility] [place] [facility] [address] [place] [address] Arrived 01/07/2024 Telephone [facility] [address] [place] [address] Alexandra Castelan DO Referral (Home Care ) 01/07/2024 Office Visit [address] [address] Cristela Lagunas MD 01/06/2024 Orders Only [facility] Scanner 1 scan: (1-Ord) [place], [place] HEAD W/O CONTRAST, 01/06/2024 12/30/2023 Telephone [facility] [address] [place] [address] Emely Almanzar MD Referral 12/28/2023 Orders Only [facility] [address] [place] [address] Emely Almanzar MD 1 scan: (1-Ord) [facility]-EKG-12/25/23 12/28/2023 Telephone [facility] [address] [place] [address] Emely Almanzar MD [facility] Home Care Closing; Need to find new one 12/25/2023 2:15 PM CDT Office Visit [facility] [address] [place] [address] Emely Almanzar MD Falls (2 falls, home health asked pt be evaluated. /a few days ago, fell on elbows. no one else present. Did not hit his head. ) 12/25/2023 1:30 PM CDT Orders Only [facility] [address] [place] [address] Lab, [place] Lab 12/25/2023 Telephone [facility] [address] [place] [address] Alexandra Castelan DO Results 12/25/2023 Orders Only [facility] [address] [place] [address] Alexandra Castelan DO <No scans attached> 12/25/2023 Travel 12/24/2023 Telephone [facility] [address] [place] [address] Alexandra Castelan DO Fall (Fall on thursday) 12/23/[address] [address] Alexandra Castelan DO Medication Management (Fax) 12/23/[address] [address] Alexandra Castelan DO Refill Request (Atorvastatin) 12/07/2023 Nurse Triage [address] [address] Alexandra Castelan DO Medication Management (mirtazapine (REMERON) 7.5 mg tablet) 12/02/[address] [place] [address] Alexandra Castelan DO Lab; Confusion 11/26/[address] [address] Alexandra Castelan DO Medication Management 11/25/2023 Refill [facility] [address] [place] [address] Alexandra Castelan DO Refill Request (Furosemide, Tamsulosin) 11/24/2023 Telephone [facility] [address] [place] [address] Alexandra Castelan DO Medication Management 11/20/2023 1:15 PM CDT Office Visit [facility] [address] [place] [address] Alexandra Castelan DO Follow Up (Does have wound on the LEFT elbow ) 11/20/[address] [address] Alexandra Castelan DO Form (Compliance and Medication Information ) 11/19/2023 1:45 PM CDT Office Visit [address] [phone] Jeannine Aviles MD Follow Up (6 month follow up ) 11/19/2023 Travel 11/13/[address] [address] Alexandra Castelan DO Results 11/12/2023 3:45 PM CDT Orders Only [address] [address] Lab, [place] [facility] 11/12/2023 Travel 11/05/[address] [address] Alexandra Castelan DO Refill Request (Furosemide) 10/22/[address] [phone] Alexandra Castelan DO Refill Request (Nitroglycerin, Furosemide) 10/12/[address] [phone] ShaAlexandra gray DO Refill Request (Eliquis) from Last 3 Months Immunizations Name Administration Dates Next Due COVID-19 Vaccine Spikevax (M oderna 50mcg/0.5mL) 12YO+ [id number] Formula PF 04/02/2023 COVID-19 vaccine (Pfizer-Bio NTech [...] 188 cm (6' 2) 07/17/2023 1:14 PM CONTROL CLERK AUDITING Body Mass Index 24.52 07/17/2023 1:14 PM CONTROL CLERK AUDITING Plan of Treatment Health Maintenance Due Date [...] Procedure Name Priority Date/Time Associated Diagnosis Comments SCAN-CT INTERPRETATION 12:00 AM CDT EKG 12 LEAD Routine 12/28/2023 12:52 PM CDT History of falling Atherosclerosis of [place] coronary artery of [place] heart without angina pectoris 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 Presence of coronary angioplasty implant and graft [place] READ[place] EKG - NO CHARGE, COMP ONLY Routine 12/28/2023 12:51 PM CDT History of falling Atherosclerosis of [place] coronary artery of [place] heart without angina pectoris Hypertensive heart and [...] lower extremity edema PSA TOTAL (DIAGNOSTIC) Routine 3:17 PM CDT Elevated PSA from Last 3 Months Results * SCAN-CT INTERPRETATION (01/06/2024 12:00 AM CDT) Anatomical Region Laterality Modality Other Scanner OTHER * EKG 12 LEAD (12/28/2023 12:52 PM CDT) Emely Almanzar MD EKG ORD * [place] EKG - NO CHARGE, COMP ONLY (12/28/2023 12:51 PM CDT) Emely Almanzar MD PB - PROVI JOSE ANTONIO READINGS * CBC WITH AUTO DIFFERENTIAL (12/25/2023 1:20 PM CDT) WHITE BLOOD COUNT 8.8 4.5 - 11.0 thou/cu mm 12/25/2023 2:54 PM CDT [facility] RED BLOOD COUNT 4.79 4.30 - 5.90 mil/cu mm 12/25/2023 2:54 PM CDT [facility] HEMOGLOBIN 14.6 13.5 - 17.5 g/dL 12/25/2023 2:54 PM CDT [facility] HEMATOCRIT 44.3 37.0 - 53.0 % 12/25/2023 2:54 PM CDT [facility] MCV 93 80 - 100 fL 12/25/2023 2:54 PM CDT [facility] MCH 30.5 26.0 - 34.0 pg 12/25/2023 2:54 PM CDT [facility] MCHC 33.0 32.0 - 36.0 g/dL 12/25/2023 2:54 PM CDT [facility] RDW 13.3 11.5 - 15.5 % 12/25/2023 2:54 PM CDT [facility] PLATELET COUNT 192 140 - 440 thou/cu mm 12/25/2023 2:54 PM CDT [facility] MPV 9.8 6.5 - 11.0 fL 12/25/2023 2:54 PM CDT [facility] % NEUT 67.6 % 12/25/2023 2:54 PM CDT [facility] % LYMPH 20.4 % 12/25/2023 2:54 PM CDT [facility] % MONO 7.5 % 12/25/2023 2:54 PM CDT [facility] % EOS 4.2 % 12/25/2023 2:54 PM CDT [facility] % BASO 0.3 % 12/25/2023 2:54 PM CDT [facility] ABSOLUTE NEUTROPHILS 6.0 1.7 - 7.0 thou/cu mm 12/25/2023 2:54 PM CDT [facility] ABSOLUTE LYMPHOCYTES 1.8 0.9 - 2.9 thou/cu mm 12/25/2023 2:54 PM CDT [facility] ABSOLUTE MONOCYTES 0.7 <0.9 thou/cu mm 12/25/2023 2:54 PM CDT [facility] ABSOLUTE EOSINOPHILS 0.4 <0.5 thou/cu mm 12/25/2023 2:54 PM CDT [facility] ABSOLUTE BASOPHILS 0.0 <0.3 thou/cu mm 12/25/2023 2:54 PM CDT [facility] Blood BLOOD SPECIMEN / Unknown Venipuncture / Unknown 12/25/2023 1:20 PM CDT 12/25/2023 1:20 PM CDT Emely Almanzar MD HEMATOLOGY [facility] [address] [place] [address], * (ABNORMAL) HEMOGLOBIN A1C MONITORING (POCT) (12/25/2023 1:20 PM CDT) [facility] HEMOGLOBIN A1C MONITORING (POCT) 9.8(H) <=6.4 % 12/25/2023 1:30 PM CDT [facility] Blood BLOOD SPECIMEN / Unknown Venipuncture / Unknown 12/25/2023 1:20 PM CDT 12/25/2023 1:20 PM CDT Narrative [facility] - 12/25/2023 1:30 PM CDT ? (<=6.9%) [...] Alexandra Castelan DO CHEMISTRY Performing Organization Address [facility]/ZIP Co de Phone Number [facility] [address] [place] [address], * (ABNORMAL) PSA TOTAL (DIAGNOSTIC) (11/12/2023 3:17 PM CDT) Pathologist [facility] PSA TOTAL (DIAGNOSTIC) 17.70(H) <4.00 ng/mL 11/12/2023 11:29 PM CDT [facility] Blood BLOOD SPECIMEN / Unknown Venipuncture / Unknown 11/12/2023 3:17 PM CDT 11/12/2023 3:20 PM [facility]T [facility] - 11/12/2023 11:29 PM CDT The [...] Jeannine Aviles MD CHEMISTRY Performing Organization Address City/[facility]/ZIP Co de Phone Number [facility] [address] [place] [address], * (ABNORMAL) BASIC METABOLIC PANEL (11/12/2023 3:17 PM CDT) Pathologist [facility] SODIUM 137 136 - 145 mmol/L 11/12/2023 11:29 PM CDT [facility] POTASSIUM 4.6 3.5 - 5.1 mmol/L 11/12/2023 11:29 PM CDT [facility] CHLORIDE 99 98 - 107 mmol/L 11/12/2023 11:29 PM CDT [facility] CO2,TOTAL 30(H) 22 - 29 mmol/L 11/12/2023 11:29 PM CDT [facility] ANION GAP 8 5 - 18 11/12/2023 11:29 PM CDT [facility] GLUCOSE 301(H) 70 - 99 mg/dL 11/12/2023 11:29 PM CDT [facility] CALCIUM 9.5 8.8 - 10.2 mg/dL 11/12/2023 11:29 PM CDT [facility] BUN 25(H) 8 - 23 mg/dL 11/12/2023 11:29 PM CDT [facility] CREATININE 1.16 0.70 - 1.20 mg/dL 11/12/2023 11:29 PM CDT [facility] BUN/CREAT RATIO 22(H) 10 - 20 11:29 PM CDT [facility] eGFR 61(L) >90 mL/min/1.7 3m2 11/12/2023 11:29 PM CDT [facility] Comment:As of 2021, [...] 3:20 PM CDT Alexandra Castelan DO CHEMISTRY [facility] [address] [place] [address], from Last 3 Months Advance Directives Documents on File Type Date Recorded Patient Apparel Merchandiser Expl anation POLST 10/12/2023 * Full Code [...] 11:28 PM 05/08/2015 2:10 PM Care Teams Licensing Registration Examiner Relationship Specialty Start Date End Date [place] [address] PCP - General Family Practice 10/29/22
--- OUTSIDE RECORDS SUMMARY | 2024-01-08 05:41 | XMS_ITS | Encounter Summary ---
Author Organization [facility] Address [address] [place] [address] Care Team Providers Care Plastic Shaper Name Role Phone None Reported, Pcp Primary Care Provider Unavail able Reason for Visit * Reason Onset Date Comments Communication 12/09/2023 PCP elsewhere Encounter Details Date Type Department Care Team (Latest Contact Info) Description 12/09/2023 Clinical Communication Department of Family Medicine, [facility], in [place], [place] [address] [place] [address] Red Gamboa M.B.B.S., MLexa [address] [place] [address] Communication (PCP elsewhere) Social History [...] Total Score: 0 06/24/19 19 10:47 AM YOGA INSTRUCTOR documented as of this encounter Care Teams Plastic Shaper Relationship Specialty Start Date End Date None Reported, Pcp PCP - General Family Medicine 12/09/23 documented as of this encounter
--- OUTSIDE RECORDS SUMMARY | 2024-01-08 05:41 | XMS_ITS | Clinical Summary ---
Author Organization [facility] Address [address] [place] [address] Care Team Providers Care Frame Carver Spindle Name Role Phone None Reported, Pcp Primary Care Provider Unavail able Source Comments Patient records contain information from all sites at [facility]. For routine questions regarding patient records, call [phone] during business hours, M-F 8:00 AM - 5:00 PM Central Time. Record requests for emergency care only can be directed to [phone] at any time.[facility] Allergies No known active allergies Medications Medication Sig Dispensed Refills Start Date End Date Status calcium carbonate (TUMS ULTRA) 1000 mg (400 mg calcium) chewable tablet Chew 2 tablets at bedtime. 04/08/2016 Active vitamins A,C,L-rliz-uyjxoo (for_PRESERVISION AREDS) 7,160 Units-113 mg-100 Units per [...] Hiatal 04/08/2016 Atherosclerotic Heart Diseas e Of [place] Coronary Artery Without Angina Pectoris 02/07/2016 Overview [...] 12/09/2023 Clinical Communication Department of Family Medicine, [facility], in [place] [address] [place] [address] Red Gamboa M.B.BJocelynSJocelyn, M.Dejuan. Communication (PCP elsewhere) 11/25/2023 Refill Department of Family Medicine, [facility], in [place] [address] [place] [address] Red Gamboa M.B.B.S., M.D. Med Refill [...] Cologuard Discontinued Medical Devices Implanted Type Area Set Key Driver Device Identifier Shelf Expiration Date Model / [...] Red Schwartz M.D. LAB BLO OD ADD-ON [facility] [address], [place] [address], [facility] in [place] [address], [place] [address] * Albumin, Random, Urine (08/26/2022 1:33 PM [...] Red Schwartz M.D. LAB URI NE ORDERABLES [facility] [address] [place] [address], [place] [facility] in [place] [address] [place] [address] from Last 3 Months or Most Recently Relevant to Health Maintenance Advance Directives For more information, please contact: [phone] Documents on File Type Date Recorded Patient Radon Inspector Expl anation Advance Directives 01/14/2013 12:00 AM Lega caitlin document. See document viewer. Care Teams Frame Carver Spindle Relationship Specialty Start Date End Date None Reported, Pcp PCP - General Family Medicine 12/09/23
--- OUTSIDE RECORDS SUMMARY | 2024-01-08 05:41 | XMS_ITS | Referral Summary ---
Author Organization [facility] Address [address] [place] [address] Care Team Providers Care Sole Inker Name Role Phone None Reported, Pcp Primary Care Provider Unavail able Source Comments Patient records contain information from all sites at [facility]. For routine questions regarding patient records, call [phone] during business hours, M-F 8:00 AM - 5:00 PM Central Time. Record requests for emergency care only can be directed to [phone] at any time.[facility] Encounters Date Type Department Care Team Description 12/09/2023 Clinical Communication Department of Family Medicine, [facility], in [address] [phone] Red Gamboa M.B.B.S., Kathy Communication (PCP elsewhere) 11/25/2023 Refill Department of Family [facility], [facility], in [address] [phone] Red Gamboa M.B.B.S., MLexa Med Refill from Last 3 Months Allergies No known active allergies Medications Medication Sig Dispensed Refills Start Date End Date Status calcium carbonate (TUMS ULTRA) 1000 mg (400 mg calcium) chewable tablet Chew 2 tablets at bedtime. 04/08/2016 Active vitamins A,C,G-vwor-csnmcl (for_PRESERVISION AREDS) 7,160 Units-113 mg-100 Units per [...] Hiatal 04/08/2016 Atherosclerotic Heart Diseas e Of [place] Coronary Artery Without Angina Pectoris 02/07/2016 Overview [...] on file Medical Devices Implanted Type Area Apprentice Electrician Device Identifier Shelf Expiration Date Model / [...] LAB BLO OD ADD-ON Performing Organization Address City/[facility] Co de Phone Number - [facility] [address] [address], [place] [facility] [facility] [place] [address] * Albumin, Random, Urine (08/26/2022 1:33 PM [...] URI NE ORDERABLES Performing Organization Address [facility] Co de Phone Number - [facility] [address] [place] [address], [place] [facility] [facility] [place] [address] from Last 3 Months or Most Recently Relevant to Health Maintenance Advance Directives For more information, please contact: [phone] Documents on File Type Date Recorded Patient Chief Dispatcher Service Expl anation Advance Directives 01/14/2013 12:00 AM Lega cy document. See document viewer. Care Teams Sole Inker Relationship Specialty Start Date End Date None Reported, Pcp PCP - General Family Medicine 12/09/23
--- OUTSIDE RECORDS SUMMARY | 2024-01-08 05:41 | XMS_ITS ---
Author Organization [facility] Address [address] [place] [address] Care Team Providers Care Senior Center Director Name Role Phone Unavailable Unavailable Unavailable Surgery Details Not on file Complications Check Surgery Details section. Procedure Estimated Blood Loss Check Surgery Details section. Procedure Findings Check Surgery Details section. Procedure Specimens Taken Check Surgery Details section.
== END 2024-01-06 07:22 | disposition home or self-care (01) ==
LOC: AMB 01-08 05:39
PROVIDERS: PCP Student in an Organized Health Care Education/Training Program; Visit Provider Student in an Organized Health Care Education/Training Program
DX: R42 Dizziness and giddiness (principal)
CPT/HCPCS: A0425; A0427

== ENCOUNTER 2024-01-06 08:19 | Inpatient (IN) | payer MEDICARE, SELFPAY ==
[2024-01-06] VITALS (51 sets, daily range): BP systolic 127–193; BP diastolic 75–105; PULSE 55–95; RESP 16–18; TEMP 36–37.1; O2SAT 87–100; BMI 25.7; BMI 24.2
--- NOTE | 2024-01-06 08:47 | CRLHL7_ITS ---
For Patients: As a result of the Cures Act, medical imaging exams and procedure reports are released immediately into your electronic medical record. You may view this report before your referring provider. If you have questions, please contact your health care provider. INDICATION: Fall TECHNIQUE: CT cervical spine without contrast. COMPARISON: Cervical spine CT 11/02/2022 FINDINGS: Vertebrae: Mild straightening of the cervical spine. There are no fractures or suspicious bony lesions. Discs and facet joints: Facet hypertrophy C2-3 causing severe right foraminal stenosis. Facet hypertrophy with posterior osteophyte at C3-4 causing moderate right and severe left foraminal stenosis. Facet hypertrophy C4-5 causing mild bilateral foraminal stenosis. Posterior osteophyte at C5-6 causing severe bilateral foraminal stenosis. Facet hypertrophy with posterior osteophytes C6-7 causing moderate right and severe left foraminal stenosis. Facet hypertrophy at C7-T1 without significant stenosis. Extraspinal findings: Ossicles within the nuchal ligament. Atherosclerosis. IMPRESSION: Multilevel degenerative changes cervical spine without evidence of cervical spine fracture. Please note that all CT scans at this facility use dose modulation, iterative reconstruction, and/or weight-based dosing when appropriate to reduce radiation dose to as low as reasonably achievable. Dictated by Rj Pelaez MD @ 01/06/2024 9:36:42 AM (Electronically Signed)
--- NOTE | 2024-01-06 08:48 | CRLHL7_ITS ---
For Patients: As a result of the Century Cures Act, medical imaging exams and procedure reports are released immediately into your electronic medical record. You may view this report before your referring provider. If you have questions, please contact your health care provider. INDICATION: Fall. TECHNIQUE: CT head without contrast. COMPARISON: Head CT 11/02/2022. FINDINGS: CSF spaces: Within normal limits for age. Brain parenchyma and extra-axial spaces: The garner-white differentiation is normal. No sign of mass, hemorrhage, or midline shift. No extra-axial fluid collection. Mild cerebral atrophy with mild low-density within the deep white matter. Skull base and calvarium: The visualized paranasal sinuses and mastoid air cells demonstrate no acute or significant findings. The visualized orbits are grossly unremarkable. No skull fractures. Atherosclerosis. IMPRESSION: 1. No calvarial fracture or intracranial bleed. 2. Cerebral atrophy with nonspecific white matter disease, likely microangiopathy. Please note that all CT scans at this facility use dose modulation, iterative reconstruction, and/or weight-based dosing when appropriate to reduce radiation dose to as low as reasonably achievable. Dictated by Rj Pelaez MD @ 01/06/2024 9:32:09 AM (Electronically Signed)
[2024-01-06 09:33] LABS: Basophils Absolute Auto 0.04 K/uL (0.00-0.30); Basophils Percent Auto 0.5 % (0.0-3.0); Eosinophils Absolute Auto 0.32 K/uL (0.00-0.50); Eosinophils Percent Auto 4.1 % (0.0-7.0); Hematocrit 42.8 % (37.0-53.0); Hemoglobin* 13.9 gm/dL (13.5-17.5); Immature Granulocytes Abs Auto 0.09 K/uL (0.00-0.30); Immature Granulocytes Pct Auto 1.2 %; Lymphocytes Absolute Auto 1.64 K/uL (0.90-2.90); Lymphocytes Percent Auto 21.1 % (20-44); Mean Corpuscular HGB Conc 33 gm/dL (32-36); Mean Corpuscular Hemoglobin 30 pg (26-34); Mean Corpuscular Volume 93 fL (80-100); Monocytes Percent Auto 9.1 % (0.0-11.0); Neutrophils Absolute Auto 4.98 K/uL (1.7-7.0); Platelet Count* 178 K/uL (140-440); RDW Coefficient of Variation % 12.7 % (11.5-15.5); Red Blood Count 4.61 m/uL (4.30-5.90); White Blood Count* 7.78 K/uL (4.50-11.00)
[2024-01-06 09:35] LABS: Troponin, Point-of-Care* 0.01 ng/ml (0.01-0.04)
--- OUTSIDE RECORDS SUMMARY | 2024-01-06 09:41 | XMS_ITS | Clinical Summary ---
Author Organization [facility] Address [place], [place] [address] Care Team Providers Care Medicare Nurse Name Role Phone Alexandra Castelan DO Primary Care Provider [phone] Allergies Active Allergy Reactions Criticality Noted Date [...] days 6 Each 3 09/18/2022 Active psyllium powdIndications:Hazardous Materials Waste Technician mathew constipation Mix 1 tsp in liquid [...] be used to read blood sugars per sales representative graphic art's directions. 1 Each 07/13/2023 Active blood-glucose meterIndications:Typ [...] Without CHF Atherosclerotic heart diseas e of [place] coronary artery without angina pectoris 02/07/2016 08/29/2022 [...] Encounters Date Type Department Care Team Description 12/30/2023 Telephone [facility] [address] [place] [address] Emely Almanzar MD Referral 12/28/2023 Orders Only [address] [address] Emely Almanzar MD 1 scan: (1-Ord) [facility]-EKG-12/25/23 12/28/2023 Telephone [facility] [address] [place] [address] Emely Almanzar MD ld Home Care Closing; Need to find new one 12/25/2023 2:15 PM CDT Office Visit [facility] [address] [place] [address] Emely Almanzar MD Falls (2 falls, home health asked pt be evaluated. /a few days ago, fell on elbows. no one else present. Did not hit his head. ) 12/25/2023 1:30 PM CDT Orders Only [facility] [address] [place] [address] Lab, [place] Lab 12/25/2023 Telephone [facility] [address] [place] [address] Alexandra Castelan DO Results 12/25/2023 Orders Only [facility] [address] [place] [address] Alexandra Castelan DO <No scans attached> 12/25/2023 Travel 12/24/2023 Telephone [facility] [address] [place] [address] Alexandra Castelan DO Fall (Fall on thursday) 12/23/[address] [address] Alexandra Castelan DO Medication Management (Fax) 12/23/[address] [address] Alexandra Castelan DO Refill Request (Atorvastatin) 12/07/2023 Nurse Triage [address] [address] Alexandra Castelan DO Medication Management (mirtazapine (REMERON) 7.5 mg tablet) 12/02/[address] [address] Alexandra Castelan DO Lab; Confusion 11/26/[address] [address] Alexandra Castelan DO Medication Management 11/25/[address] [address] Alexandra Castelan DO Refill Request (Furosemide, Tamsulosin) 11/24/[address] [address] Alexandra Castelan DO Medication Management 11/20/2023 1:15 PM CDT Office Visit [address] [address] Alexandra Castelan DO Follow Up (Does have wound on the LEFT elbow ) 11/20/2023 Telephone [facility] [address] [facility] [address] Alexandra Castelan DO Form (Compliance and Medication Information ) 11/19/2023 1:45 PM CDT Office Visit [address] [address] Jeannine Aviles MD Follow Up (6 month follow up ) 11/19/2023 Travel 11/13/2023 Telephone [facility] [address] [place] [address] Alexandra Castelan DO Results 11/12/2023 3:45 PM CDT Orders Only [facility] [address] [facility] [place] [address] Lab, [place] [facility] 11/12/2023 Travel 11/05/2023 Refill [facility] [address] [place] [address] Alexandra Castelan DO Refill Request (Furosemide) 10/22/[address] [address] Alexandra Castelan DO Refill Request (Nitroglycerin, Furosemide) 10/12/[address] [address] Alexandra Castelan DO Refill Request (Eliquis) 10/06/2023 Telephone [facility] [address] [place] [address] Alexandra Castelan DO Medication Management ( Prescription request for swelling) from Last 3 Months Immunizations Name Administration Dates Next Due COVID-19 Vaccine Spikevax (M oderna 50mcg/0.5mL) 12YO+ 2824-4759 Formula PF 04/02/2023 COVID-19 vaccine (Pfizer-Bio NTech [...] 188 cm (6' 2) 07/17/2023 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 Body Mass Index 24.52 07/17/2023 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 Plan of Treatment Health Maintenance Due Date [...] PM CDT History of falling 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 [place] [facility] EKG - NO CHARGE, COMP ONLY Routine 12/28/2023 12:51 PM CDT History of falling Atherosclerosis of [place] coronary artery of [place] heart without angina pectoris Hypertensive heart and [...] CDT) Emely Almanzar MD EKG ORD * [place] [facility] EKG - NO CHARGE, COMP ONLY (12/28/2023 12:51 PM CDT) Emely Almanzar MD PB - PROVI [facility] * CBC WITH AUTO DIFFERENTIAL (12/25/2023 1:20 PM CDT) WHITE BLOOD COUNT 8.8 4.5 - 11.0 thou/cu mm 12/25/2023 2:54 PM CDT [facility] RED BLOOD COUNT 4.79 4.30 - 5.90 mil/cu mm 12/25/2023 2:54 PM CDT [facility] HEMOGLOBIN 14.6 13.5 - 17.5 g/dL 12/25/2023 2:54 PM CDT [facility] HEMATOCRIT 44.3 37.0 - 53.0 % 12/25/2023 2:54 PM CDT [facility] MCV 93 80 - 100 fL 12/25/2023 2:54 PM CDT [facility] MCH 30.5 26.0 - 34.0 pg 12/25/2023 2:54 PM CDT [facility] MCHC 33.0 32.0 - 36.0 g/dL 12/25/2023 2:54 PM CDT [facility] RDW 13.3 11.5 - 15.5 % 12/25/2023 2:54 PM CDT [facility] PLATELET COUNT 192 140 - 440 thou/cu mm 12/25/2023 2:54 PM CDT [facility] MPV 9.8 6.5 - 11.0 fL 12/25/2023 2:54 PM CDT [facility] % NEUT 67.6 % 12/25/2023 2:54 PM CDT [facility] % LYMPH 20.4 % 12/25/2023 2:54 PM CDT [facility] % MONO 7.5 % 12/25/2023 2:54 PM CDT [facility] % EOS 4.2 % 12/25/2023 2:54 PM CDT [facility] % BASO 0.3 % 12/25/2023 2:54 PM CDT [facility] ABSOLUTE NEUTROPHILS 6.0 1.7 - 7.0 thou/cu mm 12/25/2023 2:54 PM CDT [facility] ABSOLUTE LYMPHOCYTES 1.8 0.9 - 2.9 thou/cu mm 12/25/2023 2:54 PM CDT [facility] ABSOLUTE MONOCYTES 0.7 <0.9 thou/cu mm 12/25/2023 2:54 PM CDT [facility] ABSOLUTE EOSINOPHILS 0.4 <0.5 thou/cu mm 12/25/2023 2:54 PM CDT [facility] ABSOLUTE BASOPHILS 0.0 <0.3 thou/cu mm 12/25/2023 2:54 PM CDT [facility] Blood BLOOD SPECIMEN / Unknown Venipuncture / Unknown 12/25/2023 1:20 PM CDT 12/25/2023 1:20 PM CDT Emely Almanzar MD HEMATOLOGY Performing Organization Address [facility] de Phone Number [facility] [address] [place] [address], * (ABNORMAL) HEMOGLOBIN A1C MONITORING (POCT) (12/25/2023 1:20 PM CDT) HEMOGLOBIN A1C MONITORING (POCT) 9.8(H) <=6.4 % 12/25/2023 1:30 PM CDT [facility] Blood BLOOD SPECIMEN / Unknown Venipuncture / Unknown 12/25/2023 1:20 PM CDT 12/25/2023 1:20 PM CDT Narrative [facility] - 12/25/2023 1:30 PM CDT ? (<=6.9%) [...] Address [facility] de Phone Number [facility] [address] [place] [address], * (ABNORMAL) PSA TOTAL (DIAGNOSTIC) (11/12/2023 3:17 PM CDT) PSA TOTAL (DIAGNOSTIC) 17.70(H) <4.00 ng/mL 11/12/2023 11:29 PM CDT [facility] Blood BLOOD SPECIMEN / Unknown Venipuncture / Unknown 11/12/2023 3:17 PM CDT 11/12/2023 3:20 PM CDT Narrative [facility] - 11/12/2023 11:29 PM CDT The [...] be used interchangeably. Jeannine Aviles MD CHEMISTRY [facility] [address] [place] [address], * (ABNORMAL) BASIC METABOLIC PANEL (11/12/2023 3:17 PM CDT) SODIUM 137 136 - 145 mmol/L 11/12/2023 11:29 PM CDT [facility] POTASSIUM 4.6 3.5 - 5.1 mmol/L 11/12/2023 11:29 PM CDT [facility] CHLORIDE 99 98 - 107 mmol/L 11/12/2023 11:29 PM CDT [facility] CO2,TOTAL 30(H) 22 - 29 mmol/L 11/12/2023 11:29 PM CDT [facility] ANION GAP 8 5 - 18 11/12/2023 11:29 PM CDT [facility] GLUCOSE 301(H) 70 - 99 mg/dL 11/12/2023 11:29 PM CDT [facility] CALCIUM 9.5 8.8 - 10.2 mg/dL 11/12/2023 11:29 PM CDT [facility] BUN 25(H) 8 - 23 mg/dL 11/12/2023 11:29 PM CDT [facility] CREATININE 1.16 0.70 - 1.20 mg/dL 11/12/2023 11:29 PM CDT [facility] BUN/CREAT RATIO 22(H) 10 - 20 11:29 PM CDT [facility] eGFR 61(L) >90 mL/min/1.7 3m2 11/12/2023 11:29 PM CDT [facility] Comment:As of 2021, [...] 3:20 PM CDT Alexandra Castelan DO CHEMISTRY [facility] [address] [place] [address], [place] from Last 3 Months Advance Directives Documents on File Type Date Recorded Patient Medical Dir Karan CASAS 10/12/2023 * Full Code (Latest [...] 11:28 PM 05/08/2015 2:10 PM Care Teams Medicare Nurse Relationship Specialty Start Date End Date [place] [address] PCP - General Family Practice 10/29/22
--- OUTSIDE RECORDS SUMMARY | 2024-01-06 09:42 | XMS_ITS | Encounter Summary ---
Author Organization [facility] Address [address] [place] [address] Care Team Providers Care Head Resident Name Role Phone Red Gamboa M.D. Primary Care Kiran rojas Reason for Visit * Reason Comments Med Refill Encounter Details Date Type Department Care Team (Late st Contact Info) Description 11/25/2023 Refill Department of Family Medicine, [facility], in [place], [place] [address] [place] [address] Red Gamboa M.B.B.S., Kathy [address] [place] [address] Med Refill Social History Tobacco [...] Total Score: 0 06/24/19 19 10:47 AM CLEARING HAND documented as of this encounter Care Teams Head Resident Relationship Specialty Start Date End Date Red Gamboa M.B.B.S., [place]nado. [address] [place] [address] [place] [address] PCP - General Family Medicine 01/13/20 12/08/23 documented as of this encounter
--- OUTSIDE RECORDS SUMMARY | 2024-01-06 09:42 | XMS_ITS | Clinical Summary ---
Author Organization [facility] Address [address] [place] [address] Care Team Providers Care Sand Cleaning Machine Operator Name Role Phone None Reported, Pcp Primary Care Provider Unavail able Source Comments Patient records contain information from all sites at [facility]. For routine questions regarding patient records, call [phone] during business hours, M-F 8:00 AM - 5:00 PM Central Time. Record requests for emergency care only can be directed to [phone] at any time.[facility] Allergies No known active allergies Medications Medication Sig Dispensed Refills Start Date End Date Status calcium carbonate (TUMS ULTRA) 1000 mg (400 mg calcium) chewable tablet Chew 2 tablets at bedtime. 04/08/2016 Active vitamins A,C,H-adxw-crilxb (for_PRESERVISION AREDS) 7,160 Units-113 mg-100 Units per [...] Chron ic Kidney Disease Without Heart Failure With Stage 1 To 4 Chronic Kidney Disease Or Unspecified Chronic Kidney Disease 10/16/2016 Overview (10/28/2016): Hypertension (HTN) And CKD Stage 1-4 & Heart Dis Without CHF Hernia Hiatal 04/08/2016 Atherosclerotic Heart Diseas e Of [place] Coronary Artery Without Angina Pectoris 02/07/2016 Overview [...] 12/09/2023 Clinical Communication Department of Family Medicine, [facility], in [place] [address] [place] [address] Red Gamboa M.B.BJocelynSJocelyn, M.Dejuan. Communication (PCP elsewhere) 11/25/2023 Refill Department of Family Medicine, [facility], in [place] [address] [place] [address] Red Gamboa M.B.B.S., M.D. Med Refill [...] Fall Risk Screen (Annual) 06/08/2023 COVID-19 Vaccine (2022-2 4 season) 2023 04/02/2023, 04/07/2022, 10/22/2021, Additional [...] Cologuard Discontinued Medical Devices Implanted Type Area Bacon De Rinder Device Identifier Shelf Expiration Date Model / [...] Red Schwartz M.D. LAB BLO OD ADD-ON [facility] [address], [place] [address], [facility] [place] [address], [place] [address] * Albumin, Random, Urine (08/26/2022 1:33 PM [...] Red Schwartz M.D. LAB URI NE ORDERABLES [facility] [address] [place] [address], [place] [facility] [place] [address] [place] [address] from Last 3 Months or Most Recently Relevant to Health Maintenance Advance Directives For more information, please contact: [phone] Documents on File Type Date Recorded Patient Heat And Frost Insulator Expl anation Advance Directives 01/14/2013 12:00 AM Lega caitlin document. See document viewer. Care Teams Sand Cleaning Machine Operator Relationship Specialty Start Date End Date None Reported, Pcp PCP - General Family Medicine 12/09/23
--- OUTSIDE RECORDS SUMMARY | 2024-01-06 09:42 | XMS_ITS ---
Author Organization [facility] Address [address] [place] [address] Care Team Providers Care Sales Development Specialist Name Role Phone Unavailable Unavailable Unavailable Surgery Details Not on file Complications Check Surgery Details section. Procedure Estimated Blood Loss Check Surgery Details section. Procedure Findings Check Surgery Details section. Procedure Specimens Taken Check Surgery Details section.
--- OUTSIDE RECORDS SUMMARY | 2024-01-06 09:42 | XMS_ITS | Referral Summary ---
Author Organization [facility] Address [address] [place] [address] Care Team Providers Care Movie Shot Camera Operator Name Role Phone None Reported, Pcp Primary Care Provider Unavail able Source Comments Patient records contain information from all sites at [facility]. For routine questions regarding patient records, call [phone] during business hours, M-F 8:00 AM - 5:00 PM Central Time. Record requests for emergency care only can be directed to [phone] at any time.[facility] Encounters Date Type Department Care Team Description 12/09/2023 Clinical Communication Department of Family Medicine, [facility], in [address] [phone] Red Gamboa M.B.B.S., Kathy Communication (PCP elsewhere) 11/25/2023 Refill Department of Family [facility], [facility], in [address] [phone] Red Gamboa M.B.B.S., MLexa Med Refill from Last 3 Months Allergies No known active allergies Medications Medication Sig Dispensed Refills Start Date End Date Status calcium carbonate (TUMS ULTRA) 1000 mg (400 mg calcium) chewable tablet Chew 2 tablets at bedtime. 04/08/2016 Active vitamins A,C,B-xbxe-rpuick (for_PRESERVISION AREDS) 7,160 Units-113 mg-100 Units per [...] Hiatal 04/08/2016 Atherosclerotic Heart Diseas e Of [facility] [place] Coronary Artery Without Angina Pectoris 02/07/2016 Overview [...] on file Medical Devices Implanted Type Area Ada Accommodation Consultant Device Identifier Shelf Expiration Date Model / [...] LAB BLO OD ADD-ON Performing Organization Address City/[facility] Co de Phone Number [facility] [address], [place] [address], [place] [facility] [place] [address] * Albumin, Random, Urine (08/26/2022 1:33 PM [...] LAB URI NE ORDERABLES Performing Organization Address [facility] Co de Phone Number [facility] [address] [place] [address], [place] [facility] [place] [address] from Last 3 Months or Most Recently Relevant to Health Maintenance Advance Directives For more information, please contact: [phone] Documents on File Type Date Recorded Patient Line Locator Expl anation Advance Directives 01/14/2013 12:00 AM Lega cy document. See document viewer. Care Teams Movie Shot Camera Operator Relationship Specialty Start Date End Date None Reported, Pcp PCP - General Family Medicine 12/09/23
--- OUTSIDE RECORDS SUMMARY | 2024-01-06 09:42 | XMS_ITS | Clinical Summary ---
Author Organization [facility] Address [address] [address] Phone Care Team Providers Care Silk Brusher Name Role Phone Unavailable Primary Care Provider [...]
--- OUTSIDE RECORDS SUMMARY | 2024-01-06 09:42 | XMS_ITS | Encounter Summary ---
Author Organization [facility] Address [address] [place] [address] Care Team Providers Care Ivf Embryologist Name Role Phone None Reported, Pcp Primary Care Provider Unavail able Reason for Visit * Reason Onset Date Comments Communication 12/09/2023 PCP elsewhere Encounter Details Date Type Department Care Team (Latest Contact Info) Description 12/09/2023 Clinical Communication Department of Family Medicine, [facility], in [place], [place] [address] [place] [address] Red Gamboa M.B.B.S., MLexa [address] [place] [address] Communication (PCP elsewhere) Social History [...] Total Score: 0 06/24/19 19 10:47 AM PARTS PROCESSOR documented as of this encounter Care Teams Ivf Embryologist Relationship Specialty Start Date End Date None Reported, Pcp PCP - General Family Medicine 12/09/23 documented as of this encounter
[2024-01-06 09:45] LABS: Slide Review Reflex No
[2024-01-06 09:53] LABS: Albumin* 4.1 g/dL (3.3-5.0); Chloride* 105 mmol/L (96-114)
[2024-01-06 09:54] LABS: Potassium* 3.4 mmol/L (3.6-5.1); Sodium* 139 mmol/L (135-149)
[2024-01-06 09:56] LABS: Alkaline Phosphatase* 116 U/L (40-150); Anion Gap 8 mEq/L (7-15); Aspartate Amino Transferase* 22 U/L (12-35); Bilirubin Total* 0.7 mg/dL (0.1-1.5); Blood Urea Nitrogen* 19 mg/dL (7-30); Carbon Dioxide* 26 mmol/L (20-32); Est. Creatinine Clearance* 60.51; Estimated Glomerular Filt Rate 73 ml/min; Total Protein* 6.8 g/dL (6.0-8.3)
[2024-01-06 09:57] LABS: Alanine Aminotransferase* 16 U/L (4-50); Calcium* 9.3 mg/dL (8.4-10.6); Glucose* 287 mg/dL (60-115)
[2024-01-06 10:11] LABS: PCR FLU A Negative PCR FLU A (Negative); PCR FLU B Negative PCR FLU B (Negative); PCR RSV Negative PCR RSV (Negative); SARS PCR* Negative SARS-CoV-2 (Negative)
[2024-01-06 10:20] LABS: Appearance Urine Clear (Clear); Bilirubin Urine Negative (Negative); Blood Urine Negative (Negative); Color Urine Yellow (Yellow); Glucose Urine 3+ (Negative); Ketones Urine Trace (Negative); Leukocyte Esterase Urine Negative (Negative); Nitrite Urine Negative (Negative); Protein Urine Negative (Negative); Specific Gravity Urine 1.015 (1.000-1.030); Urobilinogen Urine 0.2 (0.2-1.0)
[2024-01-06 10:31] LABS: Bacteria Urine Moderate; RBC Urine 0-2 (0-2); Squamous Epithelial Cell Urine Moderate (None-Few); WBC Urine 0-2 (0-5)
[2024-01-06] MEDS: LACTATED RINGERS 1000 ML 1,000 ML IV ×2 (10:40→12:14)
--- NOTE | 2024-01-06 10:45 | ED.GENADULT ---
HPI - General Adult General Date Seen: 01/06/24 Chief complaint: Weakness Stated complaint: Weakness, confusion Time Seen by Provider: 01/06/24 08:47 Source: patient Mode of arrival: ambulatory Limitations: no limitations History of Present Illness HPI narrative: Patient is an 88-year-old male presenting to the emergency department for dizziness. States last night he fell in his bathroom was try and take his pants down. Was able to get himself back up from self bed. He has fallen frequently over the past few months to year and is working on getting into an assisted living. States this fall then see much different than his previous falls. When he woke up this morning and tried to stand up he felt very dizzy at that time. States the whole room felt like it was spinning. He then decided to call EMS. States the dizziness improves at rest. Does not notice any worsening symptoms with head movement. Denies chest pain, shortness of breath, headache, vision changes, weakness, numbness, abdominal pain, diarrhea, constipation. States he feels very dehydrated at this time. He is on blood thinners for history of PEs per chart review. Related Data Home Medications ?Medication ?Instructions ?Recorded ?Confirmed blood sugar diagnostic (OneTouch 08/29/22 08/29/22 Verio test strips) linagliptin 5 mg tablet (Tradjenta) 5 mg PO QAM 08/29/22 01/06/24 metformin 500 mg tablet,extended 2,000 mg PO DAILY 08/29/22 01/06/24 release 24 hr metoprolol succinate 100 mg 100 mg PO DAILY 08/29/22 01/06/24 tablet,extended release 24 hr apixaban 5 mg tablet (Eliquis) 5 mg PO BID 01/06/24 01/06/24 calcium carbonate (Calcium Antacid) 200 - 400 mg PO Q3H PRN 01/06/24 01/06/24 empagliflozin 25 mg tablet 25 mg PO DAILY 01/06/24 01/06/24 (Jardiance) furosemide 20 mg tablet 20 mg PO QAM 01/06/24 01/06/24 mirtazapine 7.5 mg tablet 7.5 mg PO HS 01/06/24 01/06/24 nitroglycerin 0.4 mg sublingual 0.4 mg sublingual Q5M PRN angina 01/06/24 01/06/24 tablet tamsulosin 0.4 mg capsule 0.4 mg PO DAILY 01/06/24 01/06/24 Allergies Allergy/AdvReac Type Severity Reaction Status Date / Time No Known Drug Allergies Allergy Verified 01/06/24 08:41 Review of Systems Status of ROS: Reports: 10 or more systems reviewed and unremarkable except as noted in History and below [facility] Medical History (Updated 01/06/24 @ 16:39 by Snow Han MD) Depression ?F32.A - Depression, unspecified (ICD-10) Frequent falls ?R29.6 - Repeated falls (ICD-10) Type 2 diabetes mellitus ?E11.9 - Type 2 diabetes mellitus without complications (ICD-10) Hx of deep venous thrombosis ?Z86.718 - Personal history of other venous thrombosis and embolism (ICD-10) Peripheral neuropathy ?G62.9 - Polyneuropathy, unspecified (ICD-10) BPH (benign prostatic hyperplasia) ?N40.0 - Benign prostatic hyperplasia without lower urinary tract symptoms (ICD-10) CAD (coronary artery disease) ?I25.10 - Atherosclerotic heart disease of [place] coronary artery without angina pectoris (ICD-10) Hyperlipidemia ?E78.5 - Hyperlipidemia, unspecified (ICD-10) HTN (hypertension) ?I10 - Essential (primary) hypertension (ICD-10) Hearing loss ?H91.90 - Unspecified hearing loss, unspecified ear (ICD-10) Surgical History (Updated 01/06/24 @ 16:30 by Snow Han MD) Hx of tonsillectomy ?Z90.89 - Acquired absence of other organs (ICD-10) 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 - Presence of coronary angioplasty implant and graft (ICD-10) Previous back surgery ?Z98.890 - Other specified postprocedural states (ICD-10) History of cataract surgery ?Z98.49 - Cataract extraction status, unspecified eye (ICD-10) Social History Smoking Status: Never smoker Do you use any of these nicotine containing products: None Second hand tobacco smoke exposure: No How often do you have a drink containing alcohol: never How often do you have six or more drinks on one occasion: Never AUDIT-C Alcohol total score: 0 Non-prescribed substance use: denies use service: No Exam Narrative: Exam Narrative: Const: Well-nourished, Well-developed, in no distress Eyes: PERRL, no conjunctival injection, and symmetrical lids HENT: Atraumatic external nose and ears. Moist mucous membranes. Neck: Symmetric, trachea midline, No thyromegaly. CVS: RRR, No murmurs or gallops. Peripheral pulses 2+ and equal in all extremities RESP: Unlabored respiratory effort. Clear to auscultation bilaterally. GI: Nontender/Nondistended, No rebound or guarding. MSK:Extremities w/o deformity, Normal Active ROM Skin: Warm, Dry. No rashes or lesions. Neuro: Normal Muscle tone, No focal neurological deficits. Psych: Awake, Alert, & Oriented x3. Appropriate mood and affect. Const: Vital Signs, click to edit/add: Vital Signs - 24 hr 01/06/24 08:33 01/06/24 08:38 01/06/24 08:45 Temperature 96.8 F L Pulse Rate 79 79 Pulse Rate [Right Pulse Oximeter] 77 Pulse Rate [orthos tatic lying Pulse Oximeter] Pulse Rate [orthos tatic sitting Puls e Oximeter] Pulse Rate [orthos tatic standing Pul se Oximeter] Respiratory Rate 18 Blood Pressure Blood Pressure [Ri ght Upper Arm] 137/89 Blood Pressure [or thostatic lying Le ft Arm] Blood Pressure [or thostatic sitting Left Arm] Blood Pressure [or thostatic standing Left Arm] Pulse Oximetry 100 100 [facility] 01/06/24 09:10 01/06/24 09:15 01/06/24 09:30 Temperature Pulse Rate 73 76 68 Pulse Rate [Right Pulse Oximeter] Pulse Rate [orthos tatic lying Pulse Oximeter] Pulse Rate [orthos tatic sitting Puls e Oximeter] Pulse Rate [orthos tatic standing Pul se Oximeter] Respiratory Rate Blood Pressure Blood Pressure [Ri ght Upper Arm] Blood Pressure [or thostatic lying Le ft Arm] Blood Pressure [or thostatic sitting Left Arm] Blood Pressure [or thostatic standing Left Arm] Pulse Oximetry 100 98 98 Oxygen Delivery Me thod 01/06/24 09:39 01/06/24 09:45 01/06/24 10:00 Temperature Pulse Rate 71 69 68 Pulse Rate [Right Pulse Oximeter] Pulse Rate [orthos tatic lying Pulse Oximeter] Pulse Rate [orthos tatic sitting Puls e Oximeter] Pulse Rate [orthos tatic standing Pul se Oximeter] Respiratory Rate Blood Pressure 148/94 H Blood Pressure [Ri ght Upper Arm] Blood Pressure [or thostatic lying Le ft Arm] Blood Pressure [or thostatic sitting Left Arm] Blood Pressure [or thostatic standing Left Arm] Pulse Oximetry 99 99 98 Oxygen Delivery Mt thod 01/06/24 10:01 01/06/24 10:08 01/06/24 10:09 Temperature Pulse Rate 68 75 Pulse Rate [Right Pulse Oximeter] Pulse Rate [orthos tatic lying Pulse Oximeter] 75 Pulse Rate [orthos tatic sitting Puls e Oximeter] 80 Pulse Rate [orthos tatic standing Pul se Oximeter] 95 Respiratory Rate Blood Pressure 152/75 H 140/82 H Blood Pressure [Ri ght Upper Arm] Blood Pressure [or thostatic lying Le ft Arm] 140/82 H Blood Pressure [or thostatic sitting Left Arm] 152/80 H Blood Pressure [or thostatic standing Left Arm] 127/93 H Pulse Oximetry 99 100 Oxygen Delivery Mt thod 01/06/24 10:11 01/06/24 10:12 01/06/24 10:17 Temperature Pulse Rate 87 Pulse Rate [Right Pulse Oximeter] Pulse Rate [orthos tatic lying Pulse Oximeter] Pulse Rate [orthos tatic sitting Puls e Oximeter] Pulse Rate [orthos tatic standing Pul se Oximeter] Respiratory Rate Blood Pressure 152/80 H 127/93 H Blood Pressure [Ri ght Upper Arm] Blood Pressure [or thostatic lying Le ft Arm] Blood Pressure [or thostatic sitting Left Arm] Blood Pressure [or thostatic standing Left Arm] Pulse Oximetry 99 Oxygen Delivery Mt thod 01/06/24 10:30 01/06/24 10:32 01/06/24 10:45 Temperature Pulse Rate 68 69 65 Pulse Rate [Right Pulse Oximeter] Pulse Rate [orthos tatic lying Pulse Oximeter] Pulse Rate [orthos tatic sitting Puls e Oximeter] Pulse Rate [orthos tatic standing Pul se Oximeter] Respiratory Rate Blood Pressure 157/86 H Blood Pressure [Ri ght Upper Arm] Blood Pressure [or thostatic lying Le ft Arm] Blood Pressure [or thostatic sitting Left Arm] Blood Pressure [or thostatic standing Left Arm] Pulse Oximetry 100 98 98 [facility] 01/06/24 11:00 01/06/24 11:01 01/06/24 11:15 Temperature Pulse Rate 63 63 77 Pulse Rate [Right Pulse Oximeter] Pulse Rate [orthos tatic lying Pulse Oximeter] Pulse Rate [orthos tatic sitting Puls e Oximeter] Pulse Rate [orthos tatic standing Pul se Oximeter] Respiratory Rate Blood Pressure 160/80 H Blood Pressure [Ri ght Upper Arm] Blood Pressure [or thostatic lying Le ft Arm] Blood Pressure [or thostatic sitting Left Arm] Blood Pressure [or thostatic standing Left Arm] Pulse Oximetry 99 98 100 [facility] 01/06/24 11:30 01/06/24 11:32 01/06/24 11:32 Temperature Pulse Rate 65 68 68 Pulse Rate [Right Pulse Oximeter] Pulse Rate [orthos tatic lying Pulse Oximeter] Pulse Rate [orthos tatic sitting Puls e Oximeter] Pulse Rate [orthos tatic standing Pul se Oximeter] Respiratory Rate Blood Pressure 158/76 H 158/76 H Blood Pressure [Ri ght Upper Arm] Blood Pressure [or thostatic lying Le ft Arm] Blood Pressure [or thostatic sitting Left Arm] Blood Pressure [or thostatic standing Left Arm] Pulse Oximetry 99 99 99 Oxygen Delivery [facility] 01/06/24 11:45 01/06/24 12:01 01/06/24 12:32 Temperature Pulse Rate 72 Pulse Rate [Right Pulse Oximeter] Pulse Rate [orthos tatic lying Pulse Oximeter] Pulse Rate [orthos tatic sitting Puls e Oximeter] Pulse Rate [orthos tatic standing Pul se Oximeter] Respiratory Rate Blood Pressure 166/83 H 193/105 H Blood Pressure [Ri ght Upper Arm] Blood Pressure [or thostatic lying Le ft Arm] Blood Pressure [or thostatic sitting Left Arm] Blood Pressure [or thostatic standing Left Arm] Pulse Oximetry 87 L [facility] 01/06/24 12:39 01/06/24 13:02 01/06/24 13:16 Temperature Pulse Rate 67 Pulse Rate [Right Pulse Oximeter] Pulse Rate [orthos tatic lying Pulse Oximeter] Pulse Rate [orthos tatic sitting Puls e Oximeter] Pulse Rate [orthos tatic standing Pul se Oximeter] Respiratory Rate Blood Pressure 184/94 H 171/79 H Blood Pressure [Ri ght Upper Arm] Blood Pressure [or thostatic lying Le ft Arm] Blood Pressure [or thostatic sitting Left Arm] Blood Pressure [or thostatic standing Left Arm] Pulse Oximetry 98 [facility] 01/06/24 13:17 01/06/24 13:18 01/06/24 13:30 Temperature Pulse Rate 65 63 64 Pulse Rate [Right Pulse Oximeter] Pulse Rate [orthos tatic lying Pulse Oximeter] Pulse Rate [orthos tatic sitting Puls e Oximeter] Pulse Rate [orthos tatic standing Pul se Oximeter] Respiratory Rate Blood Pressure 178/94 H Blood Pressure [Ri ght Upper Arm] Blood Pressure [or thostatic lying Le ft Arm] Blood Pressure [or thostatic sitting Left Arm] Blood Pressure [or thostatic standing Left Arm] Pulse Oximetry 97 98 98 [facility] 01/06/24 13:32 01/06/24 13:45 01/06/24 14:00 Temperature Pulse Rate 65 63 79 Pulse Rate [Right Pulse Oximeter] Pulse Rate [orthos tatic lying Pulse Oximeter] Pulse Rate [orthos tatic sitting Puls e Oximeter] Pulse Rate [orthos tatic standing Pul se Oximeter] Respiratory Rate Blood Pressure 173/102 H Blood Pressure [Ri ght Upper Arm] Blood Pressure [or thostatic lying Le ft Arm] Blood Pressure [or thostatic sitting Left Arm] Blood Pressure [or thostatic standing Left Arm] Pulse Oximetry 98 98 100 [facility] 01/06/24 14:03 01/06/24 14:03 01/06/24 14:16 Temperature Pulse Rate 94 94 69 Pulse Rate [Right Pulse Oximeter] Pulse Rate [orthos tatic lying Pulse Oximeter] Pulse Rate [orthos tatic sitting Puls e Oximeter] Pulse Rate [orthos tatic standing Pul se Oximeter] Respiratory Rate Blood Pressure 179/102 H 179/102 H Blood Pressure [Ri ght Upper Arm] Blood Pressure [or thostatic lying Le ft Arm] Blood Pressure [or thostatic sitting Left Arm] Blood Pressure [or thostatic standing Left Arm] Pulse Oximetry 100 100 100 [facility] 01/06/24 14:30 01/06/24 14:32 01/06/24 14:45 Temperature Pulse Rate 65 67 72 Pulse Rate [Right Pulse Oximeter] Pulse Rate [orthos tatic lying Pulse Oximeter] Pulse Rate [orthos tatic sitting Puls e Oximeter] Pulse Rate [orthos tatic standing Pul se Oximeter] Respiratory Rate Blood Pressure 149/75 H Blood Pressure [Ri ght Upper Arm] Blood Pressure [or thostatic lying Le ft Arm] Blood Pressure [or thostatic sitting Left Arm] Blood Pressure [or thostatic standing Left Arm] Pulse Oximetry 98 96 100 Oxygen Delivery Me thod 01/06/24 15:04 01/06/24 15:06 01/06/24 15:09 Temperature Pulse Rate 66 Pulse Rate [Right Pulse Oximeter] Pulse Rate [orthos tatic lying Pulse Oximeter] Pulse Rate [orthos tatic sitting Puls e Oximeter] Pulse Rate [orthos tatic standing Pul se Oximeter] Respiratory Rate Blood Pressure 151/95 H 134/83 Blood Pressure [Ri ght Upper Arm] Blood Pressure [or thostatic lying Le ft Arm] Blood Pressure [or thostatic sitting Left Arm] Blood Pressure [or thostatic standing Left Arm] Pulse Oximetry 99 Oxygen Delivery Mt thod 01/06/24 15:15 01/06/24 15:30 01/06/24 15:32 Temperature Pulse Rate 67 55 L 55 L Pulse Rate [Right Pulse Oximeter] Pulse Rate [orthos tatic lying Pulse Oximeter] Pulse Rate [orthos tatic sitting Puls e Oximeter] Pulse Rate [orthos tatic standing Pul se Oximeter] Respiratory Rate Blood Pressure 165/84 H Blood Pressure [Ri ght Upper Arm] Blood Pressure [or thostatic lying Le ft Arm] Blood Pressure [or thostatic sitting Left Arm] Blood Pressure [or thostatic standing Left Arm] Pulse Oximetry 98 98 99 Oxygen Delivery Me thod 01/06/24 15:45 Temperature Pulse Rate 63 Pulse Rate [Right Pulse Oximeter] Pulse Rate [orthos tatic lying Pulse Oximeter] Pulse Rate [orthos tatic sitting Puls e Oximeter] Pulse Rate [orthos tatic standing Pul se Oximeter] Respiratory Rate Blood Pressure Blood Pressure [Ri ght Upper Arm] Blood Pressure [or thostatic lying Le ft Arm] Blood Pressure [or thostatic sitting Left Arm] Blood Pressure [or thostatic standing Left Arm] Pulse Oximetry 93 Oxygen Delivery Mt thod Course Vital Signs Vital signs: Initial Vital Signs Pulse Rate 79 01/06/24 08:33 Pulse Oximetry 100 01/06/24 08:33 Vital Signs Pulse Rate 79 01/06/24 08:33 Pulse Oximetry 100 01/06/24 08:33 Temperature 96.8 F L 01/06/24 08:38 Pulse Rate 63 01/06/24 15:45 Respiratory Rate 18 01/06/24 08:38 Blood Pressure 165/84 H 01/06/24 15:32 Pulse Oximetry 93 01/06/24 15:45 Oxygen Delivery Method Room Air 01/06/24 08:38 Medications Administered Medications: Discontinued Medications Generic Name Dose Route Start Last Admin Trade Name Juanjoq PRN Reason Stop Dose Admin Lactated Ringer's 1,000 mls @ 1,000 mls/hr 01/06/24 10:34 01/06/24 12:14 Lactated Ringers 1000 Ml IV 01/06/24 11:33 Infused .Q1H ONE Infusion Lactated Ringer's 1,000 mls @ 1,000 mls/hr 01/06/24 12:01 01/06/24 13:10 Lactated Ringers 1000 Ml IV 01/06/24 13:00 Infused .Q1H ONE Infusion Meclizine HCl 25 mg 01/06/24 14:08 01/06/24 14:22 Meclizine Hcl 25 Mg Tablet PO 01/06/24 14:09 25 mg ONCE ONE Administration Medical Decision Making [facility] Narrative Medical decision making narrative: Patient is an 88-year-old male presenting to the emergency department for dizziness. Is only have the dizziness when he sits up. At rest there is no symptoms. The differential diagnosis of vertigo is broad and includes common etiologies such as menieres disease, labyrinthitis, benign positional vertigo, otitis media, etc. More serious etiologies considered include central etiologies such as tumor, intracerebral bleed, dissection, ischemic cerebral vascular accident. At this time considering symptoms are intermittent a central cause seems unlikely. I will do a head CT along with a cervical CT but not believe an MRI is necessary at this time. Either way is unlikely to change our management as there is not a last known well since he woke up with the symptoms. Also give the patient a L fluid as this might be a orthostatic hypotension. Orthostatic blood pressures ordered. CBC, CMP showed no concerning abnormalities. Urinalysis shows no obvious signs of a UTI. COVID/flu/RSV is normal. EKG and troponin shows no concerning findings. After the patient received a L of fluid we tried to set him up in his still dizzy when standing. After a a short time dizziness resolved. Another L was given and symptoms still persisted. CT scan of the head and cervical spine showed no concerning findings. At this time unsure was causing his dizziness for concerning he is already high fall risk and he has new dizziness I believe we should minute to the hospital. PT will evaluate him down the ED 1st. I did speak to his daughter explain to her that to be an observation patient and what that entails and she states she understands and agrees with the plan. PT did evaluate the patient after a dose of meclizine. BPPV test was normal. He was still having dizziness though when standing and they recommend he stay in the hospital. I spoke to the admitting hospitalist to does wants doing MRI but patient will be sent to the floor before results come back which they are agreeable to. Lab Data Labs: Lab Results 01/06/24 01/06/24 01/06/24 Range/Units 08:54 09:20 10:16 WBC 7.78 (4.50-11.00) K/uL RBC 4.61 (4.30-5.90) m/uL Hgb 13.9 (13.5-17.5) gm/dL Hct 42.8 (37.0-53.0) % MCV 93 (80-100) fL MCH 30 (26-34) pg MCHC 33 (32-36) gm/dL RDW Coeff of Susi 12.7 (11.5-15.5) % Plt Count 178 (140-440) K/uL Neut % (Auto) 64.0 (42.0-72.0) % Lymph % (Auto) 21.1 (20-44) % [place] % (Auto) 9.1 (0.0-11.0) % Eos % (Auto) 4.1 (0.0-7.0) % Baso % (Auto) 0.5 (0.0-3.0) % Neut # (Auto) 4.98 (1.7-7.0) K/uL Lymph # (Auto) 1.64 (0.90-2.90) K/uL [place] # (Auto) 0.70 (0.00-0.90) K/UL Eos # (Auto) 0.32 (0.00-0.50) K/uL Baso # (Auto) 0.04 (0.00-0.30) K/uL Abs Immat Gran (auto) 0.09 (0.00-0.30) K/uL Imm/Tot Granulo (auto) 1.2 % Sodium 139 (135-149) mmol/L Potassium 3.4 L (3.6-5.1) mmol/L Chloride 105 (96-114) mmol/L Carbon Dioxide 26 (20-32) mmol/L Anion Gap 8 (7-15) mEq/L BUN 19 (7-30) mg/dL Creatinine 1.0 (0.5-1.5) mg/dL Estimated Creat Clear 60.51 Estimated GFR 73 ml/min Glucose 287 H (60-115) mg/dL Calcium 9.3 (8.4-10.6) mg/dL Total Bilirubin 0.7 (0.1-1.5) mg/dL AST 22 (12-35) U/L ALT 16 (4-50) U/L Alkaline Phosphatase 116 (40-150) U/L Total Protein 6.8 (6.0-8.3) g/dL Albumin 4.1 (3.3-5.0) g/dL Urine Color Yellow (Yellow) Urine Appearance Clear (Clear) Urine pH 7.0 (5.0-8.5) Ur Specific [place] 1.015 (1.000-1.030) Urine Protein Negative (Negative) Urine Glucose (UA) 3+ A (Negative) Urine Ketones Trace A (Negative) Urine Blood Negative (Negative) Urine Nitrite Negative (Negative) Urine Bilirubin Negative (Negative) Urine Urobilinogen 0.2 (0.2-1.0) Ur Leukocyte Esterase Negative (Negative) Urine RBC 0-2 (0-2) Urine WBC 0-2 (0-5) Ur Squamous Epith Cells Moderate A (None-Few) Urine Bacteria Moderate A (None) SARS-CoV-2 (PCR) Negative SARS-CoV-2 (Negative) Influenza Type A (PCR) Negative PCR FLU A (Negative) Influenza Type B (PCR) Negative PCR FLU B (Negative) RSV (PCR) Negative PCR RSV (Negative) POC Troponin I 0.01 (0.01-0.04) ng/ml Imaging Data CT scan head: Attestation: I have reviewed the pertinent imaging results. Radiologist's impression: 1. No calvarial fracture or intracranial bleed. 2. Cerebral atrophy with nonspecific white matter disease, likely microangiopathy. Please note that all CT scans at this facility use dose modulation, iterative reconstruction, and/or weight-based dosing when appropriate to reduce radiation dose to as low as reasonably achievable. Dictated by Rj Pelaez MD @ 01/06/2024 9:32:[address] scan cervical spine: Attestation: I have reviewed the pertinent imaging results. Radiologist's impression: Multilevel degenerative changes cervical spine without evidence of cervical spine fracture. Please note that all CT scans at this facility use dose modulation, iterative reconstruction, and/or weight-based dosing when appropriate to reduce radiation dose to as low as reasonably achievable. Dictated by Rj Pelaez MD @ 01/06/2024 9:36:42 AM ECG Data Attestation: I personally reviewed and interpreted this ECG as follows: Prior ECG tracings: available for review Interpretation: Normal sinus rhythm rate 72 beats per minute, normal intervals, normal axis, no ST T-wave abnormalities. There is artifact noted in the V1 and V2 leads. Some artifact noted in the other leads but not affecting interpretation Discharge Plan Discharge Clinical Impression: Dizziness Patient Disposition: Admitted As Observation Condition: Stable
--- NOTE | 2024-01-06 13:20 | ED.NURSE ---
Pt stood up, reports he felt dizzy and room was spinning.
[2024-01-06] MEDS: MECLIZINE HCL 25 MG TABLET PO (14:22)
--- NOTE | 2024-01-06 15:31 | CRLHL7_ITS ---
For Patients: As a result of the Century Cures Act, medical imaging exams and procedure reports are released immediately into your electronic medical record. You may view this report before your referring provider. If you have questions, please contact your health care provider. INDICATION: Dizziness. TECHNIQUE: Multiplanar multisequence noncontrast MR images of the brain. COMPARISON: CT brain 01/06/2024. FINDINGS: Moderate diffuse cerebral volume loss. No mass effect or midline shift. Scattered and patchy FLAIR hyperintensities in the supratentorial white-matter, typical for [id number] chronic microvascular ischemic changes. Small chronic infarctions within the high frontal lobes, posterior right temporal lobe, and right cerebellar hemisphere. Punctate foci of mild diffusion restriction and FLAIR hyperintensity within the bilateral centrum semiovale, compatible with acute to subacute infarctions. 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 Punctate foci of susceptibility in the anterior right frontal lobe, left thalamus, and left cerebellar hemisphere, typical of chronic microhemorrhages. The major arterial flow voids at the skullbase are preserved. Thinning of the ocular lenses. The paranasal sinuses are well aerated. The mastoid air cells are clear. IMPRESSION: 1. Small acute to early subacute infarctions within the bilateral centrum semiovale. 2. 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 3. Moderate diffuse cerebral volume loss and [id number] chronic microvascular ischemic changes. Dictated by Ferdinand Hammonds MD @ 01/06/2024 4:43:54 PM (Electronically Signed)
--- NOTE | 2024-01-06 16:06 | ED.NURSE ---
Pt report given to arlet MEI. Pt at MRI imaging, will go to room 249 afterwards.
--- NOTE | 2024-01-06 16:19 | P.IMHP_ITS ---
Hospitalist- H&P: HPI History of Present Illness Date Seen: 01/06/24 Chief complaint: Weakness, confusion Narrative: ADMISSION HISTORY AND PHYSICAL - HOSPITALIST Chief Complaint: dizziness HPI: 88 y/o WM with hx of HTN, DM, HLP, CAD and DVT on chronic Eliquis therapy presents after a fall last evening. He fell in the bathroom from standing height trying to pull his pants/depends up. He was not specifically injured but did note he felt positionally dizzy this morning. He has been falling much more frequently in the last few months. Family and home health agency helping care for him in his home have been concerned. He has resisted ANGELES placement. In the ER his exam was reassuring, no focal deficits. CT head and neck were normal for age. Labs were normal. The team felt he might not be taking his medications consistently or accurately. ER COURSE: He was given lactated Ringer's, 1 dose of oral meclizine at 25 mg and followed with a head CT, neck CT. MRI of the brain done in route to the floor. MRI reviewed soon after arrival to the floor - notable for acute CVA, bilatera lly. CODE STATUS: Needs Addressing EMERGENCY CONTACT PLAN: Elsie Venegas Rel To Pat Daughter Work Phone (Patient) [phone] I've updated the PFSH, medications and allergies in the Expanse tabs. INVESTIGATIONS: LABS/MICRO/ECG/IMAGING CBC is normal Very mild hypokalemia at 3.4, hyperglycemia 287. Otherwise his electrolytes, renal function, liver function are all normal. No inflammatory markers were magnesium level was checked. Urine shows 3+ glucose and trace ketones. Moderate bacteria with out leukocyte esterase or nitrite. No wbc's. Urine culture pending. Negative respiratory screen POC troponin negative. EKG shows normal sinus rhythm, normal EKG Head CT without CTA. IMPRESSION: 1. No calvarial fracture or intracranial bleed. 2. Cerebral atrophy with nonspecific white matter disease, likely microangiopathy. Neck CT ultilevel degenerative changes cervical spine without evidence of cervical spine fracture. MRI IMPRESSION: 1. Small acute to early subacute infarctions within the bilateral centrum semiovale. 2. 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 3. Moderate diffuse cerebral volume loss and [id number] chronic microvascular ischemic changes. REVIEW OF SYSTEMS: 12-point ROS completed with patient and negative unless otherwise stated in HPI or below. PHYSICAL EXAM: CONSTITUTIONAL: Conversive, decent historian. A/O. Knows setting and context. He reports he is hungry. VITAL SIGNS: see record. moderaly HTN. HEENT: Normocephalic, atraumatic. PERRL, EOMI, conjunctivae pink, no scleral icterus. Ears and nose externally normal. Pharynx normal. NECK: No JVD. No carotid bruit, no thyromegaly, no adenopathy. CHEST: Clear to auscultation bilaterally HEART: S1 and S2 normal. holosystolic murmur c/w MUSCULOSKELETAL: No gross joint deformity or swelling. NEURO: Cranial nerves intact. Grossly intact. No asymmetric findings. finger to nose normal. no nystagmus. I did not test his gait. SKIN: scabs on his right harrison. PSYCHIATRIC: Euthymic. ADMIT TO MEDSURG: FLOOR CARE DVT: Continue Eliquis GI: PO intake Time spent: Today I spent 75 minutes seeing the patient, discussing the patient with ER staff, reviewing Expanse and EPIC notes/diagnostics, discussing the care plan with our care time that includes social work, PT/OT, pharmacy, RT, half-way and documenting my impressions and plan in the medical record. [facility] Medical History (Updated 01/06/24 @ 17:51 by Snow Han MD) On continuous oral anticoagulation ?Z79.01 - half-way (current) use of anticoagulants (ICD-10) History of deep venous thrombosis or pulmonary embolus Depression ?F32.A - Depression, unspecified (ICD-10) Frequent falls ?R29.6 - Repeated falls (ICD-10) Type 2 diabetes mellitus ?E11.9 - Type 2 diabetes mellitus without complications (ICD-10) Peripheral neuropathy ?G62.9 - Polyneuropathy, unspecified (ICD-10) BPH (benign prostatic hyperplasia) ?N40.0 - Benign prostatic hyperplasia without lower urinary tract symptoms (ICD-10) CAD (coronary artery disease) ?I25.10 - Atherosclerotic heart disease of [place] coronary artery without angina pectoris (ICD-10) Hyperlipidemia ?E78.5 - Hyperlipidemia, unspecified (ICD-10) HTN (hypertension) ?I10 - Essential (primary) hypertension (ICD-10) Hearing loss ?H91.90 - Unspecified hearing loss, unspecified ear (ICD-10) Surgical History (Updated 01/06/24 @ 16:30 by Snow Han MD) Hx of tonsillectomy ?Z90.89 - Acquired absence of other organs (ICD-10) 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 - Presence of coronary angioplasty implant and graft (ICD-10) Previous back surgery ?Z98.890 - Other specified postprocedural states (ICD-10) History of cataract surgery ?Z98.49 - Cataract extraction status, unspecified eye (ICD-10) Social History Smoking Status: Never smoker Do you use any of these nicotine containing products: None Second hand tobacco smoke exposure: No How often do you have a drink containing alcohol: never How often do you have six or more drinks on one occasion: Never AUDIT-C Alcohol total score: 0 Non-prescribed substance use: denies use service: No Meds Home Medications and Allergies Home Medications ?Medication ?Instructions ?Recorded ?Confirmed ?Type blood sugar diagnostic (OneTouch 08/29/22 08/29/22 History Verio test strips) linagliptin 5 mg tablet (Tradjenta) 5 mg PO QAM 08/29/22 01/06/24 History metformin 500 mg tablet,extended 2,000 mg PO DAILY 08/29/22 01/06/24 History release 24 hr metoprolol succinate 100 mg 100 mg PO DAILY 08/29/22 01/06/24 History tablet,extended release 24 hr apixaban 5 mg tablet (Eliquis) 5 mg PO BID 01/06/24 01/06/24 History calcium carbonate (Calcium Antacid) 200 - 400 mg PO Q3H PRN 01/06/24 01/06/24 History empagliflozin 25 mg tablet 25 mg PO DAILY 01/06/24 01/06/24 History (Jardiance) furosemide 20 mg tablet 20 mg PO QAM 01/06/24 01/06/24 History mirtazapine 7.5 mg tablet 7.5 mg PO HS 01/06/24 01/06/24 History nitroglycerin 0.4 mg sublingual 0.4 mg sublingual Q5M PRN angina 01/06/24 01/06/24 History tablet tamsulosin 0.4 mg capsule 0.4 mg PO DAILY 01/06/24 01/06/24 History Allergies Allergy/AdvReac Type Severity Reaction Status Date / Time No Known Drug Allergies Allergy Verified 01/06/24 08:41 Exam Const: Vital Signs, click to edit/add: Vital Signs - 24 hr 01/06/24 08:33 01/06/24 08:38 01/06/24 08:45 Temperature 96.8 F L Pulse Rate 79 79 Pulse Rate [Right Pulse Oximeter] 77 Pulse Rate [orthos tatic lying Pulse Oximeter] Pulse Rate [orthos tatic sitting Puls e Oximeter] Pulse Rate [orthos tatic standing Pul se Oximeter] Respiratory Rate 18 Blood Pressure Blood Pressure [Ri ght Upper Arm] 137/89 Blood Pressure [or thostatic lying Le ft Arm] Blood Pressure [or thostatic sitting Left Arm] Blood Pressure [or thostatic standing Left Arm] Pulse Oximetry 100 100 [facility] 01/06/24 09:10 01/06/24 09:15 01/06/24 09:30 Temperature Pulse Rate 73 76 68 Pulse Rate [Right Pulse Oximeter] Pulse Rate [orthos tatic lying Pulse Oximeter] Pulse Rate [orthos tatic sitting Puls e Oximeter] Pulse Rate [orthos tatic standing Pul se Oximeter] Respiratory Rate Blood Pressure Blood Pressure [Ri ght Upper Arm] Blood Pressure [or thostatic lying Le ft Arm] Blood Pressure [or thostatic sitting Left Arm] Blood Pressure [or thostatic standing Left Arm] Pulse Oximetry 100 98 98 [facility] 01/06/24 09:39 01/06/24 09:45 01/06/24 10:00 Temperature Pulse Rate 71 69 68 Pulse Rate [Right Pulse Oximeter] Pulse Rate [orthos tatic lying Pulse Oximeter] Pulse Rate [orthos tatic sitting Puls e Oximeter] Pulse Rate [orthos tatic standing Pul se Oximeter] Respiratory Rate Blood Pressure 148/94 H Blood Pressure [Ri ght Upper Arm] Blood Pressure [or thostatic lying Le ft Arm] Blood Pressure [or thostatic sitting Left Arm] Blood Pressure [or thostatic standing Left Arm] Pulse Oximetry 99 99 98 [facility] 01/06/24 10:01 01/06/24 10:08 01/06/24 10:09 Temperature Pulse Rate 68 75 Pulse Rate [Right Pulse Oximeter] Pulse Rate [orthos tatic lying Pulse Oximeter] 75 Pulse Rate [orthos tatic sitting Puls e Oximeter] 80 Pulse Rate [orthos tatic standing Pul se Oximeter] 95 Respiratory Rate Blood Pressure 152/75 H 140/82 H Blood Pressure [Ri ght Upper Arm] Blood Pressure [or thostatic lying Le ft Arm] 140/82 H Blood Pressure [or thostatic sitting Left Arm] 152/80 H Blood Pressure [or thostatic standing Left Arm] 127/93 H Pulse Oximetry 99 100 Oxygen Delivery [facility] 01/06/24 10:11 01/06/24 10:12 01/06/24 10:17 Temperature Pulse Rate 87 Pulse Rate [Right Pulse Oximeter] Pulse Rate [orthos tatic lying Pulse Oximeter] Pulse Rate [orthos tatic sitting Puls e Oximeter] Pulse Rate [orthos tatic standing Pul se Oximeter] Respiratory Rate Blood Pressure 152/80 H 127/93 H Blood Pressure [Ri ght Upper Arm] Blood Pressure [or thostatic lying Le ft Arm] Blood Pressure [or thostatic sitting Left Arm] Blood Pressure [or thostatic standing Left Arm] Pulse Oximetry 99 Oxygen Delivery Me [facility] 01/06/24 10:30 01/06/24 10:32 01/06/24 10:45 Temperature Pulse Rate 68 69 65 Pulse Rate [Right Pulse Oximeter] Pulse Rate [orthos tatic lying Pulse Oximeter] Pulse Rate [orthos tatic sitting Puls e Oximeter] Pulse Rate [orthos tatic standing Pul se Oximeter] Respiratory Rate Blood Pressure 157/86 H Blood Pressure [Ri ght Upper Arm] Blood Pressure [or thostatic lying Le ft Arm] Blood Pressure [or thostatic sitting Left Arm] Blood Pressure [or thostatic standing Left Arm] Pulse Oximetry 100 98 98 Oxygen Delivery Me th[facility] 01/06/24 11:00 01/06/24 11:01 01/06/24 11:15 Temperature Pulse Rate 63 63 77 Pulse Rate [Right Pulse Oximeter] Pulse Rate [orthos tatic lying Pulse Oximeter] Pulse Rate [orthos tatic sitting Puls e Oximeter] Pulse Rate [orthos tatic standing Pul se Oximeter] Respiratory Rate Blood Pressure 160/80 H Blood Pressure [Ri ght Upper Arm] Blood Pressure [or thostatic lying Le ft Arm] Blood Pressure [or thostatic sitting Left Arm] Blood Pressure [or thostatic standing Left Arm] Pulse Oximetry 99 98 [address] [facility] 01/06/24 11:30 01/06/24 11:32 01/06/24 11:32 Temperature Pulse Rate 65 68 68 Pulse Rate [Right Pulse Oximeter] Pulse Rate [orthos tatic lying Pulse Oximeter] Pulse Rate [orthos tatic sitting Puls e Oximeter] Pulse Rate [orthos tatic standing Pul se Oximeter] Respiratory Rate Blood Pressure 158/76 H 158/76 H Blood Pressure [Ri ght Upper Arm] Blood Pressure [or thostatic lying Le ft Arm] Blood Pressure [or thostatic sitting Left Arm] Blood Pressure [or thostatic standing Left Arm] Pulse Oximetry 99 99 99 Oxygen Delivery [facility] 01/06/24 11:45 01/06/24 12:01 01/06/24 12:32 Temperature Pulse Rate 72 Pulse Rate [Right Pulse Oximeter] Pulse Rate [orthos tatic lying Pulse Oximeter] Pulse Rate [orthos tatic sitting Puls e Oximeter] Pulse Rate [orthos tatic standing Pul se Oximeter] Respiratory Rate Blood Pressure 166/83 H 193/105 H Blood Pressure [Ri ght Upper Arm] Blood Pressure [or thostatic lying Le ft Arm] Blood Pressure [or thostatic sitting Left Arm] Blood Pressure [or thostatic standing Left Arm] Pulse Oximetry 87 L [facility] 01/06/24 12:39 01/06/24 13:02 01/06/24 13:16 Temperature Pulse Rate 67 Pulse Rate [Right Pulse Oximeter] Pulse Rate [orthos tatic lying Pulse Oximeter] Pulse Rate [orthos tatic sitting Puls e Oximeter] Pulse Rate [orthos tatic standing Pul se Oximeter] Respiratory Rate Blood Pressure 184/94 H 171/79 H Blood Pressure [Ri ght Upper Arm] Blood Pressure [or thostatic lying Le ft Arm] Blood Pressure [or thostatic sitting Left Arm] Blood Pressure [or thostatic standing Left Arm] Pulse Oximetry 98 [facility] 01/06/24 13:17 01/06/24 13:18 01/06/24 13:30 Temperature Pulse Rate 65 63 64 Pulse Rate [Right Pulse Oximeter] Pulse Rate [orthos tatic lying Pulse Oximeter] Pulse Rate [orthos tatic sitting Puls e Oximeter] Pulse Rate [orthos tatic standing Pul se Oximeter] Respiratory Rate Blood Pressure 178/94 H Blood Pressure [Ri ght Upper Arm] Blood Pressure [or thostatic lying Le ft Arm] Blood Pressure [or thostatic sitting Left Arm] Blood Pressure [or thostatic standing Left Arm] Pulse Oximetry 97 98 98 [facility] 01/06/24 13:32 01/06/24 13:45 01/06/24 14:00 Temperature Pulse Rate 65 63 79 Pulse Rate [Right Pulse Oximeter] Pulse Rate [orthos tatic lying Pulse Oximeter] Pulse Rate [orthos tatic sitting Puls e Oximeter] Pulse Rate [orthos tatic standing Pul se Oximeter] Respiratory Rate Blood Pressure 173/102 H Blood Pressure [Ri ght Upper Arm] Blood Pressure [or thostatic lying Le ft Arm] Blood Pressure [or thostatic sitting Left Arm] Blood Pressure [or thostatic standing Left Arm] Pulse Oximetry 98 98 [address] [address] [facility] 01/06/24 14:03 01/06/24 14:03 01/06/24 14:16 Temperature Pulse Rate 94 94 69 Pulse Rate [Right Pulse Oximeter] Pulse Rate [orthos tatic lying Pulse Oximeter] Pulse Rate [orthos tatic sitting Puls e Oximeter] Pulse Rate [orthos tatic standing Pul se Oximeter] Respiratory Rate Blood Pressure 179/102 H 179/102 H Blood Pressure [Ri ght Upper Arm] Blood Pressure [or thostatic lying Le ft Arm] Blood Pressure [or thostatic sitting Left Arm] Blood Pressure [or thostatic standing Left Arm] Pulse Oximetry 100 100 [address] [facility] 01/06/24 14:30 01/06/24 14:32 01/06/24 14:45 Temperature Pulse Rate 65 67 72 Pulse Rate [Right Pulse Oximeter] Pulse Rate [orthos tatic lying Pulse Oximeter] Pulse Rate [orthos tatic sitting Puls e Oximeter] Pulse Rate [orthos tatic standing Pul se Oximeter] Respiratory Rate Blood Pressure 149/75 H Blood Pressure [Ri ght Upper Arm] Blood Pressure [or thostatic lying Le ft Arm] Blood Pressure [or thostatic sitting Left Arm] Blood Pressure [or thostatic standing Left Arm] Pulse Oximetry 98 96 [address] [facility] [address] [facility] 01/06/24 15:04 01/06/24 15:06 01/06/24 15:09 Temperature Pulse Rate 66 Pulse Rate [Right Pulse Oximeter] Pulse Rate [orthos tatic lying Pulse Oximeter] Pulse Rate [orthos tatic sitting Puls e Oximeter] Pulse Rate [orthos tatic standing Pul se Oximeter] Respiratory Rate Blood Pressure 151/95 H 134/83 Blood Pressure [Ri ght Upper Arm] Blood Pressure [or thostatic lying Le ft Arm] Blood Pressure [or thostatic sitting Left Arm] Blood Pressure [or thostatic standing Left Arm] Pulse Oximetry 99 Oxygen Delivery [facility] 01/06/24 15:15 01/06/24 15:30 01/06/24 15:32 Temperature Pulse Rate 67 55 L 55 L Pulse Rate [Right Pulse Oximeter] Pulse Rate [orthos tatic lying Pulse Oximeter] Pulse Rate [orthos tatic sitting Puls e Oximeter] Pulse Rate [orthos tatic standing Pul se Oximeter] Respiratory Rate Blood Pressure 165/84 H Blood Pressure [Ri ght Upper Arm] Blood Pressure [or thostatic lying Le ft Arm] Blood Pressure [or thostatic sitting Left Arm] Blood Pressure [or thostatic standing Left Arm] Pulse Oximetry 98 98 99 Oxygen Delivery [facility] 01/06/24 15:45 Temperature Pulse Rate 63 Pulse Rate [Right Pulse Oximeter] Pulse Rate [orthos tatic lying Pulse Oximeter] Pulse Rate [orthos tatic sitting Puls e Oximeter] Pulse Rate [orthos tatic standing Pul se Oximeter] Respiratory Rate Blood Pressure Blood Pressure [Ri ght Upper Arm] Blood Pressure [or thostatic lying Le ft Arm] Blood Pressure [or thostatic sitting Left Arm] Blood Pressure [or thostatic standing Left Arm] Pulse Oximetry 93 Oxygen Delivery [facility] Hospitalist - H&P: Result Labs Labs: Short CBC 01/06/24 Range/Units 09:20 WBC 7.78 (4.50-11.00) K/uL Hgb 13.9 (13.5-17.5) gm/dL Hct 42.8 (37.0-53.0) % Plt Count 178 (140-440) K/uL BMP 01/06/24 09:20 Sodium 139 Potassium 3.4 L Chloride 105 Carbon Dioxide 26 BUN 19 Creatinine 1.0 Glucose 287 H Calcium 9.3 Liver Function 01/06/24 Range/Units 09:20 Total Bilirubin 0.7 (0.1-1.5) mg/dL AST 22 (12-35) U/L ALT 16 (4-50) U/L Alkaline Phosphatase 116 (40-150) U/L Albumin 4.1 (3.3-5.0) g/dL Urine 01/06/24 Range/Units 10:16 Urine Color Yellow (Yellow) Urine Appearance Clear (Clear) Urine pH 7.0 (5.0-8.5) Ur Specific [place] 1.015 (1.000-1.030) Urine Protein Negative (Negative) Urine Glucose (UA) 3+ A (Negative) Assessment and Plan Assessment and plan (1) Acute CVA (cerebrovascular accident): Problem comment: -bilateral white matter acute lesions. most consistent with proximal occlusion and/or a hemodynamic event (neuro postulated uncontrolled HTN with a proximal stenosis, episode of bradycardia/hypotension). -He rec'd 325 aspirin but antiplatelet may not be necessary with apixaban (tam depends on CTA) -lipids, permissive HTN but a little lower ceiling (180/100) -kenyatta llanos, outpatient neuro MR findings: 1. Small acute to early subacute infarctions within the bilateral centrum semiovale. 2. 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 3. Moderate diffuse cerebral volume loss and [id number] chronic microvascular ischemic changes Status: Acute (2) Dizziness: Problem comment: -likely multifactorial but acute CVA is part of the picture -OT did evaluate in the ED; no provocative movements. [place] ineffective Status: Acute (3) Frequent falls: Problem comment: -should he be on a chronic OAC? Status: Acute (4) HTN (hypertension): Problem comment: -metoprolol -ceiling for permissive HTN 180/100 Status: Acute (5) History of deep venous thrombosis or pulmonary embolus: Problem comment: -both DVT --> PE in 08/28 -lifelong apixiban Status: Acute (6) On continuous oral anticoagulation: Problem comment: apixiban for DVT/PE in 2022 CVA in 2023 Status: Acute (7) Type 2 diabetes mellitus: Problem comment: -Jardiance, tradjenta, metformin - unclear how well he is managing his medications, living alone -A1C is 9.8 on 25 December 2023 -continue home meds; will spilt dose of metformin into 1000 XR BID vs 2000 regular release each day -SSI, medium intensity of insulin (Avoid hypoglycemia - will just confuse picture) Status: Acute (8) CAD (coronary artery disease): Problem comment: -S/P CT x 2, 6 total stents (last 2015) -NSTEMI in 2015 ( two drug-eluting stents placements, 3rd Marginal and mid-RCA) -NSTEMI in 2016 (RCA, s/p x4 COLLEEN) -metoprolol, lasix (no aspirin on his list?) Status: Acute (9) Aortic stenosis: Problem comment: -will update ECHO -2022 Final Impressions: 1. Normal left ventricular size, mildly increased wall thickness, normal global systolic function, calculated EF of 65 %. 2. Grade 1 pattern of left ventricular diastolic filling. 3. Right ventricular cavity size is normal, global systolic function is normal. 4. The aortic valve is trileaflet and sclerotic, mild stenosis and no regurgitation. 5. The mitral valve is sclerotic, no mitral regurgitation. 6. 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 7. RVSP cannot be estimated. 8. The inferior vena cava is normal sized, respiratory size variation greater than 50%. Comparison Compared to prior exam of 07/30/2015: - Aortic stenosis has increased. Status: Acute (10) Peripheral neuropathy: Status: Acute (11) Hyperlipidemia: Problem comment: -declines statin therapy Status: Acute (12) BPH (benign prostatic hyperplasia): Problem comment: -flomax Status: Acute (13) Depression: Problem comment: -remeron qhs Status: Acute (14) Hearing loss: Status: Acute
[2024-01-06] MEDS: ASPIRIN EC 325 MG TABLET PO (17:08)
--- NOTE | 2024-01-06 17:33 | CRLHL7_ITS ---
For Patients: As a result of the Century Cures Act, medical imaging exams and procedure reports are released immediately into your electronic medical record. You may view this report before your referring provider. If you have questions, please contact your health care provider. INDICATION: Dizziness, fall. TECHNIQUE: CTA neck with contrast bolus tracking, 3D angiographic rendering using maximum intensity projection (MIP) and images permanently archived. FINDINGS: There is scattered carotid and vertebral artery atherosclerosis. There is no significant carotid artery stenosis or dissection. There is no significant vertebral artery stenosis or dissection. The soft tissues of the neck are within normal limits. Advanced degenerative changes are noted in the cervical spine. IMPRESSION: Carotid and vertebral atherosclerosis without significant stenosis. Please note that all CT scans at this facility use dose modulation, iterative reconstruction, and/or weight-based dosing when appropriate to reduce radiation dose to as low as reasonably achievable. Dictated by Sudheer Pride MD @ 01/07/2024 7:01:36 AM (Electronically Signed)
[2024-01-06] MEDS: APIXABAN 5 MG TABLET PO (21:20)
[2024-01-06] MEDS: METFORMIN ER 500 MG 1000 MG PO (21:21)
[2024-01-06] MEDS: INSULIN ASPART 100 UNIT/ML SUBCUT (21:27)
[2024-01-06] MEDS: SODIUM CHLORIDE 0.9 % (FLUSH) 10 ML SYRINGE 5 ML IVF (21:31)
--- NOTE | 2024-01-06 23:19 | PC.NURSE ---
End of Shift [id number]: Patient pleasant and cooperative, A&O. VSS, afebrile. SpO2 maintained above 90% on RA. Patient reports weakness and dizziness while standing, denies nausea. 2A walker and gait belt. Uses urinal at bedside. Patient denies pain this shift. Patient has gashes bilaterally on legs and arms from falls over the past month.
[2024-01-07] VITALS (15 sets, daily range): BP systolic 107–151; BP diastolic 57–85; PULSE 61–100; RESP 16–20; TEMP 36–36.7; O2SAT 96–100
--- NOTE | 2024-01-07 06:21 | PC.NURSE ---
End of shift [id number]: A&O pleasant and cooperative. VSS w/ sats >90% on RA. Neuros unremarkable. Using urinal at bedside. Denies lightheaded/dizziness. Using call light appropriately.
[2024-01-07 06:57] LABS: Hemoglobin A1C* 9.7 % (0-5.6)
[2024-01-07 07:09] LABS: Chloride* 108 mmol/L (96-114); Potassium* 3.6 mmol/L (3.6-5.1); Sodium* 136 mmol/L (135-149)
[2024-01-07 07:12] LABS: Anion Gap 7 mEq/L (7-15); Blood Urea Nitrogen* 16 mg/dL (7-30); Carbon Dioxide* 21 mmol/L (20-32); Cholesterol* 154 mg/dL (90-199); Creatinine* 0.8 mg/dL (0.5-1.5); Est. Creatinine Clearance* 60.51; Estimated Glomerular Filt Rate 86 ml/min; Glucose* 132 mg/dL (60-115); Triglycerides* 75 mg/dL (40-149)
[2024-01-07 07:13] LABS: Calcium* 8.6 mg/dL (8.4-10.6); HDL Cholesterol* 44 mg/dL (>=40); LDL Cholesterol Calculated 95 mg/dL (<100)
--- NOTE | 2024-01-07 07:20 | PM.IMPN1 ---
Progress Note: A&P Assessment and plan (1) Acute CVA (cerebrovascular accident): Problem details: - bilateral white matter acute lesions (formal MRI read below), most c/s proximal occlusion and/or a hemodynamic event (bradycardia/hypotension?) - no evidence of severe stenosis on neck CTA - received 325mg ASA but will defer formal termite control servicer antiplatelet therapy to Stroke Neurology (appreciate their input) - TTE pending, work on better glucose control - permissive HTN, prn IVF boluses to treat hypotension with holding parameters on medications - therapies following, currently not meeting SNF criteria but will likely need more supervision at home 2/2 fall risk, already receiving Home Health MRI findings: 1. Small acute to early subacute infarctions within the bilateral centrum semiovale 2. 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 Moderate diffuse cerebral volume loss and [id number] chronic microvascular ischemic changes Status: Acute (2) Dizziness: Problem details: - likely multifactorial but acute CVA is part of the picture - OT did evaluate in the ED; no provocative movements. 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 Status: Acute (6) Type 2 diabetes mellitus: Problem details: - non-insulin dependent: Jardiance, Tradjenta, metformin - unclear how well he is managing his medications at home alone - A1C was 9.8 on 12/25/23 - continue home meds; will spilt dose of metformin into 1000 XR BID vs 2000 regular release each day - SSI, medium intensity of insulin (Avoid hypoglycemia - will just confuse picture) Status: Acute (7) CAD (coronary artery disease): Problem details: - S/P LA x 2, 6 total stents (last 2015) - NSTEMI in 2015 (two drug-eluting stents placements, 3rd Marginal and mid-RCA) - NSTEMI in 2016 (RCA, s/p x4 COLLEEN) - Metoprolol, Lasix Status: Acute (8) Aortic stenosis: Problem details: - repeat TTE ordered for 01/06 - previous TTE below from 2022 Final Impressions: 1. Normal left ventricular size, mildly increased wall thickness, normal global systolic function, calculated EF of 65 %. 2. Grade 1 pattern of left ventricular diastolic filling. 3. Right ventricular cavity size is normal, global systolic function is normal. 4. The aortic valve is trileaflet and sclerotic, mild stenosis and no regurgitation. 5. The mitral valve is sclerotic, no mitral regurgitation. 6. 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 7. RVSP cannot be estimated. 8. The inferior vena cava is normal sized, respiratory size variation greater than 50%. Comparison Compared to prior exam of 07/30/2015: - Aortic stenosis has increased. Status: Acute (9) Hyperlipidemia: Problem details: - has historically not tolerated statins 2/2 large pill size, amenable to trial of Rosuvastatin for LDL of 95 (goal <70) Status: Acute (10) BPH (benign prostatic hyperplasia): Problem details: - Flomax Status: Acute (11) Depression: Problem details: - Remeron QHS Status: Acute (12) Hearing loss: Problem details: - wearing hearing aides bilaterally Status: Acute Plan - per above - likely medically appropriate for d/c tomorrow, currently not meeting criteria for TCU, will likely need more help at home vs Enhanced [place] prior to [place] move - called daughter Elsie with update, no answer - left message Subjective Date Seen: 01/07/24 Interval history: Martin was admitted to the hospital last night after presented to the ER with dizziness and increased falls. Workup on admission revealed bilateral centrum semiovale infarcts, followup neck CTA revealed atherosclerosis without severe stenosis. Saw Dr. Lagunas of Stroke Neurology this morning, who reviewed imaging results and symptoms. Plan per his note: - continue eliquis - therapies - SBP<160. custodial normotensive - LDL goal <70 - A1C <7 - telemetry - TTE - f/u with stroke clinic This morning, patient is feeling back to baseline. He has no dizziness and has worked with our therapy teams. TTE ordered to be done this afternoon. Has had intermittent low blood pressure, holding parameters on medications with prn low dose IVF boluses ordered. Martin currently lives alone and receives Home Health Care. He and family are working [email or web address] for long-term placement (move-in date TBD). Exam Narrative: Exam Narrative: GEN: Alert and answering questions appropriately, sitting comfortably in bedside chair HEENT: Wearing hearing aides bilaterally, EOMIs bilaterally, no scleral icterus CV: RRR, blowing systolic murmur heard best in L midclavicular line R: LCTA bilaterally, air movement adequate Ext: 1+ BLE edema, R>L Skin: Scattered bruising on extremities, large area of eschar RLE from recent fall/skin tear Neuro: No facial droop, no resting tremor, moving all extremities appropriately and spontaneously Psych: Appropriate Const: Vital Signs, click to edit/add: Vital Signs - 24 hr 01/06/24 08:33 01/06/24 08:38 01/06/24 08:45 Temperature 96.8 F L Pulse Rate 79 79 Pulse Rate [Pulse Oximeter] Pulse Rate [Right Pulse Oximeter] 77 Pulse Rate [orthos tatic lying Pulse Oximeter] Pulse Rate [orthos tatic sitting Puls e Oximeter] Pulse Rate [orthos tatic standing Pul se Oximeter] Respiratory Rate 18 Blood Pressure Blood Pressure [Le ft Arm] Blood Pressure [Ri ght Upper Arm] 137/89 Blood Pressure [or thostatic lying Le ft Arm] Blood Pressure [or thostatic sitting Left Arm] Blood Pressure [or thostatic standing Left Arm] Pulse Oximetry 100 100 [facility] 01/06/24 09:10 01/06/24 09:15 01/06/24 09:30 Temperature Pulse Rate 73 76 68 Pulse Rate [Pulse Oximeter] Pulse Rate [Right Pulse Oximeter] Pulse Rate [orthos tatic lying Pulse Oximeter] Pulse Rate [orthos tatic sitting Puls e Oximeter] Pulse Rate [orthos tatic standing Pul se Oximeter] Respiratory Rate Blood Pressure Blood Pressure [Le ft Arm] Blood Pressure [Ri ght Upper Arm] Blood Pressure [or thostatic lying Le ft Arm] Blood Pressure [or thostatic sitting Left Arm] Blood Pressure [or thostatic standing Left Arm] Pulse Oximetry 100 98 98 Oxygen Delivery Me thod 01/06/24 09:39 01/06/24 09:45 01/06/24 10:00 Temperature Pulse Rate 71 69 68 Pulse Rate [Pulse Oximeter] Pulse Rate [Right Pulse Oximeter] Pulse Rate [orthos tatic lying Pulse Oximeter] Pulse Rate [orthos tatic sitting Puls e Oximeter] Pulse Rate [orthos tatic standing Pul se Oximeter] Respiratory Rate Blood Pressure 148/94 H Blood Pressure [Le ft Arm] Blood Pressure [Ri ght Upper Arm] Blood Pressure [or thostatic lying Le ft Arm] Blood Pressure [or thostatic sitting Left Arm] Blood Pressure [or thostatic standing Left Arm] Pulse Oximetry 99 99 98 Oxygen Delivery Me thod 01/06/24 10:01 01/06/24 10:08 01/06/24 10:09 Temperature Pulse Rate 68 75 Pulse Rate [Pulse Oximeter] Pulse Rate [Right Pulse Oximeter] Pulse Rate [orthos tatic lying Pulse Oximeter] 75 Pulse Rate [orthos tatic sitting Puls e Oximeter] 80 Pulse Rate [orthos tatic standing Pul se Oximeter] 95 Respiratory Rate Blood Pressure 152/75 H 140/82 H Blood Pressure [Le ft Arm] Blood Pressure [Ri ght Upper Arm] Blood Pressure [or thostatic lying Le ft Arm] 140/82 H Blood Pressure [or thostatic sitting Left Arm] 152/80 H Blood Pressure [or thostatic standing Left Arm] 127/93 H Pulse Oximetry 99 100 Oxygen Delivery Nc thod 01/06/24 10:11 01/06/24 10:12 01/06/24 10:17 Temperature Pulse Rate 87 Pulse Rate [Pulse Oximeter] Pulse Rate [Right Pulse Oximeter] Pulse Rate [orthos tatic lying Pulse Oximeter] Pulse Rate [orthos tatic sitting Puls e Oximeter] Pulse Rate [orthos tatic standing Pul se Oximeter] Respiratory Rate Blood Pressure 152/80 H 127/93 H Blood Pressure [Le ft Arm] Blood Pressure [Ri ght Upper Arm] Blood Pressure [or thostatic lying Le ft Arm] Blood Pressure [or thostatic sitting Left Arm] Blood Pressure [or thostatic standing Left Arm] Pulse Oximetry 99 Oxygen Delivery Me thod 01/06/24 10:30 01/06/24 10:32 01/06/24 10:45 Temperature Pulse Rate 68 69 65 Pulse Rate [Pulse Oximeter] Pulse Rate [Right Pulse Oximeter] Pulse Rate [orthos tatic lying Pulse Oximeter] Pulse Rate [orthos tatic sitting Puls e Oximeter] Pulse Rate [orthos tatic standing Pul se Oximeter] Respiratory Rate Blood Pressure 157/86 H Blood Pressure [Le ft Arm] Blood Pressure [Ri ght Upper Arm] Blood Pressure [or thostatic lying Le ft Arm] Blood Pressure [or thostatic sitting Left Arm] Blood Pressure [or thostatic standing Left Arm] Pulse Oximetry 100 98 98 [facility] 01/06/[facility] 11:00 01/06/24 11:01 01/06/24 11:15 Temperature Pulse Rate 63 63 77 Pulse Rate [Pulse Oximeter] Pulse Rate [Right Pulse Oximeter] Pulse Rate [orthos tatic lying Pulse Oximeter] Pulse Rate [orthos tatic sitting Puls e Oximeter] Pulse Rate [orthos tatic standing Pul se Oximeter] Respiratory Rate Blood Pressure 160/80 H Blood Pressure [Le ft Arm] Blood Pressure [Ri ght Upper Arm] Blood Pressure [or thostatic lying Le ft Arm] Blood Pressure [or thostatic sitting Left Arm] Blood Pressure [or thostatic standing Left Arm] Pulse Oximetry 99 98 100 Oxygen Delivery [facility] 01/06/24 11:30 01/06/24 11:32 01/06/24 11:32 Temperature Pulse Rate 65 68 68 Pulse Rate [Pulse Oximeter] Pulse Rate [Right Pulse Oximeter] Pulse Rate [orthos tatic lying Pulse Oximeter] Pulse Rate [orthos tatic sitting Puls e Oximeter] Pulse Rate [orthos tatic standing Pul se Oximeter] Respiratory Rate Blood Pressure 158/76 H 158/76 H Blood Pressure [Le ft Arm] Blood Pressure [Ri ght Upper Arm] Blood Pressure [or thostatic lying Le ft Arm] Blood Pressure [or thostatic sitting Left Arm] Blood Pressure [or thostatic standing Left Arm] Pulse Oximetry 99 99 99 Oxygen Delivery [facility] 01/06/24 11:45 01/06/24 12:01 01/06/24 12:32 Temperature Pulse Rate 72 Pulse Rate [Pulse Oximeter] Pulse Rate [Right Pulse Oximeter] Pulse Rate [orthos tatic lying Pulse Oximeter] Pulse Rate [orthos tatic sitting Puls e Oximeter] Pulse Rate [orthos tatic standing Pul se Oximeter] Respiratory Rate Blood Pressure 166/83 H 193/105 H Blood Pressure [Le ft Arm] Blood Pressure [Ri ght Upper Arm] Blood Pressure [or thostatic lying Le ft Arm] Blood Pressure [or thostatic sitting Left Arm] Blood Pressure [or thostatic standing Left Arm] Pulse Oximetry 87 L [facility] 01/06/24 12:39 01/06/24 13:02 01/06/24 13:16 Temperature Pulse Rate 67 Pulse Rate [Pulse Oximeter] Pulse Rate [Right Pulse Oximeter] Pulse Rate [orthos tatic lying Pulse Oximeter] Pulse Rate [orthos tatic sitting Puls e Oximeter] Pulse Rate [orthos tatic standing Pul se Oximeter] Respiratory Rate Blood Pressure 184/94 H 171/79 H Blood Pressure [Le ft Arm] Blood Pressure [Ri ght Upper Arm] Blood Pressure [or thostatic lying Le ft Arm] Blood Pressure [or thostatic sitting Left Arm] Blood Pressure [or thostatic standing Left Arm] Pulse Oximetry 98 [facility] 01/06/24 13:17 01/06/24 13:18 01/06/24 13:30 Temperature Pulse Rate 65 63 64 Pulse Rate [Pulse Oximeter] Pulse Rate [Right Pulse Oximeter] Pulse Rate [orthos tatic lying Pulse Oximeter] Pulse Rate [orthos tatic sitting Puls e Oximeter] Pulse Rate [orthos tatic standing Pul se Oximeter] Respiratory Rate Blood Pressure 178/94 H Blood Pressure [Le ft Arm] Blood Pressure [Ri ght Upper Arm] Blood Pressure [or thostatic lying Le ft Arm] Blood Pressure [or thostatic sitting Left Arm] Blood Pressure [or thostatic standing Left Arm] Pulse Oximetry 97 98 98 Oxygen Delivery [facility] 01/06/24 13:32 01/06/24 13:45 01/06/24 14:00 Temperature Pulse Rate 65 63 79 Pulse Rate [Pulse Oximeter] Pulse Rate [Right Pulse Oximeter] Pulse Rate [orthos tatic lying Pulse Oximeter] Pulse Rate [orthos tatic sitting Puls e Oximeter] Pulse Rate [orthos tatic standing Pul se Oximeter] Respiratory Rate Blood Pressure 173/102 H Blood Pressure [Le ft Arm] Blood Pressure [Ri ght Upper Arm] Blood Pressure [or thostatic lying Le ft Arm] Blood Pressure [or thostatic sitting Left Arm] Blood Pressure [or thostatic standing Left Arm] Pulse Oximetry 98 98 100 [facility] 01/06/24 14:03 01/06/24 14:03 01/06/24 14:16 Temperature Pulse Rate 94 94 69 Pulse Rate [Pulse Oximeter] Pulse Rate [Right Pulse Oximeter] Pulse Rate [orthos tatic lying Pulse Oximeter] Pulse Rate [orthos tatic sitting Puls e Oximeter] Pulse Rate [orthos tatic standing Pul se Oximeter] Respiratory Rate Blood Pressure 179/102 H 179/102 H Blood Pressure [Le ft Arm] Blood Pressure [Ri ght Upper Arm] Blood Pressure [or thostatic lying Le ft Arm] Blood Pressure [or thostatic sitting Left Arm] Blood Pressure [or thostatic standing Left Arm] Pulse Oximetry 100 100 100 Oxygen Delivery Nc thod 01/06/24 14:30 01/06/24 14:32 01/06/24 14:45 Temperature Pulse Rate 65 67 72 Pulse Rate [Pulse Oximeter] Pulse Rate [Right Pulse Oximeter] Pulse Rate [orthos tatic lying Pulse Oximeter] Pulse Rate [orthos tatic sitting Puls e Oximeter] Pulse Rate [orthos tatic standing Pul se Oximeter] Respiratory Rate Blood Pressure 149/75 H Blood Pressure [Le ft Arm] Blood Pressure [Ri ght Upper Arm] Blood Pressure [or thostatic lying Le ft Arm] Blood Pressure [or thostatic sitting Left Arm] Blood Pressure [or thostatic standing Left Arm] Pulse Oximetry 98 96 100 [facility] 01/06/24 15:04 01/06/24 15:06 01/06/24 15:09 Temperature Pulse Rate 66 Pulse Rate [Pulse Oximeter] Pulse Rate [Right Pulse Oximeter] Pulse Rate [orthos tatic lying Pulse Oximeter] Pulse Rate [orthos tatic sitting Puls e Oximeter] Pulse Rate [orthos tatic standing Pul se Oximeter] Respiratory Rate Blood Pressure 151/95 H 134/83 Blood Pressure [Le ft Arm] Blood Pressure [Ri ght Upper Arm] Blood Pressure [or thostatic lying Le ft Arm] Blood Pressure [or thostatic sitting Left Arm] Blood Pressure [or thostatic standing Left Arm] Pulse Oximetry 99 [facility] 01/06/24 15:15 01/06/24 15:30 01/06/24 15:32 Temperature Pulse Rate 67 55 L 55 L Pulse Rate [Pulse Oximeter] Pulse Rate [Right Pulse Oximeter] Pulse Rate [orthos tatic lying Pulse Oximeter] Pulse Rate [orthos tatic sitting Puls e Oximeter] Pulse Rate [orthos tatic standing Pul se Oximeter] Respiratory Rate Blood Pressure 165/84 H Blood Pressure [Le ft Arm] Blood Pressure [Ri ght Upper Arm] Blood Pressure [or thostatic lying Le ft Arm] Blood Pressure [or thostatic sitting Left Arm] Blood Pressure [or thostatic standing Left Arm] Pulse Oximetry 98 98 99 Oxygen Delivery Me thod 01/06/24 15:45 01/06/24 16:46 01/06/24 16:46 Temperature 98.7 F Pulse Rate 63 Pulse Rate [Pulse Oximeter] 67 Pulse Rate [Right Pulse Oximeter] Pulse Rate [orthos tatic lying Pulse Oximeter] Pulse Rate [orthos tatic sitting Puls e Oximeter] Pulse Rate [orthos tatic standing Pul se Oximeter] Respiratory Rate 16 16 Blood Pressure Blood Pressure [Le ft Arm] 168/84 H Blood Pressure [Ri ght Upper Arm] Blood Pressure [or thostatic lying Le ft Arm] Blood Pressure [or thostatic sitting Left Arm] Blood Pressure [or thostatic standing Left Arm] Pulse Oximetry 93 99 99 Oxygen Delivery Me thod Room Air Room Air 01/06/24 16:46 01/06/24 17:01 01/06/24 17:01 Temperature Pulse Rate 75 Pulse Rate [Pulse Oximeter] 67 Pulse Rate [Right Pulse Oximeter] Pulse Rate [orthos tatic lying Pulse Oximeter] Pulse Rate [orthos tatic sitting Puls e Oximeter] Pulse Rate [orthos tatic standing Pul se Oximeter] Respiratory Rate 16 Blood Pressure Blood Pressure [Le ft Arm] 168/84 H Blood Pressure [Ri ght Upper Arm] Blood Pressure [or thostatic lying Le ft Arm] Blood Pressure [or thostatic sitting Left Arm] Blood Pressure [or thostatic standing Left Arm] Pulse Oximetry 99 96 Oxygen Delivery Me thod Room Air Room Air 01/06/24 23:30 01/06/24 23:36 01/07/24 00:23 Temperature 97.0 F L Pulse Rate Pulse Rate [Pulse Oximeter] 77 77 Pulse Rate [Right Pulse Oximeter] Pulse Rate [orthos tatic lying Pulse Oximeter] Pulse Rate [orthos tatic sitting Puls e Oximeter] Pulse Rate [orthos tatic standing Pul se Oximeter] Respiratory Rate 16 Blood Pressure Blood Pressure [Le ft Arm] 159/90 H Blood Pressure [Ri ght Upper Arm] Blood Pressure [or thostatic lying Le ft Arm] Blood Pressure [or thostatic sitting Left Arm] Blood Pressure [or thostatic standing Left Arm] Pulse Oximetry 100 100 Oxygen Delivery Me thod Room Air 01/07/24 00:30 01/07/24 03:21 01/07/24 03:22 Temperature 96.8 F L Pulse Rate 68 Pulse Rate [Pulse Oximeter] 74 74 Pulse Rate [Right Pulse Oximeter] Pulse Rate [orthos tatic lying Pulse Oximeter] Pulse Rate [orthos tatic sitting Puls e Oximeter] Pulse Rate [orthos tatic standing Pul se Oximeter] Respiratory Rate 18 Blood Pressure Blood Pressure [Le ft Arm] 151/85 H Blood Pressure [Ri ght Upper Arm] Blood Pressure [or thostatic lying Le ft Arm] Blood Pressure [or thostatic sitting Left Arm] Blood Pressure [or thostatic standing Left Arm] Pulse Oximetry 97 Oxygen Delivery Me thod Room Air Labs Labs: Laboratory Results - last 24 hr 01/06/24 01/06/24 01/06/24 08:54 09:20 10:16 WBC 7.78 RBC 4.61 Hgb 13.9 Hct 42.8 MCV 93 MCH 30 MCHC 33 RDW Coeff of Susi 12.7 Plt Count 178 Neut % (Auto) 64.0 Lymph % (Auto) 21.1 [place] % (Auto) 9.1 Eos % (Auto) 4.1 Baso % (Auto) 0.5 Neut # (Auto) 4.98 Lymph # (Auto) 1.64 [place] # (Auto) 0.70 Eos # (Auto) 0.32 Baso # (Auto) 0.04 Abs Immat Gran (auto) 0.09 Imm/Tot Granulo (auto) 1.2 Sodium 139 Potassium 3.4 L Chloride 105 Carbon Dioxide 26 Anion Gap 8 BUN 19 Creatinine 1.0 Estimated Creat Clear 60.51 Estimated GFR 73 Glucose 287 H Hemoglobin A1c Calcium 9.3 Total Bilirubin 0.7 AST 22 ALT 16 Alkaline Phosphatase 116 Total Protein 6.8 Albumin 4.1 Triglycerides Cholesterol LDL Cholesterol, Calc HDL Cholesterol Urine Color Yellow Urine Appearance Clear Urine pH 7.0 Ur Specific [place] 1.015 Urine Protein Negative Urine Glucose (UA) 3+ A Urine Ketones Trace A Urine Blood Negative Urine Nitrite Negative Urine Bilirubin Negative Urine Urobilinogen 0.2 Ur Leukocyte Esterase Negative Urine RBC 0-2 Urine WBC 0-2 Ur Squamous Epith Cells Moderate A Urine Bacteria Moderate A SARS-CoV-2 (PCR) Negative SARS-CoV-2 Influenza Type A (PCR) Negative PCR FLU A Influenza Type B (PCR) Negative PCR FLU B RSV (PCR) Negative PCR RSV POC Troponin I 0.01 01/07/24 06:10 WBC RBC Hgb Hct MCV MCH MCHC RDW Coeff of Susi Plt Count Neut % (Auto) Lymph % (Auto) [place] % (Auto) Eos % (Auto) Baso % (Auto) Neut # (Auto) Lymph # (Auto) [place] # (Auto) Eos # (Auto) Baso # (Auto) Abs Immat Gran (auto) Imm/Tot Granulo (auto) Sodium 136 Potassium 3.6 Chloride 108 Carbon Dioxide 21 Anion Gap 7 BUN 16 Creatinine 0.8 Estimated Creat Clear 60.51 Estimated GFR 86 Glucose 132 H Hemoglobin A1c 9.7 H Calcium 8.6 Total Bilirubin AST ALT Alkaline Phosphatase Total Protein Albumin Triglycerides 75 Cholesterol 154 LDL Cholesterol, Calc 95 HDL Cholesterol 44 Urine Color Urine Appearance Urine pH Ur Specific [place] Urine Protein Urine Glucose (UA) Urine Ketones Urine Blood Urine Nitrite Urine Bilirubin Urine Urobilinogen Ur Leukocyte Esterase Urine RBC Urine WBC Ur Squamous Epith Cells Urine Bacteria SARS-CoV-2 (PCR) Influenza Type A (PCR) Influenza Type B (PCR) RSV (PCR) POC Troponin I
[2024-01-07] MEDS: TAMSULOSIN HCL 0.4 MG CAPSULE PO (09:24)
[2024-01-07] MEDS: METFORMIN ER 500 MG 1000 MG PO ×2 (09:24→21:05)
[2024-01-07] MEDS: FUROSEMIDE 20 MG TABLET PO (09:25)
[2024-01-07] MEDS: APIXABAN 5 MG TABLET PO ×2 (09:25→21:05)
[2024-01-07] MEDS: METOPROLOL SUCCINATE (XL) 100 MG TAB PO (09:25)
[2024-01-07] MEDS: EMPAGLIFLOZIN 10 MG TABLET 25 MG PO (09:25)
[2024-01-07] MEDS: SODIUM CHLORIDE 0.9 % (FLUSH) 10 ML SYRINGE 5 ML IVF (09:26)
--- NOTE | 2024-01-07 09:56 | PC.SOCIAL ---
Addendum entered by Jazmín Marrero [facility] 01/07/24 16:11: Discharge planning: rollway worker spoke to Camila Barber at [facility] and she shared that the pt could move-in sooner, but not this week. Camila still needs to do the nursing assessment for [facility]. Camila then asked for progress notes and documents, which this worker will send to her via secure email. Social work to follow-up as needed. Addendum entered by Jazmín Marrero [facility] 01/07/24 14:43: Discharge planning: rollway worker met with pt in his room to talk about discharge planning. Pt wants to return home with home care after he leaves the hospital and would not be interested in short-term rehab if it were recommended. rollway worker will check-in with the pt again tomorrow morning. Social work to follow-up as needed. Addendum entered by TAISHA NyeW 01/07/24 13:53: Discharge planning: rollway worker received a call from Diego, whom is pt's home care nurse through [facility]. and has been seeing him for the past several weeks. Diego stated to this worker that the pt was not safe to go home and asked for the hospital to not discharge him home. Diego shared that she has not filed a vulnerable adult report at all, but did have many concerns about the pt living alone. rollway worker also spoke to pt's daughter, Elsie, who was hoping the pt would be able to go to short-term rehab after his hospital stay. Pt's daughter did give this worker permission to call [facility] to see if they would be able to move the pt in sooner. rollway worker left a message with the delivery coordinator at [facility]. Pt's daughter stated that she knew [facility] had received the pt's medical records earlier this week and that the pt still needed to have an assessment done with the DON. Pt plans to live in Assisted Living at [facility]. rollway worker updated the provider on duty with all of this information. The provider called pt's daughter and left a message to explain the updates. Per PT/OT pt is not eligible for short-term rehab due to his mobility(his insurance would not cover it). Social work to follow-up as needed. Addendum entered by LAI Nye 01/07/24 11:12: Discharge planning: Lynn's contact information is #[phone]. Social work to follow-up as needed. Addendum entered by LAI Nye 01/07/24 10:54: Discharge planning: Received a call from Lynn at [facility]. stating that the pt is a home care pt of [facility] and that he received PT/OT/[employer] EVALUATOR and [facility]. Lynn said they just opened the pt on 01/04/2024. rollway worker did let Lynn know that the pt is admitted as inpatient in the hospital, which means he will need a new face to face if he is returning home at discharge. Social work to follow-up as needed. Original Note: Discharge planning: Left message with pt's daughter, Elsie, to inquire about what services pt will be getting when he moves to [facility] later this month. PT/OT plan to see the pt today to assess what needs he will have for discharge from the hospital. Social work to follow-up as needed.
[2024-01-07] MEDS: CALCIUM CARBONATE 500 MG CHEW PO (13:45)
[2024-01-07] MEDS: 0.9 % SODIUM CHLORIDE 250 ml 250 ML IV (14:01)
[2024-01-07] MEDS: INSULIN ASPART 100 UNIT/ML SUBCUT ×2 (15:52→21:06)
--- NOTE | 2024-01-07 19:50 | PC.NURSE ---
End of shift [id number] - Pt alert, oriented to self, place, and situation. Needed brief redirection for time and maintained orientation to time for remainder of shift. Tolerating RA, regular diet/fluids. Up with PT using 4 wheeled walker and gait belt and observed to ambulate in halls. Up to bathroom with 1 assist and walker/gait belt. Pt provided education regarding safe use of walker while ambulating by RN. Pt denied dizziness while ambulating but was observed by RN to be unsteady and unbalanced on his feet periodically. Pt reported that he has been unbalanced for months but says his dizziness experienced prior to hospitalization has resolved. Denies pain, appears to be resting comfortably at end of shift with call light within reach.
[2024-01-07] MEDS: ROSUVASTATIN CALCIUM 10 MG TABLET PO (21:05)
--- NOTE | 2024-01-07 22:35 | PC.NURSE ---
Pt with stable VS at this time.A&O x3. Up with mod assist of 1 and walker and gait belt. Pt is impulsive. Voiding without difficulty. No c/o pain
[2024-01-08] VITALS (10 sets, daily range): BP systolic 93–150; BP diastolic 53–78; PULSE 63–81; RESP 16–18; TEMP 36.6–36.8; O2SAT 96–100
[2024-01-08] MEDS: 0.9 % SODIUM CHLORIDE 250 ml 250 ML IV ×2 (01:50→11:56)
[2024-01-08] MEDS: SODIUM CHLORIDE 0.9 % (FLUSH) 10 ML SYRINGE 5 ML IVF ×2 (01:50→08:38)
[2024-01-08 06:17] LABS: Basophils Absolute Auto 0.03 K/uL (0.00-0.30); Basophils Percent Auto 0.4 % (0.0-3.0); Eosinophils Absolute Auto 0.15 K/uL (0.00-0.50); Eosinophils Percent Auto 1.9 % (0.0-7.0); Hematocrit 38.6 % (37.0-53.0); Hemoglobin* 12.6 gm/dL (13.5-17.5); Immature Granulocytes Abs Auto 0.07 K/uL (0.00-0.30); Immature Granulocytes Pct Auto 0.9 %; Lymphocytes Percent Auto 16.1 % (20-44); Mean Corpuscular HGB Conc 33 gm/dL (32-36); Mean Corpuscular Hemoglobin 30 pg (26-34); Mean Corpuscular Volume 93 fL (80-100); Monocytes Percent Auto 7.2 % (0.0-11.0); Neutrophils Percent Auto 73.5 % (42.0-72.0); Platelet Count* 174 K/uL (140-440); RDW Coefficient of Variation % 12.8 % (11.5-15.5); Red Blood Count 4.17 m/uL (4.30-5.90); White Blood Count* 8.08 K/uL (4.50-11.00)
[2024-01-08 06:20] LABS: Slide Review Reflex No
[2024-01-08 06:26] LABS: Chloride* 108 mmol/L (96-114)
[2024-01-08 06:27] LABS: Sodium* 136 mmol/L (135-149)
[2024-01-08 06:30] LABS: Anion Gap 7 mEq/L (7-15); Blood Urea Nitrogen* 23 mg/dL (7-30); Calcium* 8.5 mg/dL (8.4-10.6); Carbon Dioxide* 21 mmol/L (20-32); Est. Creatinine Clearance* 60.51; Estimated Glomerular Filt Rate 73 ml/min
[2024-01-08 06:37] LABS: Glucose* 167 mg/dL (60-115)
--- NOTE | 2024-01-08 07:32 | PC.NURSE ---
Pt alert and oriented x3 occasionally has difficulties with time. Pt denies pain, SOB, chest pain, and N/V. Pt reported feeling sweaty overnight changed gown and linen, pt temp checked 98.1. Pt's bp around 0373-9291 was soft 93/53 gave PRN 250 bolus pt came up to 107/69, then 0549 pt was rechecked bp 152/77. Pt is up SBA with walker and gait belt, voiding and tolerating regular diet. No bm overnight.
[2024-01-08] MEDS: METOPROLOL SUCCINATE (XL) 100 MG TAB PO (08:37)
[2024-01-08] MEDS: APIXABAN 5 MG TABLET PO (08:37)
[2024-01-08] MEDS: METFORMIN ER 500 MG 1000 MG PO (08:37)
[2024-01-08] MEDS: EMPAGLIFLOZIN 10 MG TABLET 25 MG PO (08:38)
[2024-01-08] MEDS: FUROSEMIDE 20 MG TABLET PO (08:38)
[2024-01-08] MEDS: TAMSULOSIN HCL 0.4 MG CAPSULE PO (08:38)
--- NOTE | 2024-01-08 10:37 | P.DS_ITS ---
DS: Providers Provider Date Seen: 01/08/24 Date of admission: 01/06/24 17:55 Primary care physician: LAURITA CASTELAN DO Admitting Clinician: Snow Han MD Consults: PT, OT, SW Attending Physician on discharge: Althea Joiner MD Date of Discharge: 01/08/24 DS: Diagnosis Discharge Diagnosis (1) Acute CVA (cerebrovascular accident): Status: Acute Problem details: - bilateral white matter acute lesions (formal MRI read below), most c/s proximal occlusion and/or a hemodynamic event (bradycardia/hypotension?) - no evidence of severe stenosis on neck CTA - received 325mg ASA but will defer formal long term care social worker antiplatelet therapy to Stroke Neurology (appreciate their input) - TTE pending, work on better glucose control - permissive HTN, prn IVF boluses to treat hypotension with holding parameters on medications - therapies following, currently not meeting SNF criteria but will likely need more supervision at home 2/2 fall risk, already receiving Home Health MRI findings: 1. Small acute to early subacute infarctions within the bilateral centrum semiovale 2. 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 (6) Type 2 diabetes mellitus: Status: Acute Problem details: - non-insulin dependent: Jardiance, Tradjenta, metformin - unclear how well he is managing his medications at home alone (has home health RN) - A1C was 9.8 on 12/25/23 - continue home meds, stressed importance of better glucose control (7) CAD (coronary artery disease): Status: Acute Problem details: - S/P ND x 2, 6 total stents (last 2015) - NSTEMI in 2014 (two drug-eluting stents placements, 3rd Marginal and mid-RCA) - NSTEMI in 2016 (RCA, s/p x4 COLLEEN) - Metoprolol, Lasix (8) Aortic stenosis: Status: Acute Problem details: - TTE ordered 01/07/24 with results below: Final Impressions: 1. Normal LV size, moderately increased wall thickness, normal global systolic function with an estimated EF of 70 - 75%. 2. Right ventricular cavity size is normal, global systolic RV function is normal. 3. Grade 2 pattern of LV diastolic filling. 4. Moderate aortic stenosis. 5. Mild to moderate mitral stenosis. Mean gradient 6 mmHg at HR 70 BPM. (9) Hyperlipidemia: Status: Acute Problem details: - has historically not tolerated statins 2/2 large pill size, amenable to trial of Rosuvastatin for LDL of 95 (goal <70) - discharge home on this (10) BPH (benign prostatic hyperplasia): Status: Acute Problem details: - Flomax (11) Depression: Status: Acute Problem details: - Remeron QHS (12) Hearing loss: Status: Acute Problem details: - wearing hearing aides bilaterally DS: Summary Hospital Course Hospital Course: Martin was admitted to the hospital after having an episode of weakness and dizziness at home. Imaging revealed bilateral white matter infarcts. Comorbidities with details noted above. Jorge was seen by Stroke Neurology during stay, statin added to medication regimen. He will continue Eliquis as anticoagulation (h/o DVT and PE). Noted to have a reassuring TTE during stay. Seen by therapies, did not meet criteria for SNF stay, but noted to have cognitive deficits that will require more assistance at home (patient also has chronic balance problems, and family has been working on moving him to [facility]). Upon discharge, recommendation that he not be driving and that he has someone checking in on him regularly until the move to [place]. Status at Discharge Functional status at discharge: uses cane/walker Time Spent with Patient Time attestation: Total time spent providing and/or coordinating discharge services: Time spent: Greater than 30 minutes Specific discharge activities: family updates, medication reconciliation, documentation Exam Narrative: Exam Narrative: GEN: Alert and sitting comfortably in bedside chair HEENT: Bilateral hearing aides, EOMIs bilaterally, no scleral icterus CV: RRR, Blowing systolic murmur R: LCTA bilaterally Skin: Scattered bruising on extremities, one eschar-covered healing wound on RLE Neuro: No focal deficits while seated in chair, no resting tremor Psych: Appears to have mild cognitive impairment, no agitation Const: Vital Signs, click to edit/add: Vital Signs - 24 hr 01/07/24 11:46 01/07/24 12:29 01/07/24 12:33 Temperature 98.1 F Pulse Rate Pulse Rate [Pulse Oximeter] 82 82 Respiratory Rate 16 Blood Pressure [Le ft Arm] 107/57 L Pulse Oximetry 98 96 [facility] 01/07/24 16:14 01/07/24 16:20 01/07/24 16:20 Temperature Pulse Rate Pulse Rate [Pulse Oximeter] 70 100 Respiratory Rate 20 Blood Pressure [Le ft Arm] 151/84 H Pulse Oximetry 100 100 [facility] 01/07/24 16:26 01/07/24 19:50 01/07/24 20:00 Temperature Pulse Rate 74 76 Pulse Rate [Pulse Oximeter] 75 Respiratory Rate Blood Pressure [Le ft Arm] Pulse Oximetry [facility] 01/07/24 20:00 01/07/24 20:00 01/07/24 23:20 Temperature Pulse Rate Pulse Rate [Pulse Oximeter] 75 75 Respiratory Rate 16 Blood Pressure [Le ft Arm] 108/73 Pulse Oximetry 97 98 [facility] 01/07/24 23:20 01/07/24 23:20 01/08/24 00:39 Temperature 97.9 F Pulse Rate 69 Pulse Rate [Pulse Oximeter] 74 74 Respiratory Rate 16 Blood Pressure [Le ft Arm] 123/77 Pulse Oximetry 98 [facility] 01/08/24 01:43 01/08/24 03:10 01/08/24 03:31 Temperature 98.1 F 98.0 F Pulse Rate Pulse Rate [Pulse Oximeter] 71 63 71 Respiratory Rate 18 16 Blood Pressure [Le ft Arm] 93/53 L 107/69 Pulse Oximetry 96 100 [facility] Room Air 01/08/24 08:48 01/08/24 08:49 01/08/24 09:18 Temperature 97.8 F Pulse Rate Pulse Rate [Pulse Oximeter] 68 68 Respiratory Rate 16 Blood Pressure [Le ft Arm] 150/78 H Pulse Oximetry 98 98 [facility] 01/08/24 09:19 Temperature Pulse Rate Pulse Rate [Pulse Oximeter] 68 Respiratory Rate 16 Blood Pressure [Le ft Arm] Pulse Oximetry Oxygen Delivery Me thod DS: Data Data Completed and Pending Labs on day of discharge: Labs from last 24 hours 01/08/24 05:43 WBC 8.08 RBC 4.17 L Hgb 12.6 L Hct 38.6 MCV 93 MCH 30 MCHC 33 RDW Coeff of Susi 12.8 Plt Count 174 Neut % (Auto) 73.5 H Lymph % (Auto) 16.1 L [place] % (Auto) 7.2 Eos % (Auto) 1.9 Baso % (Auto) 0.4 Neut # (Auto) 5.90 Lymph # (Auto) 1.30 Amite # (Auto) 0.60 Eos # (Auto) 0.15 Baso # (Auto) 0.03 Abs Immat Gran (auto) 0.07 Imm/Tot Granulo (auto) 0.9 Sodium 136 Potassium 4.0 Chloride 108 Carbon Dioxide 21 Anion Gap 7 BUN 23 Creatinine 1.0 Estimated Creat Clear 60.51 Estimated GFR 73 Glucose 167 H Calcium 8.5 Discharge Plan Discharge Disposition: Home, Self-Care Date of Admission: 01/06/24 17:55 Attending Provider on Discharge: Althea Joiner Primary Care Provider: LAURITA CASTELAN Condition: Stable Anticipated Discharge Date/Time: 01/08/24 10:02 Discharge Medications: New rosuvastatin 10 mg Tablet 10 mg PO HS Qty: 30 0RF Continued metoprolol succinate 100 mg tablet extended release 24 hr 100 mg PO DAILY metformin 500 mg tablet extended release 24 hr 2,000 mg PO DAILY Tradjenta 5 mg tablet 5 mg PO QAM furosemide 20 mg tablet 20 mg PO QAM Eliquis 5 mg tablet 5 mg PO BID Jardiance 25 mg tablet 25 mg PO DAILY tamsulosin 0.4 mg capsule 0.4 mg PO DAILY mirtazapine 7.5 mg tablet 7.5 mg PO HS calcium carbonate [Calcium Antacid] 200 mg calcium (500 mg) tablet,chewable 200 - 400 mg PO Q3H PRN nitroglycerin 0.4 mg tablet, sublingual 0.4 mg sublingual Q5M PRN (Reason: angina) No Action (DME) OneTouch Verio test strips Strip MISCELLANEOUS BID Discharge Orders: Discharge Order (Routine); Ordered 08/02/24 Ordered By: Althea Joiner Patient Education: Rosuvastatin (By mouth), Stroke (DC) Additional Instructions: New medication is ROSUVASTATIN (sent to [place]) - it's a SMALL pill for cholesterol that you take every evening. No other medication changes at this time. You should make sure you have someone checking on you at home at least once/day given your chronic balance issues/fall risk. We also recommend no further driving until you're formally assessed for this. See Dr. Castelan for a hospital f/u as scheduled. Activity Level: No strenuous activity Discharge Diet: Diabetic Follow Up Appointments: LAURITA CASTELAN DO [Primary Care Provider] - 01/14/24 1:40 pm ( [facility] for follow-up.) Forms: [employer] Info Instructions
[2024-01-08] MEDS: INSULIN ASPART 100 UNIT/ML SUBCUT (13:13)
--- NOTE | 2024-01-08 13:53 | PC.SOCIAL ---
Addendum entered by LAI Nye 01/08/24 14:29: Discharge planning: In a correction to yesterday's notes, this psychosocial rehabilitation counselor found out today that pt's home care nurse, Diego, is from [facility] and not [facility]. nuclear plant construction worker updated Lynn at [facility]. with this information and Lynn was going to plan to reach out to Diego directly to clear up any confusion there may be, so that services are not being duplicated. Lynn said that [facility]. received the referral for home care from pt's PCP, Dr. Castelan at [facility] in [place]. Social work to follow-up as needed. Original Note: Discharge planning: Pt will be discharging home today with home care from [facility]. in place. Pt will have OT/PT/[employer] and mcc through [facility]. nuclear plant construction worker notified Lynn at [facility] [employer] [facility] [place], [facility]. that pt was discharging today and faxed her the new face to face sheet for home care orders. nuclear plant construction worker also faxed Lynn a copy of the discharge summary. nuclear plant construction worker provided the pt with a copy of The Important Message from Medicare form and explained the hospital discharge appeal process. Pt was not interested in appealing his discharge and was looking forward to going home later today. Pt's daughter will pick him up at 2pm today. nuclear plant construction worker notified Camila at [facility] that pt was discharging home today with home care in place, but was still interested in moving into [facility] earlier than January,, if possible. Camila shared that her and Los(academic affairs coordinator at [facility]) would reach out to the pt and his daughter soon. Social work to follow-up as needed.
--- NOTE | 2024-01-08 15:23 | PC.NURSE ---
Discharge: Patient alert and oriented. VSS, afebrile. Patient was slightly hypotensive at 1100 vitals, 250 bolus completed. Patient voiced his concern multiple times this shift of not being able to get up and go to the bathroom by himself, I explained to the patient the importance of staff making sure that he is safe during his stay at the hospital and we do not want him to fall here, after some time of explaining this to him, he voiced his understanding. IV removed with tip intact. Discharge instructions provided, all questions answered. New prescriptions sent to patients pharmacy. Patient discharged to home with his daughter via wheelchair at 1500.
== END 2024-01-08 15:00 | disposition home or self-care (01) | DRG 66 ==
LOC: ED 15:34 → MEDSURG 16:06
PROVIDERS: Family Medicine; Admitting Provider Family Medicine; Emergency Provider Student in an Organized Health Care Education/Training Program; PCP Student in an Organized Health Care Education/Training Program; Visit Provider Family Medicine
DX: I63.523 Cerebral infarction due to unspecified occlusion or stenosis of bilateral anterior cerebral arteries (principal); R42 Dizziness and giddiness; Z79.01 Long term (current) use of anticoagulants; I10 Essential (primary) hypertension; E11.42 Type 2 diabetes mellitus with diabetic polyneuropathy; Z79.84 Long term (current) use of oral hypoglycemic drugs; I08.0 Rheumatic disorders of both mitral and aortic valves; E78.5 Hyperlipidemia, unspecified; Z86.718 Personal history of other venous thrombosis and embolism; I25.10 Atherosclerotic heart disease of native coronary artery without angina pectoris; N40.0 Benign prostatic hyperplasia without lower urinary tract symptoms; F32.A Depression, unspecified; R29.6 Repeated falls; H91.93 Unspecified hearing loss, bilateral
CPT/HCPCS: 36415; 70450; 70498; 70551; 72125; 80048; 80053; 80061; 81001; 82962; 83036; 84443; 84484; 85025; 87086; 87631; 93005; 93306; 96374; 97112; 97116; 97162; 97165; 97530; 97535; 99283; 99285; G0427; A9270; J7050; J7120; Q9967

== ENCOUNTER 2024-03-22 12:39 | Outpatient (CLI) | payer MEDICARE, SELFPAY ==
--- OUTSIDE RECORDS SUMMARY | 2024-03-22 12:41 | XMS_ITS | Clinical Summary ---
Author Organization [facility] Address [place], [place] [address] Care Team Providers Care Deck Molder Name Role Phone Alexandra Castelan DO Primary Care Provider [phone] [facility], [place] Unavailable [phone] Allergies Active Allergy Reactions Criticality Noted Date [...] days 6 Each 3 09/18/2022 Active psyllium powdIndications:Stock Room Manager mathew constipation Mix 1 tsp in liquid [...] be used to read blood sugars per counsel's directions. 1 Each 07/13/2023 Active blood-glucose meterIndications:Typ [...] PAIN PERSISTS 25 Tablet 6 10/23/2023 Active metoprolol succinate (Toprol XL) 100 mg [...] once daily. 90 Tablet 3 12/25/2023 Active rosuvastatin (CRESTOR) 10 mg tablet Take 10 mg by mouth at bedtime. 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 30 Tablet 2 01/14/2024 04/13/2024 Active Bismuth Tribrom-Petrolatum,W h 2 X 2 bndgIndications:Skin tear of left hand without complication, initial encounter Apply topically to affected area(s). 25 Each 01/21/2024 Active Transparent Dressings (Tegaderm) 2 X 2 3/4 bndgIndications:Skin tear of left hand without complication, initial encounter Apply topically to affected area(s). 25 Each 01/21/2024 Active zinc oxide ointmentIndications: Wound of right buttock, initial encounter Apply topically to affected area(s) two times daily. 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 05/25/2017 09/18/2022 Presence of coronary angioplasty implant and gra ft 05/25/2017 09/18/2022 Retinal disorder 05/25/2017 09/18/2022 Overview (09/18/2022): Left eye 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) Resolved Problems Problem Noted Date Diagnosed Date Resolved Date Pulmonary emboli 08/29/2022 06/25/2023 Encounters Date Type Department Care Team Description 03/09/2024 Telephone [facility] [address] [place] [address] Alexandra Castelan DO Questions (Wound Care Consult Order and Zinc Ointment) 03/08/2024 Orders Only [facility] [address] [place] [address] Alexandra Castelan DO <No scans attached> 01/21/2024 Telephone [facility] [address] [place] [address] Alexandra Castelan DO Need Meds 01/14/2024 1:40 PM CDT Office Visit [facility] [address] [place] [address] Alexandra Castelan DO Hospital F/U (01/08/2024 - back home, feeling very weak in legs ) 01/14/2024 Travel 01/12/2024 8:15 AM CDT Home Care Visit [facility] [address] [place] [address] Qian Torres RN SN - NOT TAKEN UNDER HOME CARE - HOME VISIT 01/08/2024 Travel 01/08/2024 Nurse Triage [facility] [address] [place] [address] Alexandra Castelan DO Home Care 01/07/2024 5:00 PM CDT Ancillary Procedure [facility] [address] [place] [address] 01/07/2024 Telephone [facility] [address] [place] [address] Alexandra Castelan DO Referral (Home Care ) 01/07/2024 Office Visit [address] [address] Cristela Lagunas MD 01/06/2024 Orders Only [facility] Scanner 1 scan: (1-Ord) [facility], CT ANGIO NECK, 01/06/2024 01/06/2024 Orders Only [facility] Scanner 1 scan: (1-Ord) [facility], HEAD/BRAIN WO CON, 01/06/2024 01/06/2024 Orders Only [facility] Scanner 1 scan: (1-Ord) [facility] CT HEAD W/O CONTRAST, 01/06/2024 12/30/2023 Telephone [facility] [address] [facility] [place] [address] Emely Almanzar MD Referral 12/28/2023 Orders Only [facility] [address] [place] [address] Emely Almanzar MD 1 scan: (1-Ord) [facility]-EKG-12/25/23 12/28/[address] [address] Emely Almanzar MD [facility] Closing; Need to find new one 12/25/2023 2:15 PM CDT Office Visit [address] [address] Emely Almanzar MD Falls (2 falls, home health asked pt be evaluated. /a few days ago, fell on elbows. no one else present. Did not hit his head. ) 12/25/2023 1:30 PM CDT Orders Only [address] [address] Lab, [facility] 12/25/[address] [address] Alexandra Castelan DO Results 12/25/2023 Orders Only [address] [address] Alexandra Castelan, DO <No scans attached> 12/25/2023 Travel 12/24/[address] [address] Alexandra Castelan DO Fall (Fall on thursday) 12/23/[address] [address] Alexandra Castelan DO Medication Management (Fax) 12/23/[address] [address] Alexandra Castelan DO Refill Request (Atorvastatin) from Last 3 Months Immunizations Name Administration Dates Next Due COVID-19 VACCINE SPIKEVAX (M ODERNA 50MCG/0.5ML) 12YO+ PFS 04/02/2023 COVID-19 vaccine ([facility] NT[facility] 30mcg/0.3mL) 12YO+ RYAN-SUCROSE PF, MDV 10/22/2021 COVID-19 vaccine ([employer] NTech 30mcg/0.3mL) PF, MDV 04/23/2021,08/09/2020,07/19/2020 DT (Age [...] Years Used Date Smoking Tobacco: Former Cigarettes Q uit: 1959 Smokeless Tobacco: Never Tobacco Cessation:Counseling Given: [...] Sign Reading Time Taken Comments Blood Pressure 129/75 01/14/2024 1:58 PM CDT Pulse 70 01/14/2024 1:58 PM CDT Temperature 36.4 ??C (97.6 ??F) 08/24/2023 2:59 PM CD T Respiratory Rate 16 08/24/2023 2:59 PM CDT Oxygen Saturation 100% 01/14/2024 1:58 PM CDT Inhaled Oxygen Concentration - - Weight 86.6 kg (191 lb) 01/14/2024 1:58 PM CDT Height 188 cm (6' 2) 07/17/2023 1:14 PM DOBIE WORKER Body Mass Index 24.52 07/17/2023 1:14 PM DOBIE WORKER Plan of Treatment Health Maintenance Due Date Last Done Comments RSV vaccine for adults or (1 - 1-dose 75+ series) 08/24/2011 Tetanus booster 03/11/2022 03/11/2012 Depression screening for age 12+ 09/19/2023 09/19/19 23, 08/21/2015 Medicare Wellness for age 65+ 09/19/2023 09/18/2022 BMI (ht and wt on same day) for age 18+ 12/27/2023 12/26/2022, 09/18/2022, 09/04/2022, Additional history exists COVID-19 vaccine series ( season) 2024 04/02/2023, 04/07/2022, 10/22/2021, Additional history exists Influenza for age 65+ 02/07/2024 02/27/2023 , 04/03/2022, 03/11/2021, Additional history exists Tdap Completed 03/11/2012 Pneumococcal series for age 65+ Completed 5, 03/17/2006 Zoster (shingles) series for age 50+ Completed 05/10/2020, 02/02/2020, 07/07/2014 Procedures Procedure Name Priority Date/Time Associated Diagnosis Comments ECHO TTE COMPLETE WO CONTRAST W BUBBLE Routine 01/07/2024 5:45 PM CDT CVA (cerebral vascular accident) (HC) SCAN-CT INTERPRETATION 4 12:00 AM CDT SCAN-MRI INTERPRETATION 01/06/2024 12:00 AM CDT SCAN-CT INTERPRETATION 4 12:00 AM CDT EKG 12 LEAD Routine 12/28/2023 12:52 PM CDT History of falling Atherosclerosis of red devil coronary artery of red devil heart without angina pectoris 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 Presence of coronary angioplasty implant and graft WA READING EKG - NO CHARGE, COMP ONLY Routine 12/28/2023 12:51 PM CDT History of falling Atherosclerosis of red devil coronary artery of red devil heart without angina pectoris 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 Presence of coronary angioplasty implant and graft CBC WITH AUTO DIFFERENTIAL Add On 12/25/2023 1:20 PM CDT History of falling CBC WITH AUTO DIFFERENTIAL Add On 12/25/2023 1:20 PM CDT History of falling HEMOGLOBIN A1C MONITORING (POCT) Routine 12/25/2023 1:20 PM CDT Type 2 diabetes mellitus with other circulatory complications (HC) from Last 3 Months Results * ECHO TTE COMPLETE WO CONTRAST W BUBBLE (01/07/2024 5:45 PM CDT) AORTIC VALVE MEAN PG 24 mmHg EJECTION FRACTION 77 % PEAK TR VELOCITY 2.2 m/s LVEDD 3.8 cm EJECTION FRACTION 70 - 75% Anatomical Region Laterality Modality Ultrasound 01/07/2024 4:57 PM CDT Narrative 01/08/2024 8:12 AM CDT ECHOCARDIOGRAM CORINA CRABTREE ? Accession#: ?? [id number] : ?1935 88 years Study Date: ?? 01/07/2024 4:57:16 PM Gender: M ?BP: ? 149/88 mmHg Height: 183.00 cm ?BSA: ?2.09 m? ? ? Weight: 87.00 kg ? Tech: ? MCK ? Referring MD: SNOW VERGARA Site: ? [facility] Reading Location: [facility] Patient Location: Procedure: 2D w/ Bubbles, Color Doppler and Spectral Doppler. Indication for study: CVA Cardiac Rhythm: Regular.Study quality: Fair. Final Impressions: 1. Normal LV size, moderately increased wall thickness, normal global systolic function with an estimated EF of 70 - 75%. 2. Right ventricular cavity size is normal, global systolic RV function is normal. 3. Grade 2 pattern of LV diastolic filling. 4. Moderate aortic stenosis. 5. Mild to moderate mitral stenosis. Mean gradient 6 mmHg at HR 70 BPM. Comparison Compared to prior exam: Progression of aortic and mitral stenosis. Chamber Sizes and Function Normal left ventricular size, moderately increased wall thickness, normal global systolic function with an estimated EF of 70 - 75%. Left atrial size is normal. Left atrial pressure is increased. Right ventricular cavity size is normal, global systolic RV function is normal. RV wall thickness is normal. The right atrium is normal. Right atrial volume index is 17 ml/m? ? ?. Right atrial area is 15 cm? ? ?. The pulmonary artery is not well visualized. The sinus of Valsalva is normal sized. The ascending aorta is normal sized. Valves, RV Pressures and Diastolic Function The aortic valve is trileaflet and calcified, moderate stenosis and no regurgitation. The mitral valve is degenerative, trace mitral regurgitation. Moderate mitral annular calcification is present. Spectral Doppler shows Grade 2 pattern of LV diastolic filling. The tricuspid valve is not well visualized. Tricuspid regurgitation is trace regurgitation. The tricuspid regurgitant velocity is 2.2 m/s, the estimated right ventricular systolic pressure is 19 mmHg plus right atrial pressure. There is normal estimated pulmonary pressure by tricuspid regurgitation velocity and right atrial pressure. The pulmonic valve is not well visualized. Trace pulmonary regurgitation. Masses, Effusion, Shunts There is no pericardial effusion. The inferior vena cava is not well visualized, respiratory size variation not well visualized. Interatrial septum is not well visualized. MEASUREMENTS AND CALCULATIONS 2-D Measurements and LV Function: LVID (d) 3.8 cm LV FS% (2D) ?? 47 % LVID (s) 2.0 cm LVOT diameter 2.0 cm IVS (d) ??1.4 cm HR ?70 bpm LVPW (d) 1.4 cm LA Vol index ??27 ml/m2 Ao Sinus 3.8 cm RA Vol index ??17 ml/m2 Asc Ao ?? 3.7 cm RA area ? 15 cm? ? ? LA ? 4.5 cm RV Max 4C (d) 4.7 cm Diastology: Mitral ?Tissue Doppler E Peak 1.2 m/s ??e', Septum ? 0.05 m/s A Peak 2.0 m/s ??e', Lateral ?0.07 m/s E/A ?0.6 ?E/e' Average ?? 20.68 DT ? 558 msec Aortic Valve: Vmax ? 3.3 m/s ??EITAN (V) ?? 1.22 cm? ? ? VTI ?0.72 m ?? EITAN (I) ?? 1.32 cm? ? ? LVOT V max 1.3 m/s ??Max PG ?43 mmHg LVOT VTI ?? 0.30 m ?? Mean PG ?? 24 mmHg SV ? 95 ml ?Dim Index 0.42 SV index ?? 45 ml/m? ? ? CO ?6.6 l/min ?CI ?3.2 l/min/m? ? ? Mitral Valve: MVA ? 1.4 cm? ? ? MV P 1/2 ??162 msec MV Mean G 6 mmHg MV VTI ?0.61 m Tricuspid Valve and estimated PA pressures: TR Vmax 2.2 m/s TAPSE 1.7 cm TR maxG 19 mmHg . This study was interpreted by an [facility] accredited facility. CC: HIM (med records) [facility], Med/Surg - IP [facility]. ??Final ?? Procedure Note Ziyad Charles MD - 01/08/2024 ECHOCARDIOGRAM CORINA CRABTREE : 1935 88 years Study Date: 01/07/2024 4:57:16 PM Gender: M BP: 149/88 mmHg Height: 183.00 cm BSA: 2.09 m? ? ? Weight: 87.00 kg Tech: JOSE RAMON Referring MD: SNOW VERGARA Site: [facility] Reading Location: [facility] Patient Location: Procedure: 2D w/ Bubbles, Color Doppler and Spectral Doppler. Indication for study: CVA Cardiac Rhythm: Regular.Study quality: Fair. Final Impressions: 1. Normal LV size, moderately increased wall thickness, normal globalsystolic function with an estimated EF of 70 - 75%. 2. Right ventricular cavity size is normal, global systolic RV functionis normal. 3. Grade 2 pattern of LV diastolic filling. 4. Moderate aortic stenosis. 5. Mild to moderate mitral stenosis. Mean gradient 6 mmHg at HR 70 BPM. Comparison Compared to prior exam: Progression of aortic and mitral stenosis. Chamber Sizes and Function Normal left ventricular size, moderately increased wall thickness, normalglobal systolic function with an estimated EF of 70 - 75%. Left atrialsize is normal. Left atrial pressure is increased. Right ventricularcavity size is normal, global systolic RV function is normal. RV wallthickness is normal. The right atrium is normal. Right atrial volume indexis 17 ml/m? ? ?. Right atrial area is 15 cm? ? ?. The pulmonary artery is notwell visualized. The sinus of Valsalva is normal sized. The ascendingaorta is normal sized. Valves, RV Pressures and Diastolic Function The aortic valve is trileaflet and calcified, moderate stenosis and noregurgitation. The mitral valve is degenerative, trace mitralregurgitation. Moderate mitral annular calcification is present. SpectralDoppler shows Grade 2 pattern of LV diastolic filling. The tricuspid valveis not well visualized. Tricuspid regurgitation is trace regurgitation.The tricuspid regurgitant velocity is 2.2 m/s, the estimated rightventricular systolic pressure is 19 mmHg plus right atrial pressure. Thereis normal estimated pulmonary pressure by tricuspid regurgitation velocityand right atrial pressure. The pulmonic valve is not well visualized.Trace pulmonary regurgitation. Masses, Effusion, Shunts There is no pericardial effusion. The inferior vena cava is not wellvisualized, respiratory size variation not well visualized. Interatrialseptum is not well visualized. MEASUREMENTS AND CALCULATIONS 2-D Measurements and LV Function: LVID (d) 3.8 cm LV FS% (2D) 47 % LVID (s) 2.0 cm LVOT diameter 2.0 cm IVS (d) 1.4 cm HR 70 bpm LVPW (d) 1.4 cm LA Vol index 27 ml/m2 Ao Sinus 3.8 cm RA Vol index 17 ml/m2 Asc Ao 3.7 cm RA area 15 cm? ? ? LA 4.5 cm RV Max 4C (d) 4.7 cm Diastology: Mitral Tissue Doppler E Peak 1.2 m/s e', Septum 0.05 m/s A Peak 2.0 m/s e', Lateral 0.07 m/s E/A 0.6 E/e' Average 20.68 DT 558 msec Aortic Valve: Vmax 3.3 m/s EITAN (V) 1.22 cm? ? ? VTI 0.72 m EITAN (I) 1.32 cm? ? ? LVOT V max 1.3 m/s Max PG 43 mmHg LVOT VTI 0.30 m Mean PG 24 mmHg SV 95 ml Dim Index 0.42 SV index 45 ml/m? ? ? CO 6.6 l/min CI 3.2 l/min/m? ? ? Mitral Valve: MVA 1.4 cm? ? ? MV P 1/2 162 msec MV Mean G 6 mmHg MV VTI 0.61 m Tricuspid Valve and estimated PA pressures: TR Vmax 2.2 m/s TAPSE 1.7 cm TR maxG 19 mmHg . This study was interpreted by an [facility] accredited facility. CC: HIM (med records) [facility], Med/Surg - IP [facility]. Final Snow Vergara MD ECHO ORD * SCAN-MRI INTERPRETATION (01/06/2024 12:00 AM CDT) Anatomical Region Laterality Modality Other Scanner OTHER * SCAN-CT INTERPRETATION (01/06/2024 12:00 AM CDT) Only the most recent of2 resultswithin the time period is included. Anatomical Region Laterality Modality Other Scanner OTHER * EKG 12 LEAD (12/28/2023 12:52 PM CDT) Emely Almanzar MD EKG ORD * WA READING EKG - NO CHARGE, COMP ONLY (12/28/2023 12:51 PM CDT) Emely Almanzar MD PB - PROVI JOSE ANTONIO READINGS * CBC WITH AUTO DIFFERENTIAL (12/25/2023 1:20 PM CDT) Pathologist [facility] WHITE BLOOD COUNT 8.8 4.5 - 11.0 thou/cu mm 12/25/2023 2:54 PM CDT [facility] RED BLOOD COUNT 4.79 4.30 - 5.90 mil/cu mm 12/25/2023 2:54 PM CDT [facility] HEMOGLOBIN 14.6 13.5 - 17.5 g/dL 12/25/2023 2:54 PM CDT [facility] HEMATOCRIT 44.3 37.0 - 53.0 % 12/25/2023 2:54 PM CDT [facility] MCV 93 80 - 100 fL 12/25/2023 2:54 PM CDT [facility] MCH 30.5 26.0 - 34.0 pg 12/25/2023 2:54 PM CDT [facility] MCHC 33.0 32.0 - 36.0 g/dL 12/25/2023 2:54 PM CDT [facility] RDW 13.3 11.5 - 15.5 % 12/25/2023 2:54 PM CDT [facility] PLATELET COUNT 192 140 - 440 thou/cu mm 12/25/2023 2:54 PM CDT [facility] MPV 9.8 6.5 - 11.0 fL 12/25/2023 2:54 PM CDT [facility] % NEUT 67.6 % 12/25/2023 2:54 PM CDT [facility] % LYMPH 20.4 % 12/25/2023 2:54 PM CDT [facility] % MONO 7.5 % 12/25/2023 2:54 PM CDT [facility] % EOS 4.2 % 12/25/2023 2:54 PM CDT [facility] % BASO 0.3 % 12/25/2023 2:54 PM CDT [facility] ABSOLUTE NEUTROPHILS 6.0 1.7 - 7.0 thou/cu mm 12/25/2023 2:54 PM CDT [facility] ABSOLUTE LYMPHOCYTES 1.8 0.9 - 2.9 thou/cu mm 12/25/2023 2:54 PM CDT [facility] ABSOLUTE MONOCYTES 0.7 <0.9 thou/cu mm 12/25/2023 2:54 PM CDT [facility] ABSOLUTE EOSINOPHILS 0.4 <0.5 thou/cu mm 12/25/2023 2:54 PM CDT [facility] ABSOLUTE BASOPHILS 0.0 <0.3 thou/cu mm 12/25/2023 2:54 PM CDT [facility] Blood BLOOD SPECIMEN / Unknown Venipuncture / Unknown 12/25/2023 1:20 PM CDT 12/25/2023 1:20 PM CDT Emely Almanzar MD HEMATOLOGY Performing Organization Address [facility] Co de Phone Number [facility] [address] [place] [address], [place] [phone] * (ABNORMAL) HEMOGLOBIN A1C MONITORING (POCT) (12/25/2023 1:20 PM CDT) HEMOGLOBIN A1C MONITORING (POCT) 9.8(H) <=6.4 % 12/25/2023 1:30 PM CDT [facility] Blood BLOOD SPECIMEN / Unknown Venipuncture / Unknown 12/25/2023 1:20 PM CDT 12/25/2023 1:20 PM CDT Narrative [facility] - 12/25/2023 1:30 PM CDT ? [...] Alexandra Castelan DO CHEMISTRY Performing Organization Address [facility] Co de Phone Number [facility] [address] [place] [address], [place] [phone] from Last 3 Months Advance Directives Documents on File Type Date Recorded Patient Smog Technician Expl anation POLST 10/12/2023 * Full Code [...] 11:28 PM 05/08/2015 2:10 PM Care Teams Deck Molder Relationship Specialty Start Date End Date [place] [address] PCP - General Family Practice 10/29/22 [facility] [place] [address] [place] [address] 01/08/24
--- OUTSIDE RECORDS SUMMARY | 2024-03-22 12:41 | XMS_ITS | Clinical Summary ---
Author Organization [facility] Address [address] [address] Phone Care Team Providers Care Beater And Pulper Feeder Name Role Phone Unavailable Primary Care Provider [...]
== END 2024-03-22 12:40 | disposition home or self-care (01) ==
PROVIDERS: PCP Student in an Organized Health Care Education/Training Program; Visit Provider Nurse Practitioner Family
DX: L89.313 Pressure ulcer of right buttock, stage 3 (principal); E11.22 Type 2 diabetes mellitus with diabetic chronic kidney disease; N18.6 End stage renal disease; Z79.84 Long term (current) use of oral hypoglycemic drugs
CPT/HCPCS: 97602; G0463

== ENCOUNTER 2024-03-22 16:40 | Outpatient (CLI) | payer MEDICARE, SELFPAY ==
--- OUTSIDE RECORDS SUMMARY | 2024-03-27 11:03 | XMS_ITS | Clinical Summary ---
Author Organization [facility] Address [place], [place] [address] Care Team Providers Care Stained Glass Window Designer Name Role Phone Alexandra Castelan DO Primary Care Provider [phone] [facility] Care, [place] Unavailable [phone] Allergies Active Allergy Reactions Criticality Noted Date [...] days 6 Each 3 09/18/2022 Active psyllium powdIndications:Health Careers Instructor mathew constipation Mix 1 tsp in liquid [...] be used to read blood sugars per supervisor of communications's directions. 1 Each 07/13/2023 Active blood-glucose meterIndications:Typ [...] Without CHF Atherosclerotic heart diseas e of [place] coronary artery without angina pectoris 02/07/2016 08/29/2022 [...] Encounters Date Type Department Care Team Description 03/24/2024 Telephone [facility] [address] [place], [place] [phone] Alexandra Castelan DO Concerns (Patient Refusing Advised Care ); Referral 03/09/2024 Telephone [facility] [address] [place], [place] [id number] Alexandra Castelan DO Questions (Wound Care Consult Order and Zinc Ointment) 03/08/2024 Orders Only [facility] [address] [facility] [address] Alexandra Castelan DO <No scans attached> 01/21/2024 Telephone [facility] [address] [facility] [place] [address] Alexandra Castelan DO Need Meds 01/14/2024 1:40 PM CDT Office Visit [facility] [address] [place] [address] Alexandra Castelan DO Hospital F/U (01/08/2024 - back home, feeling very weak in legs ) 01/14/2024 Travel 01/12/2024 8:15 AM CDT Home Care Visit [facility] [address] [place] [phone] Qian Torres, HAMIDA SN - NOT TAKEN UNDER HOME CARE - HOME VISIT 01/08/2024 Travel 01/08/2024 Nurse Triage [facility] [address] [place] [address] Alexandra Castelan DO Home Care 01/07/2024 5:00 PM CDT Ancillary Procedure [facility] [place] [facility] [address] [place] [address] 01/07/2024 Telephone [facility] [address] [place] [address] Alexandra Castelan DO Referral (Home Care ) 01/07/2024 Office Visit [address] [address] Cristela Lagunas MD 01/06/2024 Orders Only [facility] Scanner 1 scan: (1-Ord) [facility], CT ANGIO NECK, 01/06/2024 01/06/2024 Orders Only [facility] Scanner 1 scan: (1-Ord) [facility], HEAD/BRAIN WO CON, 01/06/2024 01/06/2024 Orders Only [facility] Scanner 1 scan: (1-Ord) [place], CT HEAD W/O CONTRAST, 01/06/2024 12/30/2023 Telephone [facility] [address] [place] [address] Emely Almanzar MD Referral 12/28/2023 Orders Only [facility] [address] [place] [address] Emely Almanzar MD 1 scan: (1-Ord) NFLD-EKG-12/25/23 12/28/2023 Telephone [facility] [address] [place] [address] Emely Almanzar MD Nf Home Care Closing; Need to find new one from Last 3 Months Immunizations Name Administration Dates Next Due COVID-19 VACCINE SPIKEVAX (M ODERNA 50MCG/0.5ML) 12YO+ PFS 04/02/2023 COVID-19 vaccine (Pfizer-Bio NTech 30mcg/0.3mL) 12YO+ [...] 188 cm (6' 2) 07/17/2023 1:14 PM 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 Body Mass Index 24.52 07/17/2023 1:14 PM 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 Plan of Treatment Health Maintenance Due Date [...] PM CDT History of falling 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 Presence of coronary angioplasty implant and graft LA READING EKG - NO CHARGE, COMP ONLY Routine 12/28/2023 12:51 PM CDT History of falling 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 Accession#: ?? [id number] : ?1935 88 years Study Date: ?? 01/07/2024 4:57:16 PM Gender: M ?BP: ? 149/88 mmHg Height: 183.00 cm ?BSA: ?2.09 m? ? ? Weight: 87.00 kg ? Tech: ? MCK ? Referring MD: SNOW VERGARA Site: ? [facility] Reading Location: [facility] Patient Location: Procedure: 2D w/ Bubbles, Color [...] . This study was interpreted by an [facility] accredited facility. CC: HIM (med records) [facility], Med/Surg - IP [facility]. ??Final ?? Procedure Note Ziyad Charles MD - 01/08/2024 ECHOCARDIOGRAM CORINA CRABTREE : 1935 88 years Study Date: 01/07/2024 4:57:16 PM Gender: M BP: 149/88 mmHg Height: 183.00 cm BSA: 2.09 m? ? ? Weight: 87.00 kg Tech: JOSE RAMON Referring MD: SNOW VERGARA Site: [facility] Reading Location: [facility] Patient Location: Procedure: 2D w/ Bubbles, Color [...] . This study was interpreted by an [facility] accredited facility. CC: HIM (med records) [facility], Med/Surg - IP [facility]. Final Snow Vergara MD ECHO ORD * SCAN-MRI INTERPRETATION (01/06/2024 12:00 AM CDT) Anatomical Region Laterality Modality Other Scanner OTHER * SCAN-CT INTERPRETATION (01/06/2024 12:00 AM CDT) Only the most recent of2 resultswithin the time period is included. Anatomical Region Laterality Modality Other Scanner OTHER * EKG 12 LEAD (12/28/2023 12:52 PM CDT) Emely Almanzar MD EKG ORD * LA READING EKG - NO CHARGE, COMP ONLY (12/28/2023 12:51 PM CDT) Emely Almanzar MD PB - PROVI JOSE ANTONIO READINGS from Last 3 Months Advance Directives Documents on File Type Date Recorded Patient Bander Operator Karan granados POL 10/12/2023 * Full Code (Latest Code Status [...] 11:28 PM 05/08/2015 2:10 PM Care Teams Stained Glass Window Designer Relationship Specialty Start Date End Date [place] [address] PCP - General Family Practice 10/29/[address] [facility] [place] [address] 01/08/24
--- OUTSIDE RECORDS SUMMARY | 2024-03-27 11:03 | XMS_ITS | Clinical Summary ---
Author Organization [facility] Address [address] [address] Phone Care Team Providers Care Blueprint Reproducer Name Role Phone Unavailable Primary Care Provider Unavailabl e Allergies No known active allergies Medications clopidogrel (PLAVIX) 75 MG tablet Take 75 [...] Calcium Polycarbophil (FIBER-CAPS OR) Take by mouth. Active FIBER COMPLETE Tablet Take 2 Tabs by [...] Recorded Sex Assigned at Not on file Legal Sex Male 10:06 PM CDT Gender Identity Not on file Sexual Orientation [...]
== END 2024-03-22 16:41 | disposition home or self-care (01) ==
LOC: AMB 03-27 11:01
PROVIDERS: PCP Student in an Organized Health Care Education/Training Program; Visit Provider Emergency Medicine Emergency Medical Services
DX: T14.90XA Injury, unspecified, initial encounter (principal); W19.XXXA Unspecified fall, initial encounter; Y93.9 Activity, unspecified; Y92.009 Unspecified place in unspecified non-institutional (private) residence as the place of occurrence of the external cause
CPT/HCPCS: A0998

== ENCOUNTER 2024-04-04 14:12 | Outpatient (CLI) | payer MEDICARE, SELFPAY ==
--- OUTSIDE RECORDS SUMMARY | 2024-04-04 14:14 | XMS_ITS | Clinical Summary ---
Author Organization [facility] Address [address] [address] Phone Care Team Providers Care Manager Distribution Center Name Role Phone Unavailable Primary Care Provider [...]
--- OUTSIDE RECORDS SUMMARY | 2024-04-04 14:14 | XMS_ITS | Clinical Summary ---
Author Organization [facility] Address [place], [place] [address] Care Team Providers Care Holistic Pulser Name Role Phone Alexandra Castelan DO Primary Care Provider [phone] [facility] Care, [place] Unavailable Allergies Active Allergy Reactions Criticality Noted Date [...] days 6 Each 3 09/18/2022 Active psyllium powdIndications:Sander Machine mathew constipation Mix 1 tsp in liquid [...] be used to read blood sugars per sheet writer's directions. 1 Each 07/13/2023 Active blood-glucose meterIndications:Typ [...] two times daily. 57 g 03/08/2024 Active durable medical equipment (DME)Indications:Wou nd of skin ROHO cushion for wheel chair 1 Each 03/31/2024 Active Active Problems Problem Noted Date Diagnosed [...] Without CHF Atherosclerotic heart diseas e of [place] coronary artery without angina pectoris 02/07/2016 08/29/2022 [...] Encounters Date Type Department Care Team Description 03/29/2024 Telephone [facility] [address] [place], [place] [phone] Alexandra Castelan DO ACC Order Request (BENJI sommer) 03/24/2024 Telephone [facility] [address] [place], [place] [phone] Alexandra Castelan DO Concerns (Patient Refusing Advised Care ); Referral 03/09/2024 Telephone [facility] [address] [place] [address] Alexandra Castelan DO Questions (Wound Care Consult Order and Zinc Ointment) 03/08/2024 Orders Only [facility] [address] [place] [address] Alexandra Castelan DO <No scans attached> 01/21/2024 Telephone [facility] [address] [facility] [place] [address] Alexandra Castelan DO Need Meds 01/14/2024 1:40 PM CDT Office Visit [facility] [address] [facility] [place] [address] Alexandra Castelan DO Hospital F/U (01/08/2024 - back home, feeling very weak in legs ) 01/14/2024 Travel 01/12/2024 8:15 AM CDT Home Care Visit [facility] [address] [place] [address] Qian Torres RN SN - NOT TAKEN UNDER HOME CARE - HOME VISIT 01/08/2024 Travel 01/08/2024 Nurse Triage [facility] [address] [place] [address] Alexandra Castelan DO Home Care 01/07/2024 5:00 PM CDT Ancillary Procedure [facility] [place] [facility] [address] [place] [address] 01/07/2024 Telephone [facility] [address] [place] [address] Alexandra Castelan DO Referral (Home Care ) 01/07/2024 Office Visit [facility] [address] [place] [address] Cristela Lagunas MD 01/06/2024 Orders Only [facility] Scanner 1 scan: (1-Ord) [facility], CT ANGIO NECK, 01/06/2024 01/06/2024 Orders Only [facility] Scanner 1 scan: (1-Ord) [facility], HEAD/BRAIN WO CON, 01/06/2024 01/06/2024 Orders Only [facility] Scanner 1 scan: (1-Ord) [place], CT HEAD W/O CONTRAST, 01/06/2024 from Last 3 Months Immunizations Name Administration Dates Next Due COVID-19 VACCINE SPIKEVAX (M ODERNA 50MCG/0.5ML) 12YO+ PFS 04/02/2023 COVID-19 vaccine (liveMag.ro-Bio NTech 30mcg/0.3mL) 12YO+ RYAN-SUCROSE PF, MDV 10/22/2021 COVID-19 vaccine (liveMag.ro-Bio NTech 30mcg/0.3mL) PF, MDV 04/23/2021,08/09/2020,07/19/2020 DT (Age [...] 2 09/18/2022 Social Connections Answer Date Recorded Do you often feel lonely or isolated from those around you? 0 09/24/2023 Financial Resource Strain Answer Date R ecorded Difficulty of Paying Living Expenses 3 09/24/2023 Difficulty of Paying Living Expenses Not on file 09/24/2023 Food Insecurity Answer Date Recorded Do you worry your food will run out before you are able to buy more? 1 09/24/2023 Transportation Needs Answer Date Record ed Does lack of transportation keep you from medica l appointments? 1 09/24/2023 Does lack of transportation keep you from work, meetings or getting things that you need? 1 09/24/2023 Housing Stability Answer Date Recorded What is your housing situation today? 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 Accession#: ?? [id number] : ?1935 88 years Study Date: ?? 01/07/2024 4:57:16 PM Gender: M ?BP: ? 149/88 mmHg Height: 183.00 cm ?BSA: ?2.09 m? ? ? Weight: 87.00 kg ? Tech: ? MCK ? Referring MD: SNOW VERGARA Site: ? [facility] Reading Location: [facility] Patient Location: Procedure: 2D w/ Bubbles, Color [...] . This study was interpreted by an [facility] accredited facility. CC: HIM (med records) [facility], Med/Surg - IP [facility]. ??Final ?? Procedure Note Ziyad Charles MD - 01/08/2024 ECHOCARDIOGRAM CORINA CRABTREE : 1935 88 years Study Date: 01/07/2024 4:57:16 PM Gender: M BP: 149/88 mmHg Height: 183.00 cm BSA: 2.09 m? ? ? Weight: 87.00 kg Tech: JOSE RAMON Referring MD: SNOW VERGARA Site: [facility] Reading Location: [facility] Patient Location: Procedure: 2D w/ Bubbles, Color [...] . This study was interpreted by an [facility] accredited facility. CC: PEBBLES (med records) [facility], Med/Surg - IP [facility]. Final Snow Vergara MD ECHO ORD * SCAN-MRI INTERPRETATION (01/06/2024 12:00 AM CDT) Anatomical Region Laterality Modality Other Scanner OTHER * SCAN-CT INTERPRETATION (01/06/2024 12:00 AM CDT) Only the most recent of2 resultswithin the time period is included. Anatomical Region Laterality Modality Other Scanner OTHER from Last 3 Months Advance Directives Documents on File Type Date Recorded Patient Reverser Expl anation POLST 10/12/2023 * Full Code [...] 11:28 PM 05/08/2015 2:10 PM Care Teams Holistic Pulser Relationship Specialty Start Date End Date Alexandra Castelan DO [facility] [place] [address] PCP - General Family Practice 10/29/22 [place] [address] [address], [place] [address] 01/08/24
== END 2024-04-04 14:13 | disposition home or self-care (01) ==
LOC: WOUND 14:12
PROVIDERS: PCP Student in an Organized Health Care Education/Training Program; Visit Provider Nurse Practitioner Family
DX: L89.313 Pressure ulcer of right buttock, stage 3 (principal); E11.22 Type 2 diabetes mellitus with diabetic chronic kidney disease; N18.9 Chronic kidney disease, unspecified; Z79.84 Long term (current) use of oral hypoglycemic drugs
CPT/HCPCS: 97602; G0463

== ENCOUNTER 2024-05-02 15:26 | Outpatient (CLI) | payer MEDICARE, SELFPAY ==
--- OUTSIDE RECORDS SUMMARY | 2024-05-02 15:28 | XMS_ITS | Clinical Summary ---
Author Organization [facility] Address [address] [address] Phone Care Team Providers Care Loss Prevention/Safety District Manager Name Role Phone Unavailable Primary Care Provider [...] 84 01/16/2017 10:09 PM CDT Temperature 36.4 C (97.5 F) 01/16/2017 10:09 PM CDT Respiratory Rate 18 01/16/2017 10:09 PM CDT Oxygen Saturation 100% 01/16/2017 10:09 PM CDT Inhaled Oxygen Concentration - - Weight 108.9 kg (240 lb) 01/16/2017 10:09 PM CDT Height 190.5 cm (6' 3) 01/16/2017 10:09 PM CDT Body Mass Index 30 01/16/2017 10:09 PM CDT Plan of Treatment Not on file
--- OUTSIDE RECORDS SUMMARY | 2024-05-02 15:28 | XMS_ITS | Clinical Summary ---
Author Organization [employer] [employer] [facility] Address [place], [place] [address] Care Team Providers Care Environmental Health And Safety Manager Name Role Phone Alexandra Castelan DO Primary Care Provider [phone] [facility] Care, [place] Unavailable Allergies Active Allergy Reactions Criticality Noted Date Comments Losartan GI Upset 11/20/2023 Medications Medication Sig Dispensed Refills Start Date End Date Status fluocinonide 0.05% topical (LIDEX) 0.05 % cream Apply topically to affected area(s) 2 times daily. Active polyethylene glycol (MIRALAX; GLYCOLAX) 17 g powder for solution Mix 17 g in liquid then take by mouth once daily if needed. Active FreeStyle Emma 14 Day SensorIndications: Diabetic nephropathy associated with type 2 diabetes mellitus (HC) Change sensor every 14 days 6 Each 3 09/18/2022 Active psyllium powdIndications:Ch ronic constipation Mix 1 tsp in liquid then take by mouth once daily if needed for Constipation. 283 g 11 12/04/2022 Active selenium sulfide 2.25 %Indications:Atopi c dermatitis of scalp Apply topically to affected area(s) once daily if needed for Dry Scalp. 180 mL 3 06/25/2023 Active selenium sulfide 2.5 % lotnIndications:De rmatitis Apply topically to affected area(s) once daily if needed for Dry Scalp 118 mL 06/25/2023 Active empagliflozin (Jardiance) 25 mg tabletIndications: Diabetic nephropathy associated with type 2 diabetes mellitus (HC) Take 1 Tablet (25 mg) by mouth once daily. 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 1 Each 07/13/2023 Active blood-glucose meterIndications:T ype 2 diabetes mellitus with other circulatory complications (HC) Dispense meter covered by pts insurance. 1 Each 07/22/2023 Active blood sugar diagnostic (OneTouch Verio test strips) stripIndications:T ype 2 diabetes mellitus with other circulatory complications (HC) As directed once daily. 200 Each 3 07/22/2023 Active Eliquis 5 mg tabletIndications: History of pulmonary embolus (PE) TAKE 1 TABLET (5 MG) BY MOUTH TWO TIMES DAILY. 60 Tablet 2 10/13/2023 Active nitroglycerin (NITROSTAT) 0.4 mg sublingual tabletIndications: NSTEMI (non-ST elevated myocardial infarction) (HC) DISSOLVE 1 TABLET UNDER TONGUE EVERY 5 MINUTES UP TO 3 DOSES NEEDED FOR CHEST PAIN. CALL 911 IF CHEST PAIN PERSISTS 25 Tablet 6 10/23/2023 Active metoprolol succinate (Toprol XL) 100 mg Sustained-Release tabletIndications: NSTEMI (non-ST elevated myocardial infarction) (HC) Take 1 Tablet (100 mg) by mouth once daily. 90 Tablet 3 11/26/2023 Active furosemide (LASIX) 20 mg tabletIndications: Bilateral lower extremity edema Take 1 Tablet (20 mg) by mouth once daily in the morning. 90 Tablet 3 11/26/2023 Active tamsulosin (FLOMAX) 0.4 mg capsuleIndications :Benign prostatic hyperplasia with weak urinary stream Take 1 Capsule (0.4 mg) by mouth once daily after a meal. 90 Capsule 3 11/26/2023 Active linaGLIPtin (TRADJENTA) 5 mg tabIndications:Typ e 2 diabetes mellitus with other circulatory complications (HC) Take 1 Tablet (5 mg) by mouth once daily. 90 Tablet 3 12/25/2023 Active rosuvastatin (CRESTOR) 10 mg tablet Take 10 mg by mouth at bedtime. 01/08/2024 Active metFORMIN (GLUCOPHAGE XR) 500 mg Extended-Release tabletIndications: Type 2 diabetes mellitus with diabetic polyneuropathy, without long-term current use of insulin (HC) Take 4 Tablets (2,000 mg) by mouth once daily with a meal. 360 Tablet 3 01/14/2024 09/22/202 7 Active Bismuth Tribrom-Petrolatum ,Wh 2 X 2 bndgIndications:Sk in tear of left hand without complication, initial encounter Apply topically to affected area(s). 25 Each 01/21/2024 Active Transparent Dressings (Tegaderm) 2 X 2 3/4 bndgIndications:Sk in tear of left hand without complication, initial encounter Apply topically to affected area(s). 25 Each 01/21/2024 Active zinc oxide ointmentIndication s:Wound of right buttock, initial encounter Apply topically to affected area(s) two times daily. 57 g 03/08/2024 Active durable medical equipment (DME)Indications:W ound of skin ROHO cushion for wheel chair 1 Each 03/31/2024 Active calcium carbonate (Tums) 200 mg calcium (500 mg) chewable tabletIndications: Chronic GERD Chew 1 Tablet (500 mg) by mouth every 3 hours if needed for Heartburn or GI Upset. Can self administer 720 Tablet 04/12/2024 5 Active calcium carbonate (TUMS) 200 mg calcium (500 mg) chewable tablet Take 500-1,000 mg by mouth every 3 hours if needed for Heartburn or GI Upset. 4 Discontinued (Reorder (E-cancel not sent)) glipiZIDE extended-release (GLUCOTROL XL) 2.5 mg Extended-Release tabletIndications: Type 2 diabetes mellitus with diabetic polyneuropathy, without long-term current use of insulin (HC) Take 1 Tablet (2.5 mg) by mouth once daily before a meal. 30 Tablet 2 01/14/2024 4 Active Problems Problem Noted Date Diagnosed Date [...] Without CHF Atherosclerotic heart diseas e of [place] coronary artery without angina pectoris 02/07/2016 08/29/2022 [...] Encounters Date Type Department Care Team Description 05/02/2024 Telephone [facility] [address] [place] [address] Alexandra Castelan DO ACC Order Request (Stool) 04/28/2024 Telephone [facility] [address] [place] [address] Alexandra Castelan DO Follow Up (Fall); Letter 04/12/2024 Orders Only [facility] [address] [place] [address] Alexandra Castelan, DO <No scans attached> 03/29/2024 Telephone [facility] [address] [place] [address] Alexandra Castelan DO ACC Order Request (ROHO cushion) 03/24/2024 Telephone [facility] [address] [place] [address] Alexandra Castelan DO Concerns (Patient Refusing Advised Care ); Referral 03/09/2024 Telephone [facility] [address] [place] [address] Alexandra Castelan DO Questions (Wound Care Consult Order and Zinc Ointment) 03/08/2024 Orders Only [facility] [address] [place] [address] Alexandra Castelan, DO <No scans attached> from Last 3 Months Immunizations Name Administration Dates Next Due COVID-19 VACCINE SPIKEVAX (M ODERNA 50MCG/0.5ML) 12YO+ PFS 04/02/2023 COVID-19 vaccine (spigitBio NTech 30mcg/0.3mL) 12YO+ RYAN-SUCROSE PF, MDV 10/22/2021 COVID-19 vaccine ([employer]-Bio NTech 30mcg/0.3mL) PF, MDV 04/23/2021,08/09/2020,07/19/2020 DT (Age [...] Never Tobacco Cessation:Counseling Given: Yes Comments:Quit in 1969 Alcohol Use Standard Drinks/Week Comments Yes 0 [...] 70 01/14/2024 1:58 PM CDT Temperature 36.4 C (97.6 F) 08/24/2023 2:59 PM CDT Respiratory Rate 16 08/24/2023 2:59 PM CDT Oxygen Saturation 100% 01/14/2024 1:58 PM CDT Inhaled Oxygen Concentration - - Weight 86.6 kg (191 lb) 01/14/2024 1:58 PM CDT Height 188 cm (6' 2) 07/17/2023 1:14 PM TRAIN GATE ATTENDANT Body Mass Index 24.52 07/17/2023 1:14 PM TRAIN GATE ATTENDANT Plan of Treatment Health Maintenance Due Date [...] for age 50+ Completed 05/10/2020, 02/02/2020, 07/07/2014 Advance Directives Documents on File Type Date Recorded Patient Clinical Recruiter Expl anation POLST 10/12/2023 * Full Code [...] 11:28 PM 05/08/2015 2:10 PM Care Teams Environmental Health And Safety Manager Relationship Specialty Start Date End Date [place] [address] [address] PCP - General Family Practice 10/29/22 [place] [id number] [address] 01/08/24
== END 2024-05-02 15:27 | disposition home or self-care (01) ==
LOC: WOUND 15:26
PROVIDERS: PCP Student in an Organized Health Care Education/Training Program; Visit Provider Nurse Practitioner Family
DX: L89.313 Pressure ulcer of right buttock, stage 3 (principal); L89.323 Pressure ulcer of left buttock, stage 3; S50.811A Abrasion of right forearm, initial encounter; S80.211A Abrasion, right knee, initial encounter; S30.810A Abrasion of lower back and pelvis, initial encounter; E11.22 Type 2 diabetes mellitus with diabetic chronic kidney disease; N18.6 End stage renal disease; R26.89 Other abnormalities of gait and mobility; Z99.3 Dependence on wheelchair; Z79.84 Long term (current) use of oral hypoglycemic drugs
CPT/HCPCS: 97602; G0463

== ENCOUNTER 2024-05-23 15:19 | Outpatient (CLI) | payer MEDICARE, SELFPAY | END 2024-05-23 15:20 | disposition home or self-care (01) | LOC: WOUND 15:20 | PROVIDERS: PCP Student in an Organized Health Care Education/Training Program; Visit Provider Nurse Practitioner Family | DX: S50.811D Abrasion of right forearm, subsequent encounter (principal); S80.211D Abrasion, right knee, subsequent encounter; S30.810D Abrasion of lower back and pelvis, subsequent encounter; E11.22 Type 2 diabetes mellitus with diabetic chronic kidney disease; N18.6 End stage renal disease; Z79.84 Long term (current) use of oral hypoglycemic drugs | CPT/HCPCS: G0463 ==

== ENCOUNTER 2024-06-19 10:04 | Outpatient (CLI) | payer MEDICARE, SELFPAY | END 2024-06-19 10:05 | disposition home or self-care (01) | LOC: AMB 07-03 08:01 | PROVIDERS: PCP Student in an Organized Health Care Education/Training Program; Visit Provider Family Medicine | DX: S89.91XA Unspecified injury of right lower leg, initial encounter (principal); S79.911A Unspecified injury of right hip, initial encounter; W19.XXXA Unspecified fall, initial encounter; Y92.039 Unspecified place in apartment as the place of occurrence of the external cause | CPT/HCPCS: A0425; A0429 ==

== ENCOUNTER 2024-06-19 10:33 | Observation (INO) | payer MEDICARE, SELFPAY ==
--- OUTSIDE RECORDS SUMMARY | 2024-06-19 10:35 | XMS_ITS | Continuity of Care Document ---
Author Name [facility] User [email or web address] llowed Address Unknown Organization Unknown Address Unknown Procedures FILTER APPLIED:Only known Procedures with Onset Date within the last 5 years Procedure Date Procedure Provider Additiona l Information Status ROUTINE VENIPUNCTURE (94334) Completed METABOLIC PANEL TOTAL CA (79026) Completed ASSAY OF MAGNESIUM (36312) Completed ASSAY OF TROPONIN QUANT (71757) Completed EMERGENCY DEPT VISIT MOD MDM (48742) Completed URINALYSIS AUTO W/SCOPE (07510) Completed ELECTROCARDIOGRAM TRACING (76834) Completed HYDRATION IV INFUSION INIT (60998) Completed COMPLETE CBC W/AUTO DIFF WBC (83378) Completed Encounters FILTER APPLIED:Only known Encounters with Admission Date within the last 5 years Encounter Location Admission Discharge Billing Code Deoiling Machine Operator Maggy s[facility]chez [facility] Bermudez [facility]
--- OUTSIDE RECORDS SUMMARY | 2024-06-19 10:35 | XMS_ITS | Clinical Summary ---
Author Organization [facility] Address [address] [address] Phone Care Team Providers Care National Sales Trainer Name Role Phone Unavailable Primary Care Provider [...]
--- OUTSIDE RECORDS SUMMARY | 2024-06-19 10:35 | XMS_ITS | Clinical Summary ---
Author Organization [employer] [facility] Address [place], [place] [address] Care Team Providers Care Break Up Worker Name Role Phone Alexandra Castelan DO Primary Care Provider [facility] [place] Unavailable Allergies Active Allergy Reactions Criticality Noted Date Comments Losartan GI Upset 11/20/2023 Medications fluocinonide 0.05% topical (LIDEX) 0.05 % cream Apply topically to affected area(s) 2 times daily. Active polyethylene glycol (MIRALAX; GLYCOLAX) 17 g powder for solution Mix 17 g in liquid then take by mouth once daily if needed. 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 283 g 11 12/05/19 23 Active selenium sulfide 2.25 %Indications:Atop ic dermatitis of scalp Apply topically to affected area(s) once daily if needed for Dry Scalp. 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 200 Each 3 07/22/19 24 Active Eliquis 5 mg tabletIndications :History of pulmonary embolus (PE) TAKE 1 TABLET (5 MG) BY MOUTH TWO TIMES DAILY. 60 Tablet 2 10/13/19 24 Active nitroglycerin (NITROSTAT) 0.4 mg sublingual tabletIndications :NSTEMI (non-ST elevated myocardial infarction) (HC) DISSOLVE 1 TABLET UNDER TONGUE EVERY 5 MINUTES UP TO 3 DOSES NEEDED FOR CHEST PAIN. CALL 911 IF CHEST PAIN PERSISTS 25 Tablet 6 10/23/19 24 Active metoprolol succinate (Toprol XL) 100 mg Sustained-Release tabletIndications :NSTEMI (non-ST elevated myocardial infarction) (HC) Take 1 Tablet (100 mg) by mouth once daily. 90 Tablet 3 11/26/19 24 Active furosemide (LASIX) 20 mg tabletIndications :Bilateral lower extremity edema Take 1 Tablet (20 mg) by mouth once daily in the morning. 90 Tablet 3 11/26/19 24 Active tamsulosin (FLOMAX) 0.4 mg capsuleIndication s:Benign prostatic hyperplasia with weak urinary stream Take 1 Capsule (0.4 mg) by mouth once daily after a meal. 90 Capsule 3 11/26/19 24 Active linaGLIPtin (TRADJENTA) 5 mg tabIndications:Ty pe 2 diabetes mellitus with other circulatory complications (HC) Take 1 Tablet (5 mg) by mouth once daily. 90 Tablet 3 12/25/19 24 Active rosuvastatin (CRESTOR) 10 mg tablet Take 10 mg by mouth at bedtime. 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 360 Tablet 3 01/14/20 24 027 Active Bismuth Tribrom-Petrolatu m,Wh 2 X 2 bndgIndications:S kin tear of left hand without complication, initial encounter Apply topically to affected area(s). 25 Each 01/21/20 24 Active Transparent Dressings (Tegaderm) 2 X 2 3/4 bndgIndications:S kin tear of left hand without complication, initial encounter Apply topically to affected area(s). 25 Each 01/21/20 24 Active zinc oxide ointmentIndicatio ns:Wound of right buttock, initial encounter Apply topically to affected area(s) two times daily. 57 g 03/08/20 24 Active durable medical equipment (DME)Indications: Wound of skin ROHO cushion for wheel chair 1 Each 03/31/20 24 Active calcium carbonate (Tums) 200 mg calcium (500 mg) chewable tabletIndications :Chronic GERD Chew 1 Tablet (500 mg) by mouth every 3 hours if needed for Heartburn or GI Upset. Can self administer 720 Tablet 04/12/20 24 025 Active FreeStyle Emma 3 Sensor for continuous blood glucose monitor (CGM)Indications: Type 2 diabetes mellitus with diabetic polyneuropathy, without long-term current use of insulin (HC) To be used to read blood sugars, follow envelope fold operator directions. 6 Each 3 05/09/20 24 Active FreeStyle Emma 3 [place] for continuous blood glucose monitor (CGM)Indications: Type 2 diabetes mellitus with diabetic polyneuropathy, without long-term current use of insulin (HC) To be used to read blood sugars follow envelope fold operator directions. 1 Each 05/09/20 24 Active docusate (Stool Softener) 100 mg capsuleIndication s:Chronic constipation Take 1 Capsule (100 mg) by mouth once daily. 180 Capsule 3 05/26/20 24 Active calcium carbonate CHEWABLE (Tums Ultra) 400 mg calcium (1,000 mg) chewIndications:G astroesophageal reflux disease without esophagitis Chew 1 Tablet by mouth 4 times daily if needed (heartburn). 90 Tablet 06/07/20 24 Active acetaminophen (TYLENOL EXTRA STRGTH) 500 mg tablet Take 2 Tablets (1,000 mg) by mouth 3 times daily if needed for Pain. Max acetaminophen dose: 4000mg in 24 hrs. 06/14/19 25 Active hydrocortisone 1 % cream Apply topically to affected area(s) 4 times daily if needed for Itching. 06/14/19 25 Active neomycin-bacitrac in-polymyxin (Neosporin, baf-cgg-sjdnk,) 3.5mg-400 unit-5,000 unit/gram ointment Apply topically to affected area(s) three times daily. 06/14/19 25 Active sodium phosphates (FLEETS) 9.5-3.5 gram/59 mL enema (pediatric) Insert 1 Enema rectally one time. 06/14/19 25 Active glipiZIDE extended-release (GLUCOTROL XL) 2.5 mg Extended-Release tablet Take 1 Tablet (2.5 mg) by mouth once daily before a meal. 90 Tablet 3 06/14/19 25 Active docusate (Stool Softener) 100 mg capsuleIndication s:Chronic constipation Take 1 Capsule (100 mg) by mouth 2 times daily if needed for Constipation. 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 02/07/2016 08/29/2022 [...] Encounters Date Type Department Care Team Description 06/14/2024 Orders Only [facility] [address] [facility] [place] [address] Barb Castelani, DO <No scans attached> 06/09/2024 [facility]phone [facility] [place] [address] Flip Adei, DO Questions (Current medication list ) 06/07/2024 Orders Only [facility] [address] [facility] [place] [address] Barb Castelani, DO <No scans attached> 05/18/2024 Telephone [facility] [address] [place] [address] Alexandra Castelan DO Fall (Fall Report w/o Injury) 05/16/2024 Refill [facility] [address] [place] [address] Alexandra Castelan DO Refill Request (Stool Softener) 05/09/[address] [address] Alexandra Castelan DO Blood Sugar (Blood sugar check adjustment/) 05/09/[address] [address] Alexandra Castelan DO Medication Management (colace) 05/02/[address] [address] Alexandra Csatelan DO ACC Order Request (Stool) 04/28/[address] [address] Alexandra Castelan DO Follow Up (Fall); Letter 04/12/2024 Orders Only [address] [address] Alexandra Castelan DO <No scans attached> 03/29/[address] [address] Alexandra Castelan DO ACC Order Request (ROHO cushion) 03/24/[address] [address] Alexandra Castelan DO Concerns (Patient Refusing Advised Care ); Referral from Last 3 Months Immunizations Name Administration Dates Next Due COVID-19 VACCINE SPIKEVAX (M ODERNA 50MCG/0.5ML) 12YO+ PFS 04/02/2023 COVID-19 vaccine ([employer] NTech 30mcg/0.3mL) 12YO+ RYAN-SUCROSE PF, MDV 10/22/2021 COVID-19 vaccine ([employer] NTech 30mcg/0.3mL) PF, MDV 04/23/2021,08/09/2020,07/19/2020 DT (Age [...] glass of scotch three times a week [facility] Utilities Answer Date Recorded Do you have trouble paying f or utilities (for example, heat, electricity, water, phone)? 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 Not on file Not on file Obstetrics History Last Filed [...] cm (6' 2) 07/17/2023 1:14 PM [employer] Body Mass Index 24.52 07/17/2023 1:14 PM [employer] Plan of Treatment Health Maintenance Due Date Last Done Comments RSV vaccine for adults or (1 - 1-dose 75+ series) 08/24/2011 Tetanus booster 03/11/2022 03/11/2012 Depression screening for age 12+ 09/19/2023 09/19/19 23, 08/21/2015 Medicare Wellness for age 65+ 09/19/2023 09/18/2022 BMI (ht and wt on same day) for age 18+ 12/27/2023 12/26/2022, 09/18/2022, 09/04/2022, Additional history exists COVID-19 vaccine series (2023- season) 2024 04/02/2023, 04/07/2022, 10/22/2021, Additional history exists Influenza for age 65+ 02/07/2024 02/27/2023 , 04/03/2022, 03/11/2021, Additional history exists Tdap Completed 03/11/2012 Pneumococcal series for age 50+ Completed 5, 03/17/2006 Zoster (shingles) series for age 50+ Completed 05/10/2020, 02/02/2020, 07/07/2014 Insurance MEDICARE PART A HB ONLY [employer] [place] ADVANTAGE [place] [id number] [place] [employer] MED[employer]ARE PD Advance Directives Documents on File Type Date Recorded Patient Guest Relations Associate Expl anation POLST 10/12/2023 * Full Code [...] 11:28 PM 05/08/2015 2:10 PM Care Teams Break Up Worker Relationship Specialty Start Date End Date [place] [address] PCP - General Family Practice 10/29/22 [facility] [address] [place] [address] 01/08/24
[2024-06-19 10:37] VITALS: BP 161/94; PULSE 74; RESP 18; TEMP 36.8; O2SAT 98; BMI 27.4
--- NOTE | 2024-06-19 11:01 | ED_ITS ---
HPI - Fall General Time Seen by Provider: 11:01 Date Seen: 06/19/24 Chief Complaint: Fall/Minor Trauma Stated Complaint: fall Time Seen by Provider: 06/19/24 11:01 Source: patient, EMS, RN notes reviewed and old records reviewed Mode of arrival: EMS Limitations: no limitations History of Present Illness HPI Narrative: Mr. Angelo is a very pleasant 88-year-old gentleman with a history of a CVA, diabetes, frequent falls, known coronary artery disease with stent placement who is brought to the emergency room by EMS for a fall and hip pain today. Patient's daughter is here very loving and supportive and describes that he has had increased falls over the past few weeks. Yesterday he fell twice and he does not recall this-but he refused to come to the hospital. Today he fell and is complaining of right hip and low back pain. He is not a reliable historian but there is no reports of loss of consciousness recent vomiting illness fever or chills or cough. Patient at this time denies chest pain or difficulty breathing. Denies a headache or neck pain. He is telling me that his hip hurts the most. States he is able to lift his left leg with no difficulty but movement on the right increases his pain. Does not know if he has had any dysuria. Related Data Home Medications ?Medication ?Instructions ?Recorded ?Confirmed blood sugar diagnostic (OneTouch 08/29/22 04/28/24 Verio test strips) linagliptin 5 mg tablet (Tradjenta) 5 mg PO QAM 08/29/22 06/19/24 metformin 500 mg tablet,extended 2,000 mg PO DAILY 08/29/22 06/19/24 release 24 hr metoprolol succinate 100 mg 100 mg PO DAILY 08/29/22 06/19/24 tablet,extended release 24 hr apixaban 5 mg tablet (Eliquis) 5 mg PO BID 01/06/24 06/19/24 calcium carbonate (Calcium Antacid) 200 - 400 mg PO Q3H PRN 01/06/24 06/19/24 empagliflozin 25 mg tablet 25 mg PO DAILY 01/06/24 06/19/24 (Jardiance) furosemide 20 mg tablet 20 mg PO QAM 01/06/24 06/19/24 nitroglycerin 0.4 mg sublingual 0.4 mg sublingual Q5M PRN angina 01/06/24 06/19/24 tablet tamsulosin 0.4 mg capsule 0.4 mg PO DAILY 01/06/24 06/19/24 calcium carbonate (Ultra Strength 400 mg PO QID PRN 06/19/24 06/19/24 Antacid) docusate sodium 100 mg capsule 100 mg PO DAILY 06/19/24 06/19/24 furosemide 40 mg tablet 40 mg PO DAILY 06/19/24 06/19/24 glipizide 2.5 mg tablet, extended 2.5 mg PO DAILY 06/19/24 06/19/24 release 24 hr Previous Rx's ?Medication ?Instructions ?Recorded rosuvastatin 10 mg tablet 10 mg PO HS #30 tabs 01/08/24 Allergies Allergy/AdvReac Type Severity Reaction Status Date / Time losartan Allergy Verified 06/19/24 10:44 Review of Systems Status of ROS: Reports: unobtainable due to mental status (Dementia) Narrative: No fever chills bleeding or other reports from care home. Const: Denies: fever or chills [facility] Medical History Aortic stenosis ?I35.0 - Nonrheumatic aortic (valve) stenosis (ICD-10) On continuous oral anticoagulation ?Z79.01 - terminal gauger (current) use of anticoagulants (ICD-10) History of deep venous thrombosis or pulmonary embolus Depression ?F32.A - Depression, unspecified (ICD-10) Frequent falls ?R29.6 - Repeated falls (ICD-10) Type 2 diabetes mellitus ?E11.9 - Type 2 diabetes mellitus without complications (ICD-10) Peripheral neuropathy ?G62.9 - Polyneuropathy, unspecified (ICD-10) BPH (benign prostatic hyperplasia) ?N40.0 - Benign prostatic hyperplasia without lower urinary tract symptoms (ICD-10) CAD (coronary artery disease) ?I25.10 - Atherosclerotic heart disease of rampart coronary artery without angina pectoris (ICD-10) Hyperlipidemia ?E78.5 - Hyperlipidemia, unspecified (ICD-10) HTN (hypertension) ?I10 - Essential (primary) hypertension (ICD-10) Hearing loss ?H91.90 - Unspecified hearing loss, unspecified ear (ICD-10) Surgical History (Updated 01/06/24 @ 16:30 by Snow Han MD) Hx of tonsillectomy ?Z90.89 - Acquired absence of other organs (ICD-10) 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 - Presence of coronary angioplasty implant and graft (ICD-10) Previous back surgery ?Z98.890 - Other specified postprocedural states (ICD-10) History of cataract surgery ?Z98.49 - Cataract extraction status, unspecified eye (ICD-10) Social History What is your current living situation?: I presently have a place to live Problems where you live: no known problems Problems where you live details: n/a In the past 12 months, utilities in danger of being shut off: no In past 12 months, lack of transportation kept you from medical appts, meetings, work, or getting things needed for daily living: yes In the past 12 mos, have been you worried that your food would run out before you had money to buy more?: never true In the past 12 mos, the food you bought just didn't last and you didn't have money to buy more?: never true Highest level of school completed/degree received: Doctoral degree Smoking Status: Former smoker Do you use any of these nicotine containing products: None Second hand tobacco smoke exposure: No How often do you have a drink containing alcohol: monthly or less How many standard drinks containing alcohol do you have on a typical day: 1 or 2 How often do you have six or more drinks on one occasion: Never AUDIT-C Alcohol total score: 1 Non-prescribed substance use: denies use Caffeine: Yes (coffee) How often does anyone, including family, friends and others, physically hurt you : never How often does anyone, including family, friends and others, insult or talk down to you: never How often does anyone, including family, friends and others, threaten you with harm: never How often does anyone, including family, friends and others, scream or curse at you: never service: No Health Related Social Needs: transportation insecurity (Z59.82) Exam Narrative: Exam Narrative: Alert and interactive. Able to answer questions. Unable to answer anything that would need memory recall. EOM is full. Head is atraumatic. Palpation is without any discomfort. Range of motion of cervical spine full and there is no midline cervical spine tenderness. Face symmetrical. Neck is supple. Heart with a regular rate and rhythm and lungs are clear bilaterally. Abdomen is soft nontender. Palpation over ribcage without discomfort. Patient has bruising noted on the posterior lateral aspect of the upper thigh just distal to the greater trochanter. Movement increases the pain in the hip. Palpation of the lumbar spine shows pain at of over L4-5 since the sacrum and in the right buttock. Distally he has 1+ ankle edema. Distally sensation and motor is intact. Const: Vital Signs, click to edit/add: Vital Signs - 24 hr 06/19/24 10:37 06/19/24 12:26 Temperature 98.3 F Pulse Rate [Right Pulse Oximeter] 74 Respiratory Rate 18 16 Blood Pressure [Ri ght Upper Arm] 161/94 H 127/84 Pulse Oximetry 98 94 Oxygen Delivery Me thod Room Air Documenting provider has reviewed patient's vital signs: yes Course Course ED Course: Differential diagnosis includes but is not limited to cardiac arrhythmia, hypotension, recurrent stroke, subdural hematoma, urinary tract infection, right hip fracture, electrolyte imbalance. Will obtain CBC, comprehensive panel, troponin, urinalysis, COVID and influenza, chest x-ray head CT x-ray of the lumbar spine pelvis and right hip. Reevaluation(s) Reevaluation #1: Patient remains stable in the ED. head CT negative for any acute findings. Unfortunately there is evidence of fractures of T12 and L1. A follow-up CT is ordered. Have also added CT of the right hip as patient does have pain with ambulation in spite of a negative x-ray. Reevaluation #2: Patient has been able to ambulate to the bathroom. Was upset when they tried to put a gait belt on him. His daughter notes that she thinks that may be PTSD or being upset that he would need to be taking care of like that. She does under stand that it is imperative that we keep him safe and prevent him from falling again. CT confirms fractures of T12 and L1 as well as transverse spinous fractures on the right L2 through L4. EKG reassuring as is negative troponin. Consultations Consultation #1: I did speak with , spinal surgeon from [place] regarding this patient. Although he does have dementia a clamshell is recommended and transfer to [facility]. Unfortunately there are no beds in the system and patient is placed on a waiting list. I spoke with the spinal surgeon once again regarding keeping this patient here and he is requesting standing films to ensure stability of the fracture. If that is the case would be able to keep him here with follow-up for outpatient TLSO. Vital Signs Vital signs: Initial Vital Signs Temperature 98.3 F 06/19/24 10:37 Temperature Source Temporal Artery Scan 06/19/24 10:37 Pulse Rate 74 06/19/24 10:37 Pulse Rhythm Regular 06/19/24 10:37 Respiratory Rate 18 06/19/24 10:37 Blood Pressure 161/94 H 06/19/24 10:37 Blood Pressure Mean 116 H 06/19/24 10:37 Blood Pressure Position Supine 06/19/24 10:37 Pulse Oximetry 98 06/19/24 10:37 Oxygen Delivery Method Room Air 06/19/24 10:37 Vital Signs Temperature 98.3 F 06/19/24 10:37 Pulse Rate 74 06/19/24 10:37 Respiratory Rate 18 06/19/24 10:37 Blood Pressure 161/94 H 06/19/24 10:37 Pulse Oximetry 98 06/19/24 10:37 Oxygen Delivery Method Room Air 06/19/24 10:37 Temperature 98.6 F 06/19/24 21:10 Pulse Rate 71 06/19/24 21:10 Respiratory Rate 20 06/19/24 21:10 Blood Pressure 132/72 06/19/24 21:10 Pulse Oximetry 99 06/19/24 21:10 Oxygen Delivery Method Room Air 06/19/24 21:10 Medications Administered Medications: Generic Name Dose Route Start Last Admin Trade Name Freq PRN Reason Stop Dose Admin Rosuvastatin Calcium 10 mg 06/19/24 23:00 06/19/24 22:51 Rosuvastatin Calcium 10 Mg Tablet PO 10 mg HS NEELA Administration Discontinued Medications Generic Name Dose Route Start Last Admin Trade Name Freq PRN Reason Stop Dose Admin Trazodone HCl 50 mg 06/19/24 22:55 06/20/24 00:05 Trazodone Hcl 50 Mg Tablet PO 06/19/24 22:56 50 mg ONCE ONE Administration MDM - Fall MDM Narrative Medical decision making narrative: 1. T12 and L1 compression fracture-these are stable. Initially identified on plain films a CT was done which showed no retropulsion of the fragments. A 3rd set of images were done to ensure stability and indeed they were. Thus patient was admitted to the hospital after consulting with our own orthopedic team. Patient was upset that he would not be going back to his assisted living but in monitoring patient's movement in the ED he is certainly not safe to go back and is very shaky. I suspect he may need care home placement after PT/OT consult. He did not require any pain medications while in the emergency room. 2. Right hip pain -regular films negative and a follow-up CT showed no evidence of a fracture. 3. History of frequent falls with History of CVA-patient currently on Eliquis and had no focal neurological deficits. Further, EKG is reassuring with normal sinus rhythm noted with no acute ST or T-wave changes. Urinalysis without evidence of UTI. COVID and influenza negative. 4. History of DVT, currently on Eliquis 5. Disposition-admit to the [facility] under the care of . Medical Records Attestation: I reviewed the patient's medical records. Lab Data Attestation: I reviewed the patient's lab results. Labs: Lab Results 06/19/24 06/19/24 Range/Units 11:10 13:06 WBC 8.59 (4.50-11.00) K/uL RBC 3.72 L (4.30-5.90) m/uL Hgb 11.5 L (13.5-17.5) gm/dL Hct 35.3 L (37.0-53.0) % MCV 95 (80-100) fL MCH 31 (26-34) pg MCHC 33 (32-36) gm/dL RDW Coeff of Susi 12.7 (11.5-15.5) % Plt Count 179 (140-440) K/uL Neut % (Auto) 73.9 H (42.0-72.0) % Lymph % (Auto) 12.9 L (20-44) % [place] % (Auto) 9.7 (0.0-11.0) % Eos % (Auto) 2.3 (0.0-7.0) % Baso % (Auto) 0.6 (0.0-3.0) % Neut # (Auto) 6.30 (1.7-7.0) K/uL Lymph # (Auto) 1.10 (0.90-2.90) K/uL [place] # (Auto) 0.80 (0.00-0.90) K/UL Eos # (Auto) 0.20 (0.00-0.50) K/uL Baso # (Auto) 0.05 (0.00-0.30) K/uL Abs Immat Gran (auto) 0.05 (0.00-0.30) K/uL Imm/Tot Granulo (auto) 0.6 % Sodium 136 (135-149) mmol/L Potassium 4.1 (3.6-5.1) mmol/L Chloride 100 (96-114) mmol/L Carbon Dioxide 30 (20-32) mmol/L Anion Gap 6 L (7-15) mEq/L BUN 14 (7-30) mg/dL Creatinine 1.0 (0.5-1.5) mg/dL Estimated Creat Clear 50.35 Estimated GFR 73 ml/min Glucose 132 H (60-115) mg/dL Calcium 9.0 (8.4-10.6) mg/dL Total Bilirubin 1.1 (0.1-1.5) mg/dL AST 24 (12-35) U/L ALT 19 (4-50) U/L Alkaline Phosphatase 57 (40-150) U/L Total Creatine Kinase 73 (54-186) U/L C-Reactive Protein < 0.5 L (0.5-1.0) mg/dL Total Protein 6.1 (6.0-8.3) g/dL Albumin 3.7 (3.3-5.0) g/dL POC Troponin I 0.01 (0.01-0.04) ng/ml Imaging Data CT scan - head: Attestation: I have reviewed the pertinent imaging results. My impression: Loss of volume. Otherwise no evidence of subdural hematoma, skull fracture. Radiologist's impression: No acute intracranial hemorrhage. No mass effect or midline shift. No hydrocephalus or extra-axial collections. Patchy white matter hypoattenuation, typical for chronic microvascular ischemic change. Moderate generalized parenchymal volume loss. Intracranial vascular calcifications. No acute osseous abnormalities. Mastoid air cells and paranasal sinuses are clear. Normal soft tissues. IMPRESSION: IMPRESSION: 1. No acute intracranial abnormalities. Chest x-ray: Attestation: I have reviewed the pertinent imaging results. My impression: I do not note any acute infiltrates. Radiologist's impression: FINDINGS: The sensitivity and specificity of the exam are moderately limited by the patient`s body habitus. Mediastinum: The mediastinum is normal in appearance. The heart silhouette is normal in size and morphology. Lung: Both lungs are unremarkable in appearance. No sign of pleural effusion seen. No pneumothorax is identified. Bone and Soft tissue: Unremarkable for age. IMPRESSION: 1. No acute cardiopulmonary disease is seen. Lumbar spine x-ray: Attestation: I have reviewed the pertinent imaging results. Radiologist's impression: Compression fracture of T12 and L1. There is 75 percent loss of height involving T12 about 50 percent loss of height involving L1. The compression fracture involving T12 appears acute. Disc space narrowing and disc degeneration throughout. IMPRESSION: 1. Compression fractures T12 and L1 probably acute. 2. Disc space narrowing and disc degeneration throughout. Pelvis and hip x-ray: Attestation: I have reviewed the pertinent imaging results. Radiologist's impression: one: No acute fractures or aggressive bone lesions are identified. Moderate diffuse osteopenia is noted. Joint: The hip joints are unremarkable. The visualized sacroiliac joints are unremarkable in appearance. The pubic symphysis is normal in appearance. Soft tissue: Unremarkable. No radiopaque foreign bodies are seen. Moderate vascular calcifications are noted. IMPRESSION: 1. No acute osseous injuries or abnormalities are noted. Lumbar standing films: Attestation: I have reviewed the pertinent imaging results. Radiologist's impression: Stable compression fracture deformities of the T12 and L1 vertebral bodies. Stable dextroscoliotic curvature of the thoracic or lumbar spine. No new listhesis. Similar-appearing multilevel spondylitic changes of the spine. ECG Data Attestation: I personally reviewed and interpreted this ECG as follows: ECG interpretation date: 06/19/24 Interpretation: EKG by my read shows sinus rhythm at a rate of 74. I do not note any acute ST or T-wave changes. QT and WI intervals within normal limits. Discharge Plan Discharge Clinical Impression: Compression fracture, Falls frequently Patient Disposition: Admitted As Observation Condition: Unchanged
--- NOTE | 2024-06-19 11:10 | CRLHL7_ITS ---
For Patients: As a result of the Century Cures Act, medical imaging exams and procedure reports are released immediately into your electronic medical record. You may view this report before your referring provider. If you have questions, please contact your health care provider. INDICATION: Fall, pelvic hip injury TECHNIQUE: Pelvis radiograph, Hip radiograph 4 views right COMPARISON: None FINDINGS: Bone: No acute fractures or aggressive bone lesions are identified. Moderate diffuse osteopenia is noted. Joint: The hip joints are unremarkable. The visualized sacroiliac joints are unremarkable in appearance. The pubic symphysis is normal in appearance. Soft tissue: Unremarkable. No radiopaque foreign bodies are seen. Moderate vascular calcifications are noted. IMPRESSION: 1. No acute osseous injuries or abnormalities are noted. Dictated by: Lawrence Dodge MD @ 06/19/2024 12:34:29 (Electronically Signed)
--- NOTE | 2024-06-19 11:10 | CRLHL7_ITS ---
For Patients: As a result of the Cures Act, medical imaging exams and procedure reports are released immediately into your electronic medical record. You may view this report before your referring provider. If you have questions, please contact your health care provider. INDICATION: Fall. Chest Pain, injury TECHNIQUE: Chest radiograph 1 view COMPARISON: None FINDINGS: The sensitivity and specificity of the exam are moderately limited by the patient`s body habitus. Mediastinum: The mediastinum is normal in appearance. The heart silhouette is normal in size and morphology. Lung: Both lungs are unremarkable in appearance. No sign of pleural effusion seen. No pneumothorax is identified. Bone and Soft tissue: Unremarkable for age. IMPRESSION: 1. No acute cardiopulmonary disease is seen. Dictated by: Lawrence Dodge MD @ 06/19/2024 12:33:51 (Electronically Signed)
--- NOTE | 2024-06-19 11:10 | CRLHL7_ITS ---
For Patients: As a result of the Century Cures Act, medical imaging exams and procedure reports are released immediately into your electronic medical record. You may view this report before your referring provider. If you have questions, please contact your health care provider. INDICATION: Fell; back pain. COMPARISON: None. TECHNIQUE: Three-view study lumbosacral spine. FINDINGS: Compression fracture of T12 and L1. There is 75 percent loss of height involving T12 about 50 percent loss of height involving L1. The compression fracture involving T12 appears acute. Disc space narrowing and disc degeneration throughout. IMPRESSION: 1. Compression fractures T12 and L1 probably acute. 2. Disc space narrowing and disc degeneration throughout. Dictated by Jaclyn Saxena MD @ 06/19/2024 1:10:48 PM (Electronically Signed)
--- NOTE | 2024-06-19 11:10 | CRLHL7_ITS ---
For Patients: As a result of the Century Cures Act, medical imaging exams and procedure reports are released immediately into your electronic medical record. You may view this report before your referring provider. If you have questions, please contact your health care provider. INDICATION: Fall. On blood thinners. TECHNIQUE: CT of the head without contrast. Coronal and sagittal reformats are included. COMPARISON: Head CT from 01/06/2024. FINDINGS: No acute intracranial hemorrhage. No mass effect or midline shift. No hydrocephalus or extra-axial collections. Patchy white matter hypoattenuation, typical for chronic microvascular ischemic change. Moderate generalized parenchymal volume loss. Intracranial vascular calcifications. No acute osseous abnormalities. Mastoid air cells and paranasal sinuses are clear. Normal soft tissues. IMPRESSION: IMPRESSION: 1. No acute intracranial abnormalities. Please note that all CT scans at this facility use dose modulation, iterative reconstruction, and/or weight-based dosing when appropriate to reduce radiation dose to as low as reasonably achievable. Dictated by Jeramy Osullivan MD @ 06/19/2024 12:28:42 PM (Electronically Signed)
--- OUTSIDE RECORDS SUMMARY | 2024-06-19 11:39 | XMS_ITS | Clinical Summary ---
Author Organization [facility] Address [address] [address] Phone Care Team Providers Care Ore Grader Name Role Phone Unavailable Primary Care Provider [...]
--- OUTSIDE RECORDS SUMMARY | 2024-06-19 11:39 | XMS_ITS | Clinical Summary ---
Author Organization [employer] [employer] [facility] Address [place], [place] [address] Care Team Providers Care Box Nailer Name Role Phone Alexandra Castelan DO Primary Care Provider [phone] [facility], [place] Unavailable [phone] Allergies Active Allergy Reactions Criticality Noted Date [...] be used to read blood sugars per window installer's directions. 1 Each 07/13/19 24 Active blood-glucose [...] be used to read blood sugars, follow window installer directions. 6 Each 3 05/09/20 24 Active FreeStyle Emma 3 [place] for continuous blood glucose monitor (CGM)Indications: Type 2 diabetes mellitus with diabetic polyneuropathy, without long-term current use of insulin (HC) To be used to read blood sugars follow window installer directions. 1 Each 05/09/20 24 Active docusate [...] Itching. 06/14/19 25 Active neomycin-bacitrac in-polymyxin (Neosporin, [id number],) 3.5mg-400 unit-5,000 unit/gram ointment Apply topically to [...] Department Care Team Description 06/14/2024 Orders Only [facility] [address] [place] [address] Barb Castelani, DO <No scans attached> 06/09/2024 Telephone [facility] [address] [place] [address] Flip Adei, DO Questions (Current medication list ) 06/07/2024 Orders Only [facility] [address] [place] [address] Barb Castelani, DO <No scans attached> 05/18/2024 Telephone [facility] [address] [place] [address] Alexandra Castelan DO Fall (Fall Report w/o Injury) 05/16/2024 Refill [facility] [address] [place] [address] Alexandra Castelan DO Refill Request (Stool Softener) 05/09/[address] [address] Alexandra Castelan DO Blood Sugar (Blood sugar check adjustment/) 05/09/[address] [address] Alexandra Castelan DO Medication Management (colace) 05/02/[address] [address] Alexandra Castelan DO ACC Order Request (Stool) 04/28/[address] [address] Alexandra Castelan DO Follow Up (Fall); Letter 04/12/2024 Orders Only [address] [address] Alexandra Castelan DO <No scans attached> 03/29/[address] [address] Alexandra Castelan DO ACC Order Request (ROHO cushion) 03/24/[address] [address] Alexandra Castelan DO Concerns (Patient Refusing Advised Care ); Referral from Last 3 Months Immunizations Name Administration Dates Next Due COVID-19 VACCINE SPIKEVAX (M ODERNA 50MCG/0.5ML) 12YO+ PFS 04/02/2023 COVID-19 vaccine (Donordonut-Bio NTech 30mcg/0.3mL) 12YO+ RYAN-SUCROSE PF, MDV 10/22/2021 COVID-19 vaccine (Acsis NTech 30mcg/0.3mL) PF, MDV 04/23/2021,08/09/2020,07/19/2020 DT (Age [...] glass of scotch three times a week [facility] Utilities Answer Date Recorded Do you have [...] on file Legal Sex Male 5:26 AM STAND GRINDER Gender Identity Not on file Sexual Orientation [...] 188 cm (6' 2) 07/17/2023 1:14 PM STAND GRINDER Body Mass Index 24.52 07/17/2023 1:14 PM STAND GRINDER Plan of Treatment Health Maintenance Due Date [...] ONLY [employer] ADV[employer] [place] [id number] [place] [employer] [place] Advance Directives Documents on File Type Date Recorded 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
--- OUTSIDE RECORDS SUMMARY | 2024-06-19 11:39 | XMS_ITS | Continuity of Care Document ---
Author Name NwHIN User KobleMN-a llowed Address Unknown Organization Unknown Address Unknown Procedures FILTER APPLIED:Only known Procedures with Onset Date within the last 5 years Procedure Date Procedure Provider Additiona l Information Status ROUTINE VENIPUNCTURE (66044) Completed METABOLIC PANEL TOTAL CA (16016) Completed ASSAY OF MAGNESIUM (93304) Completed ASSAY OF TROPONIN QUANT (83728) Completed EMERGENCY DEPT VISIT MOD MDM (02031) Completed URINALYSIS AUTO W/SCOPE (95867) Completed ELECTROCARDIOGRAM TRACING (99305) Completed HYDRATION IV INFUSION INIT (98464) Completed COMPLETE CBC W/AUTO DIFF WBC (71445) Completed Encounters FILTER APPLIED:Only known Encounters with Admission Date within the last 5 years Encounter Location Admission Discharge Billing Code Reservations Specialist Maggy sánchez [facility]
[2024-06-19 11:46] LABS: Appearance Urine Clear (Clear); Bilirubin Urine Negative (Negative); Blood Urine Negative (Negative); Color Urine Yellow (Yellow); Glucose Urine 2+ (Negative); Ketones Urine Negative (Negative); Leukocyte Esterase Urine Negative (Negative); Nitrite Urine Negative (Negative); Protein Urine Negative (Negative); Specific Gravity Urine 1.015 (1.000-1.030); Urobilinogen Urine 0.2 (0.2-1.0); pH Urine 7.5 (5.0-8.5)
[2024-06-19 11:54] LABS: RBC Urine 0-2 (0-2); Squamous Epithelial Cell Urine Few (None-Few); WBC Urine 0-2 (0-5)
[2024-06-19 12:22] LABS: PCR FLU A Negative PCR FLU A (Negative); PCR FLU B Negative PCR FLU B (Negative); PCR RSV Negative PCR RSV (Negative); SARS PCR* Negative SARS-CoV-2 (Negative)
[2024-06-19 12:26] VITALS: BP 127/84; RESP 16; O2SAT 94
[2024-06-19 13:15] LABS: Basophils Absolute Auto 0.05 K/uL (0.00-0.30); Basophils Percent Auto 0.6 % (0.0-3.0); Eosinophils Percent Auto 2.3 % (0.0-7.0); Hematocrit 35.3 % (37.0-53.0); Hemoglobin* 11.5 gm/dL (13.5-17.5); Immature Granulocytes Abs Auto 0.05 K/uL (0.00-0.30); Immature Granulocytes Pct Auto 0.6 %; Lymphocytes Percent Auto 12.9 % (20-44); Mean Corpuscular HGB Conc 33 gm/dL (32-36); Mean Corpuscular Hemoglobin 31 pg (26-34); Mean Corpuscular Volume 95 fL (80-100); Monocytes Percent Auto 9.7 % (0.0-11.0); Neutrophils Percent Auto 73.9 % (42.0-72.0); Platelet Count* 179 K/uL (140-440); RDW Coefficient of Variation % 12.7 % (11.5-15.5); Red Blood Count 3.72 m/uL (4.30-5.90); White Blood Count* 8.59 K/uL (4.50-11.00)
[2024-06-19 13:25] LABS: Albumin* 3.7 g/dL (3.3-5.0); Chloride* 100 mmol/L (96-114); Sodium* 136 mmol/L (135-149)
[2024-06-19 13:26] LABS: Potassium* 4.1 mmol/L (3.6-5.1)
[2024-06-19 13:27] LABS: Est. Creatinine Clearance* 50.35; Estimated Glomerular Filt Rate 73 ml/min
[2024-06-19 13:28] LABS: Alanine Aminotransferase* 19 U/L (4-50); Alkaline Phosphatase* 57 U/L (40-150); Anion Gap 6 mEq/L (7-15); Aspartate Amino Transferase* 24 U/L (12-35); Bilirubin Total* 1.1 mg/dL (0.1-1.5); Blood Urea Nitrogen* 14 mg/dL (7-30); Carbon Dioxide* 30 mmol/L (20-32); Creatine Kinase* 73 U/L (54-186); Glucose* 132 mg/dL (60-115); Total Protein* 6.1 g/dL (6.0-8.3)
[2024-06-19 13:39] LABS: C Reactive Protein* < 0.5 mg/dL (0.5-1.0)
[2024-06-19 13:42] LABS: Slide Review Reflex No
--- NOTE | 2024-06-19 13:48 | CRLHL7_ITS ---
For Patients: As a result of the Century Cures Act, medical imaging exams and procedure reports are released immediately into your electronic medical record. You may view this report before your referring provider. If you have questions, please contact your health care provider. Indication: T12-L1 compression fracture seen on x-ray Technique: Noncontrast axial CT of the lumbar spine with coronal and sagittal reformats. Comparison: Lumbar spine x-ray from earlier same day Findings: Lumbar dextroconvex curvature, apex at L2, with left lateral listhesis at L1-2, right lateral listhesis at L3-4. Preserved lumbar lordosis, with grade 1 retrolisthesis at L2-3. Subacute/chronic fracture deformities of the right 10th and 11th ribs. Acute moderate T12 superior endplate compression fracture with minimal cortical retropulsion. Acute moderate L1 superior endplate compression fracture, with no cortical retropulsion. Acute fracture of the right L2-L4 transverse processes. Remote left hemilaminotomy changes at L2-3 and L4-5. Multilevel spondylosis and neural foraminal stenosis, without evidence of high-grade spinal canal stenosis. Clear lung bases. Aortoiliac atherosclerotic plaquing. Degenerative changes of the included SI joints. Impression: 1. Acute moderate superior endplate compression fractures at T12 and L1. 2. Acute right transverse process fractures from L2-L4. 3. Subacute/chronic right posterior 10th and 11th rib deformities. 4. Spondylosis and remote postop changes, without evidence of high-grade spinal canal stenosis. Please note that all CT scans at this facility use dose modulation, iterative reconstruction, and/or weight-based dosing when appropriate to reduce radiation dose to as low as reasonably achievable. Dictated by Sabrina Valdovinos MD @ 06/19/2024 3:24:28 PM (Electronically Signed)
--- NOTE | 2024-06-19 13:48 | CRLHL7_ITS ---
For Patients: As a result of the Century Cures Act, medical imaging exams and procedure reports are released immediately into your electronic medical record. You may view this report before your referring provider. If you have questions, please contact your health care provider. Indication: continued pain post fall Technique: Routine noncontrast CT right hip Please note that all CT scans at this facility use dose modulation, iterative reconstruction, and/or weight-based dosing when appropriate to reduce radiation dose to as low as reasonably achievable. Comparison: Plain films 06/19/2024 Findings: No fracture is present. Degenerative changes noted. Vascular calcifications. No pelvic mass. Fecal impaction of stool in the rectum. Large left inguinal hernia containing loops of noninflamed bowel. Prostate calcifications with mass effect upon the inferior bladder. Impression: No acute fracture. Please note that all CT scans at this facility use dose modulation, iterative reconstruction, and/or weight-based dosing when appropriate to reduce radiation dose to as low as reasonably achievable. Dictated by Itz Sánchez MD @ 06/19/2024 3:42:07 PM (Electronically Signed)
[2024-06-19 15:49] LABS: Troponin, Point-of-Care* 0.01 ng/ml (0.01-0.04)
--- NOTE | 2024-06-19 17:52 | CRLHL7_ITS ---
For Patients: As a result of the Cures Act, medical imaging exams and procedure reports are released immediately into your electronic medical record. You may view this report before your referring provider. If you have questions, please contact your health care provider. Indication: Ortho requested standing L spine to check stability. Compression fracture (T12,L1) seen on previous L spine xray and CT done earlier today. Technique: Three views of the lumbar spine, standing Comparison: Same-day lumbar spine CT and radiographs Findings/Impression: Stable compression fracture deformities of the T12 and L1 vertebral bodies. Stable dextroscoliotic curvature of the thoracic or lumbar spine. No new listhesis. Similar-appearing multilevel spondylitic changes of the spine. Dictated by Handy Landa MD @ 06/19/2024 7:15:30 PM (Electronically Signed)
--- NOTE | 2024-06-19 20:40 | ED.NURSE ---
Rn to Rn report given. Pt taken to floor via wheelchair by auto emissions technician.
[2024-06-19 21:10] VITALS: BP 132/72; PULSE 71; RESP 20; TEMP 37; O2SAT 99; BMI 23.1
--- NOTE | 2024-06-19 21:42 | PM.IMHP1 ---
Hospitalist- H&P: HPI History of Present Illness Date Seen: 06/19/24 Chief complaint: fall Narrative: Martin Angelo is a 88 year old male w/ past medical history of hypertension, hyperlipidemia, diabetes type 2, history of DVT/PE on Eliquis, CAD, aortic stenosis, Hx of CVA (01/2024), peripheral neuropathy, BPH, hearing loss and frequent falls who presents with vertebral compression fractures after falling down multiple times. Patient denies loss of consciousness prior during or after falling down but he is not a good historian. He states that he did not fall today but he fell yesterday and the day before, due to problems with his balance. Patient denies pain while staying still but he states that the pain is severe when he stands up. At the ED patient was hemodynamically stable, labs were unremarkable. CTH without acute pathology. CT scan of the lumbar spine showed Compression fractures T12 and L1 probably acute. Dr. Hayde Corado contacted a spinal surgeon at [facility] who recommended [facility] -[id number] orthosis and they accepted the patient but there were no beds available there. ED contacted me to admit the patient after consulting our orthopedic doctor (Dr Jacob) who accepted the consult and agreed to admit the patient at [place] under the hospitalist team for further evaluation tomorrow. N.B spinal surgeon at [facility] also recommended Three views of the lumbar spine, standing to check if the fractures were stable and it showed: Stable compression fracture deformities of the T12 and L1 vertebral bodies. Stable dextroscoliotic curvature of the thoracic or lumbar spine. No new listhesis. Review of Systems Status of ROS: Reports: 6 or more systems reviewed and unremarkable except as noted in History and below [facility] Medical History Aortic stenosis ?I35.0 - Nonrheumatic aortic (valve) stenosis (ICD-10) On continuous oral anticoagulation ?Z79.01 - MCFP (current) use of anticoagulants (ICD-10) History of deep venous thrombosis or pulmonary embolus Depression ?F32.A - Depression, unspecified (ICD-10) Frequent falls ?R29.6 - Repeated falls (ICD-10) Type 2 diabetes mellitus ?E11.9 - Type 2 diabetes mellitus without complications (ICD-10) Peripheral neuropathy ?G62.9 - Polyneuropathy, unspecified (ICD-10) BPH (benign prostatic hyperplasia) ?N40.0 - Benign prostatic hyperplasia without lower urinary tract symptoms (ICD-10) CAD (coronary artery disease) ?I25.10 - Atherosclerotic heart disease of [place] coronary artery without angina pectoris (ICD-10) Hyperlipidemia ?E78.5 - Hyperlipidemia, unspecified (ICD-10) HTN (hypertension) ?I10 - Essential (primary) hypertension (ICD-10) Hearing loss ?H91.90 - Unspecified hearing loss, unspecified ear (ICD-10) Surgical History (Updated 01/06/24 @ 16:30 by Snow Han MD) Hx of tonsillectomy ?Z90.89 - Acquired absence of other organs (ICD-10) 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 - Presence of coronary angioplasty implant and graft (ICD-10) Previous back surgery ?Z98.890 - Other specified postprocedural states (ICD-10) History of cataract surgery ?Z98.49 - Cataract extraction status, unspecified eye (ICD-10) Social History What is your current living situation?: I presently have a place to live Problems where you live: no known problems Problems where you live details: n/a In the past 12 months, utilities in danger of being shut off: no In past 12 months, lack of transportation kept you from medical appts, meetings, work, or getting things needed for daily living: yes In the past 12 mos, have been you worried that your food would run out before you had money to buy more?: never true In the past 12 mos, the food you bought just didn't last and you didn't have money to buy more?: never true Highest level of school completed/degree received: Doctoral degree Smoking Status: Former smoker Do you use any of these nicotine containing products: None Second hand tobacco smoke exposure: No How often do you have a drink containing alcohol: monthly or less How many standard drinks containing alcohol do you have on a typical day: 1 or 2 How often do you have six or more drinks on one occasion: Never AUDIT-C Alcohol total score: 1 Non-prescribed substance use: denies use Caffeine: Yes (coffee) How often does anyone, including family, friends and others, physically hurt you: never How often does anyone, including family, friends and others, insult or talk down to you: never How often does anyone, including family, friends and others, threaten you with harm: never How often does anyone, including family, friends and others, scream or curse at you: never service: No Health Related Social Needs: transportation insecurity (Z59.82) Meds Home Medications and Allergies Home Medications ?Medication ?Instructions ?Recorded ?Confirmed ?Type blood sugar diagnostic (OneTouch 08/29/22 04/28/24 History Verio test strips) linagliptin 5 mg tablet (Tradjenta) 5 mg PO QAM 08/29/22 06/19/24 History metformin 500 mg tablet,extended 2,000 mg PO DAILY 08/29/22 06/19/24 History release 24 hr metoprolol succinate 100 mg 100 mg PO DAILY 08/29/22 06/19/24 History tablet,extended release 24 hr apixaban 5 mg tablet (Eliquis) 5 mg PO BID 01/06/24 06/19/24 History calcium carbonate (Calcium Antacid) 200 - 400 mg PO Q3H PRN 01/06/24 06/19/24 History empagliflozin 25 mg tablet 25 mg PO DAILY 01/06/24 06/19/24 History (Jardiance) furosemide 20 mg tablet 20 mg PO QAM 01/06/24 06/19/24 History nitroglycerin 0.4 mg sublingual 0.4 mg sublingual Q5M PRN angina 01/06/24 06/19/24 History tablet tamsulosin 0.4 mg capsule 0.4 mg PO DAILY 01/06/24 06/19/24 History calcium carbonate (Ultra Strength 400 mg PO QID PRN 06/19/24 06/19/24 History Antacid) docusate sodium 100 mg capsule 100 mg PO DAILY 06/19/24 06/19/24 History furosemide 40 mg tablet 40 mg PO DAILY 06/19/24 06/19/24 History glipizide 2.5 mg tablet, extended 2.5 mg PO DAILY 06/19/24 06/19/24 History release 24 hr Allergies Allergy/AdvReac Type Severity Reaction Status Date / Time losartan Allergy Verified 06/19/24 10:44 Exam Narrative: Exam Narrative: Physical exam GENERAL: Comfortable, no acute distress. HEAD AND NECK: Atraumatic, normocephalic CARDIOVASCULAR: RRR. Normal S1, S2. No murmurs. RESPIRATORY: Clear to auscultation B/L. Good air entry B/L. No wheezes or rhonchi. NEUROLOGY: Alert, awake. Normal speech. No drifting of upper or lower extremities. PSYCH: Normal mood, normal affect. Const: Vital Signs, click to edit/add: Vital Signs - 24 hr 06/19/24 10:37 06/19/24 12:26 06/19/24 20:39 Temperature 98.3 F 98.6 F Pulse Rate [Pulse Oximeter] 71 Pulse Rate [Right Pulse Oximeter] 74 Respiratory Rate 18 16 20 Blood Pressure [Le ft Arm] 132/72 Blood Pressure [Ri ght Upper Arm] 161/94 H 127/84 Pulse Oximetry 98 94 99 Oxygen Delivery Me thod Room Air Room Air Hospitalist - H&P: Result Labs Labs: Short CBC 06/19/24 Range/Units 13:06 WBC 8.59 (4.50-11.00) K/uL Hgb 11.5 L (13.5-17.5) gm/dL Hct 35.3 L (37.0-53.0) % Plt Count 179 (140-440) K/uL BMP 06/19/24 13:06 Sodium 136 Potassium 4.1 Chloride 100 Carbon Dioxide 30 BUN 14 Creatinine 1.0 Glucose 132 H Calcium 9.0 Cardiac Enzymes 06/19/24 Range/Units 13:06 Total Creatine Kinase 73 (54-186) U/L Liver Function 06/19/24 Range/Units 13:06 Total Bilirubin 1.1 (0.1-1.5) mg/dL AST 24 (12-35) U/L ALT 19 (4-50) U/L Alkaline Phosphatase 57 (40-150) U/L Albumin 3.7 (3.3-5.0) g/dL Urine 06/19/24 Range/Units Unknown Urine Color Yellow (Yellow) Urine Appearance Clear (Clear) Urine pH 7.5 (5.0-8.5) Ur Specific [place] 1.015 (1.000-1.030) Urine Protein Negative (Negative) Urine Glucose (UA) 2+ A (Negative) Imaging x ray lumbar spine: Radiologist's impression: Technique: Three views of the lumbar spine, standing Comparison: Same-day lumbar spine CT and radiographs Findings/Impression: Stable compression fracture deformities of the T12 and L1 vertebral bodies. Stable dextroscoliotic curvature of the thoracic or lumbar spine. No new listhesis. Similar-appearing multilevel spondylitic changes of the spine. Dictated by Handy Landa MD @ 06/19/2024 7:15:[address]- Other: Radiologist's impression: Indication: T12-L1 compression fracture seen on x-ray Technique: Noncontrast axial CT of the lumbar spine with coronal and sagittal reformats. Comparison: Lumbar spine x-ray from earlier same day Findings: Lumbar dextroconvex curvature, apex at L2, with left lateral listhesis at L1-2, right lateral listhesis at L3-4. Preserved lumbar lordosis, with grade 1 retrolisthesis at L2-3. Subacute/chronic fracture deformities of the right 10th and 11th ribs. Acute moderate T12 superior endplate compression fracture with minimal cortical retropulsion. Acute moderate L1 superior endplate compression fracture, with no cortical retropulsion. Acute fracture of the right L2-L4 transverse processes. Remote left hemilaminotomy changes at L2-3 and L4-5. Multilevel spondylosis and neural foraminal stenosis, without evidence of high-grade spinal canal stenosis. Clear lung bases. Aortoiliac atherosclerotic plaquing. Degenerative changes of the included SI joints. Impression: 1. Acute moderate superior endplate compression fractures at T12 and L1. 2. Acute right transverse process fractures from L2-L4. 3. Subacute/chronic right posterior 10th and 11th rib deformities. 4. Spondylosis and remote postop changes, without evidence of high-grade spinal canal stenosis. Please note that all CT scans at this facility use dose modulation, iterative reconstruction, and/or weight-based dosing when appropriate to reduce radiation dose to as low as reasonably achievable. Dictated by Sabrina Valdovinos MD @ 06/19/2024 3:24:28 PM Assessment and Plan Assessment and plan (1) Compression fracture: Problem comment: -A spinal surgeon at [facility] who recommended [facility] -[id number]-[id number] orthosis and they accepted the patient but there were no beds available there. ED contacted me to admit the patient after consulting our orthopedic doctor (Dr Jacob) who accepted the consult and agreed to admit the patient at [place] under the hospitalist team for further evaluation tomorrow. - spinal surgeon at [facility] also recommended Three views of the lumbar spine, standing to check if the fractures were stable and it showed: Stable compression fracture deformities of the T12 and L1 vertebral bodies. Stable dextroscoliotic curvature of the thoracic or lumbar spine. No new listhesis. - ordered strict bedrest until orthopedic examined the patient tomorrow. -consulted Dr. Jacob from orthopedics who accepted admitting the patient. -P.T./OT and social services designee consult. 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 Status: Inactive (5) On continuous oral anticoagulation: Problem comment: apixiban for DVT/PE in 2022 CVA in 2023 Status: Inactive (6) Type 2 diabetes mellitus: Problem comment: -Home meds: Jardiance, Tradjenta, metformin -resume Jardiance -low-dose insulin sliding scale Status: Inactive (7) Peripheral neuropathy: Status: Inactive (8) CAD (coronary artery disease): Problem comment: - S/P [place] x 2, 6 total stents (last 2015) - NSTEMI in 2014 (two drug-eluting stents placements, 3rd Marginal and mid-RCA) - NSTEMI in 2016 (RCA, s/p x4 COLLEEN) - Metoprolol, Lasix Status: Inactive (9) Aortic stenosis: Problem comment: - TTE ordered 01/07/24 with results below: Final Impressions: 1. Normal LV size, moderately increased wall thickness, normal global systolic function with an estimated EF of 70 - 75%. 2. Right ventricular cavity size is normal, global systolic RV function is normal. 3. Grade 2 pattern of LV diastolic filling. 4. Moderate aortic stenosis. 5. Mild to moderate mitral stenosis. Mean gradient 6 mmHg at HR 70 BPM. Status: Inactive (10) HTN (hypertension): Problem comment: - Metoprolol Status: Inactive (11) Hyperlipidemia: Problem comment: Rosuvastatin Status: Inactive (12) BPH (benign prostatic hyperplasia): Problem comment: - Flomax Status: Inactive (13) Hearing loss: Problem comment: - wearing hearing aides bilaterally Status: Inactive Total Time Spent Total Time Spent: Time spent: Today I spent 75 minutes seeing the patient, discussing the patient with ER staff, reviewing Expanse and EPIC notes/diagnostics, discussing the care plan with our care time that includes social work, PT/OT, pharmacy, RT, snf and documenting my impressions and plan in the medical record.
[2024-06-19] MEDS: ROSUVASTATIN CALCIUM 10 MG TABLET PO (22:51)
[2024-06-19 23:00] VITALS: PULSE 67
[2024-06-20] MEDS: TRAZODONE HCL 50 MG TABLET PO (00:05)
[2024-06-20 03:00] VITALS: BP 123/64; PULSE 65; RESP 18; TEMP 36.8; O2SAT 100
[2024-06-20 07:00] VITALS: BP 140/82; PULSE 70; PULSE 72; RESP 16; TEMP 36.7; O2SAT 98
--- NOTE | 2024-06-20 07:29 | PC.NURSE ---
Shift note ([id number]): Patient arrived from ED at 2041. Patient not compliant with MD orders. Patient made several statements to staff that he was not going to follow doctors orders regarding bedrest. Refused IV placement. Refused to use urinal and bedside commode; adamant that he walk into the bathroom. Patient ambulated with walker and assist of two staff. He has been refusing to use a gait belt since in the ED. Ambulates well with minimal unsteadiness. 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 Reports pain is 8/10 when up and walking; denies pain at rest.??
[2024-06-20] MEDS: APIXABAN 5 MG TABLET PO (08:42)
[2024-06-20] MEDS: TAMSULOSIN HCL 0.4 MG CAPSULE PO (08:42)
[2024-06-20] MEDS: ACETAMINOPHEN 325 MG TABLET 975 MG PO (08:43)
[2024-06-20] MEDS: METOPROLOL SUCCINATE (XL) 100 MG TAB PO (08:43)
[2024-06-20] MEDS: EMPAGLIFLOZIN 25 MG TABLET PO (08:43)
[2024-06-20] MEDS: FUROSEMIDE 40 MG TABLET PO (08:43)
[2024-06-20] MEDS: SODIUM CHLORIDE 0.9 % (FLUSH) 10 ML SYRINGE 5 ML IVF (08:43)
[2024-06-20] MEDS: DOCUSATE SODIUM 100 MG CAPSULE PO (08:43)
[2024-06-20 11:00] VITALS: BP 125/68; PULSE 73; RESP 15; TEMP 36.6; O2SAT 99
--- NOTE | 2024-06-20 12:25 | P.DS_ITS ---
DS: Providers Provider Date Seen: 06/20/24 Date of admission: 06/19/24 20:35 Primary care physician: LAURITA JEAN DO Admitting Clinician: Cass Sanford MD Consults: 06/19/24 21:17 Consult to Professional Bass Fisherman [CONS] Routine Comment: Reason for Consult:: Social Service Consult 06/19/24 22:04 Consult to Occupational Therapy [CONS] Routine Comment: Reason(s) for OT Consult:: Evaluate and Treat Any Restrictions?:: See Comment Comment: Check with Orthopedic for restrictions Consult to Physical Therapy [CONS] Routine Comment: Reason(s) for PT Consult:: Evaluate and Treat Any Restrictions?:: See Comment Comment: Check with Orthopedic for restrictions Consult to Physician [CONS] Routine Comment: Consulting Provider: Sukhwinder Jacob Has provider been notified: Yes Consult to Professional Bass Fisherman [CONS] Routine Comment: Reason for Consult:: Discharge Planning Needs Attending Physician on discharge: QUETA Bhardwaj, JOANNAC [facility] Date of Discharge: 06/20/24 DS: Diagnosis Discharge Diagnosis (1) Compression fracture: Status: Acute Problem details: -A spinal surgeon at [place] who recommended TLSO -[id number] orthosis and they accepted the patient but there were no beds available there. ED contacted me to admit the patient after consulting our orthopedic doctor (Dr Jacob) who accepted the consult and agreed to admit the patient at [facility] under the hospitalist team for further evaluation tomorrow. - spinal surgeon at [place] also recommended Three views of the lumbar spine, standing to check if the fractures were stable and it showed: Stable compression fracture deformities of the T12 and L1 vertebral bodies. Stable dextroscoliotic curvature of the thoracic or lumbar spine. No new listhesis. - ordered strict bedrest until orthopedic examined the patient tomorrow. -consulted Dr. Jacob from orthopedics who accepted admitting the patient. -P.T./OT and social sciences department chair consult. Stable compression fracture deformities of the T12-L1 vertebral bodies with stable dextroscoliotic curvature of the thoracic or lumbar spine. No new listhesis noted on recommended further imaging. Patient was placed on strict bedrest but became quite agitated and noncompliant. Yelling out that he was a prisoner in his own bed. Refused to lie in bed. Refused to wear bed/chair alarm. Refused gait belt. Was able to work with PT, more or less noncompliant with OT. Recommendations have been made for ongoing therapies upon return to [facility]. I spoke with his daughter, Kimberley, on the phone to discuss plan of care. As patient has been noncompliant with recommendations here and fracture is noted to be stable, decision was made to seek outpatient TLSO fitting locally rather than transferring him to the [facility] area. Discussed risks for delay such as increased pain, neuropathy, weakness, and daughter verbalizing understanding and agreement. accounting advisory services manager in discussion with Rhiannamdjosé miguel and daughter as well. Plan is to return patient to his [facility] facility with ongoing therapies. Able to schedule a TLSO fitting appointment for at 1:00 p.m. which will occur at his apartment. Would recommend daughter be present for this. Continue Tylenol as needed. Close outpatient follow-up with PCP. (2) Frequent falls: Status: Inactive Problem details: T12-L1 compression fractures, L2-L4 transverse process fractures as noted above. No evidence of hip/pelvis fracture or intracranial bleed. P.T./OT ordered municipal maintenance worker consult for plan for safe discharge Therapies recommending ongoing PT/OT at [facility]. accounting advisory services manager assisting with return to [facility]. 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 (7) Peripheral neuropathy: Status: Inactive Problem details: Chronic, noted. Continue with therapies. (8) CAD (coronary artery disease): Status: Inactive Problem details: - S/P WV x 2, 6 total stents (last 2015) - NSTEMI in 2014 (two drug-eluting stents placements, 3rd Marginal and mid-RCA) - NSTEMI in 2016 (RCA, s/p x4 COLLEEN) - Metoprolol, Lasix (9) Aortic stenosis: Status: Inactive Problem details: - TTE ordered 01/07/24 with results below: Final Impressions: 1. Normal LV size, moderately increased wall thickness, normal global systolic function with an estimated EF of 70 - 75%. 2. Right ventricular cavity size is normal, global systolic RV function is normal. 3. Grade 2 pattern of LV diastolic filling. 4. Moderate aortic stenosis. 5. Mild to moderate mitral stenosis. Mean gradient 6 mmHg at HR 70 BPM. (10) HTN (hypertension): Status: Inactive Problem details: - Metoprolol (11) Hyperlipidemia: Status: Inactive Problem details: Rosuvastatin (12) BPH (benign prostatic hyperplasia): Status: Inactive Problem details: - Flomax (13) Hearing loss: Status: Inactive Problem details: - wearing hearing aides bilaterally (14) Cognitive impairment: Status: Acute Problem details: Discussed with daughter, noted decline since 2021 when patient lost both his daughter and his within 3 months of each other. Has been more angry/agitated at times. No formal outpatient assessment has been completed. Dejuan huffman will consider further neuro cognitive testing as an outpatient for baseline at this time. Has been noncompliant with recommendations during this hospitalization. In reviewing his in EMR, I do see that noncompliance has been an issue elsewhere as well. DS: Summary Hospital Course Hospital Course: Course of care and details as noted above. Plan to discharge back to [facility], rather than transfer to [facility], for outpatient TLSO fitting in setting of stable fracture. Recommending ongoing outpatient therapies at [facility]. Outpatient follow-up with PCP. Remainder of chronic medical comorbidities were monitored and managed with home medications. Status at Discharge Cognitive/behavioral status at discharge: Noncompliant with recommendations Overall status at discharge: patient is back to baseline Time Spent with Patient Time attestation: Total time spent providing and/or coordinating discharge services: Time spent: Greater than 30 minutes Exam Narrative: Exam Narrative: PHYSICAL EXAM General: Pleasant, conversant, NAD Cardiovascular: RRR Pulmonary: No dyspnea Neurological: Alert, answering questions appropriately Skin: Warm, dry. Const: Vital Signs, click to edit/add: Vital Signs - 24 hr 06/19/24 12:26 06/19/24 21:10 06/19/24 23:00 Temperature 98.6 F Pulse Rate 67 Pulse Rate [Pulse Oximeter] 71 Respiratory Rate 16 20 Blood Pressure [Le ft Arm] 132/72 Blood Pressure [Ri ght Upper Arm] 127/84 Pulse Oximetry 94 99 Oxygen Delivery Me thod Room Air 06/20/24 03:00 06/20/24 07:00 06/20/24 07:00 Temperature 98.2 F 98.0 F Pulse Rate 72 Pulse Rate [Pulse Oximeter] 65 70 Respiratory Rate 18 16 Blood Pressure [Le ft Arm] 123/64 140/82 H Blood Pressure [Ri ght Upper Arm] Pulse Oximetry 100 98 Oxygen Delivery Me thod Room Air Room Air 06/20/24 07:00 06/20/24 11:00 Temperature 97.9 F Pulse Rate Pulse Rate [Pulse Oximeter] 70 73 Respiratory Rate 16 15 Blood Pressure [Le ft Arm] 125/68 Blood Pressure [Ri ght Upper Arm] Pulse Oximetry 99 Oxygen Delivery Me thod Room Air DS: Data Data Completed and Pending Labs on day of discharge: Labs from last 24 hours 06/19/24 06/19/24 13:06 11:10 WBC 8.59 RBC 3.72 L Hgb 11.5 L Hct 35.3 L MCV 95 MCH 31 MCHC 33 RDW Coeff of Susi 12.7 Plt Count 179 Neut % (Auto) 73.9 H Lymph % (Auto) 12.9 L [place] % (Auto) 9.7 Eos % (Auto) 2.3 Baso % (Auto) 0.6 Neut # (Auto) 6.30 Lymph # (Auto) 1.10 [place] # (Auto) 0.80 Eos # (Auto) 0.20 Baso # (Auto) 0.05 Abs Immat Gran (auto) 0.05 Imm/Tot Granulo (auto) 0.6 Sodium 136 Potassium 4.1 Chloride 100 Carbon Dioxide 30 Anion Gap 6 L BUN 14 Creatinine 1.0 Estimated Creat Clear 50.35 Estimated GFR 73 Glucose 132 H Calcium 9.0 Total Bilirubin 1.1 AST 24 ALT 19 Alkaline Phosphatase 57 Total Creatine Kinase 73 C-Reactive Protein < 0.5 L Total Protein 6.1 Albumin 3.7 POC Troponin I 0.01 Imaging Chest x-ray: Attestation: I have reviewed the pertinent imaging results. Radiologist's impression: FINDINGS: The sensitivity and specificity of the exam are moderately limited by the patient`s body habitus. Mediastinum: The mediastinum is normal in appearance. The heart silhouette is normal in size and morphology. Lung: Both lungs are unremarkable in appearance. No sign of pleural effusion seen. No pneumothorax is identified. Bone and Soft tissue: Unremarkable for age. IMPRESSION: 1. No acute cardiopulmonary disease is seen. CT scan - head: Attestation: I have reviewed the pertinent imaging results. Radiologist's impression: No acute intracranial hemorrhage. No mass effect or midline shift. No hydrocephalus or extra-axial collections. Patchy white matter hypoattenuation, typical for chronic microvascular ischemic change. Moderate generalized parenchymal volume loss. Intracranial vascular calcifications. No acute osseous abnormalities. Mastoid air cells and paranasal sinuses are clear. Normal soft tissues. IMPRESSION: IMPRESSION: 1. No acute intracranial abnormalities. Please note that all CT scans at this facility use dose modulation, iterative reconstruction, and/or weight-based dosing when appropriate to reduce radiation dose to as low as reasonably achievable. Hip x-ray: Attestation: I have reviewed the pertinent imaging results. Radiologist's impression: Bone: No acute fractures or aggressive bone lesions are identified. Moderate diffuse osteopenia is noted. Joint: The hip joints are unremarkable. The visualized sacroiliac joints are unremarkable in appearance. The pubic symphysis is normal in appearance. Soft tissue: Unremarkable. No radiopaque foreign bodies are seen. Moderate vascular calcifications are noted. IMPRESSION: 1. No acute osseous injuries or abnormalities are noted. 1st lumbar x-ray: Attestation: I have reviewed the pertinent imaging results. Radiologist's impression: FINDINGS: Compression fracture of T12 and L1. There is 75 percent loss of height involving T12 about 50 percent loss of height involving L1. The compression fracture involving T12 appears acute. Disc space narrowing and disc degeneration throughout. IMPRESSION: 1. Compression fractures T12 and L1 probably acute. 2. Disc space narrowing and disc degeneration throughout. CT hip: Attestation: I have reviewed the pertinent imaging results. Radiologist's impression: No fracture is present. Degenerative changes noted. Vascular calcifications. No pelvic mass. Fecal impaction of stool in the rectum. Large left inguinal hernia containing loops of noninflamed bowel. Prostate calcifications with mass effect upon the inferior bladder. Impression: No acute fracture. Lumbar CT: Attestation: I have reviewed the pertinent imaging results. Radiologist's impression: Lumbar dextroconvex curvature, apex at L2, with left lateral listhesis at L1-2, right lateral listhesis at L3-4. Preserved lumbar lordosis, with grade 1 retrolisthesis at L2-3. Subacute/chronic fracture deformities of the right 10th and 11th ribs. Acute moderate T12 superior endplate compression fracture with minimal cortical retropulsion. Acute moderate L1 superior endplate compression fracture, with no cortical retropulsion. Acute fracture of the right L2-L4 transverse processes. Remote left hemilaminotomy changes at L2-3 and L4-5. Multilevel spondylosis and neural foraminal stenosis, without evidence of high-grade spinal canal stenosis. Clear lung bases. Aortoiliac atherosclerotic plaquing. Degenerative changes of the included SI joints. Impression: 1. Acute moderate superior endplate compression fractures at T12 and L1. 2. Acute right transverse process fractures from L2-L4. 3. Subacute/chronic right posterior 10th and 11th rib deformities. 4. Spondylosis and remote postop changes, without evidence of high-grade spinal canal stenosis. Standing lumbar x-ray: Attestation: I have reviewed the pertinent imaging results. Radiologist's impression: Three views of the lumbar spine, standing Comparison: Same-day lumbar spine CT and radiographs Findings/Impression: Stable compression fracture deformities of the T12 and L1 vertebral bodies. Stable dextroscoliotic curvature of the thoracic or lumbar spine. No new listhesis. Similar-appearing multilevel spondylitic changes of the spine. Discharge Plan Discharge Disposition: [facility] Discharge Location: [facility] Date of Admission: 06/19/24 20:35 Attending Provider on Discharge: Em Olivares Consulting Providers: Sukhwinder Jacob Primary Care Provider: LAURITA JEAN Condition: Unchanged Anticipated Discharge Date/Time: 06/20/24 15:00 Discharge Medications: New acetaminophen 325 mg Tablet 975 mg PO Q8H PRNQty: 90 0RF Continued metoprolol succinate 100 mg tablet extended release 24 hr 100 mg PO DAILY (DME) OneTouch Verio test strips Strip MISCELLANEOUS BID metformin 500 mg tablet extended release 24 hr 2,000 mg PO DAILY Tradjenta 5 mg tablet 5 mg PO QAM Eliquis 5 mg tablet 5 mg PO BID Jardiance 25 mg tablet 25 mg PO DAILY tamsulosin 0.4 mg capsule 0.4 mg PO DAILY calcium carbonate [Calcium Antacid] 200 mg calcium (500 mg) tablet,chewable 200 - 400 mg PO Q3H PRN nitroglycerin 0.4 mg tablet, sublingual 0.4 mg sublingual Q5M PRN (Reason: angina) rosuvastatin 10 mg Tablet 10 mg PO HS Qty: 30 0RF furosemide 40 mg tablet 40 mg PO DAILY calcium carbonate [Ultra Strength Antacid] 400 mg calcium (1,000 mg) tablet,chewable 400 mg PO QID PRN glipizide 2.5 mg tablet extended release 24hr 2.5 mg PO DAILY docusate sodium 100 mg capsule 100 mg PO DAILY Discontinued furosemide 20 mg tablet 20 mg PO QAM Discharge Orders: Discharge Order (Routine); Ordered 06/20/24 Ordered By: Em Olivares Additional Instructions: Return to [facility] RECOMMEND PT/OT THERAPIES. WILL NEED TLSO - HOME APPOINTMENT SCHEDULED FOR Thursday06/23/2024 AT 1:00 P.M.. WOULD RECOMMEND DAUGHTER BE PRESENT. Activity Level: Activity as Tolerated Activity Detail: PER PT/OT RECOMMENDATIONS Discharge Diet: Diabetic Follow Up Appointments: LAURITA JEAN DO [Primary Care Provider] - 06/23/24 1:40 pm (Post hospital follow up is scheduled on 06/23 at 1:40PM at the [facility]) Forms: code-laboration Info Instructions Admit to: RETURN TO LT Can use facility standing orders?: Yes Code Status: Full Code Rehab Potential: Fair Therapy: Physical Therapy and Occupational Therapy Therapy Orders: Evaluate and Treat Therapy Orders Additional Information: WILL NEED TLSO Oxygen: No Urinary Catheter: No Orders are good >30 days: No Signature: QUETA Bhardwaj, PA-C [facility]
--- NOTE | 2024-06-20 13:53 | PC.SOCIAL ---
Addendum entered by LAI Nye 06/20/24 14:14: Discharge planning: Pt's son, Arpan, was updated via phone about pt's discharge back to [facility]. Pt's son updated that pt will start PT/OT through [facility] through [facility]. Pt is aware that he will have to pay for his ride from [employer] and said he has grant in his wallet at his apartment. Social work to follow-up as needed. Original Note: Discharge planning: Pt is able to return back to [facility] today. Discharge orders and summary were secure emailed to YADIRA Jensen at [facility], [email or web address]. Pt will start PT/OT with [facility] through [facility]. Pt will transport back via [employer]. Social work to follow-up as needed.
--- NOTE | 2024-06-20 15:07 | PC.NURSE ---
End of shift [id number]: Alert, oriented to self and birthday as well as location. Intermittent confusion as to dates that prior hospitalizations or illnesses have occurred. Pain to right hip managed with PRN tylenol. Denies any SOB or chest pain. Orthopedic doctor who consulted on case when patient was in ED recommended that patient remain on bed rest, patient non compliant with bed rest and continued to ambulate and transfer self, SBA with walker, refused to allow staff to use gait belt. Patient discharged back to assisted living, left unit via wheelchair.
== END 2024-06-20 14:05 ==
LOC: ED 20:24 → MEDSURG 20:38
PROVIDERS: Admitting Provider Student in an Organized Health Care Education/Training Program; Emergency Provider Family Medicine; PCP Student in an Organized Health Care Education/Training Program; Visit Provider Student in an Organized Health Care Education/Training Program
DX: S32.010A Wedge compression fracture of first lumbar vertebra, initial encounter for closed fracture (principal); S22.080A Wedge compression fracture of T11-T12 vertebra, initial encounter for closed fracture; R29.6 Repeated falls; Z86.73 Personal history of transient ischemic attack (TIA), and cerebral infarction without residual deficits; Z86.718 Personal history of other venous thrombosis and embolism; Z79.01 Long term (current) use of anticoagulants; E11.9 Type 2 diabetes mellitus without complications; G62.9 Polyneuropathy, unspecified; I25.10 Atherosclerotic heart disease of native coronary artery without angina pectoris; I35.0 Nonrheumatic aortic (valve) stenosis; I10 Essential (primary) hypertension; E78.5 Hyperlipidemia, unspecified; N40.0 Benign prostatic hyperplasia without lower urinary tract symptoms; H91.90 Unspecified hearing loss, unspecified ear; R41.89 Other symptoms and signs involving cognitive functions and awareness
CPT/HCPCS: 36415; 70450; 71045; 72100; 72131; 73502; 73700; 80048; 80053; 81001; 82550; 82962; 83735; 84443; 84484; 85025; 85027; 86140; 87631; 93005; 94761; 97161; 97165; 97535; 99284; 99285; G0378; A9270

== ENCOUNTER 2024-09-13 11:20 | Outpatient (REF) | payer MEDICARE, SELFPAY ==
[2024-09-13 13:10] LABS: Basophils Absolute Auto 0.03 K/uL (0.00-0.30); Basophils Percent Auto 0.4 % (0.0-3.0); Eosinophils Absolute Auto 0.28 K/uL (0.00-0.50); Eosinophils Percent Auto 3.7 % (0.0-7.0); Hematocrit 39.8 % (37.0-53.0); Hemoglobin* 12.8 gm/dL (13.5-17.5); Immature Granulocytes Abs Auto 0.05 K/uL (0.00-0.30); Immature Granulocytes Pct Auto 0.7 %; Lymphocytes Absolute Auto 1.71 K/uL (0.90-2.90); Lymphocytes Percent Auto 22.4 % (20-44); Mean Corpuscular HGB Conc 32 gm/dL (32-36); Mean Corpuscular Hemoglobin 31 pg (26-34); Mean Corpuscular Volume 95 fL (80-100); Monocytes Percent Auto 8.8 % (0.0-11.0); Platelet Count* 137 K/uL (140-440); RDW Coefficient of Variation % 12.6 % (11.5-15.5); Red Blood Count 4.19 m/uL (4.30-5.90); White Blood Count* 7.64 K/uL (4.50-11.00)
[2024-09-13 13:14] LABS: Slide Review Reflex No
[2024-09-13 13:27] LABS: Hemoglobin A1C* 7.2 % (0-5.6)
[2024-09-13 13:28] LABS: Chloride* 100 mmol/L (96-114); Potassium* 4.1 mmol/L (3.6-5.1); Sodium* 139 mmol/L (135-149)
[2024-09-13 13:30] LABS: Blood Urea Nitrogen* 27 mg/dL (7-30); Creatinine* 1.4 mg/dL (0.5-1.5); Estimated Glomerular Filt Rate 48 ml/min
[2024-09-13 13:31] LABS: Anion Gap 6 mEq/L (7-15); Calcium* 9.1 mg/dL (8.4-10.6); Carbon Dioxide* 33 mmol/L (20-32); Cholesterol* 124 mg/dL (90-199); Glucose* 201 mg/dL (60-115); Triglycerides* 138 mg/dL (40-149)
[2024-09-13 13:32] LABS: HDL Cholesterol* 49 mg/dL (>=40); LDL Cholesterol Calculated 47 mg/dL (<100)
== END 2024-09-13 11:21 | disposition home or self-care (01) ==
LOC: NPINS 11:20
PROVIDERS: PCP Student in an Organized Health Care Education/Training Program; Visit Provider Nurse Practitioner Gerontology
DX: E11.9 Type 2 diabetes mellitus without complications (principal); E78.5 Hyperlipidemia, unspecified; D64.9 Anemia, unspecified; R97.20 Elevated prostate specific antigen [PSA]
CPT/HCPCS: 80048; 80061; 83036; 84153; 85025

== ENCOUNTER 2024-11-03 17:44 | Emergency (ER) | payer MEDICARE, SELFPAY ==
[2024-11-03] VITALS (23 sets, daily range): BP systolic 79–120; BP diastolic 59–80; PULSE 61–96; RESP 14–20; TEMP 36.1; O2SAT 98–100; BMI 21.8
--- OUTSIDE RECORDS SUMMARY | 2024-11-03 17:45 | XMS_ITS | Clinical Summary ---
Author Organization [facility] Address [address] [address] Phone Care Team Providers Care Plate Corrector Name Role Phone Unavailable Primary Care Provider [...]
--- OUTSIDE RECORDS SUMMARY | 2024-11-03 17:45 | XMS_ITS | Clinical Summary ---
Author Organization [facility] Address [address] [place] [id number] Care Team Providers Care Principal Research Economist Name Role Phone Alexandra Castelan DO Primary Care Provider [phone] [facility] Care, [place] Unavailable Allergies Active Allergy Reactions Criticality Noted [...] be used to read blood sugars per imaging tech's directions. 1 Each 07/13/19 24 Active blood-glucose [...] daily. 90 Tablet 3 11/26/19 24 Active tamsulosin [...] affected area(s). 25 Each 01/21/20 24 Active durable medical equipment (DME)Indications: Wound of skin ROHO cushion for wheel chair 1 Each 03/31/20 24 Active FreeStyle Emma 3 Sensor for continuous blood glucose monitor (CGM)Indications: Type 2 diabetes mellitus with diabetic polyneuropathy, without long-term current use of insulin (HC) To be used to read blood sugars, follow imaging tech directions. 6 Each 3 05/09/20 24 Active FreeStyle Emma 3 [place] for continuous blood glucose monitor (CGM)Indications: Type 2 diabetes mellitus with diabetic polyneuropathy, without long-term current use of insulin (HC) To be used to read blood sugars follow imaging tech directions. 1 Each 05/09/20 24 Active docusate (Stool Softener) 100 mg capsuleIndication s:Chronic constipation Take 1 Capsule (100 mg) by mouth once daily. 180 Capsule 3 05/26/20 24 Active calcium carbonate CHEWABLE (Tums Ultra) 400 mg calcium (1,000 mg) chewIndications:G astroesophageal reflux disease without esophagitis Chew 1 Tablet by mouth 4 times daily if needed (heartburn). 90 Tablet 06/07/20 24 Active hydrocortisone 1 % cream Apply topically to affected area(s) 4 times daily if needed for Itching. 06/14/19 25 Active neomycin-bacitrac in-polymyxin (Neosporin, hbc-bga-wmeku,) 3.5mg-400 unit-5,000 unit/gram ointment Apply topically to affected area(s) three times daily. 06/14/19 25 Active sodium phosphates (FLEETS) 9.5-3.5 gram/59 mL enema (pediatric) Insert 1 Enema rectally one time. 06/14/19 25 Active glipiZIDE extended-release (GLUCOTROL XL) 2.5 mg Extended-Release tablet Take 1 Tablet (2.5 mg) by mouth once daily before a meal. 90 Tablet 3 06/14/19 25 Active calcium carbonate CHEWABLE (TUMS E-X) 750 mg chewable tabletIndications :Heartburn Chew 1 Tablet (750 mg) by mouth 4 times daily if needed for Heartburn. 90 Tablet 3 06/20/19 Active zinc oxide 20 % ointment apply topically to affected area(s) two times daily. 03/08/20 Active acetaminophen (TYLENOL) 325 mg tablet TAKE 3 TABLETS (975MG) BY MOUTH EVERY EIGHT HOURS NEEDED 06/20/19 Active sertraline (ZOLOFT) 50 mg tablet Take 50 mg by mouth once daily in the morning. 08/17/19 Active furosemide (LASIX) 40 mg tabletIndications :Bilateral lower extremity edema TAKE 1 TABLET BY MOUTH ONCE DAILY 30 Tablet 11 07/07/19 Active FreeStyle Emma 2 SensorIndications :Type 2 diabetes mellitus with diabetic polyneuropathy, without long-term current use of insulin (HC) To be used to read blood sugars per imaging tech's directions. 6 Each 3 08/31/19 Active Active Problems Problem Noted Date Diagnosed [...] Without CHF Atherosclerotic heart diseas e of [place] coronary artery without angina pectoris 02/07/2016 08/29/2022 [...] Encounters Date Type Department Care Team Description 10/24/2024 Refill [facility] [address] [place] [address] Alexandra Castelan DO Refill Request (Stool Softener) 09/15/2024 Refill [facility] [address] [place] [address] Alexandra Castelan DO Refill Request (Metformin) 08/30/2024 Telephone [facility] [address] [place] [address] Alexandra Castelan DO Prior Authorization (FreeStyle Emma 2 Sensor Approved 08/23/2024-08/25/2027) 08/11/2024 Telephone [facility] [address] [place], [place] [id number] Alexandra Castelan DO Error-please disregard from Last 3 Months Immunizations Immunization Administration Dates Next Due COVID-19 VACCINE SPIKEVAX [...] is your housing situation today? 1 09/24/2023 Utilities Answer Date Recorded Do you have trouble paying f or utilities (for example, heat, electricity, water, phone)? 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 Gender Identity Not on file Sexual Orientation [...] 188 cm (6' 2) 07/17/2023 1:14 PM RAIL EXPRESS CLERK Body Mass Index 24.52 07/17/2023 1:14 PM RAIL EXPRESS CLERK Plan of Treatment Health Maintenance Due Date Last Done Comments RSV vaccine for adults or (1 - 1-dose 75+ series) 08/24/2011 Hepatitis B series for 19+ ( 2 of 2 - CpG 2-dose series) 11/19/2021 10/22/2021 Tetanus booster 03/11/2022 03/11/2012 Depression screening for age 12+ 09/19/2023 09/19/19 23, 08/21/2015 Medicare Wellness for age 65+ 09/19/2023 09/18/2022 BMI (ht and wt on same day) for age 18+ 12/27/2023 12/26/2022, 09/18/2022, 09/04/2022, Additional history exists COVID-19 vaccine series (2023- season) 2024 04/02/2023, 04/07/2022, 10/22/2021, Additional history exists Influenza Vaccine (Season Ended) 2025 02/27/2023, 04/07/2019, 03/23/2018, Additional history exists Tdap Completed 03/11/2012 Pneumococcal series for age 50+ Completed 5, 03/17/2006 Zoster (shingles) series for age 50+ Completed 05/10/2020, 02/02/2020, 07/07/2014 Insurance MEDICARE PART A HB ONLY [employer]ARE MEDICARE ADVANTAGE HC UCARE MEDICARE PDGM Advance Directives Documents on File Type Date Recorded Patient Truck Supervisor Expl anation POLST 10/12/2023 * Full Code [...] 11:28 PM 05/08/2015 2:10 PM Care Teams Principal Research Economist Relationship Specialty Start Date End Date Alexandra Castelan [place] [address] [place] [address] PCP - General Family Practice 10/29/[address] [address] 01/08/24
--- NOTE | 2024-11-03 18:04 | ED.GENADULT ---
HPI - General Adult General Time Seen by Provider: 18:04 <Helena Lange MD - Last Filed: 11/03/24 18:05> Date Seen: 11/03/24 <Helena Lange MD - Last Filed: 11/03/24 18:05> Chief complaint: Laceration/Wound <Helena Lange MD - Last Filed: 11/03/24 18:05> Stated complaint: L arm scrape <Helena Lange MD - Last Filed: 11/03/24 18:05> Time Seen by Provider: 11/03/24 18:04 <Helena Lange MD - Last Filed: 11/03/24 18:05> Source: patient and RN notes reviewed <Helena Lange MD - Last Filed: 11/03/24 18:05> Mode of arrival: ambulatory <Helena Lange MD - Last Filed: 11/03/24 18:05> Limitations: no limitations <Helena Lange MD - Last Filed: 11/03/24 18:05> History of Present Illness HPI narrative: 89 yo M with history of cognitive impairment, frequent falls, history of stroke, who presents to the ER today after he fell in the bathroom and injured his arm. He apparently scraped it on a shelf. He did not hit his head. He did not lose consciousness. He is a resident at [facility] and they down the have supplies to put a bandage on his arm so they sent him here to the ER. History from the patient is that he was finished in the bathroom and was then relieving himself when he says all the sudden ?the world went away?. He describes feeling very spinning and dizzy and then fell to the floor. He did really black out. He scraped his left forearm on a shelf for a table top as he fell down. He does not really think he was hurt when he fell. He was feeling too weak to get up so had to crawl and scoot across the floor and get help from his nurses at [facility]. They referred him here because they do not have the right equipment to put the dressings on his forearm. He does not really have spinning anymore but does feel weak and dizzy and when he standing up. No other symptoms. No chest pain. No palpitations. No trouble breathing. No recent cough. His daughter is here with him and she recently had pneumonia but the patient has not had no symptoms of that. Urination has been normal. Bowel movements have been normal (have anything constipated). No diarrhea. No black or bloody stools. No headache. No new rashes on his arms or legs. 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 This is stable and chronic for years. He does take a water pill for that. No recent change in his dose of his meds. <Jackson Lozada MD - Last Filed: 11/03/24 23:07> Related Data Home medications: Home Medications ?Medication ?Instructions ?Recorded ?Confirmed blood sugar diagnostic (OneTouch 08/29/22 04/28/24 Verio test strips) linagliptin 5 mg tablet (Tradjenta) 5 mg PO QAM 08/29/22 06/19/24 metformin 500 mg tablet,extended 2,000 mg PO DAILY 08/29/22 06/19/24 release 24 hr metoprolol succinate 100 mg 100 mg PO DAILY 08/29/22 06/19/24 tablet,extended release 24 hr apixaban 5 mg tablet (Eliquis) 5 mg PO BID 01/06/24 06/19/24 calcium carbonate (Calcium Antacid) 200 - 400 mg PO Q3H PRN 01/06/24 06/19/24 empagliflozin 25 mg tablet 25 mg PO DAILY 01/06/24 06/19/24 (Jardiance) nitroglycerin 0.4 mg sublingual 0.4 mg sublingual Q5M PRN angina 01/06/24 06/19/24 tablet tamsulosin 0.4 mg capsule 0.4 mg PO DAILY 01/06/24 06/19/24 calcium carbonate (Ultra Strength 400 mg PO QID PRN 06/19/24 06/19/24 Antacid) docusate sodium 100 mg capsule 100 mg PO DAILY 06/19/24 06/19/24 furosemide 40 mg tablet 40 mg PO DAILY 06/19/24 06/19/24 glipizide 2.5 mg tablet, extended 2.5 mg PO DAILY 06/19/24 06/19/24 release 24 hr Previous Rx's ?Medication ?Instructions ?Recorded rosuvastatin 10 mg tablet 10 mg PO HS #30 tabs 01/08/24 acetaminophen 325 mg tablet 975 mg (3 x 325 mg) PO Q8H PRN #90 06/20/24 tabs <Helena Lange MD - Last Filed: 11/03/24 18:05> Allergies/adverse reactions: Allergies Allergy/AdvReac Type Severity Reaction Status Date / Time losartan Allergy Verified 11/03/24 17:57 <Helena Lange MD - Last Filed: 11/03/24 18:05> [facility] Medical History: Medical History (Updated 11/03/24 @ 22:08 by Jackson Lozada MD) Cognitive impairment ?R41.89 - Other symptoms and signs involving cognitive functions and awareness (ICD-10) Aortic stenosis ?I35.0 - Nonrheumatic aortic (valve) stenosis (ICD-10) On continuous oral 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5 - Hyperlipidemia, unspecified (ICD-10) HTN (hypertension) ?I10 - Essential (primary) hypertension (ICD-10) Hearing loss ?H91.90 - Unspecified hearing loss, unspecified ear (ICD-10) <Helena Lange MD - Last Filed: 11/03/24 18:05> Surgical History: Surgical History (Updated 01/06/24 @ 16:30 by Snow Han MD) Hx of tonsillectomy ?Z90.89 - Acquired absence of other organs (ICD-10) 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 - Presence of coronary angioplasty implant and graft (ICD-10) Previous back surgery ?Z98.890 - Other specified postprocedural states (ICD-10) History of cataract surgery ?Z98.49 - Cataract extraction status, unspecified eye (ICD-10) <Helena Lange MD - Last Filed: 11/03/24 18:05> Social History: Social History What is your current living situation?: I presently have a place to live Problems where you live: no known problems Problems where you live details: n/a In the past 12 months, utilities in danger of being shut off: no In past 12 months, lack of transportation kept you from medical appts, meetings, work, or getting things needed for daily living: yes In the past 12 mos, have been you worried that your food would run out before you had money to buy more?: never true In the past 12 mos, the food you bought just didn't last and you didn't have money to buy more?: never true Highest level of school completed/degree received: Doctoral degree Smoking Status: Former smoker Do you use any of these nicotine containing products: None Second hand tobacco smoke exposure: No How often do you have a drink containing alcohol: monthly or less How many standard drinks containing alcohol do you have on a typical day: 1 or 2 How often do you have six or more drinks on one occasion: Never AUDIT-C Alcohol total score: 1 Non-prescribed substance use: denies use Caffeine: Yes (coffee) How often does anyone, including family, friends and others, physically hurt you: never How often does anyone, including family, friends and others, insult or talk down to you: never How often does anyone, including family, friends and others, threaten you with harm: never How often does anyone, including family, friends and others, scream or curse at you: never service: No Health Related Social Needs: transportation insecurity (Z59.82) <Helena Lange MD - Last Filed: 11/03/24 18:05> Exam Narrative: Exam Narrative: Constitutional: As I enter the room his daughter is sitting in the chair does bedside and the patient is sitting with his feet off left side of the bed. He has is buttocks on the side of the mattress of the bed and he is leg straight backwards with his torso across words on the beds and his arms, shoulders, and head off the right side of the bed. I assist the patient to sitting and help him get positioned appropriately on the bed with his head on the pillow. Appears well-developed and well-nourished. Alert. He answers questions appropriately but sometimes he has a little bit off with this history.. Non toxic. HENT: Head: Atraumatic. No depressed skull fracture, [place]acco[place] Eyes, Barrios's sign, or hemotympanum. Face normal. TMs normal Nose: Nose normal. Mouth/Throat: Oral mucosa is clear and moist. no trismus. Pharynx normal. Tonsils symmetric. No tonsillar enlargement, erythema, or exudate. Eyes: Conjunctivae normal and not really pale. EOM normal. Pupils equal, round, and reactive to light. No scleral icterus. Neck: Normal range of motion. Neck supple. No tracheal deviation present. No JVD Cardiovascular: Normal rate, regular rhythm. No gallop. No friction rub. No murmur heard. Symmetric radial artery pulses . Blood pressure was 79/59 at triage. He does have a cough on his right upper extremity but it is not really fitting very well. He has several subsequent blood pressure readings which are hypotensive at around 80/50. I repositioned the patient in bed and recheck the patient's blood pressure in his right arm and then his left arm. My 2 blood pressure readings are 110/70 and 112/70. He says he feels better lying down. Pulmonary/Chest: Effort normal. No stridor. No respiratory distress. No wheezes. No rales. No rhonchi . No tenderness. Abdominal: Soft. Bowel sounds normal. No distension. No mass. No tenderness. No rebound. No guarding. No CVA tenderness. No pulsatile mass. Musculoskeletal: RUE: Normal range of motion. No tenderness. No deformity LUE: Normal range of motion. No tenderness. No deformity RLE: Normal range of motion. No edema. No tenderness. No deformity LLE: Normal range of motion. No edema. No tenderness. No deformity Neurological: Alert and oriented to person, place, and time, but does seem to be a little bit limited with his details of history.. Normal strength. CN II-VII intact. No sensory deficit. GCS eye subscore is 4. GCS verbal subscore is 5. GCS motor subscore is 6. Normal coordination . Gait not assessed due to risk of hypotension or falling. Skin: Skin is warm and dry. No rash noted. No pallor. Normal capillary refill. Psychiatric: Normal mood. Normal affect. Polite. <Jackson Lozada MD - Last Filed: 11/03/24 23:07> Const: Vital Signs, click to edit/add: Vital Signs - 24 hr 11/03/24 17:57 11/03/24 18:04 11/03/24 18:05 Temperature 97.0 F L Pulse Rate 76 76 Pulse Rate [Pulse Oximeter] 96 Respiratory Rate 16 Blood Pressure 83/61 L Blood Pressure [Ri ght Upper Arm] 79/59 L Pulse Oximetry 99 98 98 [facility] 11/03/24 18:09 11/03/24 18:14 11/03/24 18:15 Temperature Pulse Rate 74 72 71 Pulse Rate [Pulse Oximeter] Respiratory Rate Blood Pressure 110/70 112/70 Blood Pressure [Ri ght Upper Arm] Pulse Oximetry 100 99 99 [facility] 11/03/24 18:17 11/03/24 19:31 11/03/24 19:32 Temperature Pulse Rate 70 66 66 Pulse Rate [Pulse Oximeter] Respiratory Rate Blood Pressure 119/72 105/71 Blood Pressure [Ri ght Upper Arm] Pulse Oximetry 100 99 100 [facility] 11/03/24 19:45 11/03/24 19:47 11/03/24 20:00 Temperature Pulse Rate 71 68 66 Pulse Rate [Pulse Oximeter] Respiratory Rate 16 16 Blood Pressure 114/60 Blood Pressure [Ri ght Upper Arm] Pulse Oximetry 100 100 99 [facility] 11/03/24 20:02 11/03/24 20:03 11/03/24 20:30 Temperature Pulse Rate 66 66 67 Pulse Rate [Pulse Oximeter] Respiratory Rate 16 16 Blood Pressure 113/68 Blood Pressure [Ri ght Upper Arm] Pulse Oximetry 100 100 100 [facility] 11/03/24 20:45 11/03/24 20:47 11/03/24 21:00 Temperature Pulse Rate 65 65 62 Pulse Rate [Pulse Oximeter] Respiratory Rate 15 Blood Pressure 120/80 Blood Pressure [Ri ght Upper Arm] Pulse Oximetry 100 100 100 Oxygen Delivery [facility] 11/03/24 21:02 11/03/24 21:03 11/03/24 21:15 Temperature Pulse Rate 62 61 61 Pulse Rate [Pulse Oximeter] Respiratory Rate 20 16 Blood Pressure 102/63 Blood Pressure [Ri ght Upper Arm] Pulse Oximetry 100 99 99 Oxygen Delivery [facility] 11/03/24 21:18 11/03/24 21:19 Temperature Pulse Rate 61 61 Pulse Rate [Pulse Oximeter] Respiratory Rate 14 Blood Pressure 114/65 Blood Pressure [Ri ght Upper Arm] Pulse Oximetry 99 99 Oxygen Delivery Me thod <Helena Lange MD - Last Filed: 11/03/24 18:05> Vital Signs, click to edit/add: Vital Signs - 24 hr 11/03/24 17:57 11/03/24 18:04 11/03/24 18:05 Temperature 97.0 F L Pulse Rate 76 76 Pulse Rate [Pulse Oximeter] 96 Respiratory Rate 16 Blood Pressure 83/61 L Blood Pressure [Ri ght Upper Arm] 79/59 L Pulse Oximetry 99 98 98 Oxygen Delivery [facility] Room Air 11/03/24 18:09 11/03/24 18:14 11/03/24 18:15 Temperature Pulse Rate 74 72 71 Pulse Rate [Pulse Oximeter] Respiratory Rate Blood Pressure 110/70 112/70 Blood Pressure [Ri ght Upper Arm] Pulse Oximetry 100 99 99 Oxygen Delivery [facility] 11/03/24 18:17 11/03/24 19:31 11/03/24 19:32 Temperature Pulse Rate 70 66 66 Pulse Rate [Pulse Oximeter] Respiratory Rate Blood Pressure 119/72 105/71 Blood Pressure [Ri ght Upper Arm] Pulse Oximetry 100 99 100 Oxygen Delivery Me [facility] 11/03/24 19:45 11/03/24 19:47 11/03/24 20:00 Temperature Pulse Rate 71 68 66 Pulse Rate [Pulse Oximeter] Respiratory Rate 16 16 Blood Pressure 114/60 Blood Pressure [Ri ght Upper Arm] Pulse Oximetry 100 100 99 Oxygen Delivery [facility] 11/03/24 20:02 11/03/24 20:03 11/03/24 20:30 Temperature Pulse Rate 66 66 67 Pulse Rate [Pulse Oximeter] Respiratory Rate 16 16 Blood Pressure 113/68 Blood Pressure [Ri ght Upper Arm] Pulse Oximetry 100 100 100 Oxygen Delivery [facility] 11/03/24 20:45 11/03/24 20:47 11/03/24 21:00 Temperature Pulse Rate 65 65 62 Pulse Rate [Pulse Oximeter] Respiratory Rate 15 Blood Pressure 120/80 Blood Pressure [Ri ght Upper Arm] Pulse Oximetry 100 100 100 Oxygen Delivery [facility] 11/03/24 21:02 11/03/24 21:03 11/03/24 21:15 Temperature Pulse Rate 62 61 61 Pulse Rate [Pulse Oximeter] Respiratory Rate 20 16 Blood Pressure 102/63 Blood Pressure [Ri ght Upper Arm] Pulse Oximetry 100 99 99 Oxygen Delivery In thod 11/03/24 21:18 11/03/24 21:19 Temperature Pulse Rate 61 61 Pulse Rate [Pulse Oximeter] Respiratory Rate 14 Blood Pressure 114/65 Blood Pressure [Ri ght Upper Arm] Pulse Oximetry 99 99 Oxygen Delivery In thod <Jackson Lozada MD - Last Filed: 11/03/24 23:07> Course Vital Signs Vital signs: Initial Vital Signs Temperature 97.0 F L 11/03/24 17:57 Temperature Source Temporal Artery Scan 11/03/24 17:57 Pulse Rate 96 11/03/24 17:57 Respiratory Rate 16 11/03/24 17:57 Blood Pressure 79/59 L 11/03/24 17:57 Blood Pressure Mean 65 L 11/03/24 17:57 Blood Pressure Position Sitting 11/03/24 17:57 Pulse Oximetry 99 11/03/24 17:57 Oxygen Delivery Method Room Air 11/03/24 17:57 Vital Signs Temperature 97.0 F L 11/03/24 17:57 Pulse Rate 96 11/03/24 17:57 Respiratory Rate 16 11/03/24 17:57 Blood Pressure 79/59 L 11/03/24 17:57 Pulse Oximetry 99 11/03/24 17:57 Oxygen Delivery Method Room Air 11/03/24 17:57 Temperature 97.0 F L 11/03/24 17:57 Pulse Rate 61 11/03/24 21:19 Respiratory Rate 14 11/03/24 21:18 Blood Pressure 114/65 11/03/24 21:18 Pulse Oximetry 99 11/03/24 21:19 Oxygen Delivery Method Room Air 11/03/24 17:57 <Helena Lange MD - Last Filed: 11/03/24 18:05> Initial Vital Signs Temperature 97.0 F L 11/03/24 17:57 Temperature Source Temporal Artery Scan 11/03/24 17:57 Pulse Rate 96 11/03/24 17:57 Respiratory Rate 16 11/03/24 17:57 Blood Pressure 79/59 L 11/03/24 17:57 Blood Pressure Mean 65 L 11/03/24 17:57 Blood Pressure Position Sitting 11/03/24 17:57 Pulse Oximetry 99 11/03/24 17:57 Oxygen Delivery Method Room Air 11/03/24 17:57 Vital Signs Temperature 97.0 F L 11/03/24 17:57 Pulse Rate 96 11/03/24 17:57 Respiratory Rate 16 11/03/24 17:57 Blood Pressure 79/59 L 11/03/24 17:57 Pulse Oximetry 99 11/03/24 17:57 Oxygen Delivery Method Room Air 11/03/24 17:57 Temperature 97.0 F L 11/03/24 17:57 Pulse Rate 61 11/03/24 21:19 Respiratory Rate 14 11/03/24 21:18 Blood Pressure 114/65 11/03/24 21:18 Pulse Oximetry 99 11/03/24 21:19 Oxygen Delivery Method Room Air 11/03/24 17:57 <Jackson Lozada MD - Last Filed: 11/03/24 23:07> Medications Administered Medications: Discontinued Medications Generic Name Dose Route Start Last Admin Trade Name Freq PRN Reason Stop Dose Admin Sodium Chloride 1,000 mls @ 2,500 mls/hr 11/03/24 18:30 11/03/24 19:24 0.9 % Sodium Chloride 1000 Ml IV 11/03/24 19:17 2,500 mls/hr .Q24M NEELA Administration Vancomycin/PEG/NADA/Lysine/Water 1.25 gm in 250 mls @ 200 mls/hr 11/03/24 18:45 11/03/24 21:19 Vancomycin 1.25 Gm/250 Ml IVPB 11/03/24 19:59 Infused ONCE ONE Infusion <Helena Lange MD - Last Filed: 11/03/24 18:05> Discontinued Medications Generic Name Dose Route Start Last Admin Trade Name Cory PRN Reason Stop Dose Admin Sodium Chloride 1,000 mls @ 2,500 mls/hr 11/03/24 18:30 11/03/24 19:24 0.9 % Sodium Chloride 1000 Ml IV 11/03/24 19:17 2,500 mls/hr .Q24M NEELA Administration Vancomycin/PEG/NADA/Lysine/Water 1.25 gm in 250 mls @ 200 mls/hr 11/03/24 18:45 11/03/24 21:19 Vancomycin 1.25 Gm/250 Ml IVPB 11/03/24 19:59 Infused ONCE ONE Infusion <Jackson Lozada MD - Last Filed: 11/03/24 23:07> Medical Decision Making MDM Narrative Medical decision making narrative: 89-year-old gentleman is sent to the ER today by his nurses at his assisted living at [facility]. He apparently had a dizzy spell leading to a fall which led to a scrape on the patient's left ulnar forearm. He was sent here because the nurses did not have supplies to put a dressing on his forearm. In terms of the forearm dressing he does have a fairly long 12-15 cm superficial abrasion. This really is a skin tear except for all of the skin has been scraped off. It does not require sutures. It is not amenable to Steri-Strips or skin glue. Wound cleansing, antibiotic ointment, Dressing , and wound care were applied by nursing. Because of the fal and mild confusion his CT scan of his head and C-spine were undertaken and are normal. The larger concern is why he was dizzy. He describes it as a sudden onset of spinning that is now gone. This might suggest that he had an episode of vertigo. However he is also hypotensive on multiple blood pressure readings around the time of triage. He seemed to be symptomatic when he was trying to sit up at the edge of the bed but feels better and is normotensive while lying in the bed. The workup was undertaken for cause of hypotension. No evidence for allergic reaction or hives or anaphylaxis. Consider possible sepsis. Weight based fluid bolus of 30 mL/kilogram were ordered. However he has no clear signs of an infection based on history. He is not febrile. Chest x-ray shows[]. Urinalysis Patient denies any symptoms a recent hematemesis, bloody stool, melena to suggest GI bleeding. He has no abdominal pain or pulsatile mass to suggest rupturing AAA. He has no chest pain or shortness of breath or hypoxia to suggest PE. chest x-ray is negative. With the patient's initial hypotension, I did order a 30 mL/kg fluid bolus as well as some empiric antibiotics After the patient received 1 L saline he was urinating quite well and actually was incontinent. He was refusing further workup and further IV fluids. I had a detailed discussion with the patient and with his daughter who is tentatively at his side. I have concern with his low blood pressure and his elevated lactic that there could be some serious pathology going on here. At this point my workup is unclear as to the actual cause for his hypotension. Differential would still include occult bleeding although his hemoglobin is normal, occult infection although he is not febrile, sepsis, among others. Patient is adamant that he wants to go home to [facility]. Discussed the risk of shock and serious illness of we do not have further workup. I think the patient does have medical decision-making capacity and his daughter supports this decision. Therefore will discharge him. Precautions for return to the ER reviewed. <Jackson Lozada MD - Last Filed: 11/03/24 23:07> Lab Data Labs: Lab Results 11/03/24 11/03/24 11/03/24 Range/Units 19:15 19:42 20:20 WBC 8.91 (4.50-11.00) K/uL RBC 3.66 L (4.30-5.90) m/uL Hgb 11.3 L (13.5-17.5) gm/dL Hct 34.7 L (37.0-53.0) % MCV 95 (80-100) fL MCH 31 (26-34) pg MCHC 33 (32-36) gm/dL RDW Coeff of Susi 13.1 (11.5-15.5) % Plt Count 151 (140-440) K/uL Neut % (Auto) 66.5 (42.0-72.0) % Lymph % (Auto) 18.5 L (20-44) % [place] % (Auto) 9.5 (0.0-11.0) % Eos % (Auto) 3.9 (0.0-7.0) % Baso % (Auto) 0.4 (0.0-3.0) % Neut # (Auto) 5.91 (1.7-7.0) K/uL Lymph # (Auto) 1.60 (0.90-2.90) K/uL [place] # (Auto) 0.80 (0.00-0.90) K/UL Eos # (Auto) 0.35 (0.00-0.50) K/uL Baso # (Auto) 0.04 (0.00-0.30) K/uL Abs Immat Gran (auto) 0.11 (0.00-0.30) K/uL Imm/Tot Granulo (auto) 1.2 % Sodium 138 (135-149) mmol/L Potassium 3.8 (3.6-5.1) mmol/L Chloride 100 (96-114) mmol/L Carbon Dioxide 30 (20-32) mmol/L Anion Gap 8 (7-15) mEq/L BUN 18 (7-30) mg/dL Creatinine 1.4 (0.5-1.5) mg/dL Estimated Creat Clear 39.78 Estimated GFR 48 ml/min Glucose 189 H (60-115) mg/dL Lactate 2.8 H (0.5-1.9) mmol/L Calcium 8.6 (8.4-10.6) mg/dL Troponin I < 0.01 (0.01-0.04) ng/mL Procalcitonin 0.08 (<0.50) ng/mL Urine Color Yellow (Yellow) Urine Appearance Clear (Clear) Urine pH 7.0 (5.0-8.5) Ur Specific [place] 1.015 (1.000-1.030) Urine Protein Negative (Negative) Urine Glucose (UA) 2+ A (Negative) Urine Ketones Negative (Negative) Urine Blood Negative (Negative) Urine Nitrite Negative (Negative) Urine Bilirubin Negative (Negative) Urine Urobilinogen 0.2 (0.2-1.0) Ur Leukocyte Esterase Negative (Negative) Urine RBC 0-2 (0-2) Urine WBC 0-2 (0-5) Ur Squamous Epith Cells Few (None-Few) Urine Bacteria None (None) <Helena Lange MD - Last Filed: 11/03/24 18:05> Lab Results 11/03/24 11/03/24 11/03/24 Range/Units 19:15 19:42 20:20 WBC 8.91 (4.50-11.00) K/uL RBC 3.66 L (4.30-5.90) m/uL Hgb 11.3 L (13.5-17.5) gm/dL Hct 34.7 L (37.0-53.0) % MCV 95 (80-100) fL MCH 31 (26-34) pg MCHC 33 (32-36) gm/dL RDW Coeff of Susi 13.1 (11.5-15.5) % Plt Count 151 (140-440) K/uL Neut % (Auto) 66.5 (42.0-72.0) % Lymph % (Auto) 18.5 L (20-44) % [place] % (Auto) 9.5 (0.0-11.0) % Eos % (Auto) 3.9 (0.0-7.0) % Baso % (Auto) 0.4 (0.0-3.0) % Neut # (Auto) 5.91 (1.7-7.0) K/uL Lymph # (Auto) 1.60 (0.90-2.90) K/uL [place] # (Auto) 0.80 (0.00-0.90) K/UL Eos # (Auto) 0.35 (0.00-0.50) K/uL Baso # (Auto) 0.04 (0.00-0.30) K/uL Abs Immat Gran (auto) 0.11 (0.00-0.30) K/uL Imm/Tot Granulo (auto) 1.2 % Sodium 138 (135-149) mmol/L Potassium 3.8 (3.6-5.1) mmol/L Chloride 100 (96-114) mmol/L Carbon Dioxide 30 (20-32) mmol/L Anion Gap 8 (7-15) mEq/L BUN 18 (7-30) mg/dL Creatinine 1.4 (0.5-1.5) mg/dL Estimated Creat Clear 39.78 Estimated GFR 48 ml/min Glucose 189 H (60-115) mg/dL Lactate 2.8 H (0.5-1.9) mmol/L Calcium 8.6 (8.4-10.6) mg/dL Troponin I < 0.01 (0.01-0.04) ng/mL Procalcitonin 0.08 (<0.50) ng/mL Urine Color Yellow (Yellow) Urine Appearance Clear (Clear) Urine pH 7.0 (5.0-8.5) Ur Specific [place] 1.015 (1.000-1.030) Urine Protein Negative (Negative) Urine Glucose (UA) 2+ A (Negative) Urine Ketones Negative (Negative) Urine Blood Negative (Negative) Urine Nitrite Negative (Negative) Urine Bilirubin Negative (Negative) Urine Urobilinogen 0.2 (0.2-1.0) Ur Leukocyte Esterase Negative (Negative) Urine RBC 0-2 (0-2) Urine WBC 0-2 (0-5) Ur Squamous Epith Cells Few (None-Few) Urine Bacteria None (None) <Jackson Lozada MD - Last Filed: 11/03/24 23:07> Imaging Data CT scan - head: Attestation: I have reviewed the pertinent imaging results. <Jackson Lozada MD - Last Filed: 11/03/24 23:07> Radiologist's impression: IMPRESSION: 1. No acute intracranial abnormalities. <Jackson Lozada MD - Last Filed: 11/03/24 23:07> CT C spipne: Attestation: I have reviewed the pertinent imaging results. <Jackson Lozada MD - Last Filed: 11/03/24 23:07> Radiologist's impression: IMPRESSION: 1. No acute fracture or traumatic malalignment of the cervical spine. <Jackson Lozada MD - Last Filed: 11/03/24 23:07> Chest x-ray: Attestation: I have reviewed the pertinent imaging results. <Jackson Lozada MD - Last Filed: 11/03/24 23:07> Radiologist's impression: IMPRESSION: No acute findings and no significant change from the prior exam. <Jackson Lozada MD - Last Filed: 11/03/24 23:07> ECG Data Attestation: I personally reviewed and interpreted this ECG as follows: <Jackson Lozada MD - Last Filed: 11/03/24 23:07> Interpretation: Normal sinus rhythm with first-degree AV block Rate: 69 [place]: 240 QRS axis: Normal axis. ST segment/T wave: No ST segment elevation or depression. Nonspecific T-wave flattening in leads V1, V2, 1, aVL QTc: 475 <Jackson Lozada MD - Last Filed: 11/03/24 23:07> Discharge Plan Discharge Clinical Impression: Dizziness, Fall, Acute hypotension, Abrasion of forearm, left <Helena Lange MD - Last Filed: 11/03/24 18:05> Patient Disposition: Home, Self-Care <Helena Lange MD - Last Filed: 11/03/24 18:05> Condition: Stable <Helena Lange MD - Last Filed: 11/03/24 18:05> Instructions: Abrasion (ED), Dizziness (ED) <Helena Lange MD - Last Filed: 11/03/24 18:05> Additional Instructions: As we discussed, please return to the ER right away if you have any concerning symptoms especially more M sense of dizziness, falling, weakness, or if you develop any chest pain, trouble breathing, fever. Please have your nurses at [facility] change her dressing once per day and wash the wound gently with warm water. After the wound is washed, have them reapply a little bit of antibiotic ointment and a new dressing. The wound will take a couple of weeks to scab over and heal. <Helena Lange MD - Last Filed: 11/03/24 18:05> Prescriptions: No Action metoprolol succinate 100 mg tablet extended release 24 hr 100 mg PO DAILY (DME) OneTouch Verio test strips Strip MISCELLANEOUS BID metformin 500 mg tablet extended release 24 hr 2,000 mg PO DAILY Tradjenta 5 mg tablet 5 mg PO QAM Eliquis 5 mg tablet 5 mg PO BID Jardiance 25 mg tablet 25 mg PO DAILY tamsulosin 0.4 mg capsule 0.4 mg PO DAILY calcium carbonate [Calcium Antacid] 200 mg calcium (500 mg) tablet,chewable 200 - 400 mg PO Q3H PRN nitroglycerin 0.4 mg tablet, sublingual 0.4 mg sublingual Q5M PRN (Reason: angina) rosuvastatin 10 mg Tablet 10 mg PO HS Qty: 30 0RF furosemide 40 mg tablet 40 mg PO DAILY calcium carbonate [Ultra Strength Antacid] 400 mg calcium (1,000 mg) tablet,chewable 400 mg PO QID PRN glipizide 2.5 mg tablet extended release 24hr 2.5 mg PO DAILY docusate sodium 100 mg capsule 100 mg PO DAILY acetaminophen 325 mg Tablet 975 mg PO Q8H PRNQty: 90 0RF <Helena Lange MD - Last Filed: 11/03/24 18:05> Follow Up/Referrals: LAURITA JEAN DO [Primary Care Provider, Family Practice] <Helena Lange MD - Last Filed: 11/03/24 18:05> Stand Alone Forms: [facility], [facility] <Helena Lange MD - Last Filed: 11/03/24 18:05>
--- NOTE | 2024-11-03 18:19 | CRLHL7_ITS ---
For Patients: As a result of the Century Cures Act, medical imaging exams and procedure reports are released immediately into your electronic medical record. You may view this report before your referring provider. If you have questions, please contact your health care provider. INDICATION: Fall. Dizziness. TECHNIQUE: CT of the head without contrast. Coronal and sagittal reformats are included. COMPARISON: Head CT from 06/19/2024. FINDINGS: No acute intracranial hemorrhage. No mass effect or midline shift. No hydrocephalus or extra-axial collections. Patchy white matter hypoattenuation, typical for chronic microvascular ischemic change. Moderate generalized parenchymal volume loss. Intracranial vascular calcifications. No acute osseous abnormalities. Mastoid air cells and paranasal sinuses are clear. Normal soft tissues. IMPRESSION: IMPRESSION: 1. No acute intracranial abnormalities. Please note that all CT scans at this facility use dose modulation, iterative reconstruction, and/or weight-based dosing when appropriate to reduce radiation dose to as low as reasonably achievable. Dictated by Jeramy Osullivan MD @ 11/03/2024 7:34:06 PM (Electronically Signed)
--- NOTE | 2024-11-03 18:19 | CRLHL7_ITS ---
For Patients: As a result of the Cures Act, medical imaging exams and procedure reports are released immediately into your electronic medical record. You may view this report before your referring provider. If you have questions, please contact your health care provider. INDICATION: Fall, dizziness. TECHNIQUE: Chest 2 views. COMPARISON: June 19, 2024. FINDINGS: Cardiovascular and mediastinum: Cardiomediastinal silhouette is within normal limits. Calcific atherosclerosis of the aorta. Lungs and pleural spaces: Incidentally noted azygous lobe. Lungs are clear. No sign of pleural effusion. No pneumothorax. Bones and soft tissues: No significant findings. IMPRESSION: No acute findings and no significant change from the prior exam. Dictated by Keily Blanco MD @ 11/03/2024 7:50:54 PM (Electronically Signed)
--- NOTE | 2024-11-03 18:20 | CRLHL7_ITS ---
For Patients: As a result of the Cures Act, medical imaging exams and procedure reports are released immediately into your electronic medical record. You may view this report before your referring provider. If you have questions, please contact your health care provider. INDICATION: Fall. Dizziness. TECHNIQUE: CT of the cervical spine without contrast. Coronal and sagittal reformats are included. COMPARISON: Cervical spine CT from 01/06/2024. FINDINGS: Fractures and other acute findings: None. Hardware/surgical findings: Osseous fusion along the C3-4 interspace and posterior elements could be degenerative or postsurgical. Spinal alignment: Straightening of the typical cervical lordosis. Significant cervical spondylosis: Advanced disc degeneration C5-6, C6-7 and C7-T1. Disc osteophyte complexes at C5-6 and C6-7 which contributes to spinal canal stenosis. Multilevel uncovertebral and facet arthrosis with high-grade neural foraminal stenosis at C2-3 on the right, C3-4 on the left, C5-6 on the right, and C6-7 bilaterally. Paraspinal soft tissues and imaged lungs: Vascular calcifications carotid bulbs. Lung apices are clear. IMPRESSION: 1. No acute fracture or traumatic malalignment of the cervical spine. Please note that all CT scans at this facility use dose modulation, iterative reconstruction, and/or weight-based dosing when appropriate to reduce radiation dose to as low as reasonably achievable. Dictated by Jeramy Osullivan MD @ 11/03/2024 7:43:42 PM (Electronically Signed)
[2024-11-03] MEDS: 0.9 % SODIUM CHLORIDE 1000 ml 1,000 ML 2500 ML IV (19:24)
[2024-11-03 19:28] LABS: Lactate* 2.8 mmol/L (0.5-1.9)
[2024-11-03] MEDS: VANCOMYCIN 1.25 GM/250 ML 1.25 GM/250 ML PIGGYBACK IVPB (19:28)
[2024-11-03 20:03] LABS: Procalcitonin* 0.08 ng/mL (<0.50)
[2024-11-03 20:29] LABS: Appearance Urine Clear (Clear); Bilirubin Urine Negative (Negative); Blood Urine Negative (Negative); Color Urine Yellow (Yellow); Glucose Urine 2+ (Negative); Ketones Urine Negative (Negative); Leukocyte Esterase Urine Negative (Negative); Nitrite Urine Negative (Negative); Protein Urine Negative (Negative); Specific Gravity Urine 1.015 (1.000-1.030); Urobilinogen Urine 0.2 (0.2-1.0)
[2024-11-03 20:34] LABS: RBC Urine 0-2 (0-2); Squamous Epithelial Cell Urine Few (None-Few); WBC Urine 0-2 (0-5)
[2024-11-03 20:34] LABS: Basophils Absolute Auto 0.04 K/uL (0.00-0.30); Basophils Percent Auto 0.4 % (0.0-3.0); Chloride* 100 mmol/L (96-114); Eosinophils Absolute Auto 0.35 K/uL (0.00-0.50); Eosinophils Percent Auto 3.9 % (0.0-7.0); Hematocrit 34.7 % (37.0-53.0); Hemoglobin* 11.3 gm/dL (13.5-17.5); Immature Granulocytes Abs Auto 0.11 K/uL (0.00-0.30); Immature Granulocytes Pct Auto 1.2 %; Lymphocytes Percent Auto 18.5 % (20-44); Mean Corpuscular HGB Conc 33 gm/dL (32-36); Mean Corpuscular Hemoglobin 31 pg (26-34); Mean Corpuscular Volume 95 fL (80-100); Monocytes Percent Auto 9.5 % (0.0-11.0); Neutrophils Absolute Auto 5.91 K/uL (1.7-7.0); Neutrophils Percent Auto 66.5 % (42.0-72.0); Platelet Count* 151 K/uL (140-440); RDW Coefficient of Variation % 13.1 % (11.5-15.5); Red Blood Count 3.66 m/uL (4.30-5.90); White Blood Count* 8.91 K/uL (4.50-11.00)
[2024-11-03 20:35] LABS: Potassium* 3.8 mmol/L (3.6-5.1); Sodium* 138 mmol/L (135-149)
[2024-11-03 20:37] LABS: Blood Urea Nitrogen* 18 mg/dL (7-30); Creatinine* 1.4 mg/dL (0.5-1.5); Est. Creatinine Clearance* 39.78; Estimated Glomerular Filt Rate 48 ml/min
[2024-11-03 20:38] LABS: Anion Gap 8 mEq/L (7-15); Calcium* 8.6 mg/dL (8.4-10.6); Carbon Dioxide* 30 mmol/L (20-32); Glucose* 189 mg/dL (60-115)
[2024-11-03 20:51] LABS: Troponin I* < 0.01 ng/mL (0.01-0.04)
[2024-11-03 21:11] LABS: Slide Review Reflex No
== END 2024-11-03 22:42 | disposition home or self-care (01) ==
PROVIDERS: Emergency Provider Emergency Medicine; PCP Student in an Organized Health Care Education/Training Program
DX: R42 Dizziness and giddiness (principal); S50.812A Abrasion of left forearm, initial encounter; W19.XXXA Unspecified fall, initial encounter; I95.9 Hypotension, unspecified
CPT/HCPCS: 36415; 70450; 71046; 72125; 80048; 81001; 83605; 84145; 84484; 85025; 87040; 93005; 96365; 99284; J3372; J7030

== ENCOUNTER 2024-12-20 09:03 | Outpatient (REF) | payer MEDICARE, SELFPAY ==
[2024-12-20 09:28] LABS: Hematocrit* 33.2 % (37.0-53.0); Hemoglobin* 10.9 gm/dL (13.5-17.5); Immature Granulocytes Abs Auto 0.02 K/uL (0.00-0.30); Immature Granulocytes Pct Auto 0.3 %; Mean Corpuscular HGB Conc 33 gm/dL (32-36); Mean Corpuscular Hemoglobin 30 pg (26-34); Mean Corpuscular Volume 93 fL (80-100); RDW Coefficient of Variation % 12.8 % (11.5-15.5); Red Blood Count* 3.58 m/uL (4.30-5.90); White Blood Count* 7.48 K/uL (4.50-11.00)
[2024-12-20 09:39] LABS: Lymphocytes Absolute Auto 1.20 K/uL (0.90-2.90); Slide Review Reflex No
[2024-12-20 09:44] LABS: Chloride* 103 mmol/L (96-114); Potassium* 3.0 mmol/L (3.6-5.1); Sodium* 140 mmol/L (135-149)
[2024-12-20 09:47] LABS: Anion Gap 4 mEq/L (7-15); Blood Urea Nitrogen* 25 mg/dL (7-30); Calcium* 9.1 mg/dL (8.4-10.6); Carbon Dioxide* 33 mmol/L (20-32); Creatinine* 1.5 mg/dL (0.5-1.5); Estimated Glomerular Filt Rate 45 ml/min; Glucose* 112 mg/dL (60-115)
--- OUTSIDE RECORDS SUMMARY | 2024-12-21 00:15 | XMS_ITS | Clinical Summary ---
Author Organization [facility] Address [address] [address] Phone Care Team Providers Care Propulsion Machinery Service Engineer Name Role Phone Unavailable Primary Care Provider [...]
--- OUTSIDE RECORDS SUMMARY | 2024-12-21 00:15 | XMS_ITS | Clinical Summary ---
Author Organization [facility] Address [address] [place] [address] Care Team Providers Care Document Improvement Specialist Name Role Phone Alexandra Castelan DO Primary Care Provider [phone] [facility], [place] Unavailable Allergies Active Allergy Reactions Criticality Noted [...] be used to read blood sugars per sander wooden pencils's directions. 1 Each 07/13/19 24 Active blood-glucose [...] be used to read blood sugars, follow sander wooden pencils directions. 6 Each 3 05/09/20 24 Active FreeStyle Emma 3 [place] for continuous blood glucose monitor (CGM)Indications: Type 2 diabetes mellitus with diabetic polyneuropathy, without long-term current use of insulin (HC) To be used to read blood sugars follow sander wooden pencils directions. 1 Each 05/09/20 24 Active docusate [...] Itching. 06/14/19 25 Active neomycin-bacitrac in-polymyxin (Neosporin, [id number],) 3.5mg-400 unit-5,000 unit/gram ointment Apply topically to [...] TABLET BY MOUTH ONCE DAILY 30 Tablet 07/07/19 Active FreeStyle Emma 2 SensorIndications :Type 2 diabetes mellitus with diabetic polyneuropathy, without long-term current use of insulin (HC) To be used to read blood sugars per sander wooden pencils's directions. 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 08/29/2022 [...] Encounters Date Type Department Care Team Description 12/13/2024 Refill [facility] [address] [place] [address] Alexandra Castelan DO Refill Request (Torsemide, Mirtazapine) 11/21/2024 Refill [facility] [address] [place] [address] Alexandra Castelan, DO Refill Request (Zinc Oxide) 11/03/2024 Orders Only [facility] Scanner 1 scan: (1-Ord) [place], CT CERVICAL SPINE WO CON, 11/03/2024 11/03/2024 Orders Only [facility] Scanner 1 scan: (1-Ord) [place], XR CHEST 2V, 11/03/2024 11/03/2024 Orders Only [facility] Scanner 1 scan: (1-Ord) [place], CT HEAD/BRAIN WO CON, 11/03/2024 10/24/2024 Refill [facility] [address] [place] [address] Alexandra Castelan, DO Refill Request (Stool Softener) from Last 3 Months Immunizations Immunization Administration Dates Next Due COVID-19 VACCINE SPIKEVAX (M ODERNA 50MCG/0.5ML) 12YO+ PFS 04/02/2023 COVID-19 vaccine (TorbitBio NTech 30mcg/0.3mL) 12YO+ RYAN-SUCROSE PF, MDV 10/22/2021 COVID-19 vaccine (Synker-Bio NTech 30mcg/0.3mL) PF, MDV 04/23/2021,08/09/2020,07/19/2020 DT (Age [...] on file 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 Gender Identity Not on file Sexual [...] 188 cm (6' 2) 07/17/2023 1:14 PM VIDEO RENTAL CLERK Body Mass Index 24.52 07/17/2023 1:14 PM VIDEO RENTAL CLERK Plan of Treatment Health Maintenance Due [...] 04/07/2022, 10/22/2021, Additional history exists Influenza Vaccine (#1) 2025 3, 04/07/2019, 03/23/2018, Additional history exists Pneumococcal series for age 50+ Completed 5, 03/17/2006 Zoster (shingles) series for age 50+ Completed 05/10/2020, 02/02/2020, 07/07/2014 Procedures Procedure Name Priority Date/Time Associated Diagnosis Comments SCAN-CT INTERPRETATION 12:00 AM CDT SCAN-RADIOLOGY REPORT 11/03/2024 12:00 AM CDT SCAN-CT INTERPRETATION 12:00 AM CDT from Last 3 Months Results * SCAN-RADIOLOGY REPORT (11/03/2024 12:00 AM CDT) Anatomical Region Laterality Modality Other us Scanner OTHER Final Result * SCAN-CT INTERPRETATION (11/03/2024 12:00 AM CDT) Only the most recent of2 resultswithin the time period is included. 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
== END 2024-12-20 09:04 | disposition home or self-care (01) ==
LOC: NPINS 09:03
PROVIDERS: PCP Student in an Organized Health Care Education/Training Program; Visit Provider Nurse Practitioner Gerontology
DX: R53.1 Weakness (principal)
CPT/HCPCS: 80048; 83036; 85025

== ENCOUNTER 2025-01-10 09:55 | Outpatient (REF) | payer MEDICARE, SELFPAY ==
[2025-01-10 13:05] LABS: Chloride* 103 mmol/L (96-114); Potassium* 3.0 mmol/L (3.6-5.1); Sodium* 139 mmol/L (135-149)
[2025-01-10 13:08] LABS: Anion Gap 4 mEq/L (7-15); Blood Urea Nitrogen* 16 mg/dL (7-30); Calcium* 8.4 mg/dL (8.4-10.6); Carbon Dioxide* 32 mmol/L (20-32); Creatinine* 1.3 mg/dL (0.5-1.5); Estimated Glomerular Filt Rate 53 ml/min; Glucose* 133 mg/dL (60-115)
--- OUTSIDE RECORDS SUMMARY | 2025-01-11 00:18 | XMS_ITS | Clinical Summary ---
Author Organization [facility] Address [address] [address] Phone Care Team Providers Care Engineering Supervisor Name Role Phone Unavailable Primary Care Provider [...]
--- OUTSIDE RECORDS SUMMARY | 2025-01-11 00:18 | XMS_ITS | Clinical Summary ---
Author Organization [employer] [facility] Address [address] [place] [address] Care Team Providers Care Resident Director Name Role Phone Alexandra Castelan DO Primary Care Provider [phone] [facility], [place] Unavailable Allergies Active Allergy Reactions Criticality Noted [...] be used to read blood sugars per analyst programmer's directions. 1 Each 07/13/19 24 Active blood-glucose [...] by mouth at bedtime. 01/08/20 24 Active Bismuth Tribrom-Petrolatu m,Wh 2 X 2 [...] chair 1 Each 03/31/20 24 Active FreeStyle Emam 3 Sensor for continuous blood glucose monitor (CGM)Indications: Type 2 diabetes mellitus with diabetic polyneuropathy, without long-term current use of insulin (HC) To be used to read blood sugars, follow analyst programmer directions. 6 Each 3 05/09/20 24 Active FreeStyle Emma 3 [place] for continuous blood glucose monitor (CGM)Indications: Type 2 diabetes mellitus with diabetic polyneuropathy, without long-term current use of insulin (HC) To be used to read blood sugars follow analyst programmer directions. 1 Each 05/09/20 24 Active docusate [...] Itching. 06/14/19 25 Active neomycin-bacitrac in-polymyxin (Neosporin, euz-jtq-szavv,) 3.5mg-400 unit-5,000 unit/gram ointment Apply topically to [...] needed for Heartburn. 90 Tablet 3 06/20/19 25 Active zinc oxide 20 % ointment apply topically to affected area(s) two times daily. 03/08/20 24 Active acetaminophen (TYLENOL) 325 mg tablet TAKE 3 TABLETS (975MG) BY MOUTH EVERY EIGHT HOURS NEEDED 06/20/19 25 Active sertraline (ZOLOFT) 50 mg tablet Take 50 mg by mouth once daily in the morning. 08/17/19 24 Active furosemide (LASIX) 40 mg tabletIndications :Bilateral lower extremity edema TAKE 1 TABLET BY MOUTH ONCE DAILY 30 Tablet 11 07/07/19 25 Active FreeStyle Emma 2 SensorIndications :Type 2 diabetes mellitus with diabetic polyneuropathy, without long-term current use of insulin (HC) To be used to read blood sugars per analyst programmer's directions. 6 Each 3 08/31/19 25 Active torsemide (DEMADEX) 20 mg tabletIndications :Edema, unspecified type TAKE 2 TABLETS (40MG) BY MOUTH ONCE DAILY 60 Tablet 12/16/19 25 Active mirtazapine (REMERON) 30 mg tabletIndications :Insomnia, idiopathic,Depres mona, recurrent TAKE 1 TABLET BY MOUTH EVERY EVENING 30 Tablet 12/16/19 25 Active metFORMIN (GLUCOPHAGE XR) 500 mg Extended-Release tabletIndications :Type 2 diabetes mellitus with diabetic polyneuropathy, without long-term current use of insulin (HC) Take 4 Tablets (2,000 mg) by mouth once daily with a meal. 360 Tablet 12/27/19 25 Active metFORMIN (GLUCOPHAGE XR) 500 mg Extended-Release tabletIndications :Type 2 diabetes mellitus with diabetic polyneuropathy, without long-term current use of insulin (HC) Take 4 Tablets (2,000 mg) by mouth once daily with a meal. 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 08/29/2022 [...] Encounters Date Type Department Care Team Description 12/22/2024 Refill [facility] [address] [facility] [place] [address] Flip, Barbi, DO Refill Request (Metformin) 12/13/2024 Refill [facility] [address] [facility] [place] [address] Flip, Adei, DO Refill Request (Torsemide, Mirtazapine) 11/21/2024 Refill [facility] [address] [place] [address] Flip, Adei, DO Refill Request (Zinc Oxide) 11/03/2024 Orders Only [facility] Scanner 1 scan: (1-Ord) [place], CT CERVICAL SPINE WO CON, 11/03/2024 11/03/2024 Orders Only [facility] Scanner 1 scan: (1-Ord) [place], XR CHEST 2V, 11/03/2024 11/03/2024 Orders Only [facility] Scanner 1 scan: (1-Ord) [place], CT HEAD/BRAIN WO CON, 11/03/2024 10/24/2024 Refill [facility] [address] [place] [address] Flip, Barbi, DO Refill Request (Stool Softener) from Last 3 Months Immunizations Immunization Administration Dates Next Due COVID-19 VACCINE SPIKEVAX (M ODERNA 50MCG/0.5ML) 12YO+ PFS 04/02/2023 COVID-19 vaccine (SurviosBio NTech 30mcg/0.3mL) 12YO+ RYAN-SUCROSE PF, MDV 10/22/2021 COVID-19 vaccine (Kazeon-Bio NTech 30mcg/0.3mL) PF, MDV 04/23/2021,08/09/2020,07/19/2020 DT (Age [...] on file 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 Gender Identity Not on file Sexual Orientation [...] 188 cm (6' 2) 07/17/2023 1:14 PM TELEGRAPH INSTALLER Body Mass Index 24.52 07/17/2023 1:14 PM TELEGRAPH INSTALLER Plan of Treatment Health Maintenance Due Date [...] A HB ONLY [employer] MEDICARE ADVANTAGE [place] [id number] HC UCARE MEDICARE PDGM Advance Directives Documents on File Type Date Recorded 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
== END 2025-01-10 09:56 | disposition home or self-care (01) ==
LOC: NPINS 09:55
PROVIDERS: PCP Student in an Organized Health Care Education/Training Program; Referring Provider Family Medicine; Visit Provider Family Medicine
DX: E87.6 Hypokalemia (principal)
CPT/HCPCS: 80048

== ENCOUNTER 2025-01-23 21:59 | Outpatient (CLI) | payer MEDICARE, SELFPAY | END 2025-01-23 22:00 | disposition home or self-care (01) | LOC: AMB 01-24 12:04 | PROVIDERS: PCP Student in an Organized Health Care Education/Training Program; Visit Provider Family Medicine | DX: R53.1 Weakness (principal) | CPT/HCPCS: A0425; A0429 ==

== ENCOUNTER 2025-01-23 22:21 | Emergency (ER) | payer MEDICARE, SELFPAY ==
--- OUTSIDE RECORDS SUMMARY | 2025-01-23 22:22 | XMS_ITS ---
Author Name Auto Generated, Auto Generated Organization [employer] Functional Status No Results Mental Status No Results Allergies and Intolerances No Known Allergies Problems Active Concerns * Health care maintenance* Code: [id number] * Start Date: ThuJan 13 16:54:00 EDT 2024 * End Date: * Text: * Elevated PSA* Code: [id number] * Start Date: ThuOct 03 22:35:00 EDT 2024 * End Date: * Text: * Dizziness* Code: [id number] * Start Date: ThuNov 21 13:56:00 EDT 2024 * End Date: * Text: * Unintentional weight loss* Code: [id number] * Start Date: ThuDec 19 23:48:00 EDT 2024 * End Date: * Text: * Generalized weakness* Code: [id number] * Start Date: ThuDec 19 23:48:00 EDT 2024 * End Date: * Text: * Frequent falls* Code: [id number] * Start Date: ThuDec 19 23:48:00 EDT 2024 * End Date: * Text: * Failure to thrive in adult* Code: [id number] * Start Date: ThuDec 21 08:04:00 EDT 2024 * End Date: * Text: * Hypokalemia* Code: [id number] * Start Date: ThuJan 12 23:19:00 EDT 2024 * End Date: * Text: Reason for Referral
--- OUTSIDE RECORDS SUMMARY | 2025-01-23 22:23 | XMS_ITS | Clinical Summary ---
Author Organization [employer] [facility] Address [address] [place] [address] Care Team Providers Care Department Chair Name Role Phone Alexandra Castelan DO Primary Care Provider [phone] [facility], [place] Unavailable Allergies Active Allergy Reactions Criticality Noted [...] be used to read blood sugars per billing clinician's directions. 1 Each 07/13/19 24 Active blood-glucose [...] be used to read blood sugars, follow billing clinician directions. 6 Each 3 05/09/20 24 Active FreeStyle Emma 3 [place] for continuous blood glucose monitor (CGM)Indications: Type 2 diabetes mellitus with diabetic polyneuropathy, without long-term current use of insulin (HC) To be used to read blood sugars follow billing clinician directions. 1 Each 05/09/20 24 Active docusate [...] Itching. 06/14/19 25 Active neomycin-bacitrac in-polymyxin (Neosporin, xhx-cno-atmmn,) 3.5mg-400 unit-5,000 unit/gram ointment Apply topically to [...] be used to read blood sugars per billing clinician's directions. 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 [address] [place] [address] Flip, Adei, DO Refill Request (Potassium Chloride) 12/22/[address] [facility] [address] [place] [address] Abdirahmanqra, Adei, DO Refill Request (Metformin) 12/13/[address] [facility] [address] [place] [address] Abdirahmanqra, Adei, DO Refill Request (Torsemide, Mirtazapine) 11/21/[address] [facility] [address] [place] [address] Flip, Adei, DO Refill Request (Zinc Oxide) 11/03/[address] [facility] Scanner 1 scan: (1-Ord) [place], CT CERVICAL SPINE WO CON, 11/03/2024 11/03/[address] [facility] Scanner 1 scan: (1-Ord) [place], XR CHEST 2V, 11/03/2024 11/03/[address] [facility] Scanner 1 scan: (1-Ord) [place], CT HEAD/BRAIN WO CON, 11/03/2024 10/24/[address] 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 Gender Identity Not on file Sexual Orientation [...] 188 cm (6' 2) 07/17/2023 1: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 SETTER 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 Body Mass Index 24.52 07/17/2023 1:14 PM KNIFE SETTER ASSEMBLER Plan of Treatment Health Maintenance Due Date [...] Priority Date/Time Associated Diagnosis Comments SCAN-CT INTERPRETATION 5 12:00 AM CDT SCAN-RADIOLOGY REPORT 11/03/2024 12:00 [...] A HB ONLY [employer] MEDICARE ADVANTAGE MR HC UCARE MEDICARE PDGM Advance Directives Documents on File Type Date Recorded Patient Executive Communications Manager Expl anation POLST 10/12/2023 * Full Code [...] 11:28 PM 05/08/2015 2:10 PM Care Teams Department Chair Relationship Specialty Start Date End Date Alexandra Castelan DO [address] [place] [address] PCP - General Family Practice 10/29/[address] [address] 01/08/24
--- OUTSIDE RECORDS SUMMARY | 2025-01-23 22:23 | XMS_ITS | Clinical Summary ---
Author Organization [facility] Address [address] [address] Phone Care Team Providers Care Emt Intermediate Name Role Phone Unavailable Primary Care Provider [...]
[2025-01-23 22:25] VITALS: BP 109/75; PULSE 77; RESP 16; TEMP 36.7; O2SAT 99
[2025-01-23 22:45] LABS: Lactate* 3.0 mmol/L (0.5-1.9)
--- NOTE | 2025-01-23 22:49 | ED.WEAKNESS ---
HPI - Weakness General Date Seen: 01/23/25 <Don Gonzalez - Last Filed: 01/24/25 00:08> Chief complaint: Weakness <Dno Gonzalez DO - Last Filed: 01/24/25 00:08> Stated complaint: weakness <Don Gonzalez DO - Last Filed: 01/24/25 00:08> Time Seen by Provider: 01/23/25 22:36 <Don Gonzalez - Last Filed: 01/24/25 00:08> Source: patient and family <Don Gonzalez - Last Filed: 01/24/25 00:08> Mode of arrival: EMS <Don Gonzalez - Last Filed: 01/24/25 00:08> Limitations: no limitations <Don Gonzalez Last Filed: 01/24/25 00:08> History of Present Illness HPI Narrative: Patient is an 89-year-old male presenting to the emergency department for weakness and hypotension. He has a history of CVAs. Patient has a history of frequent falls but over the past 4 or 5 days he has been noticeably weaker according to his son. Patient has fallen multiple times in the past few days but has never hit his head. States for the past 2 days it feels like his left knee is giving out. Denies any knee pain though. Denies chest pain, abdominal pain, headache, lightheadedness, dizziness, shortness of breath, dysuria, nausea, numbness. Denies any back pain. Does live in assisted living it has required increase in his cares over the past week. They have been checking his blood pressure and he has been hypotensive in the 80s multiple times over the past few days. That is abnormal for him. No other concerns noted. His son states he has been otherwise acting normally with no signs of increased confusion. <Don Gonzalez - Last Filed: 01/24/25 00:08> Related Data Home medications: Home Medications ?Medication ?Instructions ?Recorded ?Confirmed blood sugar diagnostic (OneTouch 08/29/22 04/28/24 Verio test strips) linagliptin 5 mg tablet (Tradjenta) 5 mg PO QAM 08/29/22 06/19/24 metformin 500 mg tablet,extended 2,000 mg PO DAILY 08/29/22 06/19/24 release 24 hr metoprolol succinate 100 mg 100 mg PO DAILY 08/29/22 06/19/24 tablet,extended release 24 hr apixaban 5 mg tablet (Eliquis) 5 mg PO BID 01/06/24 06/19/24 calcium carbonate (Calcium Antacid) 200 - 400 mg PO Q3H PRN 01/06/24 06/19/24 empagliflozin 25 mg tablet 25 mg PO DAILY 01/06/24 06/19/24 (Jardiance) nitroglycerin 0.4 mg sublingual 0.4 mg sublingual Q5M PRN angina 01/06/24 06/19/24 tablet tamsulosin 0.4 mg capsule 0.4 mg PO DAILY 01/06/24 06/19/24 calcium carbonate (Ultra Strength 400 mg PO QID PRN 06/19/24 06/19/24 Antacid) docusate sodium 100 mg capsule 100 mg PO DAILY 06/19/24 06/19/24 furosemide 40 mg tablet 40 mg PO DAILY 06/19/24 06/19/24 glipizide 2.5 mg tablet, extended 2.5 mg PO DAILY 06/19/24 06/19/24 release 24 hr Previous Rx's ?Medication ?Instructions ?Recorded rosuvastatin 10 mg tablet 10 mg PO HS #30 tabs 01/08/24 acetaminophen 325 mg tablet 975 mg (3 x 325 mg) PO Q8H PRN #90 06/20/24 tabs <Don Gonzalez DO - Last Filed: 01/24/25 00:08> Allergies/Adverse reactions: Allergies Allergy/AdvReac Type Severity Reaction Status Date / Time losartan Allergy Verified 11/24/24 14:32 <Don Gonzalez DO - Last Filed: 01/24/25 00:08> Review of Systems Status of ROS: Reports: 10 or more systems reviewed and unremarkable except as noted in History and below <Don Gonzalez DO - Last Filed: 01/24/25 00:08> [facility] Medical History: Medical History Cognitive impairment ?R41.89 - Other symptoms and signs involving cognitive functions and awareness (ICD-10) Aortic stenosis ?I35.0 - Nonrheumatic aortic (valve) stenosis (ICD-10) On continuous oral anticoagulation ?Z79.01 - group home (current) use of anticoagulants (ICD-10) History of deep venous thrombosis or pulmonary embolus Depression ?F32.A - Depression, unspecified (ICD-10) Frequent falls ?R29.6 - Repeated falls (ICD-10) Type 2 diabetes mellitus ?E11.9 - Type 2 diabetes mellitus without complications (ICD-10) Peripheral neuropathy ?G62.9 - Polyneuropathy, unspecified (ICD-10) BPH (benign prostatic hyperplasia) ?N40.0 - Benign prostatic hyperplasia without lower urinary tract symptoms (ICD-10) CAD (coronary artery disease) ?I25.10 - Atherosclerotic heart disease of [place] coronary artery without angina pectoris (ICD-10) Hyperlipidemia ?E78.5 - Hyperlipidemia, unspecified (ICD-10) HTN (hypertension) ?I10 - Essential (primary) hypertension (ICD-10) Hearing loss ?H91.90 - Unspecified hearing loss, unspecified ear (ICD-10) <Don Gonzalez DO - Last Filed: 01/24/25 00:08> Surgical History: Surgical History Hx of tonsillectomy ?Z90.89 - Acquired absence of other organs (ICD-10) 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 - Presence of coronary angioplasty implant and graft (ICD-10) Previous back surgery ?Z98.890 - Other specified postprocedural states (ICD-10) History of cataract surgery ?Z98.49 - Cataract extraction status, unspecified eye (ICD-10) <Don Gonzalez DO - Last Filed: 01/24/25 00:08> Social History: Social History What is your current living situation?: I presently have a place to live Problems where you live: no known problems Problems where you live details: n/a In the past 12 months, utilities in danger of being shut off: no In past 12 months, lack of transportation kept you from medical appts, meetings, work, or getting things needed for daily living: yes In the past 12 mos, have been you worried that your food would run out before you had money to buy more?: never true In the past 12 mos, the food you bought just didn't last and you didn't have money to buy more?: never true Highest level of school completed/degree received: Doctoral degree Smoking Status: Former smoker Do you use any of these nicotine containing products: None Second hand tobacco smoke exposure: No How often do you have a drink containing alcohol: monthly or less How many standard drinks containing alcohol do you have on a typical day: 1 or 2 How often do you have six or more drinks on one occasion: Never AUDIT-C Alcohol total score: 1 Non-prescribed substance use: denies use Caffeine: Yes (coffee) How often does anyone, including family, friends and others, physically hurt you: never How often does anyone, including family, friends and others, insult or talk down to you: never How often does anyone, including family, friends and others, threaten you with harm: never How often does anyone, including family, friends and others, scream or curse at you: never service: No Health Related Social Needs: transportation insecurity (Z59.82) <Don Gonzalez DO - Last Filed: 01/24/25 00:08> Exam Narrative: Exam Narrative: Const: Well-nourished, Well-developed, in mild distress Eyes: PERRL, no conjunctival injection, and symmetrical lids HENT: Atraumatic external nose and ears. Moist mucous membranes. Neck: Symmetric, trachea midline, No thyromegaly. CVS: RRR, No murmurs or gallops. Peripheral pulses 2+ and equal in all extremities RESP: Unlabored respiratory effort. Clear to auscultation bilaterally. GI: Nontender/Nondistended, No rebound or guarding. MSK:Extremities w/o deformity, Normal Active ROM Skin: Warm, Dry. No rashes or lesions. Neuro: Normal Muscle tone, Cranial nerves 2-12 grossly intact, normal [id number], normal [id number], normal gait, normal strength 5/5 upper lower extremities bilaterally, normal sensation upper and lower extremities bilaterally, normal rapid alternating movements. Psych: Awake, Alert, & Oriented x3. Appropriate mood and affect. <Don Gonzalez DO - Last Filed: 01/24/25 00:08> Const: Vital Signs, click to edit/add: Vital Signs - 24 hr 01/23/25 22:25 01/23/25 23:56 Temperature 98.1 F Pulse Rate [Pulse Oximeter] 77 Pulse Rate [orthos tatic lying Pulse Oximeter] 71 Pulse Rate [orthos tatic sitting Puls e Oximeter] 71 Pulse Rate [orthos tatic standing Pul se Oximeter] 79 Respiratory Rate 16 Blood Pressure [Le ft Upper Arm] 109/75 Blood Pressure [or thostatic lying Le ft Arm] 131/78 Blood Pressure [or thostatic sitting Left Arm] 129/78 Blood Pressure [or thostatic standing Left Arm] 111/67 Pulse Oximetry 99 Oxygen Delivery Me thod Room Air <Don Gonzalez DO - Last Filed: 01/24/25 00:08> Vital Signs, click to edit/add: Vital Signs - 24 hr 01/23/25 22:25 01/23/25 23:56 Temperature 98.1 F Pulse Rate [Pulse Oximeter] 77 Pulse Rate [orthos tatic lying Pulse Oximeter] 71 Pulse Rate [orthos tatic sitting Puls e Oximeter] 71 Pulse Rate [orthos tatic standing Pul se Oximeter] 79 Respiratory Rate 16 Blood Pressure [Le ft Upper Arm] 109/75 Blood Pressure [or thostatic lying Le ft Arm] 131/78 Blood Pressure [or thostatic sitting Left Arm] 129/78 Blood Pressure [or thostatic standing Left Arm] 111/67 Pulse Oximetry 99 Oxygen Delivery Me thod Room Air <Katy Bermudez MD - Last Filed: 01/24/25 01:14> Course Reevaluation(s) Time of Reevaluation #1: 01:12 <Katy Bermudez MD - Last Filed: 01/24/25 01:14> Reevaluation #1: Dr. Bermudez- Celina inherited care from outgoing evening provider. Workup showed some very mild dehydration. Blood pressures were borderline low at his assisted living but have been consistently normal for us. I do question if it is time to start reducing his diuretics or other medications as he continues to age and decline. Labs today are reassuring. I have advised outpatient primary care follow-up in 1-2 weeks to recheck blood pressure and determine if we potentially need to reduce our diuretics long-term. Viral swabs are negative, repeat lactate did improve. Counseled family on findings, all questions answered. Son can bring back to assisted living. <Katy Bermudez MD - Last Filed: 01/24/25 01:14> Vital Signs Vital signs: Initial Vital Signs Temperature 98.1 F 01/23/25 22:25 Temperature Source Temporal Artery Scan 01/23/25 22:25 Pulse Rate 77 01/23/25 22:25 Respiratory Rate 16 01/23/25 22:25 Blood Pressure 109/75 01/23/25 22:25 Blood Pressure Mean 86 01/23/25 22:25 Blood Pressure Position Sitting 01/23/25 22:25 Pulse Oximetry 99 01/23/25 22:25 Oxygen Delivery Method Room Air 01/23/25 22:25 Vital Signs Temperature 98.1 F 01/23/25 22:25 Pulse Rate 77 01/23/25 22:25 Respiratory Rate 16 01/23/25 22:25 Blood Pressure 109/75 01/23/25 22:25 Pulse Oximetry 99 01/23/25 22:25 Oxygen Delivery Method Room Air 01/23/25 22:25 Temperature 98.1 F 01/23/25 22:25 Pulse Rate 71 01/23/25 23:56 Respiratory Rate 16 01/23/25 22:25 Blood Pressure 131/78 01/23/25 23:56 Pulse Oximetry 99 01/23/25 22:25 Oxygen Delivery Method Room Air 01/23/25 22:25 <Don Gonzalez DO - Last Filed: 01/24/25 00:08> Initial Vital Signs Temperature 98.1 F 01/23/25 22:25 Temperature Source Temporal Artery Scan 01/23/25 22:25 Pulse Rate 77 01/23/25 22:25 Respiratory Rate 16 01/23/25 22:25 Blood Pressure 109/75 01/23/25 22:25 Blood Pressure Mean 86 01/23/25 22:25 Blood Pressure Position Sitting 01/23/25 22:25 Pulse Oximetry 99 01/23/25 22:25 Oxygen Delivery Method Room Air 01/23/25 22:25 Vital Signs Temperature 98.1 F 01/23/25 22:25 Pulse Rate 77 01/23/25 22:25 Respiratory Rate 16 01/23/25 22:25 Blood Pressure 109/75 01/23/25 22:25 Pulse Oximetry 99 01/23/25 22:25 Oxygen Delivery Method Room Air 01/23/25 22:25 Temperature 98.1 F 01/23/25 22:25 Pulse Rate 71 01/23/25 23:56 Respiratory Rate 16 01/23/25 22:25 Blood Pressure 131/78 01/23/25 23:56 Pulse Oximetry 99 01/23/25 22:25 Oxygen Delivery Method Room Air 01/23/25 22:25 <Katy Bermudez MD - Last Filed: 01/24/25 01:14> Medications Administered Medications: Discontinued Medications Generic Name Dose Route Start Last Admin Trade Name Freq PRN Reason Stop Dose Admin Sodium Chloride 1,000 mls @ 1,000 mls/hr 01/23/25 23:01 01/24/25 00:00 0.9 % Sodium Chloride 1000 Ml IV 01/24/25 00:00 Infused .Q1H NEELA Infusion Sodium Chloride 500 mls @ 1,000 mls/hr 01/23/25 23:57 01/24/25 00:07 0.9 % Sodium Chloride 500 Ml IV 01/24/25 00:26 0 mls/hr .Q30M NEELA Infusion <Don Gonzalez DO - Last Filed: 01/24/25 00:08> Discontinued Medications Generic Name Dose Route Start Last Admin Trade Name Freq PRN Reason Stop Dose Admin Sodium Chloride 1,000 mls @ 1,000 mls/hr 01/23/25 23:01 01/24/25 00:00 0.9 % Sodium Chloride 1000 Ml IV 01/24/25 00:00 Infused .Q1H NEELA Infusion Sodium Chloride 500 mls @ 1,000 mls/hr 01/23/25 23:57 01/24/25 00:07 0.9 % Sodium Chloride 500 Ml IV 01/24/25 00:26 0 mls/hr .Q30M NEELA Infusion <Katy Bermudez MD - Last Filed: 01/24/25 01:14> MDM - Weakness MDM Narrative Medical decision making narrative: Patient is an 89-year-old male presenting for weakness. The differential diagnosis of generalized weakness is broad and includes infection, electrolyte abnormalities, ACS, arrhythmia, hypoglycemia, electrolyte abnormality, respiratory failure, anemia, hypothyroidism, dehydration, medication induced etc. he does not appear confused at all and answering all questions appropriately. Will check some basic lab work for signs of any abnormalities. No signs of heart disease or lung issues. Is not having any abdominal pain. Do not believe any imaging is necessary at this time. Will check orthostatic blood pressures after he gets some fluids. CBC, lactate, magnesium, BMP, urinalysis all ordered. Is liking usually 3 point year old this does seem likely related to dehydration as he showing no other signs of infection. Lab work is otherwise unremarkable. His initial blood pressure she here was 109/75 and repeat was 111/68. His son states he is doing much better after the fluids. Orthostatic blood pressures were done and were non concerning. Did have told of a 20 point drop between laying down and standing from 131-111 systolic but minimal change in his pulse. Also was not feeling symptomatic at all. Was complaining about his left knee giving out and I do believe the falls may be related to knee problem. His son does state he does have issues with dehydration. We are still waiting for urinalysis and repeat lactate. I do not believe there is any signs of infection at this can this elevated lactate is likely to his dehydration. His son is agreeable to this plan. Expected disposition is back to his assisted living. <Don Gonzalez, - Last Filed: 01/24/25 00:08> Lab Data Labs: Lab Results 01/23/25 01/24/25 01/24/25 Range/Units 22:33 00:05 00:20 WBC 6.93 (4.50-11.00) K/uL RBC 3.88 L (4.30-5.90) m/uL Hgb 11.7 L (13.5-17.5) gm/dL Hct 36.2 L (37.0-53.0) % MCV 93 (80-100) fL MCH 30 (26-34) pg MCHC 32 (32-36) gm/dL RDW Coeff of Susi 13.1 (11.5-15.5) % Plt Count 127 L (140-440) K/uL Neut % (Auto) 55.7 (42.0-72.0) % Lymph % (Auto) 28.4 (20-44) % [place] % (Auto) 11.0 (0.0-11.0) % Eos % (Auto) 3.5 (0.0-7.0) % Baso % (Auto) 0.4 (0.0-3.0) % Neut # (Auto) 3.86 (1.7-7.0) K/uL Lymph # (Auto) 1.97 (0.90-2.90) K/uL [place] # (Auto) 0.80 (0.00-0.90) K/UL Eos # (Auto) 0.24 (0.00-0.50) K/uL Baso # (Auto) 0.03 (0.00-0.30) K/uL Abs Immat Gran (auto) 0.07 (0.00-0.30) K/uL Imm/Tot Granulo (auto) 1.0 % Sodium 137 (135-149) mmol/L Potassium 3.4 L (3.6-5.1) mmol/L Chloride 100 (96-114) mmol/L Carbon Dioxide 31 (20-32) mmol/L Anion Gap 6 L (7-15) mEq/L BUN 24 (7-30) mg/dL Creatinine 1.5 (0.5-1.5) mg/dL Estimated GFR 45 ml/min Glucose 114 (60-115) mg/dL Lactate 3.0 H (0.5-1.9) mmol/L Calcium 9.1 (8.4-10.6) mg/dL Magnesium 2.0 (1.5-2.6) mg/dL Urine Color Yellow (Yellow) Urine Appearance Clear (Clear) Urine pH 5.5 (5.0-8.5) Ur Specific [place] 1.010 (1.000-1.030) Urine Protein Negative (Negative) Urine Glucose (UA) 3+ A (Negative) Urine Ketones Negative (Negative) Urine Blood Negative (Negative) Urine Nitrite Negative (Negative) Urine Bilirubin Negative (Negative) Urine Urobilinogen 0.2 (0.2-1.0) Ur Leukocyte Esterase Negative (Negative) Urine RBC 0-2 (0-2) Urine WBC 0-2 (0-5) Ur Squamous Epith Cells Few (None-Few) Urine Bacteria None (None) SARS-CoV-2 (PCR) Negative SARS-CoV-2 (Negative) Influenza Type A (PCR) Negative PCR FLU A (Negative) Influenza Type B (PCR) Negative PCR FLU B (Negative) RSV (PCR) Negative PCR RSV (Negative) 01/24/25 Range/Units 00:34 WBC (4.50-11.00) K/uL RBC (4.30-5.90) m/uL Hgb (13.5-17.5) gm/dL Hct (37.0-53.0) % MCV (80-100) fL MCH (26-34) pg MCHC (32-36) gm/dL RDW Coeff of Susi (11.5-15.5) % Plt Count (140-440) K/uL Neut % (Auto) (42.0-72.0) % Lymph % (Auto) (20-44) % [place] % (Auto) (0.0-11.0) % Eos % (Auto) (0.0-7.0) % Baso % (Auto) (0.0-3.0) % Neut # (Auto) (1.7-7.0) K/uL Lymph # (Auto) (0.90-2.90) K/uL [place] # (Auto) (0.00-0.90) K/UL Eos # (Auto) (0.00-0.50) K/uL Baso # (Auto) (0.00-0.30) K/uL Abs Immat Gran (auto) (0.00-0.30) K/uL Imm/Tot Granulo (auto) % Sodium (135-149) mmol/L Potassium (3.6-5.1) mmol/L Chloride (96-114) mmol/L Carbon Dioxide (20-32) mmol/L Anion Gap (7-15) mEq/L BUN (7-30) mg/dL Creatinine (0.5-1.5) mg/dL Estimated GFR ml/min Glucose (60-115) mg/dL Lactate 2.0 H (0.5-1.9) mmol/L Calcium (8.4-10.6) mg/dL Magnesium (1.5-2.6) mg/dL Urine Color (Yellow) Urine Appearance (Clear) Urine pH (5.0-8.5) Ur Specific [place] (1.000-1.030) Urine Protein (Negative) Urine Glucose (UA) (Negative) Urine Ketones (Negative) Urine Blood (Negative) Urine Nitrite (Negative) Urine Bilirubin (Negative) Urine Urobilinogen (0.2-1.0) Ur Leukocyte Esterase (Negative) Urine RBC (0-2) Urine WBC (0-5) Ur Squamous Epith Cells (None-Few) Urine Bacteria (None) SARS-CoV-2 (PCR) (Negative) Influenza Type A (PCR) (Negative) Influenza Type B (PCR) (Negative) RSV (PCR) (Negative) <Don Gonzalez, DO - Last Filed: 01/24/25 00:08> Lab Results 01/23/25 01/24/25 01/24/25 Range/Units 22:33 00:05 00:20 WBC 6.93 (4.50-11.00) K/uL RBC 3.88 L (4.30-5.90) m/uL Hgb 11.7 L (13.5-17.5) gm/dL Hct 36.2 L (37.0-53.0) % MCV 93 (80-100) fL MCH 30 (26-34) pg MCHC 32 (32-36) gm/dL RDW Coeff of Susi 13.1 (11.5-15.5) % Plt Count 127 L (140-440) K/uL Neut % (Auto) 55.7 (42.0-72.0) % Lymph % (Auto) 28.4 (20-44) % [place] % (Auto) 11.0 (0.0-11.0) % Eos % (Auto) 3.5 (0.0-7.0) % Baso % (Auto) 0.4 (0.0-3.0) % Neut # (Auto) 3.86 (1.7-7.0) K/uL Lymph # (Auto) 1.97 (0.90-2.90) K/uL [place] # (Auto) 0.80 (0.00-0.90) K/UL Eos # (Auto) 0.24 (0.00-0.50) K/uL Baso # (Auto) 0.03 (0.00-0.30) K/uL Abs Immat Gran (auto) 0.07 (0.00-0.30) K/uL Imm/Tot Granulo (auto) 1.0 % Sodium 137 (135-149) mmol/L Potassium 3.4 L (3.6-5.1) mmol/L Chloride 100 (96-114) mmol/L Carbon Dioxide 31 (20-32) mmol/L Anion Gap 6 L (7-15) mEq/L BUN 24 (7-30) mg/dL Creatinine 1.5 (0.5-1.5) mg/dL Estimated GFR 45 ml/min Glucose 114 (60-115) mg/dL Lactate 3.0 H (0.5-1.9) mmol/L Calcium 9.1 (8.4-10.6) mg/dL Magnesium 2.0 (1.5-2.6) mg/dL Urine Color Yellow (Yellow) Urine Appearance Clear (Clear) Urine pH 5.5 (5.0-8.5) Ur Specific [place] 1.010 (1.000-1.030) Urine Protein Negative (Negative) Urine Glucose (UA) 3+ A (Negative) Urine Ketones Negative (Negative) Urine Blood Negative (Negative) Urine Nitrite Negative (Negative) Urine Bilirubin Negative (Negative) Urine Urobilinogen 0.2 (0.2-1.0) Ur Leukocyte Esterase Negative (Negative) Urine RBC 0-2 (0-2) Urine WBC 0-2 (0-5) Ur Squamous Epith Cells Few (None-Few) Urine Bacteria None (None) SARS-CoV-2 (PCR) Negative SARS-CoV-2 (Negative) Influenza Type A (PCR) Negative PCR FLU A (Negative) Influenza Type B (PCR) Negative PCR FLU B (Negative) RSV (PCR) Negative PCR RSV (Negative) 01/24/25 Range/Units 00:34 WBC (4.50-11.00) K/uL RBC (4.30-5.90) m/uL Hgb (13.5-17.5) gm/dL Hct (37.0-53.0) % MCV (80-100) fL MCH (26-34) pg MCHC (32-36) gm/dL RDW Coeff of Susi (11.5-15.5) % Plt Count (140-440) K/uL Neut % (Auto) (42.0-72.0) % Lymph % (Auto) (20-44) % [place] % (Auto) (0.0-11.0) % Eos % (Auto) (0.0-7.0) % Baso % (Auto) (0.0-3.0) % Neut # (Auto) (1.7-7.0) K/uL Lymph # (Auto) (0.90-2.90) K/uL [place] # (Auto) (0.00-0.90) K/UL Eos # (Auto) (0.00-0.50) K/uL Baso # (Auto) (0.00-0.30) K/uL Abs Immat Gran (auto) (0.00-0.30) K/uL Imm/Tot Granulo (auto) % Sodium (135-149) mmol/L Potassium (3.6-5.1) mmol/L Chloride (96-114) mmol/L Carbon Dioxide (20-32) mmol/L Anion Gap (7-15) mEq/L BUN (7-30) mg/dL Creatinine (0.5-1.5) mg/dL Estimated GFR ml/min Glucose (60-115) mg/dL Lactate 2.0 H (0.5-1.9) mmol/L Calcium (8.4-10.6) mg/dL Magnesium (1.5-2.6) mg/dL Urine Color (Yellow) Urine Appearance (Clear) Urine pH (5.0-8.5) Ur Specific [place] (1.000-1.030) Urine Protein (Negative) Urine Glucose (UA) (Negative) Urine Ketones (Negative) Urine Blood (Negative) Urine Nitrite (Negative) Urine Bilirubin (Negative) Urine Urobilinogen (0.2-1.0) Ur Leukocyte Esterase (Negative) Urine RBC (0-2) Urine WBC (0-5) Ur Squamous Epith Cells (None-Few) Urine Bacteria (None) SARS-CoV-2 (PCR) (Negative) Influenza Type A (PCR) (Negative) Influenza Type B (PCR) (Negative) RSV (PCR) (Negative) <Katy Bermudez MD - Last Filed: 01/24/25 01:14> Discharge Plan Discharge Clinical Impression: Weakness <Don Gonzalez DO - Last Filed: 01/24/25 00:08> Patient Disposition: Home, Self-Care <Don Gonzalez DO - Last Filed: 01/24/25 00:08> Condition: Improved <Don Gonzalez DO - Last Filed: 01/24/25 00:08> Instructions: Weakness (ED) <Don Gonzalez DO - Last Filed: 01/24/25 00:08> Additional Instructions: As we discussed, the labs look very reassuring today. There are no signs of significant anemia, electrolyte abnormality, kidney problems, infection or other new dangerous conditions. You were mildly dehydrated, this is very common in the elderly. I would like for you to drink a little more through the day but it is not necessary for you to drink large amounts of fluid. I do hope that your assisted living continues to offer fresh drinks to you several times per day and I do need you taking at least 3 swallows of a beverage with your medications. It does not seem as though these behavioral and physical changes that you have been having over the last several weeks are fixable. This is likely your new medical baseline. Sometimes as people continue to age we actually need to reduce your blood pressure medications. Please follow-up with your primary care provider in 1-2 weeks to recheck blood pressure and determine if it is time to reduce some of these medications. Use your walker when your walking around as I do believe you have chronic knee issues that are increasing your fall risk. Please return to emergency department for new or worsening symptoms <Don Gonzalez DO - Last Filed: 01/24/25 00:08> Activity Level: Activity as Tolerated <Don Gonzalez DO - Last Filed: 01/24/25 00:08> Activity as Tolerated <Katy Bermudez MD - Last Filed: 01/24/25 01:14> Discharge Diet: Regular <Don Gonzalez DO - Last Filed: 01/24/25 00:08> Regular <Katy Bermudez MD - Last Filed: 01/24/25 01:14> Prescriptions: No Action metoprolol succinate 100 mg tablet extended release 24 hr 100 mg PO DAILY (DME) OneTouch Verio test strips Strip MISCELLANEOUS BID metformin 500 mg tablet extended release 24 hr 2,000 mg PO DAILY Tradjenta 5 mg tablet 5 mg PO QAM Eliquis 5 mg tablet 5 mg PO BID Jardiance 25 mg tablet 25 mg PO DAILY tamsulosin 0.4 mg capsule 0.4 mg PO DAILY calcium carbonate [Calcium Antacid] 200 mg calcium (500 mg) tablet,chewable 200 - 400 mg PO Q3H PRN nitroglycerin 0.4 mg tablet, sublingual 0.4 mg sublingual Q5M PRN (Reason: angina) rosuvastatin 10 mg Tablet 10 mg PO HS Qty: 30 0RF furosemide 40 mg tablet 40 mg PO DAILY calcium carbonate [Ultra Strength Antacid] 400 mg calcium (1,000 mg) tablet,chewable 400 mg PO QID PRN glipizide 2.5 mg tablet extended release 24hr 2.5 mg PO DAILY docusate sodium 100 mg capsule 100 mg PO DAILY acetaminophen 325 mg Tablet 975 mg PO Q8H PRNQty: 90 0RF <Don Gonzalez DO - Last Filed: 01/24/25 00:08> Follow Up/Referrals: LAURITA JEAN DO [Primary Care Provider, Family Practice] <Don Gonzalez DO - Last Filed: 01/24/25 00:08> Stand Alone Forms: [facility] Info Instructions <Don Gonzalez DO - Last Filed: 01/24/25 00:08>
[2025-01-23 23:00] LABS: Hematocrit 36.2 % (37.0-53.0); Hemoglobin* 11.7 gm/dL (13.5-17.5); Immature Granulocytes Abs Auto 0.07 K/uL (0.00-0.30); Immature Granulocytes Pct Auto 1.0 %; Lymphocytes Absolute Auto 1.97 K/uL (0.90-2.90); Mean Corpuscular HGB Conc 32 gm/dL (32-36); Mean Corpuscular Hemoglobin 30 pg (26-34); Mean Corpuscular Volume 93 fL (80-100); RDW Coefficient of Variation % 13.1 % (11.5-15.5); Red Blood Count 3.88 m/uL (4.30-5.90); White Blood Count* 6.93 K/uL (4.50-11.00)
[2025-01-23 23:05] LABS: Chloride* 100 mmol/L (96-114); Potassium* 3.4 mmol/L (3.6-5.1); Slide Review Reflex No; Sodium* 137 mmol/L (135-149)
[2025-01-23 23:08] LABS: Anion Gap 6 mEq/L (7-15); Blood Urea Nitrogen* 24 mg/dL (7-30); Calcium* 9.1 mg/dL (8.4-10.6); Carbon Dioxide* 31 mmol/L (20-32); Creatinine* 1.5 mg/dL (0.5-1.5); Estimated Glomerular Filt Rate 45 ml/min; Glucose* 114 mg/dL (60-115)
[2025-01-23 23:56] VITALS: BP 111/67; BP 129/78; BP 131/78; PULSE 71; PULSE 79
[2025-01-24] MEDS: 0.9 % SODIUM CHLORIDE 500 ML 500 ML 1000 ML IV (00:01)
[2025-01-24 00:27] LABS: Appearance Urine Clear (Clear)
[2025-01-24 00:40] LABS: Lactate Sepsis w/Reflex* 2.0 mmol/L (0.5-1.9)
[2025-01-24 00:58] LABS: PCR FLU A Negative PCR FLU A (Negative); PCR FLU B Negative PCR FLU B (Negative); PCR RSV Negative PCR RSV (Negative); SARS PCR* Negative SARS-CoV-2 (Negative)
== END 2025-01-24 01:36 | disposition home or self-care (01) ==
PROVIDERS: Student in an Organized Health Care Education/Training Program; Emergency Provider Family Medicine; PCP Student in an Organized Health Care Education/Training Program
DX: R53.1 Weakness (principal)
CPT/HCPCS: 36415; 80048; 81001; 83605; 83735; 85025; 87631; 99284; J7030

== ENCOUNTER 2025-01-31 11:15 | Outpatient (REF) | payer MEDICARE, SELFPAY ==
[2025-01-31 12:17] LABS: Chloride* 101 mmol/L (96-114); Sodium* 136 mmol/L (135-149)
[2025-01-31 12:18] LABS: Potassium* 3.6 mmol/L (3.6-5.1)
[2025-01-31 12:20] LABS: Blood Urea Nitrogen* 16 mg/dL (7-30); Creatinine* 1.3 mg/dL (0.5-1.5); Estimated Glomerular Filt Rate 53 ml/min
[2025-01-31 12:21] LABS: Anion Gap 5 mEq/L (7-15); Calcium* 8.9 mg/dL (8.4-10.6); Carbon Dioxide* 30 mmol/L (20-32); Glucose* 185 mg/dL (60-115)
--- OUTSIDE RECORDS SUMMARY | 2025-02-01 00:17 | XMS_ITS ---
Author Name Auto Generated, Auto Generated Organization [facility] Functional Status No Results Mental Status No Results Allergies and Intolerances No Known Allergies Problems Active Concerns * Health care maintenance* Code: [id number] * Start Date: ThuJan 13 16:54:00 EDT 2024 * End Date: * Text: * Elevated PSA* Code: [id number] * Start Date: ThuOct 03 22:35:00 EDT 2024 * End Date: * Text: * Dizziness* Code: 515938297 * Start Date: ThuNov 21 13:56:00 EDT 2024 * End Date: * Text: * Unintentional weight loss* Code: 856343501 * Start Date: ThuDec 19 23:48:00 EDT 2024 * End Date: * Text: * Generalized weakness* Code: 02175850 * Start Date: ThuDec 19 23:48:00 EDT 2024 * End Date: * Text: * Frequent falls* Code: 858440649 * Start Date: ThuDec 19 23:48:00 EDT 2024 * End Date: * Text: * Failure to thrive in adult* Code: 617746933 * Start Date: ThuDec 21 08:04:00 EDT 2024 * End Date: * Text: * Hypokalemia* Code: 05559570 * Start Date: ThuJan 12 23:19:00 EDT 2024 * End Date: * Text: Reason for Referral
--- OUTSIDE RECORDS SUMMARY | 2025-02-01 00:17 | XMS_ITS ---
Author Name Auto Generated, Auto Generated Organization [facility] Functional Status No Results Mental Status No Results Allergies and Intolerances No Known Allergies Problems Active Concerns * Health care maintenance* Code: 373238677 * Start Date: ThuJan 13 16:54:00 EDT 2024 * End Date: * Text: * Elevated PSA* Code: 686452495 * Start Date: ThuOct 03 22:35:00 EDT 2024 * End Date: * Text: * Dizziness* Code: 066483153 * Start Date: ThuNov 21 13:56:00 EDT 2024 * End Date: * Text: * Unintentional weight loss* Code: 695993723 * Start Date: ThuDec 19 23:48:00 EDT 2024 * End Date: * Text: * Generalized weakness* Code: 75876744 * Start Date: ThuDec 19 23:48:00 EDT 2024 * End Date: * Text: * Frequent falls* Code: 252784556 * Start Date: ThuDec 19 23:48:00 EDT 2024 * End Date: * Text: * Failure to thrive in adult* Code: 342030206 * Start Date: ThuDec 21 08:04:00 EDT 2024 * End Date: * Text: * Hypokalemia* Code: 33740763 * Start Date: ThuJan 12 23:19:00 EDT 2024 * End Date: * Text: Reason for Referral
--- OUTSIDE RECORDS SUMMARY | 2025-02-01 00:18 | XMS_ITS | Clinical Summary ---
Author Organization [facility] Address [address] [address] Phone Care Team Providers Care Recycling Collections Driver Name Role Phone Unavailable Primary Care Provider [...]
--- OUTSIDE RECORDS SUMMARY | 2025-02-01 00:18 | XMS_ITS | Clinical Summary ---
Author Organization [facility] [facility] Address [address] [place] [id number] Care Team Providers Care Patient Accounts Manager Name Role Phone Alexandra Castelan DO Primary Care Provider [facility] Care, Angie Unavailable [phone] Allergies Active Allergy Reactions Criticality Noted Date [...] be used to read blood sugars per dairy and food laboratory assistant's directions. 1 Each 07/13/19 24 Active blood-glucose [...] be used to read blood sugars, follow dairy and food laboratory assistant directions. 6 Each 3 05/09/20 24 Active FreeStyle Emma 3 [place] for continuous blood glucose monitor (CGM)Indications: Type 2 diabetes mellitus with diabetic polyneuropathy, without long-term current use of insulin (HC) To be used to read blood sugars follow dairy and food laboratory assistant directions. 1 Each 05/09/20 24 Active docusate [...] Itching. 06/14/19 25 Active neomycin-bacitrac in-polymyxin (Neosporin, fpc-zhv-dzooo,) 3.5mg-400 unit-5,000 unit/gram ointment Apply topically to [...] BY MOUTH ONCE DAILY 30 Tablet 07/07/19 25 Active FreeStyle Emma 2 SensorIndications :Type 2 diabetes mellitus with diabetic polyneuropathy, without long-term current use of insulin (HC) To be used to read blood sugars per dairy and food laboratory assistant's directions. 6 Each 3 08/31/19 Active torsemide (DEMADEX) 20 mg tabletIndications [...] a meal. 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 08/29/2022 [...] Type Department Care Team Description 01/19/2025 Refill [facility] [address] [place] [address] Shaqra, Adei, DO Refill Request (Potassium Chloride) 12/22/2024 Refill [facility] [address] [place] [address] Barb Castelani, DO Refill Request (Metformin) 12/13/2024 Refill [facility] [address] [place] [address] Flip, Barbi, DO Refill Request (Torsemide, Mirtazapine) 11/21/2024 Refill [facility] [address] [place] [address] Flip, Barbi, DO Refill Request (Zinc Oxide) 11/03/2024 Orders Only [facility] Scanner 1 scan: (1-Ord) [place], CT CERVICAL SPINE WO CON, 11/03/2024 11/03/2024 Orders Only [facility] Scanner 1 scan: (1-Ord) [place], XR CHEST 2V, 11/03/2024 11/03/2024 Orders Only [facility] Scanner 1 scan: (1-Ord) [place], CT HEAD/BRAIN WO CON, 11/03/2024 from Last 3 Months Immunizations Immunization Administration Dates Next Due COVID-19 VACCINE SPIKEVAX (M ODERNA 50MCG/0.5ML) 12YO+ PFS 04/02/2023 COVID-19 vaccine (SysClassBio NTech 30mcg/0.3mL) 12YO+ RYAN-SUCROSE PF, MDV 10/22/2021 COVID-19 vaccine (SysClassBio NTech 30mcg/0.3mL) PF, MDV 04/23/2021,08/09/2020,07/19/2020 DT (Age [...] on file Legal Sex Male 5:26 AM [employer] Gender Identity Not on file Sexual Orientation [...] 188 cm (6' 2) 07/17/2023 1:14 PM [employer] Body Mass Index 24.52 07/17/2023 1:14 PM [employer] Plan of Treatment Health Maintenance Due Date [...] A HB ONLY [employer] MED[employer] ADVANTAGE [place] [id number] HC [employer] MED[employer]ARE PD Advance Directives Documents on File Type Date Recorded Patient Receiving Weigher Expl roberta POL 10/12/2023 * Full Code (Latest Code [...] 11:28 PM 05/08/2015 2:10 PM Care Teams Patient Accounts Manager Relationship Specialty Start Date End Date [place] [address] PCP - General Family Practice 10/29/22 [facility] [address] [place] [address] 01/08/24
== END 2025-01-31 11:16 | disposition home or self-care (01) ==
LOC: NPINS 11:15
PROVIDERS: PCP Student in an Organized Health Care Education/Training Program; Visit Provider Nurse Practitioner Gerontology
DX: E87.6 Hypokalemia (principal)
CPT/HCPCS: 80048